=== PATIENT | female | born 1975 | race Caucasian/White ===

== ENCOUNTER → 2017-09-28 15:49 | Outpatient (CLI) | payer BC, SELFPAY | PROVIDERS: Visit Provider Otolaryngology Otolaryngology/Facial Plastic Surgery | DX: J02.9 Acute pharyngitis, unspecified (principal) | CPT/HCPCS: 87070 ==

== ENCOUNTER → 2017-10-19 16:20 | Outpatient (CLI) | payer BC, SELFPAY | PROVIDERS: Family Provider Family Medicine; PCP Family Medicine; Visit Provider Otolaryngology Otolaryngology/Facial Plastic Surgery | DX: J02.9 Acute pharyngitis, unspecified (principal) | CPT/HCPCS: 87070 ==

== ENCOUNTER → 2019-06-01 15:20 | Outpatient (CLI) | payer BC, SELFPAY ==
[2019-06-01 17:05] LABS: ALB/GLOB Ratio 0.9 RATIO (0.9-2.4); AST(SGOT) 40 U/L (15-37); Alanine Aminotransfer ALT/SGPT 59 U/L (13-56); Albumin, Serum 3.5 g/dL (3.2-5.0); Alkaline Phosphatase 122 U/L (45-117); Anion Gap 4 (5-15); BUN 13 mg/dL (7-18); BUN/Creat Ratio 17.6 RATIO (10-20); Calcium,Total 8.8 mg/dL (8.5-10.1); Chloride 105 mmol/L (98-107); Cholesterol 204 mg/dL (200); Creatinine, Serum 0.74 mg/dL (0.55-1.02); EST Glomerular Filtration Rate 90 mL/min (>60); Est Glom Filt Rate - Afr Amer 109 mL/min (>60); Glucose 335 mg/dL (74-106); High Density Lipoprotein 45 mg/dL; Potassium 3.9 mmol/L (3.5-5.1); Protein, Total 7.5 g/dL (6.4-8.2); Sodium Level 135 mmol/L (136-145); Thyroid Stim Hormone (TSH) 1.09 uIU/mL (0.358-3.74); Triglycerides 132 mg/dL; Very Low Density Lipoprotein 26 mg/dL (5-40)
[2019-06-01 17:44] LABS: Microalbumin:Creatinine Ratio 38.3 mg/g CRE (<30 mg/g CRE)
== END ==
PROVIDERS: Family Provider Family Medicine; PCP Family Medicine; Referring Provider Internal Medicine Endocrinology, Diabetes & Metabolism; Visit Provider Internal Medicine Endocrinology, Diabetes & Metabolism
DX: E11.65 Type 2 diabetes mellitus with hyperglycemia (principal)
CPT/HCPCS: 36415; 80053; 80061; 82043; 82570; 84443

== ENCOUNTER → 2019-07-20 16:19 | Outpatient (CLI) | payer BC, SELFPAY ==
[2019-07-06 11:35] VITALS: BMI 45.1
--- NOTE | 2019-07-20 16:25 | RAD_ITS ---
HISTORY: rheumatoid arthritis of multiple sites with negative rheumatoid factor ADDITIONAL HISTORY: None provided. TECHNIQUE: Left hand 2 views Number of images including paperwork: 2 COMPARISON: None FINDINGS: BONES: No acute fracture. No definite erosive changes. JOINTS: No subluxation. SOFT TISSUES: No distinct foreign body. RAD/Hand 2 Views IMPRESSION: No acute findings. No definite erosive changes. at 0312 Reported and signed by: Krupa Lubin MD Electronically Signed: Krupa Lubin MD at 3:12 EST Tel , Service support ,
--- NOTE | 2019-07-20 16:25 | RAD_ITS ---
HISTORY: rheumatoid arthritis of multiple sites with negative rheumatoid factor ADDITIONAL HISTORY: None provided. TECHNIQUE: Right foot 2 views Number of images including paperwork: 2 COMPARISON: None FINDINGS: BONES: No acute fracture. No definite erosive changes. Small calcaneal enthesophytes. JOINTS: No subluxation. Mild degenerative changes of the first MTP joint and midfoot. SOFT TISSUES: No distinct foreign body. RAD/Foot 2 Views IMPRESSION: No acute osseous abnormality. Mild degenerative changes. No radiographic evidence of erosions. at 0211 Reported and signed by: Krupa Lubin MD Electronically Signed: Krupa Lubin MD at 2:11 EST Tel , Service support ,
--- NOTE | 2019-07-20 16:25 | RAD_ITS ---
HISTORY: rheumatoid arthritis of multiple sites with negative rheumatoid factor ADDITIONAL HISTORY: None provided. TECHNIQUE: Right hand 2 views Number of images including paperwork: 2 COMPARISON: None FINDINGS: BONES: No acute fracture. Slight irregularity of the base of the fifth metacarpal bone may be related to healed erosions. No other definite erosive changes. JOINTS: No subluxation. SOFT TISSUES: No distinct foreign body. RAD/Hand 2 Views IMPRESSION: No acute findings. Possible healed erosive changes of the fifth metacarpal base. at 0311 Reported and signed by: Krupa Lubin MD Electronically Signed: Krupa Lubin MD at 3:11 EST Tel , Service support ,
--- NOTE | 2019-07-20 16:25 | RAD_ITS ---
STUDY: X-RAY - PELVIS AND BILATERAL HIPS REASON FOR EXAM: Female, 44 years old. Rheumatoid arthritis of multiple sites with negative rheumatoid factor TECHNIQUE: AP view of the pelvis.? 2 views of the right hip, and 2 views of the left hip were obtained. COMPARISON: 2011 FINDINGS: There is a non-specific bowel gas pattern. Normal visualized soft tissue structures. Normal bilateral iliac wings, sacroiliac joints and visualized sacrum. Normal bilateral superior and inferior pubic rami. Normal pubic symphysis. Normal bilateral ischial tuberosities. Normal visualized right femoral head. Normal right acetabulum. Normal right hip joint. Normal visualized left femoral head. Normal left acetabulum. Normal left hip joint. RAD/Hips B/L min 2 views w/ Pelvis IMPRESSION: Normal x-ray examination of the pelvis and bilateral hips. Electronically Signed: Stephen Slater MD at 10:35 EST , Service support ,
--- NOTE | 2019-07-20 16:30 | RAD_ITS ---
HISTORY: rheumatoid arthritis of multiple sites with negative rheumatoid factor ADDITIONAL HISTORY: None provided. TECHNIQUE: Left foot 2 views Number of images including paperwork: 2 COMPARISON: None FINDINGS: BONES: No acute fracture. No definite erosive changes. Hallux valgus and metatarsus adductus. JOINTS: No subluxation. Mild to moderate degenerative changes of the first MTP joint. SOFT TISSUES: No distinct foreign body. RAD/Foot 2 Views IMPRESSION: Degenerative changes without acute osseous abnormality. No radiographic evidence of erosions. at 0242 Reported and signed by: Krupa Lubin MD Electronically Signed: Krupa Lubin MD at 2:42 EST Tel , Service support ,
== END ==
PROVIDERS: PCP Family Medicine
DX: M06.09 Rheumatoid arthritis without rheumatoid factor, multiple sites (principal)
CPT/HCPCS: 73120; 73521; 73620

== ENCOUNTER → 2019-10-19 11:17 | Outpatient (CLI) | payer BC, SELFPAY ==
[2019-09-24 10:53] VITALS: BMI 45.1
--- NOTE | 2019-10-19 12:00 | RAD_ITS ---
STUDY: X-RAY - RIGHT SHOULDER REASON FOR EXAM: Female, 44 years old. Acute pain. nki TECHNIQUE: 4 view(s) of the shoulder. COMPARISON: None. FINDINGS: Normal glenohumeral articulation. Normal acromioclavicular joint. Normal acromion. Normal humeral head and visualized proximal humerus. The soft tissue structures are unremarkable. Normal visualized pulmonary apex. RAD/Shoulder min 2 Views IMPRESSION: Normal x-ray examination of the shoulder. Electronically Signed: Guillermo Polo, at 14:25 EDT , Service support ,
[2019-10-19 12:29] LABS: Absolute Lymphocyte Count 1.86 X10^3/uL (0.83-4.51); Absolute Neutrophil Count 4.3 X10^3/uL (2.0-7.7); Basophil# 0.02 X10^3/uL; Basophil% 0.3 % (0-1); Eosinophils% 2.9 % (0-5); Hematocrit 40.3 % (37-47); Hemoglobin 13.5 g/dL (12.0-15.0); Lymphocyte # 1.86 X10^3/ul (4.0); Lymphocyte % 27.3 % (19-41); Mean Corp Hgb Conc 33.5 g/dL (32-36); Mean Corpuscular Volume 92.4 fL (81-99); Mean Platelet Vol. 10.1 fl (6.2-12.0); Monocyte# 0.41 X10^3/uL; NRBC Flagged by Analyzer 0 % (0-5); Neutrophil # 4.32 X10^3/uL (2.7-7.7); Neutrophil % 63.4 % (47-70); Platelet Count 162 K/mm3 (150-450); RBC Distribution Width CV 12.7 % (11.6-14.6); Red Blood Count 4.36 M/mm3 (4.2-5.4); White Blood Count 6.8 K/mm3 (4.4-11.0)
[2019-10-19 13:06] LABS: ALB/GLOB Ratio 0.9 RATIO (0.9-2.4); AST(SGOT) 29 U/L (15-37); Alanine Aminotransfer ALT/SGPT 33 U/L (13-56); Albumin, Serum 3.4 g/dL (3.2-5.0); Alkaline Phosphatase 84 U/L (45-117); Anion Gap 7 (5-15); BUN 13 mg/dL (7-18); BUN/Creat Ratio 22.5 RATIO (10-20); Calcium,Total 8.6 mg/dL (8.5-10.1); Chloride 110 mmol/L (98-107); Creatinine, Serum 0.58 mg/dL (0.55-1.02); EST Glomerular Filtration Rate 120 mL/min (>60); Est Glom Filt Rate - Afr Amer 145 mL/min (>60); Globulin 3.8 g/dL (2.2-4.2); Glucose 124 mg/dL (74-106); Potassium 3.5 mmol/L (3.5-5.1); Protein, Total 7.2 g/dL (6.4-8.2); Sodium Level 143 mmol/L (136-145)
== END ==
PROVIDERS: PCP Family Medicine
DX: M25.511 Pain in right shoulder (principal); Z79.899 Other long term (current) drug therapy
CPT/HCPCS: 36415; 73030; 80053; 85025

== ENCOUNTER → 2020-03-28 12:44 | Outpatient (CLI) | payer BC, SELFPAY ==
[2020-03-24 10:43] VITALS: BMI 41.8
[2020-03-28 13:05] LABS: Absolute Lymphocyte Count 1.65 X10^3/uL (0.83-4.51); Absolute Neutrophil Count 5.7 X10^3/uL (2.0-7.7); Basophil# 0.04 X10^3/uL; Basophil% 0.5 % (0-1); Eosinophil# 0.15 X10^3/uL; Eosinophils% 1.9 % (0-5); Hematocrit 41.3 % (37-47); Hemoglobin 14.1 g/dL (12.0-15.0); Lymphocyte # 1.65 X10^3/ul (4.0); Lymphocyte % 20.9 % (19-41); Mean Corp Hgb Conc 34.1 g/dL (32-36); Mean Corpuscular Hgb 32.6 pg (27.0-32.0); Mean Corpuscular Volume 95.6 fL (81-99); Mean Platelet Vol. 9.8 fl (6.2-12.0); Monocyte# 0.37 X10^3/uL; Monocyte% 4.7 % (0-10); NRBC Flagged by Analyzer 0 % (0-5); Neutrophil # 5.67 X10^3/uL (2.7-7.7); Neutrophil % 71.7 % (47-70); Platelet Count 175 K/mm3 (150-450); RBC Distribution Width CV 12.9 % (11.6-14.6); RBC Distribution Width SD 44.8 fl (35.1-43.9); Red Blood Count 4.32 M/mm3 (4.2-5.4); White Blood Count 7.9 K/mm3 (4.4-11.0)
[2020-03-28 13:14] LABS: Erythrocyte Sedimentation Rate 13 mm/hr (0-20)
[2020-03-28 13:25] LABS: ALB/GLOB Ratio 0.9 RATIO (0.9-2.4); AST(SGOT) 20 U/L (15-37); Alanine Aminotransfer ALT/SGPT 39 U/L (13-56); Albumin, Serum 3.6 g/dL (3.2-5.0); Alkaline Phosphatase 100 U/L (45-117); Anion Gap 4 (5-15); BUN 13 mg/dL (7-18); BUN/Creat Ratio 17.8 RATIO (10-20); CRP 3.85 mg/L (0.0-3.0); Chloride 109 mmol/L (98-107); Creatinine, Serum 0.73 mg/dL (0.55-1.02); EST Glomerular Filtration Rate 91 mL/min (>60); Est Glom Filt Rate - Afr Amer 110 mL/min (>60); Globulin 3.8 g/dL (2.2-4.2); Glucose 175 mg/dL (74-106); Potassium 3.9 mmol/L (3.5-5.1); Protein, Total 7.4 g/dL (6.4-8.2); Sodium Level 141 mmol/L (136-145)
== END ==
PROVIDERS: PCP Family Medicine
DX: Z79.899 Other long term (current) drug therapy (principal)
CPT/HCPCS: 36415; 80053; 85025; 85652; 86140

== ENCOUNTER → 2020-08-25 10:21 | Outpatient (CLI) | payer BC, SELFPAY ==
[2020-08-25 10:06] VITALS: BMI 38.2
[2020-08-25 10:24] LABS: Mucous, Urine 0 SEEN /hpf (<or=2+); Red Blood Cells-Urine 0 SEEN /hpf (0-5)
[2020-08-25 12:14] LABS: Color, Urine Yellow (Yellow); Glucose, Dipstick 1000 mg/dl (Normal); Ketone-Dipstick Negative (Negative); Leukocyte Esterase-Dipstick 100 /ul (Negative); Nitrite-Dipstick Positive (Negative); Occult Blood-Urine 10 /ul (Negative); Protein-Dipstick 15 mg/dl (Negative); Urine Bilirubin Dipstick Negative (Negative); Urine Clarity Clear (Clear); Urine Urobilinogen Normal (Normal)
[2020-08-25 12:33] LABS: Vitamin D,25 Hydroxy 12.3 ng/mL
[2020-08-25 12:34] LABS: Microalbumin,Random Urine 57.8 mg/L (NO RANGE EST.); Microalbumin:Creatinine Ratio 29.5 mg/g CRE (<30 mg/g CRE)
[2020-08-25 12:41] LABS: Bacteria 2+ /hpf (None Seen); White Blood Cells 25-50 SEEN /hpf (0-5)
[2020-08-25 12:42] LABS: Squamous Epithelial Cells - UA 0-5 SEEN /hpf (5-10)
[2020-08-25 12:51] LABS: AST(SGOT) 26 U/L (15-37); Alanine Aminotransfer ALT/SGPT 39 U/L (13-56); Albumin, Serum 3.5 g/dL (3.2-5.0); Alkaline Phosphatase 72 U/L (45-117); Anion Gap 3 (5-15); BUN 14 mg/dL (7-18); BUN/Creat Ratio 21.7 RATIO (10-20); Calcium,Total 8.8 mg/dL (8.5-10.1); Chloride 107 mmol/L (98-107); Cholesterol 178 mg/dL (200); Creatinine, Serum 0.64 mg/dL (0.55-1.02); EST Glomerular Filtration Rate 105 mL/min (>60); Est Glom Filt Rate - Afr Amer 127 mL/min (>60); Globulin 3.6 g/dL (2.2-4.2); Glucose 153 mg/dL (74-106); High Density Lipoprotein 57 mg/dL; Potassium 3.5 mmol/L (3.5-5.1); Protein, Total 7.1 g/dL (6.4-8.2); Sodium Level 140 mmol/L (136-145); Thyroid Stim Hormone (TSH) 0.74 uIU/mL (0.358-3.74); Triglycerides 69 mg/dL; Very Low Density Lipoprotein 14 mg/dL (5-40)
== END ==
PROVIDERS: PCP Family Medicine; Referring Provider Internal Medicine Endocrinology, Diabetes & Metabolism; Visit Provider Internal Medicine Endocrinology, Diabetes & Metabolism
DX: E11.9 Type 2 diabetes mellitus without complications (principal); E78.2 Mixed hyperlipidemia; E55.9 Vitamin D deficiency, unspecified; R30.0 Dysuria
CPT/HCPCS: 36415; 80053; 80061; 81001; 82043; 82306; 82570; 84443

== ENCOUNTER → 2020-11-25 06:56 | Outpatient (CLI) | payer BC, SELFPAY ==
[2020-08-25 10:06] VITALS: BMI 38.2
[2020-11-25] MEDS: Methacholine Chloride 18 ml neb kit INHALATION (07:19)
--- NOTE | 2020-11-25 08:54 | BRONCHALL_ITS ---
Bronchoprovocation Challenge Bronchoprovocation Challenge Bronchoprovocation Challenge: BRONCHOPROVOCATION STUDY INTERPRETATION Brief HPI: Patient is a 45 year old female, currently under the care of Dr. Magana, who presents to [facility] for a bronchoprovocation study secondary to diagnosis of cough. Respiratory therapist reports good effort and reproducible results. Interpretation: Initial spirometry showed no large airways obstructive ventilatory defect. The patient was then given increasingly concentrated doses of methacholine in a stepwise/standardized fashion, using a modified ATS protocol. The patient?s maximum reduction in FEV1 was 14 percent predicted. Impression: Negative Bronchoprovocation study. This is NOT consistent with the diagnosis of asthma.
== END ==
PROVIDERS: PCP Family Medicine; Referring Provider Internal Medicine Pulmonary Disease; Visit Provider Internal Medicine Pulmonary Disease
DX: R05 Cough (principal)
CPT/HCPCS: 94070; 95070

== ENCOUNTER → 2021-05-11 | Outpatient (CLI) | payer BC, SELFPAY | END | disposition home or self-care (01) | LOC: LABSPEC 05-12 10:36 | PROVIDERS: PCP Family Medicine; Referring Provider Family Medicine; Visit Provider Family Medicine | DX: Z20.828 Contact with and (suspected) exposure to other viral communicable diseases (principal) | CPT/HCPCS: 87633; 87635; U0005; U0003 ==

== ENCOUNTER → 2021-05-27 09:45 | Outpatient (CLI) | payer OTHER, SELFPAY ==
--- NOTE | 2021-05-27 09:55 | RAD_ITS ---
STUDY: X-RAY CHEST REASON FOR EXAM: Female, 46 years old. CHRONIC COUGH TECHNIQUE: PA and lateral views of the chest. COMPARISON: 2013 FINDINGS: There are interstitial changes of the lungs. There is no demonstrated pleural abnormality. Normal size heart. Normal mediastinum and junior. Normal visualized pulmonary arteries. Normal visualized aortic arch and descending thoracic aorta. Normal visualized thoracic spine. Normal visualized ribs, clavicles, and shoulders. There is no demonstrated abnormality of the visualized soft tissue structures of the upper abdomen. RAD/Chest PA and Lateral IMPRESSION: Chronic interstitial changes, no superimposed acute pulmonary process Electronically Signed: Stephne Slater MD at 14:54 EST , Service support ,
== END ==
PROVIDERS: PCP Family Medicine
DX: R05.3 Chronic cough (principal)
CPT/HCPCS: 71046

== ENCOUNTER → 2021-06-30 07:57 | Outpatient (CLI) | payer OTHER, SELFPAY ==
--- NOTE | 2021-06-30 08:00 | CT_ITS ---
STUDY: CT CHEST WITHOUT CONTRAST REASON FOR EXAM: Female, 46 years old. COUGH RADIATION DOSAGE (If Supplied By Facility): CTDIvol = ( 20.14 ) mGy, DLP = ( 786.26 ) mGycm TECHNIQUE: Transaxial imaging was performed without the administration of intravenous contrast material. Multiplanar coronal and sagittal images were reformatted. Individualized dose optimization techniques were used for this CT. COMPARISON: None. FINDINGS: The lungs are normal. There is no demonstrated pleural abnormality. There are calcifications of the coronary arteries. Normal mediastinum. Normal hilar regions. Normal unenhanced pulmonary arteries. There is scattered atherosclerotic calcification of the aortic arch. There are degenerative changes of the thoracic spine. Small hiatal hernia. CT/Chest without Contrast IMPRESSION: No pulmonary infiltrate is seen. Coronary artery calcification. Electronically Signed: Guillermo Polo MD at 10:43 EST ,
== END ==
PROVIDERS: PCP Family Medicine
DX: R05.3 Chronic cough (principal)
CPT/HCPCS: 71250

== ENCOUNTER → 2024-04-02 | Outpatient (CLI) | payer OTHER, SELFPAY ==
[2024-04-02 12:32] LABS: Absolute Lymphocyte Count 1.59 X10^3/uL (0.83-4.51); Absolute Neutrophil Count 3.6 X10^3/uL (2.0-7.7); Basophil# 0.03 X10^3/uL; Basophil% 0.5 % (0-1); Eosinophil# 0.19 X10^3/uL; Eosinophils% 3.3 % (0-5); Hematocrit 37.8 % (37-47); Hemoglobin 13.1 g/dL (12.0-15.0); Lymphocyte # 1.59 X10^3/ul (0.83-4.51); Lymphocyte % 27.6 % (19-41); Mean Corp Hgb Conc 34.7 g/dL (32-36); Mean Corpuscular Hgb 31.7 pg (27.0-32.0); Mean Corpuscular Volume 91.5 fL (81-99); Mean Platelet Vol. 9.7 fl (6.2-12.0); Monocyte# 0.33 X10^3/uL; Monocyte% 5.7 % (0-10); NRBC Flagged by Analyzer 0 % (0-5); Neutrophil # 3.62 X10^3/uL (2.7-7.7); Neutrophil % 62.7 % (47-70); Platelet Count 126 K/mm3 (150-450); RBC Distribution Width CV 12.7 % (11.6-14.6); RBC Distribution Width SD 42.2 fl (35.1-43.9); Red Blood Count 4.13 M/mm3 (4.2-5.4); White Blood Count 5.8 K/mm3 (4.4-11.0)
[2024-04-02 13:01] LABS: Vitamin B12 751 pg/mL (211-911); Vitamin D,25 Hydroxy 11.5 ng/mL
[2024-04-02 13:08] LABS: ALB/GLOB Ratio 0.8 RATIO (0.9-2.4); AST(SGOT) 30 U/L (15-37); Alanine Aminotransfer ALT/SGPT 28 U/L (13-56); Albumin, Serum 3.3 g/dL (3.2-5.0); Alkaline Phosphatase 89 U/L (45-117); Anion Gap 5 (5-15); BUN 17 mg/dL (7-18); BUN/Creat Ratio 20.7 RATIO (10-20); Chloride 108 mmol/L (98-107); Cholesterol 175 mg/dL (200); Creatinine, Serum 0.82 mg/dL (0.55-1.02); EST Glomerular Filtration Rate 78 mL/min (>60); Est Glom Filt Rate - Afr Amer 95 mL/min (>60); Ferritin 199 ng/mL (8-252); Globulin 4.1 g/dL (2.2-4.2); Glucose 113 mg/dL (74-106); High Density Lipoprotein 46 mg/dL; Microalbumin,Random Urine 25.4 mg/L (NO RANGE EST.); Microalbumin:Creatinine Ratio 25.8 mg/g CRE (<30 mg/g CRE); Potassium 3.3 mmol/L (3.5-5.1); Protein, Total 7.4 g/dL (6.4-8.2); Sodium Level 142 mmol/L (136-145); Triglycerides 95 mg/dL; Very Low Density Lipoprotein 19 mg/dL (5-40)
[2024-04-03 08:13] LABS: Thyroid Peroxidase AB < 9 IU/mL (0-34)
== END | disposition home or self-care (01) ==
LOC: LAB 12:18
PROVIDERS: PCP Family Medicine; Referring Provider Nurse Practitioner Family; Visit Provider Nurse Practitioner Family
DX: E11.42 Type 2 diabetes mellitus with diabetic polyneuropathy (principal); R53.83 Other fatigue
CPT/HCPCS: 36415; 80053; 80061; 82043; 82306; 82570; 82607; 82728; 84443; 85025; 86376

== ENCOUNTER 2025-01-08 07:56 | Observation (INO) | payer OTHER, SELFPAY ==
[2025-01-04 13:52] LABS: Partial Thromboplast Time 27.8 Seconds (24.1-36.2); Prothrombin Time (Protime)PT. 14.4 SECONDS (11.7-14.9)
[2025-01-04 14:27] LABS: Anion Gap 9 (5-15); BUN 21 mg/dL (4-19); BUN/Creat Ratio 20.3 RATIO (10-20); Calcium,Total 9.3 mg/dL (7.6-11.0); Carbon Dioxide 23.3 mmol/L (21.0-32.0); Chloride 108 mmol/L (98-108); Glucose 84 mg/dL (70-99); Potassium 4.1 mmol/L (3.3-5.1)
[2025-01-08] VITALS (15 sets, daily range): BP systolic 106–169; BP diastolic 58–84; PULSE 73–91; RESP 12–18; TEMP 35.7–36.8; O2SAT 89–100; BMI 34.2
--- OUTSIDE RECORDS SUMMARY | 2025-01-08 05:48 | XMS RPT_ITS | CCD ---
Author Organization [facility] Care Team Providers Care Farm Implement Mechanic Name Role Phone Mis CARVALHO, Zoila Willams Unavailable Lisbet Back LPN Unavailable Unavailable Unavailable Primary Care Provider UnavailDameon Delgado Primary Care Provider Zoila Abebe NP Unavailable [phone] Dameon Harris MD Primary Care Provider Dameon Harris MD Primary Care Provider Audelia Garcia DO Primary Care Provider [phone] Dameon Harris MD Primary Care Provider Audelia Garcia DO Primary Care Provider CELINA TIFFANY, TIFFANY~[phone] CELINA Attend ing Unavailable CELINA TIFFANY, TIFAFNY~[phone] CELINA Primar y Care Unavailable CELINA TIFFANY, TIFFANY~[phone] CELINA Admitt ing Unavailable Dr. Audelia Garcia DO Primary Care Provider Dr. Audelia Garcia DO Referring Provider [phone] Elinor Salinas Attending Provider [phone] Dr. Dallas Lind MD Attending Provider AUDELIA GARCIA Attending Unavailable SHEETSAUDELIA Referring Unavailable SHEETS, AUDELIA Tirado Primary Care Unavailable SHEETS, AUDELIA C Referring Unavailable SHEETS, AUDELIA C Primary Care Unavailable SHEETS, AUDELIA Tirado Attending Unavailable SHEETS, AUDELIA C Primary Care Unavailable TONI LARSON Referring Unavailable SHEETS, AUDELIA Tirado Primary Care Unavailable SHEETS, AUDELIA Tirado Referring Unavailable SHEETS, AUDELIA C Primary Care Unavailable SHEETS, AUDELIA C Referring Unavailable SHEETS, AUDELIA C Primary Care Unavailable MASCI, TONI A Attending Unavailable SHEETS, AUDELIA C Primary Care Unavailable MASCI, TONI A Referring Unavailable SHEETS, AUDELIA C Primary Care Unavailable MASCI, TONI A Referring Unavailable MASCI, TONI A Attending Unavailable SHEETS, AUDELIA C Primary Care Unavailable SHEETS, AUDELIA C Primary Care Unavailable SISKA, DALLAS Referring Unavailable MASCI, TONI A Attending Unavailable SHEETS, AUDELIA C Primary Care Unavailable MASCI, TONI A Referring Unavailable SHEETS, AUDELIA C Primary Care Unavailable MASCI, TONI A Referring Unavailable PROVIDER, UNKNOWN Admitting Unavailable PROVIDER, UNKNOWN Attending Unavailable SHEETS, AUDELIA C Primary Care Unavailable Sheets DO, Dr. Win Primary Care Provider Velvet BOTELLO, Dr. Win Referring Provider Aden EMBOSSING CLERK-CElinor Attending Provider Elinor Samaniego Attending Unavailable Steven, Dameon Primary Care Unavailable Steven, Dameon Referring Unavailable Aden, Elinor Attending Unavailable Sheets, Audelia Referring Unavailable Sheets, Audelia Primary Care Unavailable Rossy Arrington Attending Unavailable Sheets, Audelia Referring Unavailable Sheets, Audelia Primary Care Unavailable Aden, Elinor Attending Unavailable Sheets, Audelia Primary Care Unavailable Sheets, Audelia Referring Unavailable Siska, Dallas Attending Unavailable Sheets, Audelia Referring Unavailable Sheets, Audelia Primary Care Unavailable Aden, Elinor Attending Unavailable Sheets, Audelia Referring Unavailable Sheets, Audelia Primary Care Unavailable Siska, Dallas Attending Unavailable Sheets, Audelia Referring Unavailable Sheets, Audelia Primary Care Unavailable Aden, Elinor Attending Unavailable Steven, Dameon Primary Care Unavailable Steven, Dameon Referring Unavailable Aden, Elinor Attending Unavailable Aden, Elinor Referring Unavailable Sheets, Audelia Primary Care Unavailable Siska, Dallas Attending Unavailable Sheets, Audelia Primary Care Unavailable Siska, Dallas Referring Unavailable Aden, Elinor Attending Unavailable Sheets, Audelia Primary Care Unavailable Allergies Allergy Classification Reported Allergen(s) Allergy Type Date of Onset Reaction(s) Facility (5 sources) Adhesive Tape drug allergy 3 [facility] Work Phone: (20 sources) metFORMIN; Translations: [METFORMIN] Drug Allergy 4 Diarrhea, GI Upset [facility] (5 sources) Beeswax Propensity to adverse reactions to drug 4 Itching, Rash, Swelling [facility] (5 sources) *Adhesive Tape Propensity to adverse reactions 4 Itching, Rash [facility] (20 sources) Adhesive Tape; Translations: [ADHESIVE TAPE (ROSINS)] Allergy to substance 4 Rash, Itching [facility] (20 sources) Bees; Translations: [BEES] Allergy to substance 4 Rash, Swelling, Itching [facility] Work Phone: (20 sources) semaglutide; Translations: [SEMAGLUTIDE] Drug Allergy 3 Intolerance [facility] Work Phone: (20 sources) Lisinopril; Translations: [LISINOPRIL] Drug Allergy 3 Intolerance [facility] Work Phone: (20 sources) Metoclopramide; Translations: [METOCLOPRAMIDE ] Drug Allergy 3 Intolerance [facility] Work Phone: (3 sources) Adhesive Tape; Translations: [adhesive tape] Allergy to substance 5 Rash [facility] (2 sources) Jnnljiw-Qfn-Fmz Reductase Inhibitor Allergy to substance 5 cough [facility] (1 source) metFORMIN Drug Allergy 5 [facility] (1 source) Dmqymmr-Smi-Yup Reductase Inhibitor Drug allergy (disorder) 5 [facility] (1 source) semaglutide Drug allergy (disorder) 5 [facility] Medications Current Medications Medication Drug Class(es) Dates Sig (Normalized) Sig (Original) albuterol 0.83 mg/ml inhalation solution (20 sources) beta2-Adrenergic Agonist Start: 11-18-2020 take 2.5 mg by inhalation every four hours as needed albuterol (PROVENTIL) 2.5 mg /3 mL (0.083 %) nebulizer solution Use 3 mL via nebulizer every 4 hours as needed for wheezing/shortnes s of breath. OVER 5-15 MINUTES. FOR WHEEZING AND SHORTNESS OF BREATH. 90 mL 3 11/18/2020 Active End: 06-30-2020 albuterol (PROVENTIL) 2.5 mg /3 mL (0.083 %) nebulizer solution albuterol ALBUTEROL SULFATE NEBU 2 puffs l as needed ALBUTEROL SULFATE NEBU [id number] Davin Lopez [facility] ([id number]) 06/30/2020 Discontinued ALBUTEROL SULFAT E NEBU 2 puffs l as needed ALBUTEROL SULFATE NEBU [id number] Davin Lopez Comment on above: Use 3 mL via nebuliz er every 4 hours as needed for wheezing/shortness of breath. OVER 5-15 MINUTES. FOR WHEEZING AND SHORTNESS OF BREATH. aspirin 81 mg delayed release oral tablet (10 sources) Nonsteroidal Anti-inflammatory Drug Aspirin (PAULIE LOW D OSE) [address] tablet aspirin PAULIE LOW DOSE 81 MG TBEC One tablet by mouth daily ASPIRIN [id number] Davin Lopez [facility] ([address]) 0 Active take 1 tablet by mouth once berta y PAULIE LOW DOSE 81 MG TBEC One tablet by mouth daily ASPIRIN [id number] Davin Lopez Blood Glucose Control, Normal soln (20 sources) Start: 10-15-2022 Blood Glucose Control, Normal soln Indications: Uncontrolled type 2 diabetes mellitus with hyperglycemia (HCC) Use as directed 1 Each 1 10/15/2022 Active Comment on above: Use as directed 24 hr dilTIAZem hydrochloride 240 mg extended release oral capsule (1 source) Calcium Channel Cash Start: 07-18-2018 take 1 capsule by mouth once daily diltiazem 240 MG Cap SR 24HR Take 1 capsule by mouth daily. 30 capsule 07/18/2018 Active Start: 07-18-2018 take 1 capsule by mo [facility] once daily diltiazem 240 MG Cap SR 24HR Take 1 capsule by mouth daily. 30 capsule 07/18/2018 Active empagliflozin 25 mg oral tablet (20 sources) Sodium-Glucose Cotransporter 2 Inhibitor Start: 07-23-2024 End: 12-11-2024 take 1 tablet by mouth once daily in the morning Empagliflozin (Jardiance) 25 mg tablet Active 25 mg PO EVERY MORNING 90 December 11, 2024 7:55am Diabetes mellitus Type 2 diabetes mellitus with diabetic polyneuropathy Start: 03-02-2023 End: 05-15-2024 take 1 tablet by mouth once daily at breakfast empagliflozin (JARDIANCE) 10 mg tablet Take 1 tablet by mouth daily with breakfast. 90 tablet 1 04/05/2023 05/15/2024 Discontinued Start: 04-10-2020 End: 04-25-2020 take 1 tablet by mouth once daily Empagliflozin (Jardiance) 25 mg tablet Discontinued 25 mg PO DAILY 30 April 10, 2020 1:00am April 25, 2020 12:38pm Start: 07-09-2019 End: 07-09-2019 take 1 tablet by mouth once daily Empagliflozin (Jardiance) 25 mg tablet Discontinued 25 mg PO DAILY 30 July 09, 2019 1:00am July 09, 2019 4:13pm Comment on above: Take 1 tablet by abdulaziz th daily with breakfast. ergocalciferol 1.25 mg oral capsule (15 sources) Provitamin D2 Compound take 1 capsule by mouth every week ergocalciferol 50,000 unit capsule (VITAMIN D2, DRISDOL) Take 50,000 Units by mouth one time a week. Active 60 actuat fluticasone propionate 0.1 mg/actuat / salmeterol 0.05 mg/actuat dry powder inhaler (10 sources) Corticosteroid, beta2-Adrenergic Agonist fluticasone-salmeter ol (ADVAIR DISKUS) 100-50 MCG/DOSE Aerosol Powder, breath activated inhaler fluticasone / salmeterol ADVAIR DISKUS 100-50 MCG/DOSE AEPB once daily FLUTICASONE-SALMETEROL [id number] Davin Lopez [facility] ([id number]) 0 Active ADVAIR DISKUS 10 0-50 MCG/DOSE AEPB once daily FLUTICASONE-SALMETEROL [id number] Davin Lopez ADVAIR DISKUS 10 0-50 MCG/DOSE AEPB once daily FLUTICASONE-SALMETEROL [id number] Davin Lopez ADVAIR DISKUS 10 0-50 MCG/DOSE AEPB once daily FLUTICASONE-SALMETEROL [id number] Davin Lopez gabapentin 100 mg oral capsule (20 sources) Anti-epileptic Agent Start: 12-25-2024 take 1 capsule by mouth three times daily Gabapentin 100 mg capsule Active 100 mg PO THREE TIMES A DAY December 25, 2024 12:00am Start: 04-01-2020 End: 05-05-2023 take 1 capsule by mouth three times daily gabapentin (NEURONTIN) 100 mg capsule Indications: Rheumatoid arthritis involving multiple sites with positive rheumatoid factor (HCC) Take 1 capsule by mouth three times a day for 30 days. 90 capsule 04/05/2023 Active Comment on above: take as directed at bedtime for 1 week then take 1 capsule by abdulaziz... (REFER TO PRESCRIPTION NOTES). as directed Take 1 capsule by mo uth three times daily for 30 days. Take 1 capsule by mo uth three times a day for 30 days. 12 hr guaiFENesin 600 mg extended release oral tablet (1 source) Start: 2021 End: 2021 take 2 tablets by mouth twice daily guaiFENesin (MUCINEX) 600 mg 12 hr tablet Take 2 tablets by mouth twice daily for 5 days. 20 tablet 0 02/19/2022 02/24/2022 Active Comment on above: Take 2 tablets by mo [facility] twice daily for 5 days. hydroxychloroquine (20 sources) Antirheumatic Agent Start: 2024 take 1 tablet by mouth once daily hydrOXYchloroQUINE 100 mg tablet Take 1 tablet by mouth once daily. 10/23/2024 Active Start: 03-04-2020 End: 10-11-2022 take 2 tablets by mouth once daily at mealtime hydrOXYchloroQUINE (PLAQUENIL) 200 mg tablet take 2 tablets by mouth once daily with food or milk 03/04/2020 10/11/2022 Discontinued Start: 09-24-2019 End: 01-02-2024 take 1 tablet by mouth twice daily Hydroxychloroquine (Plaquenil) 200 mg tablet Discontinued 200 mg PO TWICE A DAY 1 0 September 24, 2019 12:00am January 02, 2024 11:52am Comment on above: take 2 tablets by mo [facility] once daily with food or milk 2 tablet with food o r milk 3 ml insulin glargine 100 unt/ml pen injector (20 sources) Insulin Analog Start: 01-30-2024 LANTUS SOLOSTAR U-100 INSULIN 100 unit/mL (3 mL) Inject 42 Units subcutaneously once daily. 01/30/2024 Active Start: 01-30-2024 End: 12-25-2024 Insulin Glargine (Lantus Berry ostar U-100 Insulin) 100 unit/mL (3 mL) insulin pen Active 50 U SC DAILY December 25, 2024 12:00am Start: 01-02-2024 End: 01-30-2024 Insulin Glargine (Lantus Berry ostar U-100 Insulin) 100 unit/mL (3 mL) insulin pen Discontinued 12 U SC EVERY EVENING 10.8 1 January 02, 2024 12:00am January 30, 2024 10:46am Diabetes mellitus Type 2 diabetes mellitus with diabetic polyneuropathy Start: 07-27-2023 End: 05-15-2024 inject 15 [IU] by subcutaneous injection once daily at bedtime insulin glargine U-300 conc (TOUJEO SOLOSTAR U-300 INSULIN) 300 unit/mL (1.5 mL) Inject 15 Units subcutaneously daily at bedtime. Please note this medication is 3 TIMES STRONG YOUR FORMER BEDTIME INSULIN 7.5 mL 07/27/2023 05/15/2024 Discontinued Start: 07-25-2023 End: 07-27-2023 insulin glargine (LANTUS BERRY OSTAR U-100 INSULIN) 100 unit/mL (3 mL) Indications: Type 2 diabetes mellitus with diabetic neuropathy, with long-term current use of insulin (HCC) Inject 40 Units subcutaneously daily at bedtime. 15 mL 0 07/25/2023 07/27/2023 Discontinued Start: 04-11-2023 End: 07-25-2023 inject 5 [IU] by subcutaneous injection once daily at bedtime insulin glargine (LANTUS SOLOSTAR U-100 INSULIN) 100 unit/mL (3 mL) Indications: Type 2 diabetes mellitus with diabetic neuropathy, with long-term current use of insulin (HCC) Inject 5 Units subcutaneously daily at bedtime. 15 mL 0 06/30/2023 07/25/2023 Discontinued Start: 04-05-2023 insulin glargi ne (LANTUS SOLOSTAR U-100 INSULIN) 100 unit/mL (3 mL) Indications: Type 2 diabetes mellitus with diabetic neuropathy, with long-term current use of insulin (HCC) 40 units every morning 15 mL 0 04/05/2023 Active Start: 02-01-2023 End: 04-05-2023 inject 5 [IU] by subcutaneous injection once daily at bedtime LANTUS SOLOSTAR U-100 INSULIN 100 unit/mL (3 mL) Indications: Type 2 diabetes mellitus with diabetic neuropathy, with long-term current use of insulin (HCC) Inject 5 Units subcutaneously daily at bedtime. 15 mL 0 03/04/2023 04/05/2023 Discontinued Start: 12-28-2022 insulin glargi ne (LANTUS SOLOSTAR U-100 INSULIN) 100 unit/mL (3 mL) Indications: Type 2 diabetes mellitus with diabetic neuropathy, with long-term current use of insulin (HCC) Inject 30 Units subcutaneously once daily. 0 12/28/2022 Active Start: 12-20-2022 End: 12-28-2022 insulin glargine (LANTUS BERRY OSTAR U-100 INSULIN) 100 unit/mL (3 mL) Indications: Type 2 diabetes mellitus with diabetic neuropathy, with long-term current use of insulin (HCC) Inject 20 Units subcutaneously once daily. 0 12/20/2022 12/28/2022 Discontinued Start: 11-18-2022 End: 12-20-2022 insulin glargine (LANTUS BERRY OSTAR U-100 INSULIN) 100 unit/mL (3 mL) Indications: Type 2 diabetes mellitus with diabetic neuropathy, with long-term current use of insulin (HCC) Inject 15 Units subcutaneously once daily. 0 11/18/2022 12/20/2022 Discontinued Start: 11-03-2022 End: 11-18-2022 inject 10 [IU] by subcutaneous injection once daily insulin glargine (LANTUS SOLOSTAR U-100 INSULIN) 100 unit/mL (3 mL) Indications: Type 2 diabetes mellitus with diabetic neuropathy, with long-term current use of insulin (HCC) Inject 10 Units subcutaneously once daily. 0 11/03/2022 11/18/2022 Discontinued Start: 10-27-2022 End: 11-03-2022 inject 5 [IU] by subcutaneous injection once daily at bedtime insulin glargine (LANTUS SOLOSTAR U-100 INSULIN) 100 unit/mL (3 mL) Inject 5 Units subcutaneously daily at bedtime. 5 Each 0 10/27/2022 11/03/2022 Discontinued Comment on above: Inject 5 Units subcutaneously daily at b edtime. Inject 10 Units subc utaneously once daily. Inject 15 Units subc utaneously once daily. Inject 20 Units subc utaneously once daily. Inject 30 Units subc utaneously once daily. 40 units every morni ng Inject 40 Units subc utaneously daily at bedtime. Inject 15 Units subc utaneously daily at bedtime. Please note this medication is 3 TIMES STRONG YOUR FORMER BEDTIME INSULIN MOUNJARO 12.5 mg/0.5 mL pen injector (15 sources) Start: inject 15 mg by subcutaneous injection every week MOUNJARO 12.5 mg/0.5 mL pen injector Inject 15 mg subcutaneously one time a week. 04/25/2024 Active Start: 04-25-2024 inject 12.5 mg by lawler bcutaneous injection every week MOUNJARO 12.5 mg/0.5 mL pen injector Inject 12.5 mg subcutaneously one time a week. 04/25/2024 Active ondansetron 4 mg oral tablet (20 sources) Serotonin-3 Receptor Antagonist Start: 01-11-2023 take 1 tablet by mouth every eight hours as needed for nausea ondansetron (ZOFRAN) 4 mg tablet Indications: Gastroparesis Take 1 tablet by mouth every 8 hours as needed for nausea/vomiting. 30 tablet 2 01/11/2023 Active Start: 12-28-2022 take 1 tablet by abdulaziz th every eight hours as needed ondansetron (ZOFRAN) 4 mg tablet Take 1 tablet by mouth every 8 hours as needed for nausea/vomiting. 30 tablet 0 12/28/2022 Active Comment on above: Take 1 tablet by abdulaziz th every 8 hours as needed for nausea/vomiting. predniSONE 10 mg oral tablet (1 source) Start: End: predniSONE (DELTASONE) 10 mg tablet Take 6 tabs for 3 days, then 4 tabs for 3 days, then 2 tabs for 3 days then 1 tab for 3 days with food. 39 tablet 0 02/19/2022 03/03/2022 Active Comment on above: Take 6 tabs for 3 da ys, then 4 tabs for 3 days, then 2 tabs for 3 days then 1 tab for 3 days with food. spironolactone 50 mg oral tablet (20 sources) Aldosterone Antagonist Start: take 1 tablet by mouth twice daily Spironolactone 50 mg tablet Active 50 mg PO TWICE A DAY 180 October 22, 2024 12:00am Start: 07-23-2024 End: 10-22-2024 take 2 tablets by mouth once daily Spironolactone 25 mg tablet Discontinued 50 mg PO daily 180 July 23, 2024 2:50pm October 22, 2024 4:22pm Hypertension Essential (primary) hypertension Start: 04-02-2024 End: 07-23-2024 take 1 tablet by mouth once daily Spironolactone 25 mg tablet Discontinued 25 mg PO daily 30 April 02, 2024 1:00am July 23, 2024 2:50pm Hypertension Essential (primary) hypertension take 2 tablets by mo [facility] twice daily spironolactone (ALDACTONE) 25 mg tablet Take 50 mg by mouth two times a day. Active take 1 tablet by abdulaziz twice daily spironolactone (ALDACTONE) 25 mg tablet Take 25 mg by mouth two times a day. Active End: 01-18-2017 take 1 tablet by mouth twice daily SPIRONOLACTONE 50 MG TABS One tablet by mouth twice daily SPIRONOLACTONE [id number] Davin Les Lopez Tirzepatide (Mounjaro) 15 mg/0.5 mL pen injector (3 sources) Start: 12-10-2024 Tirzepatide (M ounjaro) 15 mg/0.5 mL pen injector Active 15 mg SC EVERY WEEK 2 December 10, 2024 12:05pm Diabetes mellitus Type 2 diabetes mellitus with diabetic polyneuropathy Start: 07-23-2024 End: 12-10-2024 Tirzepatide (Mounjaro) 15 mg /0.5 mL pen injector Discontinued 15 mg SC EVERY WEEK 2 July 23, 2024 1:00am December 10, 2024 12:05pm Diabetes mellitus Type 2 diabetes mellitus with diabetic polyneuropathy Start: 07-23-2024 Tirzepatide (M ounjaro) 15 mg/0.5 mL pen injector Active 15 mg SC EVERY WEEK July 23, 2024 1:00am Completed/Discontinued Medications Medication Drug Class(es) Dates Sig (Normalized) Sig (Original) amLODIPine 5 mg oral tablet (2 sources) Dihydropyridine Calcium Channel Cash Start: 12-13-2013 End: 09-24-2019 take 1 tablet by mouth once daily Amlodipine 5 MG tablet Discontinued 5 mg PO DAILY 14 0 December 13, 2013 12:00am September 24, 2019 10:30am ascorbic acid 4700 mg / polyethylene glycol 3350 [id number] mg / potassium chloride 1015 mg / sodium ascorbate 5900 mg / sodium chloride 2690 mg / sodium sulfate 7500 mg powder for oral solution (5 sources) Osmotic Laxative Start: 05-30-2012 End: 06-22-2012 MOVIPREP 100 GM SOLR use as per instructions [id number] LF-NA ASC-C [id number] Estelita Hare Start: 05-30-2012 End: 06-22-2012 MOVIPREP 100 GM SOLR use as per instructions [id number] ASC-C [id number] Estelita Hare Start: 05-30-2012 End: 06-22-2012 MOVIPREP 100 GM SOLR use as per instructions [id number] ASC-C [id number] Estelita Hare benzonatate 100 mg oral capsule (2 sources) Non-narcotic Antitussive Start: 02-19-2022 take 2 capsules by mouth every eight hours as needed benzonatate (TESSALON PERLES) 100 mg capsule Take 2 capsules by mouth three times daily as needed. 30 capsule 0 02/19/2022 Active Comment on above: Take 2 capsules by m out three times daily as needed. Blood-Glucose Meter (1 source) Start: 10-15-2022 End: 10-16-2022 Blood-Glucose Meter Indications: Uncontrolled type 2 diabetes mellitus with hyperglycemia (HCC) Test One time a day. Insulin Dep? No E11.9 DM 2 1 Each 0 10/15/2022 10/16/2022 Comment on above: Test One time a day. Insulin Dep? No E11.9 DM 2 Blood-Glucose Sensor (Freestyle Audi 3 Plus Sensor) device (2 sources) Start: 2024 End: 07-23-2024 Blood-Glucose Sensor (Freestyle Audi 3 Plus Sensor) device Discontinued 0 .Route 2 2024 12:00am July 23, 2024 2:11pm As directed Start: 2024 End: 07-23-2024 Blood-Glucose Sensor (Freest yle Audi 3 Plus Sensor) device Discontinued 0 .Route 2 2024 12:00am July 23, 2024 2:11pm As directed Blood-Glucose Sensor (Freest yle Audi 3 Sensor) device (2 sources) Start: 01-02-2024 End: 07-23-2024 Blood-Glucose Sensor (Freest yle Audi 3 Sensor) device Discontinued 0 .Route 2 January 02, 2024 12:00am July 23, 2024 2:11pm Diabetes mellitus Type 2 diabetes mellitus with diabetic polyneuropathy 1 sensor q 14 days Start: 01-02-2024 End: 07-23-2024 Blood-Glucose Sensor (Freest yle Audi 3 Sensor) device Discontinued 0 .Route 2 January 02, 2024 12:00am July 23, 2024 2:11pm 1 sensor q 14 days cholecalciferol 1.25 mg oral capsule (4 sources) Vitamin D Start: 07-23-2024 End: 10-10-2024 take 1 capsule by mouth every month Cholecalciferol (Vitamin D3) 1,250 mcg (50,000 unit) capsule Discontinued 1250 ug PO EVERY MONTH July 23, 2024 2:48pm October 10, 2024 12:55pm Vitamin d deficiency Vitamin D deficiency, unspecified Start: 04-02-2024 End: 07-23-2024 take 1 capsule by mouth every week Cholecalciferol (Vitamin D3) 1,250 mcg (50,000 unit) capsule Discontinued 1250 ug PO EVERY WEEK April 02, 2024 1:00am July 23, 2024 2:48pm Vitamin d deficiency Vitamin D deficiency, unspecified dapagliflozin 10 mg oral tablet (20 sources) Sodium-Glucose Cotransporter 2 Inhibitor Start: 04-25-2020 End: 01-02-2024 take 1 tablet by mouth once daily Dapagliflozin Propanediol (Farxiga) 10 mg tablet Discontinued 10 mg PO DAILY 19 11May 26, 2021 11:46am January 02, 2024 12:06pm Comment on above: Take 10 mg by mouth once daily. Take 1 tablet by abdulaziz daily with breakfast. DULoxetine 30 mg delayed release oral capsule (5 sources) Serotonin and Norepinephrine Reuptake Inhibitor Start: 04-10-2020 End: 10-11-2022 take 1 capsule by mouth once daily DULoxetine (CYMBALTA) 30 mg capsule take 1 capsule by mouth once daily for 30 DAYS 04/10/2020 10/11/2022 Discontinued Comment on above: take 1 capsule by [facility] once daily for 30 DAYS ertugliflozin 15 mg oral tablet (10 sources) Start: 07-06-2019 End: 04-10-2020 take 1 tablet by mouth once daily in the morning Ertugliflozin (Steglatro) 15 mg tablet Discontinued 15 mg PO EVERY MORNING 30 April 01, 2020 11:36am April 10, 2020 10:10am esomeprazole 40 mg delayed release oral capsule (5 sources) Proton Pump Inhibitor Start: 05-30-2020 End: 10-07-2022 take 1 capsule by mouth once daily esomeprazole (NEXIUM) 40 mg capsule Take 1 capsule by mouth once daily. 30 capsule 3 05/30/2020 10/07/2022 Discontinued Comment on above: Take 1 capsule by [facility] once daily. [id number]-B12- C-Zn 1 mg-1.5 mg- 1.7 mg-50 mg tab (4 sources) End: 10-11-2022 [id number] -C-Zn 1 mg-1.5 mg- 1.7 mg-50 mg tab 1 tablet 10/11/2022 Discontinued [id number]-[id number] 12-C-Zn 1 mg-1.5 mg- 1.7 mg-50 mg tab 1 tablet 0 Active Comment on above: 1 tablet Flash Glucose Sensor (Freestyle Audi 2 Sensor) kit (2 sources) Start: 05-26-2021 End: 01-02-2024 Flash Glucose Sensor (Freestyle Audi 2 Sensor) kit Discontinued 0 .ROUTE .MEDSUPPLY 2 May 26, 2021 1:00am January 02, 2024 12:14pm As directed Start: 05-26-2021 End: 01-02-2024 Flash Glucose Sensor (Freest yle Audi 2 Sensor) kit Discontinued 0 .ROUTE .MEDSUPPLY 2 May 26, 2021 1:00am January 02, 2024 12:14pm As directed fluconazole 200 mg oral tablet (8 sources) Azole Antifungal Start: 01-02-2024 End: 04-02-2024 take 1 tablet by mouth once daily Fluconazole (Diflucan) 200 mg tablet Discontinued 200 mg PO DAILY 2 January 30, 2024 1:41pm April 02, 2024 12:18pm Candidiasis of vagina Acute candidiasis of vulva and vagina 1 tab, repeat in 48 hours. folic acid 1 mg oral tablet (7 sources) Start: 09-24-2019 End: 01-02-2024 take 1 tablet by mouth once daily Folic Acid 1 mg tablet Discontinued 1 mg PO DAILY 1 September 24, 2019 12:00am January 02, 2024 11:52am Comment on above: Take 1 mg by mouth o nce daily. glimepiride 1 mg oral tablet (14 sources) Sulfonylurea Start: 01-28-2021 End: 01-02-2024 Glimepiride 1 mg tablet Discontinued 1 mg PO DAILY 90 May 26, 2021 11:47am January 02, 2024 12:06pm PA Case: [id number], Status: Approved, Coverage Starts on: 01/28/2021 12:00:00 AM, Coverage Ends on: 01/28/2022 12:00:00 AM. Start: 01-27-2021 End: 01-28-2021 take 1 tablet by mouth once daily Glimepiride 1 mg tablet Discontinued 1 mg PO DAILY 90 January 27, 2021 12:00am January 28, 2021 11:05am Start: 06-19-2019 End: 03-24-2020 take 1 tablet by mouth twice daily at breakfast Glimepiride 4 mg tablet Discontinued 4 mg PO TWICE A DAY 180 September 24, 2019 10:40am March 24, 2020 11:45am administer with breakfast Start: 06-01-2019 End: 06-19-2019 take 1 tablet by mouth once daily at breakfast Glimepiride 4 mg tablet Discontinued 4 mg PO EVERY MORNING 60 June 01, 2019 1:00am June 19, 2019 3:04pm administer with breakfast hydroCHLOROthiazide 25 mg oral tablet (20 sources) Thiazide Diuretic Start: 11-03-2022 End: 05-15-2024 take 1 tablet by mouth once daily hydroCHLOROthiazide 25 mg tablet Indications: Hypertension, essential Take 1 tablet by mouth once daily. 90 tablet 1 04/05/2023 05/15/2024 Discontinued Start: 10-15-2022 End: 10-27-2022 take 1 tablet by mouth once daily hydroCHLOROthiazide 25 mg tablet Indications: Hypertension, essential Take 1 tablet by mouth once daily. 30 tablet 0 10/15/2022 10/27/2022 Discontinued Comment on above: Take 1 tablet by abdulaziz th once daily. hydroCHLOROthiazide 12.5 mg / lisinopril 10 mg oral tablet (4 sources) Thiazide Diuretic, Angiotensin Converting Enzyme Inhibitor Start: 01-02-2024 End: 04-02-2024 Lisinopril-Hydrochlorot hiazide 10-12.5 mg tablet Discontinued 1 {tbl} PO DAILY 30 5 January 02, 2024 3:51pm April 02, 2024 4:07pm Diabetes mellitus Hypertension Type 2 diabetes mellitus with diabetic polyneuropathy Essential (primary) hypertension 3 ml insulin lispro 100 unt/ml pen injector (12 sources) Insulin Analogue Start: 01-30-2024 End: 11-05-2024 Insulin Lispro (Humalog Kwikpen Insulin) 100 unit/mL insulin pen Discontinued 15 U SC THREE TIMES A DAY 13.5 5 June 25, 2024 5:48pm November 05, 2024 8:51am Diabetes mellitus Type 2 diabetes mellitus with diabetic polyneuropathy insulin lispro ( HUMALOG KWIKPEN) 100 UNIT/ML Solution Pen-injector insulin lispro HUMALOG KWIKPEN 100 UNIT/ML SOPN 10U at breakfast, 10U at lunch, and 12 U at supper INSULIN LISPRO [id number] Zoila Abebe NP [facility] ([id number]) 0 Active HUMALOG KWIKPEN 100 UNIT/ML SOPN 10U at breakfast, 10U at lunch, and 12 U at supper INSULIN LISPRO [id number] Zoila Abebe NP HUMALOG KWIKPEN 100 UNIT/ML SOPN 10U at breakfast, 10U at lunch, and 12 U at supper INSULIN LISPRO [id number] Zoila Abebe NP HUMALOG KWIKPEN 100 UNIT/ML SOPN 10U at breakfast, 10U at lunch, and 12 U at supper INSULIN LISPRO [id number] Zoila Abebe NP lisinopril 10 mg oral tablet (20 sources) Angiotensin Converting Enzyme Inhibitor Start: 10-15-2022 End: 10-27-2022 take 1 tablet by mouth once daily lisinopril 2.5 mg tablet Indications: Hypertension, essential Take 1 tablet by mouth once daily. 30 tablet 0 10/15/2022 10/27/2022 Discontinued Start: 01-18-2017 End: 04-20-2025 lisinopril 5 MG Tab tablet E very 24 hours. 0 01/18/2017 04/20/2025 Active Start: 01-18-2017 End: 04-20-2025 take 1 tablet by mouth once daily Lisinopril 10 mg tablet Discontinued 10 mg PO daily 30 April 02, 2024 1:00am October 22, 2024 1:21pm Hypertension Essential (primary) hypertension LISINOPRIL 5 MG TABS qd LISINOPRIL [id number] Lisbet Back LPN Comment on above: Take 1 tablet by abdulaziz th once daily. losartan potassium 25 mg oral tablet (20 sources) Angiotensin 2 Receptor Cash Start: End: take 1 tablet by mouth once daily losartan (COZAAR) 25 mg tablet Indications: Hypertension, essential take 1 tablet by mouth once daily 30 tablet 07/25/2023 05/15/2024 Discontinued Start: 11-18-2022 End: 12-31-2022 take 1 tablet by mouth once daily losartan (COZAAR) 25 mg tablet Indications: Hypertension, essential TAKE 1 TABLET BY MOUTH ONCE DAILY 30 tablet 0 12/31/2022 Active Comment on above: Take 1 tablet by abdulaziz th once daily. TAKE 1 TABLET BY ABDULAZIZ TH ONCE DAILY meloxicam 15 mg oral tablet (20 sources) Nonsteroidal Anti-inflammatory Drug Start: 09-24-2019 meloxicam (MOBIC ORAL) Take by mouth. 0 09/24/2019 Active Start: 09-24-2019 End: 11-05-2024 take 1 tablet by mouth once daily Meloxicam 15 mg tablet Discontinued 15 mg PO DAILY 1 0 September 24, 2019 12:00am January 02, 2024 11:52am Meloxicam (MOBIC PO) meloxicam MOBIC TABS prn MELOXICAM TABS [id number] Lisbet Back LPN [facility] ([id number]) 0 Active MOBIC TABS prn M ELOXICAM TABS [id number] Lisbet Back LPN Comment on above: Take 15 mg by mouth once daily. Take by mouth. metFORMIN hydrochloride 500 mg oral tablet (11 sources) Biguanide Start: End: take 1 tablet by mouth twice daily at mealtime Metformin 500 MG tablet Discontinued 500 mg PO TWICE DAILY WITH MEALS December 13, 2013 12:00am July 06, 2019 12:39pm End: 01-18-2017 take 1 tablet by mouth twice daily METFORMIN HCL ER (OSM) 500 MG [id number] One tablet by mouth twice daily METFORMIN HCL [id number] Lisbet Back LPN 0.4 ml methotrexate 50 mg/ml auto-injector (7 sources) Folate Analog Metabolic Inhibitor Start: 06-10-2020 End: 10-11-2022 Rasuvo (PF) 20 mg/0.4 mL subcutaneous auto-injector 06/10/2020 10/11/2022 Discontinued Start: 03-08-2020 End: 06-30-2020 Rasuvo (PF) 15 mg/0.3 mL sub cutaneous auto-injector 03/08/2020 06/30/2020 Discontinued Start: 09-24-2019 End: 01-02-2024 Methotrexate (Pf) (Rasuvo (P f)) 10 mg/0.2 mL auto-injector Discontinued 10 mg SC EVERY WEEK 0.2 0 September 24, 2019 12:00am January 02, 2024 11:52am metoclopramide 5 mg oral tablet (10 sources) Dopamine-2 Receptor Antagonist Start: 10-11-2022 End: 10-27-2022 take 1 tablet by mouth at bedtime metoclopramide HCl (REGLAN) 5 mg tablet Take 1 tablet by mouth before meals and at bedtime. 120 tablet 4 10/11/2022 10/27/2022 Discontinued Start: 05-30-2020 End: 10-07-2022 take 1 tablet by mouth four times daily metoclopramide HCl (REGLAN) 10 mg tablet Take 1 tablet by mouth four times daily. 120 tablet 3 05/30/2020 10/07/2022 Discontinued Comment on above: Take 1 tablet by abdulaziz th four times daily. Take 1 tablet by abdulaziz th before meals and at bedtime. nitrofurantoin, macrocrystals 25 mg / nitrofurantoin, monohydrate 75 mg oral capsule (2 sources) Nitrofuran Antibacterial Start: End: take 1 capsule by mouth twice daily at mealtime Nitrofurantoin Monohyd/M-Cryst (Macrobid) 100 mg capsule Discontinued 100 mg PO TWICE A DAY 14 0 August 25, 2020 12:00am January 02, 2024 11:52am must administer with a meal/food polyethylene glycol 3350 45543 mg powder for oral solution (12 sources) Osmotic Laxative Start: 023 End: polyethylene glycol 3350 (MIRALAX) 17 gram/dose powder Take 17 g by mouth three times daily. Dissolve dose in 4 - 8 ounces of liquid and take as directed. 850 g 4 10/11/2022 11/18/2022 Discontinued (Other) Start: 06-30-2020 End: 10-07-2022 polyethylene glycol 3350 (AZ RALAX) 17 gram/dose powder Take 34 g by mouth twice daily. 850 g 3 06/30/2020 10/07/2022 Discontinued Comment on above: Take 34 g by mouth t wice daily. Take 17 g by mouth t hree times daily. Dissolve dose in 4 - 8 ounces of liquid and take as directed. polyethylene glycol 3350 337601 mg / potassium chloride 2970 mg / sodium bicarbonate 6740 mg / sodium chloride 5860 mg / sodium sulfate 58144 mg powder for oral solution (8 sources) Osmotic Laxative Start: 10-11-2022 End: 11-18-2022 GAVILYTE-G 236-22.74-6.74 -5.86 gram suspension 1 mg dose 1.5 ml semaglutide 1.34 mg/ml pen injector (9 sources) Start: 03-25-2020 End: 10-07-2022 OZEMPIC 1 mg/dose (2 mg/1.5 mL) pnij inject 1 milligram subcutaneously every 7 days 03/25/2020 10/07/2022 Discontinued Start: 03-24-2020 End: 03-24-2020 Semaglutide (Ozempic) 0.25 m g or 0.5 mg(2 mg/1.5 mL) pen injector Discontinued 1 mg SC EVERY WEEK 3 0 6 March 24, 2020 12:05pm March 24, 2020 5:51pm Start: 09-24-2019 End: 03-24-2020 Semaglutide (Ozempic) 0.25 m g or 0.5 mg(2 mg/1.5 mL) pen injector Discontinued 0.5 mg SC EVERY WEEK 1.5 0 6 September 24, 2019 12:00am March 24, 2020 12:06pm Comment on above: inject 1 milligram s ubcutaneously every 7 days Semaglutide (Ozempic) 1 mg/dose (2 mg/1.5 mL) pen injector (2 sources) Start: 03-24-2020 End: 08-25-2020 Semaglutide (Ozempic) 1 mg/dose (2 mg/1.5 mL) pen injector Discontinued 1 mg SC EVERY WEEK 3 6 March 24, 2020 1:00am August 25, 2020 10:12am Start: 03-24-2020 End: 08-25-2020 Semaglutide (Ozempic) 1 mg/d ose (2 mg/1.5 mL) pen injector Discontinued 1 mg SC EVERY WEEK 3 March 24, 2020 1:00am August 25, 2020 10:12am thyroid (fpc) 30 mg oral tablet (9 sources) End: 01-18-2017 take 1 tablet by mouth twice daily BURR THYROID 30 MG TABS One tablet by mouth twice daily THYROID [id number] Lisbet Back LPN Tirzepatide (Mounjaro) 10 mg/0.5 mL pen injector (2 sources) Start: 04-02-2024 End: 04-25-2024 Tirzepatide (Mounjaro) 10 mg/0.5 mL pen injector Discontinued 10 mg SC EVERY WEEK 2 April 02, 2024 1:00am April 25, 2024 2:22pm Diabetes mellitus Type 2 diabetes mellitus with diabetic polyneuropathy Start: 04-02-2024 End: 04-25-2024 Tirzepatide (Mounjaro) 10 mg /0.5 mL pen injector Discontinued 10 mg SC EVERY WEEK 2 April 02, 2024 1:00am April 25, 2024 2:22pm Tirzepatide (Mounjaro) 12.5 mg/0.5 mL pen injector (4 sources) Start: 06-06-2024 End: 07-23-2024 Tirzepatide (Mounjaro) 12.5 mg/0.5 mL pen injector Discontinued 12.5 mg SC EVERY WEEK June 06, 2024 1:00am July 23, 2024 2:47pm Start: 04-25-2024 End: 07-23-2024 Tirzepatide (Mounjaro) 12.5 mg/0.5 mL pen injector Discontinued 12.5 mg SC EVERY WEEK 2 April 25, 2024 1:00am July 23, 2024 2:11pm Diabetes mellitus Type 2 diabetes mellitus with diabetic polyneuropathy Start: 04-25-2024 End: 07-23-2024 Tirzepatide (Mounjaro) 12.5 mg/0.5 mL pen injector Discontinued 12.5 mg SC EVERY WEEK April 25, 2024 1:00am July 23, 2024 2:11pm tirzepatide (MOUNJARO) 2.5 mg/0.5 mL pen injector (13 sources) Start: 12-20-2022 End: 04-05-2023 inject 2.5 mg by subcutaneous injection every week tirzepatide (MOUNJARO) 2.5 mg/0.5 mL pen injector Inject 2.5 mg subcutaneously one time a week. 4 Each 2 12/20/2022 04/05/2023 Discontinued Start: 12-20-2022 inject 2.5 mg by sub cutaneous injection every week tirzepatide (MOUNJARO) 2.5 mg/0.5 mL pen injector Inject 2.5 mg subcutaneously one time a week. 4 Each 2 12/20/2022 Active Comment on above: Inject 2.5 mg subcut aneously one time a week. Tirzepatide (Mounjaro) 2.5 mg/0.5 mL pen injector (2 sources) Start: 01-02-2024 End: 01-30-2024 Tirzepatide (Mounjaro) 2.5 mg/0.5 mL pen injector Discontinued 2.5 mg SC EVERY WEEK 2 January 02, 2024 12:00am January 30, 2024 10:36am Diabetes mellitus Type 2 diabetes mellitus with diabetic polyneuropathy for 4 weeks Start: 01-02-2024 End: 01-30-2024 Tirzepatide (Mounjaro) 2.5 m g/0.5 mL pen injector Discontinued 2.5 mg SC EVERY WEEK January 02, 2024 12:00am January 30, 2024 10:36am for 4 weeks tirzepatide (MOUNJARO) 5 mg/0.5 mL pen injector (8 sources) Start: 04-05-2023 End: 05-15-2024 inject 5 mg by subcutaneous injection every week tirzepatide (MOUNJARO) 5 mg/0.5 mL pen injector Inject 5 mg subcutaneously one time a week. 2 mL 2 04/05/2023 05/15/2024 Discontinued Start: 04-05-2023 inject 5 mg by subcu taneous injection every week tirzepatide (MOUNJARO) 5 mg/0.5 mL pen injector Inject 5 mg subcutaneously one time a week. 2 mL 2 04/05/2023 Active Comment on above: Inject 5 mg subcutan eously one time a week. Tirzepatide (Mounjaro) 5 mg/0.5 mL pen injector (2 sources) Start: 01-30-2024 End: 02-29-2024 Tirzepatide (Mounjaro) 5 mg/0.5 mL pen injector Discontinued 5 mg SC EVERY WEEK 2 January 30, 2024 12:00am February 29, 2024 3:34pm Diabetes mellitus Type 2 diabetes mellitus with diabetic polyneuropathy Start: 01-30-2024 End: 02-29-2024 Tirzepatide (Mounjaro) 5 mg/ 0.5 mL pen injector Discontinued 5 mg SC EVERY WEEK January 30, 2024 12:00am February 29, 2024 3:34pm Tirzepatide (Mounjaro) 7.5 mg/0.5 mL pen injector (2 sources) Start: 02-29-2024 End: 04-02-2024 Tirzepatide (Mounjaro) 7.5 m g/0.5 mL pen injector Discontinued 7.5 mg SC EVERY WEEK 2 February 29, 2024 12:00am April 02, 2024 12:35pm Diabetes mellitus Type 2 diabetes mellitus with diabetic polyneuropathy Start: 02-29-2024 End: 04-02-2024 Tirzepatide (Mounjaro) 7.5 m g/0.5 mL pen injector Discontinued 7.5 mg SC EVERY WEEK 2 February 29, 2024 12:00am April 02, 2024 12:35pm traMADol hydrochloride 50 mg oral tablet (5 sources) Opioid Agonist End: 10-07-2022 take 1 tablet by mouth every six hours as needed traMADol (ULTRAM) 50 mg tablet Take 50 mg by mouth every 6 hours as needed. 10/07/2022 Discontinued Comment on above: Take 50 mg by mouth every 6 hours as needed. Problems Active Problems Problem Classification Problem Date Documented Da te Episodic/Chronic Asthma (20 sources) Asthma; Translations: [Unspecified asthma, uncomplicated] Onset: 9 06-29-2018 Chronic Coagulation and hemorrhagic disorders (9 sources) Thrombocytopenic disorder; Translations: [Thrombocytopenia, unspecified] Onset: 5 10-30-2024 Chronic Deficiency and other anemia (1 source) Anemia; Translations: [Anemia, unspecified] 12-10-2024 Episodic Deficiency and other anemia (1 source) Anemia, unspecified; Translations: [Anemia, unspecified type] Onset: 5 Episodic Diabetes mellitus with complications (20 sources) Type II diabetes mellitus uncontrolled; Translations: [DM (diabetes mellitus), type 2, uncontrolled] Onset: 4 02-20-2017 Chronic Diabetes mellitus without complication (20 sources) Type 2 diabetes mellitus; Translations: [Secondary diabetes mellitus] Onset: 4 Resolved: 4 06-29-2018 Chronic Disorders of lipid metabolism (20 sources) Hyperlipidemia; Translations: [Mixed hyperlipidemia] Onset: 4 06-29-2018 Chronic Essential hypertension (20 sources) Hypertensive disorder; Translations: [Essential hypertension] Onset: 7 02-20-2017 Chronic Headache; including migraine (1 source) Migraine with aura; Translations: [Migraine with aura, not intractable, without status migrainosus] 12-20-2022 Chronic Headache; including migraine (20 sources) Headache; Translations: [Headache] Onset: 9 06-29-2018 Episodic Malaise and fatigue (4 sources) Fatigue; Translations: [Other fatigue] Onset: 5 04-02-2024 Episodic Menstrual disorders (20 sources) Excessive and frequent menstruation; Translations: [Excessive and frequent menstruation with regular cycle] Onset: 8 06-29-2018 Chronic Mycoses (2 sources) Candidiasis of vagina; Translations: [Candidiasis of vagina] 01-02-2024 Episodic Nonmalignant breast conditions (16 sources) Lump in upper outer quadrant of right breast; Translations: [Unspecified lump in the right breast, upper outer quadrant] Onset: 5 10-17-2024 Episodic Nonspecific chest pain (6 sources) Chest pain; Translations: [Atypical chest pain] Onset: 9 07-03-2018 Episodic Nutritional deficiencies (4 sources) Vitamin D deficiency; Translations: [Vitamin D deficiency, unspecified] Onset: 5 04-02-2024 Chronic Osteoarthritis (20 sources) Osteoarthritis; Translations: [Unspecified osteoarthritis, unspecified site] Onset: 0 06-29-2018 Chronic Other endocrine disorders (5 sources) Polycystic ovaries; Translations: [Polycystic ovaries] Onset: 9 06-29-2018 Chronic Other endocrine disorders (20 sources) Polycystic ovary; Translations: [Polycystic ovarian syndrome] 05-18-2021 Chronic Other female genital disorders (20 sources) Benign endometrial hyperplasia; Translations: [Complex endometrial hyperplasia without atypia] Onset: 1 06-29-2018 Chronic Other female genital disorders (20 sources) Atypical endometrial hyperplasia; Translations: [Endometrial intraepithelial neoplasia [EIN]] Onset: 8 06-29-2018 Chronic Other gastrointestinal disorders (4 sources) Splenomegaly; Translations: [Splenomegaly, not elsewhere classified] 12-28-2022 Episodic Other gastrointestinal disorders (2 sources) Splenomegaly, not elsewhere classified; Translations: [Splenomegaly] Onset: 5 Episodic Other lower respiratory disease (6 sources) Dyspnea; Translations: [Shortness of breath] Onset: 9 07-03-2018 Episodic Other lower respiratory disease (1 source) Cough; Translations: [Cough] 11-11-2020 Episodic Other nervous system disorders (2 sources) Other chronic pain; Translations: [Chronic bilateral thoracic back pain] Onset: 5 Chronic Other non-traumatic joint disorders (1 source) Bilateral chronic pain of upper limbs; Translations: [Pain in right shoulder] 10-17-2024 Episodic Other non-traumatic joint disorders (1 source) Pain in right shoulder; Translations: [Chronic pain of both shoulders] Onset: 5 Episodic Other non-traumatic joint disorders (1 source) Pain in left shoulder; Translations: [Chronic pain of both shoulders] Onset: 5 Episodic Other nutritional; endocrine; and metabolic disorders (2 sources) Overweight; Translations: [Overweight] Onset: 7 02-20-2017 Chronic Other nutritional; endocrine; and metabolic disorders (20 sources) Metabolic syndrome X; Translations: [Metabolic syndrome] Onset: 9 06-29-2018 Chronic Other nutritional; endocrine; and metabolic disorders (5 sources) Morbid obesity; Translations: [Morbid obesity] Onset: 9 07-03-2018 Chronic Other nutritional; endocrine; and metabolic disorders (20 sources) Body mass index 40+ - severely obese; Translations: [Morbid (severe) obesity due to excess calories] Onset: 3 10-15-2022 Chronic Other nutritional; endocrine; and metabolic disorders (16 sources) Obese class II; Translations: [Obesity, Class II, BMI 35-39.9] Onset: 5 05-27-2024 Chronic Other nutritional; endocrine; and metabolic disorders (4 sources) Obesity; Translations: [Obesity, unspecified] 03-24-2020 Chronic Other nutritional; endocrine; and metabolic disorders (2 sources) Morbid (severe) obesity due to excess calories; Translations: [Morbid (severe) obesity due to excess calories] Onset: 5 Chronic Other nutritional; endocrine; and metabolic disorders (2 sources) Body mass index (BMI) 40.0-44.9, adult; Translations: [Body mass index [BMI] 40.0-44.9, adult] Onset: 5 Chronic Other screening for suspected conditions (not mental disorders or infectious disease) (20 sources) Ultrasound scan abnormal; Translations: [Abnormal findings on diagnostic imaging of other specified body structures] Onset: 6 05-18-2021 Chronic Other screening for suspected conditions (not mental disorders or infectious disease) (20 sources) Liver function tests abnormal; Translations: [Ultrasound scan abnormal] Onset: 8 06-29-2018 Episodic Other skin disorders (1 source) Eruption; Translations: [Rash and other nonspecific skin eruption] Episodic Other upper respiratory infections (2 sources) Viral upper respiratory tract infection; Translations: [Acute upper respiratory infection, unspecified] Episodic Residual codes; unclassified (20 sources) Obstructive sleep apnea syndrome; Translations: [Obstructive sleep apnea (adult) (pediatric)] Onset: 5 06-29-2018 Chronic Residual codes; unclassified (1 source) Intolerance to drug; Translations: [Other specified health status] Episodic Rheumatoid arthritis and related disease (20 sources) Rheumatoid arthritis; Translations: [Rheumatoid arthritis, unspecified] Onset: 4 06-29-2018 Chronic Screening and history of mental health and substance abuse codes (2 sources) Patient encounter status; Translations: [Encounter for screening for depression] 05-15-2024 Episodic Spondylosis; intervertebral disc disorders; other back problems (6 sources) Chronic back pain ; Translations: [Dorsalgia, unspecified] Onset: 5 06-06-2024 Episodic Unclassified (1 source) ERRONEOUS ENCOUNTER--DISREGARD Unclassified (1 source) Obesity, Class II, BMI 35-39.9; Translations: [Obesity, Class II, BMI 35-39.9] Onset: 5 Unclassified (1 source) Wellness Onset: 4 Unclassified (2 sources) Acute candidiasis of vulva and vagina; Translations: [Acute candidiasis of vulva and vagina] Onset: 5 Past or Other Problems Problem Classification Problem Date Documented Da te Episodic/Chronic Abdominal pain (20 sources) Left lower quadrant pain; Translations: [Epigastric pain] Onset: 6 05-30-2012 Episodic Cardiac dysrhythmias (20 sources) Palpitations; Translations: [Palpitations] Onset: 9 07-03-2018 Episodic Nausea and vomiting (20 sources) Nausea; Translations: [Nausea] Onset: 6 06-29-2018 Episodic Other connective tissue disease (20 sources) Fibromyalgia; Translations: [Fibromyalgia] Onset: 4 06-29-2018 Episodic Other connective tissue disease (20 sources) Capsulitis; Translations: [Enthesopathy, unspecified] Onset: 0 06-29-2018 Episodic Other connective tissue disease (20 sources) Swelling of lower limb; Translations: [Other specified soft tissue disorders] Onset: 3 Episodic Other gastrointestinal disorders (5 sources) Gastrointestinal symptom; Translations: [Other specified symptoms and signs involving the digestive system and abdomen] 05-30-2012 Episodic Other nutritional; endocrine; and metabolic disorders (20 sources) Overweight; Translations: [Overweight] Resolved: 4 02-25-2014 Episodic Residual codes; unclassified (20 sources) Insomnia; Translations: [Insomnia, unspecified] Onset: 4 06-29-2018 Episodic Residual codes; unclassified (20 sources) Family history of ischemic heart disease; Translations: [Family history of ischemic heart disease and other diseases of the circulatory system] Onset: 5 06-29-2018 Episodic Residual codes; unclassified (5 sources) Family history of ischemic heart disease and other diseases of the circulatory system; Translations: [Family history of coronary artery disease] Onset: 9 07-03-2018 Episodic Residual codes; unclassified (1 source) Ultrasound scan abnormal; Translations: [Abnormal finding on ultrasound] Onset: 6 06-29-2018 Episodic Results Test Name Value Interpretation Reference Range Facility Basic Metabolic Profile (BMP )on 01-04-2025 BUN/CRE 20.3 RATIO High 03-11 [facility] Comment on above: Performed By: #### L500.2500, L300.3900, [id number] ####[facility] [address] [place], [address] Calcium [Mass/Vol] 9.3 mg/dL Normal 7.6-11.0 [facility] Comment on above: Performed By: #### L500.2500, [id number], [id number] ####[facility] [address] [place], [address] Chloride [Moles/Vol] 108 mmol/L Normal 98-108 [facility] Comment on above: Performed By: #### L500.2500, [id number], [id number] ####[facility] [address] [place], [address] CO2 [Moles/Vol] 23.3 mmol/L Normal 21.0-32.0 [facility] Comment on above: Performed By: #### L500.2500, [id number], [id number] ####[facility] [address] [place], [address] Creatinine [Mass/Vol] 1.01 mg/dL Normal 0.70-1.20 [facility] Comment on above: Performed By: #### L500.2500, [id number], [id number] ####[facility] [address] [place], [address] GAP 9 Normal 5-15 [facility] Comment on above: Performed By: #### L500.2500, [id number], [id number] ####[facility] [address] [place], [address] GFR/1.73 sq M.predicted among non-blacks MDRD (S/P/Bld) [Vol rate/Area] 68 mL/min/{1.73_m2} Normal >60 [facility] Comment on above: Result Comment: mL/min/1.73m2 CKD-EPI Cr eatinine Equation (2020) Performed By: #### L 500.2500, L300.3900, [id number] ####[facility] [address] [place], [address] Glucose [Mass/Vol] 84 mg/dL Normal 70-99 [facility] Comment on above: Performed By: #### L500.2500, [id number], [id number] ####[facility] [address] [place], [address] Potassium [Moles/Vol] 4.1 mmol/L Normal 3.3-5.1 [facility] Comment on above: Performed By: #### L500.2500, [id number], [id number] ####[facility] [address] [place], [address] Sodium [Moles/Vol] 140 mmol/L Normal 133-145 [facility] Comment on above: Performed By: #### L500.2500, [id number], [id number] ####[facility] [address] [place], [address] Urea nitrogen [Mass/Vol] 21 mg/dL High 4-19 [facility] Comment on above: Performed By: #### L500.2500, L300.3900, L300.4310 ####[facility] [id number] [place], [address] Partial Thromboplast Timeon 01-04-2025 aPTT Coag (Bld) [Time] 27.8 s Normal 24.1-36.2 [facility] Comment on above: Performed By: #### L500.2500, L300.3900, L300.4310 ####[facility] [id number] [place], [address] Plastic Surgery Visit Report on 01-04-2025 Plastic Surgery Visit Report [facility] Plastic Reconstructive Surgery [address], [address] [place] [address] OFFICE VISIT Date of Service: 01/04/25 MR#: [id number] Acct: [id number] Name: ESTELA COTE Rep #: [id number] : 1975 Provider: Dr. Dallas Lind MD Age/Sex: 49/F Location: [facility] Status: Signed Intake Vital Signs 10/22/24 13:11 01/04/25 14:23 Height 5 ft 6 in 5 ft 6 in Weight: 219 lb 6 oz BMI 35.4 BP 143/94 H 126/79 H Blood Pressure Location Rt brachial Position Sitting Sitting Respiration 18 Pulse 89 79 Pulse Source Monitor Temp 98.2 F Temp Source Temporal Pulse Oximetry (%) 98 96 Oxygen Delivery Method room air room air Intake Visit Reasons: Pre op breast reduction Chief Complaint: pre op breast reduction Is patient in pain?: No Allergies adhesive tape (tape) Allergy (Mild, Verified 01/04/25 14:24) Rash Obxrqfy-DYN-KuY Reductase Inhibitor Allergy (Mild, Verified 01/04/25 14:24) cough metformin Adverse Reaction (Intermediate, Verified 01/04/25 14:24) diarrhea semaglutide (From Ozempic) Adverse Reaction (Verified 01/04/25 14:24) Vomiting PFSH Medical History (Updated 12/25/24 @ 16:12 by Gregorio Merlos) Cancer History of steroid therapy Anemia Back pain History of hiatal hernia History of IBS Sleep apnea Former smoker Chronic cough History of echocardiogram History of stress test Cardiology follow-up encounter History of suicide attempt Pancreatitis Polycystic ovary Vascular disease Skin cancer Murmur, cardiac IBS (irritable bowel syndrome) History of MRSA infection Hormone deficiency Heart disease GERD (gastroesophageal reflux disease) Pneumonia Osteoporosis History of osteoarthritis History of diabetes mellitus History of cancer History of blood transfusion History of UTI History of back problems History of arthritis History of anemia History of environmental allergies Rheumatoid arthritis Polyneuropathy due to type 2 diabetes mellitus Diabetes type 2, uncontrolled Surgical History (Updated 12/25/24 @ 16:12 by Gregorio Merlos) H/O esophagogastroduodenoscopy History of carpal tunnel release H/O dilation and curettage History of hysterectomy History of tonsillectomy Family History Brother Alcoholism Arthritis Heart disease Mother Anemia Arthritis Bleeding disorder Diabetes Heart disease High cholesterol Kidney disease Osteoporosis Father Arthritis Depression High cholesterol Liver disease Seizures Lung cancer Skin cancer Other Cancer Hypertension Kidney disease Thyroid disorder Social History Smoking Status: Former smoker how long ago did patient quit smoking: quit at 15 years old alcohol intake: never substance use type: does not use additional social history: pt denies vaping, denies marijuana use, denies edibles, denies aspirin use uses ibuprofen HPI Pre op breast reduction Details: Breast Reduction Pt c/o: [Macromastia] [Intertrigo] [Shoulder Pain] [Shoulder Grooves]??? [Upper back pain] [Poor Posture] ? Physical therapy for back pain: [N ] ??? Chiropractic treatment: [Y ] ??? Home exercise: [Y ]? NSAID use:N ??? Skin ulceration: [Y ] ??? Topical or oral antifungal agents: [Y ] ??? Participation in medically supervised weight loss program: [Y ] ??? More info: Pt is a diabetic type 2 which is managed by Trisha Mercado, and Jovan. Pt reports last A1C of 5.9 three months ago. Pt is a nonsmoker, denies any personal or family history of b leeding or blood clots. Pt is up to date on mammogram. Pt reports multiple miscarriages with 1 live vaginal . Pt also reports previous hysterectomy. She does not take hormone replacement therapy. Patient reports that she has always had significantly asymmetric breasts including a very large right breast and a smaller left breast (since adolescence). ??? 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 She has been on hydroxychloroquine, but no other DMARDs/steroids. Her sister is being worked up for lupus. Prior breast surgeries: [N ] PAIN: [6 ] out of [10 ] aching pain of upper back ??? BRA SIZE: DDD ??? DESIRED??? SIZE: C ??? OB HISTORY: PARA: [6 ] :??? [Y ] PLAN FOR FUTURE PREGNANCIES: [N ] ??? HISTORY OF BREAST DISEASE: [ N] PRIOR MAMMOGRAM: Yes, within the past year (patient reports no signs of malignancy). She has not had any breast surgeries FAMILY HISTORY OF BREAST CANCER: [N ] Current encounter, 04 January 2025: Patient here for preoperative counseling regarding breast reduction planned for next week. She has been cleared by he (more content not included)... Normal [facility] Prothrombin Time w/INRon INR Coag (PPP) [Relative time] 1.1 {INR} Normal [facility] Comment on above: Performed By: #### L500.2500, L300.3900, L300.4310 ####[facility] [id number], [address] PT Coag (PPP) [Time] 14.4 s Normal 11.7-14.9 [facility] Comment on above: Performed By: #### L500.2500, L300.3900, L300.4310 ####[facility] [id number], [address] CNPNon 12-25-2024 CNPN Telephone (HEMAWS) ESTELA COTE ([id number]) 1975 F Date Time Provider Department 12/25/24 TONI LARSON During your visit today, we recorded the following information about you: Vika Cook 12/25/2024 4:21 PM Signed Gregorio with [facility] called requesting 12/10 CBC results to be faxed to her at [phone] due to surgery Lisa Slaughter LPN 12/25/2024 4:31 PM Signed CBC results faxed. Lisa Slaughter LPN Allergies As of Date: 12/25/2024 Noted Allergy Reaction BEES 02/18/2014 2 - Rash 7 - Swelling 9 - Itching Comments: Childhood reaction, no recent stings. METFORMIN 05/09/2014 6 - Diarrhea 8 - GI Upset ADHESIVE TAPE (ROSINS) 02/18/2014 2 - Rash 9 - Itching LISINOPRIL 11/18/2022 5 - Intolerance OZEMPIC (SEMAGLUTIDE) 10/15/2022 5 - Intolerance Comments: Nausea and vomiting REGLAN (METOCLOPRAMIDE) 01/11/2023 5 - Intolerance Date Reviewed: 12/10/2024 Reviewed by: Lianet Cano LPN - Fully Assessed Reason for Visit: Results [95] Prescriptions as of 12/25/2024 - JARDIANCE 25 mg tablet Take 25 mg by mouth once daily. - hydrOXYchloroQUINE 100 mg tablet Take 1 tablet by mouth once daily. - MOUNJARO 12.5 mg/0.5 mL pen injector Inject 15 mg subcutaneously one time a week. - LANTUS SOLOSTAR U-100 INSULIN 100 unit/mL (3 mL) Inject 42 Units subcutaneously once daily. - spironolactone (ALDACTONE) 25 mg tablet Take 50 mg by mouth two times a day. - lisinopril (ZESTRIL) 10 mg tablet Take 10 mg by mouth once daily. - ergocalciferol 50,000 unit capsule (VITAMIN D2, DRISDOL) Take 50,000 Units by mouth one time a week. - gabapentin (NEURONTIN) 100 mg capsule Take 1 capsule by mouth three times a day for 30 days. - pen needle, diabetic (COMFORT EZ PEN NEEDLES) 33 gauge x 3/16 ndle 1 Each once daily. - ondansetron (ZOFRAN) 4 mg tablet Take 1 tablet by mouth every 8 hours as needed for nausea/vomiting. - Blood Glucose Control, Normal soln Use as directed - blood sugar diagnostic (BLOOD GLUCOSE TEST) test strip 1 Strip once daily. Use as instructed - albuterol (PROVENTIL) 2.5 mg /3 mL (0.083 %) nebulizer solution Use 3 mL via nebulizer every 4 hours as needed for wheezing/shortness of breath. OVER 5-15 MINUTES. FOR WHEEZING AND SHORTNESS OF BREATH. Problem List As Of Date 12/25/2024 Noted Resolved Hypertension, essential [I10] DYSMETABOLIC SYNDROME X [E88.810] Polycystic ovaries [E28.2] ASTHMA UNSPECIFIED [J45.909] HEADACHE [R51] Overweight(278.02) [E66.3] 02/25/2014 Type II or unspecified type diabetes mellitus w* 12/19/2013 FATTY LIVER [R94.5] 11/29/2007 ENDOMETRIAL HYPERPLASIA W ATYPIA [N85.02] 04/25/2008 EXCESSIVE MENSTRUATION [N92.0] 04/25/2008 DJD (degenerative joint disease) [M19.90] 03/03/2010 Capsulitis [M77.9] 03/03/2010 Complex endometrial hyperplasia without atypia *12/21/2010 Rheumatoid arthritis, adult (HCC) [M06.9] 12/19/2013 Fibromyalgia [M79.7] 12/19/2013 Type 2 diabetes mellitus without complication, *12/19/2013 Insomnia [G47.00] 12/19/2013 Hyperlipidemia [E78.5] 12/19/2013 Family history of ischemic heart disease [Z82.4*05/24/2014 CRIS (obstructive sleep apnea) [G47.33] 10/02/2014 Abnormal finding on ultrasound [R93.89] 10/24/2015 Epigastric pain [R10.13] 12/11/2015 Nausea [R11.0] 12/11/2015 Gastroparesis due to secondary diabetes (HCC) [*12/19/2015 Type 2 diabetes mellitus with diabetic neuropat*12/19/2015 Obesity, Class III, BMI 40-49.9 (morbid obesity*10/15/2022 Encounter for screening for malignant neoplasm *11/17/2022 Leg swelling [M79.89] 11/17/2022 Palpitation [R00.2] 12/28/2022 Obesity, Class II, BMI 35-39.9 [E66.812] 05/27/2024 Encounter Status:Closed by LISA SLAUGHTER on 12/25/24 [facility] EST[facility] ([id number]) 1975 F Date Time Provider Department 12/16/24 TONI LARSON During your visit today, we recorded the following information about you: Toni Larson DO 12/16/2024 10:43 AM Signed Repeat CBC showed normal Hgb and improved platelet count. All other labs normal. Follow up with nj OV/CBC in about 6 months for ongoing monitoring. DO Shavon Treadwell Yassine Gamez 12/16/2024 1:04 PM Signed I called and let Eloisa know the below information and scheduled her for a follow-up and lab work on 06/03/25 Allergies As of Date: 12/16/2024 Noted Allergy Reaction BEES 02/18/2014 2 - Rash 7 - Swelling 9 - Itching Comments: Childhood reaction, no recent stings. METFORMIN 05/09/2014 6 - Diarrhea 8 - GI Upset ADHESIVE TAPE (ROSINS) 02/18/2014 2 - Rash 9 - Itching LISINOPRIL 11/18/2022 5 - Intolerance OZEMPIC (SEMAGLUTIDE) 10/15/2022 5 - Intolerance Comments: Nausea and vomiting REGLAN (METOCLOPRAMIDE) 01/11/2023 5 - Intolerance Date Reviewed: 12/10/2024 Reviewed by: Lianet Cano LPN - Fully Assessed Reason for Visit: Results [95] Prescriptions as of 12/16/2024 - JARDIANCE 25 mg tablet Take 25 mg by mouth once daily. - hydrOXYchloroQUINE 100 mg tablet Take 1 tablet by mouth once daily. - MOUNJARO 12.5 mg/0.5 mL pen injector Inject 15 mg subcutaneously one time a week. - LANTUS SOLOSTAR U-100 INSULIN 100 unit/mL (3 mL) Inject 42 Units subcutaneously once daily. - spironolactone (ALDACTONE) 25 mg tablet Take 50 mg by mouth two times a day. - lisinopril (ZESTRIL) 10 mg tablet Take 10 mg by mouth once daily. - ergocalciferol 50,000 unit capsule (VITAMIN D2, DRISDOL) Take 50,000 Units by mouth one time a week. - gabapentin (NEURONTIN) 100 mg capsule Take 1 capsule by mouth three times a day for 30 days. - pen needle, diabetic (COMFORT EZ PEN NEEDLES) 33 gauge x 3/16 ndle 1 Each once daily. - ondansetron (ZOFRAN) 4 mg tablet Take 1 tablet by mouth every 8 hours as needed for nausea/vomiting. - Blood Glucose Control, Normal soln Use as directed - blood sugar diagnostic (BLOOD GLUCOSE TEST) test strip 1 Strip once daily. Use as instructed - albuterol (PROVENTIL) 2.5 mg /3 mL (0.083 %) nebulizer solution Use 3 mL via nebulizer every 4 hours as needed for wheezing/shortness of breath. OVER 5-15 MINUTES. FOR WHEEZING AND SHORTNESS OF BREATH. Problem List As Of Date 12/16/2024 Noted Resolved Hypertension, essential [I10] DYSMETABOLIC SYNDROME X [E88.810] Polycystic ovaries [E28.2] ASTHMA UNSPECIFIED [J45.909] HEADACHE [R51] Overweight(278.02) [E66.3] 02/25/2014 Type II or unspecified type diabetes mellitus w* 12/19/2013 FATTY LIVER [R94.5] 11/29/2007 ENDOMETRIAL HYPERPLASIA W ATYPIA [N85.02] 04/25/2008 EXCESSIVE MENSTRUATION [N92.0] 04/25/2008 DJD (degenerative joint disease) [M19.90] 03/03/2010 Capsulitis [M77.9] 03/03/2010 Complex endometrial hyperplasia without atypia *12/21/2010 Rheumatoid arthritis, adult (HCC) [M06.9] 12/19/2013 Fibromyalgia [M79.7] 12/19/2013 Type 2 diabetes mellitus without complication, *12/19/2013 Insomnia [G47.00] 12/19/2013 Hyperlipidemia [E78.5] 12/19/2013 Family history of ischemic heart disease [Z82.4*05/24/2014 CRIS (obstructive sleep apnea) [G47.33] 10/02/2014 Abnormal finding on ultrasound [R93.89] 10/24/2015 Epigastric pain [R10.13] 12/11/2015 Nausea [R11.0] 12/11/2015 Gastroparesis due to secondary diabetes (HCC) [*12/19/2015 Type 2 diabetes mellitus with diabetic neuropat*12/19/2015 Obesity, Class III, BMI 40-49.9 (morbid obesity*10/15/2022 Encounter for screening for malignant neoplasm *11/17/2022 Leg swelling [M79.89] 11/17/2022 Palpitation [R00.2] 12/28/2022 Obesity, Class II, BMI 35-39.9 [E66.812] 05/27/2024 Encounter Status:Closed by YASSINE CHEN on 7/27/25 Normal [facility] CBC W Auto Differential pane l (Bld)on 12-10-2024 Basophils (Bld) [#/Vol] [facility] Basophils/100 WBC (Bld) 0.3 % [facility] Differential cell count method Nom (Bld) Auto [facility] Eosinophils (Bld) [#/Vol] 0.12 10*3/uL [facility] Eosinophils/100 WBC (Bld) 2.1 % [facility] Erythrocyte distribution width (RBC) [Ratio] 12.7 % 11.5 - 15.0 % [facility] Hematocrit (Bld) [Volume fraction] 36.1 % 36.0 - 46.0 % [facility] Hemoglobin (Bld) [Mass/Vol] 12.4 g/dL 11.5 - 15.5 g/dL [facility] Immature granulocytes (Bld) [#/Vol] [facility] Immature granulocytes/100 WBC (Bld) 0.3 % [facility] Interpretation and review of laboratory results Abnormal [facility] Lymphocytes (Bld) [#/Vol] 1.68 10*3/uL [facility] Lymphocytes/100 WBC (Bld) 29.1 % [facility] MCH (RBC) [Entitic mass] 31.6 pg 26.0 - 34.0 pg [facility] MCHC (RBC) [Mass/Vol] 34.3 g/dL 30.5 - 36.0 g/dL [facility] MCV (RBC) [Entitic vol] 92.1 fL 80.0 - 100.0 fL [facility] Monocytes (Bld) [#/Vol] 0.35 10*3/uL [facility] Monocytes/100 WBC (Bld) 6.1 % [facility] Neutrophils (Bld) [#/Vol] 3.59 10*3/uL [facility] Neutrophils/100 WBC (Bld) 62.1 % [facility] Nucleated RBC (Bld) [#/Vol] [facility] Nucleated RBC/100 WBC (Bld) [Ratio] 0 % /100 WBC [facility] Platelet mean volume (Bld) [Entitic vol] 10.3 fL 9.0 - 12.7 fL [facility] Platelets (Bld) [#/Vol] 139 10*3/uL Low [facility] Comment on above: No clot detected. RBC (Bld) [#/Vol] 3.92 10*6/uL 3.90 - 5.20 m/uL [facility] WBC (Bld) [#/Vol] 5.78 10*3/uL [facility] Basophils (Bld) [#/Vol] 10*3/uL Normal <0.11 [facility] Comment on above: Order Comment: Specimen Type: BLOOD SPEC IMEN Ordering Facility: [facility] Address: [address] [place] [address] Performed By: #### 5 7021-8 #### [facility] CLIA [id number] [address] [place] [address] [place] Basophils/100 WBC (Bld) 0.3 % Normal [facility] Comment on above: Order Comment: Specimen Type: BLOOD SPEC IMEN Ordering Facility: [facility] Address: [address] [place] [address] Performed By: #### 5 7021-8 #### [facility] CLIA [id number] [address] [place] [address] [place] Differential cell count method Nom (Bld) Auto Normal [facility] Comment on above: Order Comment: Specimen Type: BLOOD SPEC IMEN Ordering Facility: [facility] Address: [address] [place] [address] Performed By: #### 5 7021-8 #### [facility] CLIA [id number] [address] [place] [address] [place] Eosinophils (Bld) [#/Vol] 0.12 10*3/uL Normal <0.46 [facility] Comment on above: Order Comment: Specimen Type: BLOOD SPEC IMEN Ordering Facility: [facility] Address: [address] [place] [address] Performed By: #### 5 7021-8 #### [facility] CLIA [id number] [address] [place] [address] [place] Eosinophils/100 WBC (Bld) 2.1 % Normal [facility] Comment on above: Order Comment: Specimen Type: BLOOD SPEC IMEN Ordering Facility: [facility] Address: [address] [id number] Performed By: #### 5 7021-8 #### [facility] CLIA [id number] [address] [place] [address] [place] Erythrocyte distribution width (RBC) [Ratio] 12.7 % Normal 11.5-15.0 [facility] Comment on above: Order Comment: Specimen Type: BLOOD SPEC IMEN Ordering Facility: [facility] Address: [address] [place], [place] [id number] Performed By: #### 5 7021-8 #### [facility] CLIA [id number] [address] [place] [address] [place] Hematocrit (Bld) [Volume fraction] 36.1 % Normal 36.0-46.0 [facility] Comment on above: Order Comment: Specimen Type: BLOOD SPEC IMEN Ordering Facility: [facility] Address: [address] [place] [address] Performed By: #### 5 7021-8 #### [facility] CLIA [id number] [address] [place] [address] [place] Hemoglobin (Bld) [Mass/Vol] 12.4 g/dL Normal 11.5-15.5 [facility] Comment on above: Order Comment: Specimen Type: BLOOD SPEC IMEN Ordering Facility: [facility] Address: [address] [place] [address] Performed By: #### 5 7021-8 #### [facility] CLIA [id number] [address] [place] [address] [place] Immature granulocytes (Bld) [#/Vol] 10*3/uL Normal <0.10 [facility] Comment on above: Order Comment: Specimen Type: BLOOD SPEC IMEN Ordering Facility: [facility] Address: [address] [place], [place] [id number] Performed By: #### 5 7021-8 #### [facility] CLIA [id number] [address] [place] [address] [place] Immature granulocytes/100 WBC (Bld) 0.3 % Normal [facility] Comment on above: Order Comment: Specimen Type: BLOOD SPEC IMEN Ordering Facility: [facility] Address: [address] [place] [address] Performed By: #### 5 7021-8 #### [facility] CLIA [id number] [address] [place] [address] [place] Lymphocytes (Bld) [#/Vol] 1.68 10*3/uL Normal 1.00-4.00 [facility] Comment on above: Order Comment: Specimen Type: BLOOD SPEC IMEN Ordering Facility: [facility] Address: [address] [place] [address] Performed By: #### 5 7021-8 #### [facility] CLIA [id number] [address] [place] [address] [place] Lymphocytes/100 WBC (Bld) 29.1 % Normal [facility] Comment on above: Order Comment: Specimen Type: BLOOD SPEC IMEN Ordering Facility: [facility] Address: [address] [place] [address] Performed By: #### 5 7021-8 #### [facility] CLIA [id number] [address] [place] [address] [place] MCH (RBC) [Entitic mass] 31.6 pg Normal 26.0-34.0 [facility] Comment on above: Order Comment: Specimen Type: BLOOD SPEC IMEN Ordering Facility: [facility] Address: [address] [place], [place] [id number] Performed By: #### 5 7021-8 #### [facility] CLIA [id number] [address] [place] [address] [place] MCHC (RBC) [Mass/Vol] 34.3 g/dL Normal 30.5-36.0 [facility] Comment on above: Order Comment: Specimen Type: BLOOD SPEC IMEN Ordering Facility: [facility] Address: [address] [place] [address] Performed By: #### 5 7021-8 #### [facility] CLIA [id number] [address] [place] [address] [place] MCV (RBC) [Entitic vol] 92.1 fL Normal 80.0-100.0 [facility] Comment on above: Order Comment: Specimen Type: BLOOD SPEC IMEN Ordering Facility: [facility] Address: [address] [place] [address] Performed By: #### 5 7021-8 #### [facility] CLIA [id number] [address] [place] [address] [place] Monocytes (Bld) [#/Vol] 0.35 10*3/uL Normal <0.87 [facility] Comment on above: Order Comment: Specimen Type: BLOOD SPEC IMEN Ordering Facility: [facility] Address: [address] [place] [address] Performed By: #### 5 7021-8 #### [facility] CLIA [id number] [address] [place] [address] [place] Monocytes/100 WBC (Bld) 6.1 % Normal [facility] Comment on above: Order Comment: Specimen Type: BLOOD SPEC IMEN Ordering Facility: [facility] Address: [address] [place] [address] Performed By: #### 5 7021-8 #### [facility] CLIA [id number] [address] [place] [address] [place] Neutrophils (Bld) [#/Vol] 3.59 10*3/uL Normal 1.45-7.50 [facility] Comment on above: Order Comment: Specimen Type: BLOOD SPEC IMEN Ordering Facility: [facility] Address: [address] [id number] Performed By: #### 5 7021-8 #### [facility] CLIA [id number] [address] [place] [address] [place] Neutrophils/100 WBC (Bld) 62.1 % Normal [facility] Comment on above: Order Comment: Specimen Type: BLOOD SPEC IMEN Ordering Facility: [facility] Address: [address] [place] [address] Performed By: #### 5 7021-8 #### [facility] CLIA [id number] [address] [place] [address] [place] Nucleated RBC (Bld) [#/Vol] 10*3/uL Normal <0.01 [facility] Comment on above: Order Comment: Specimen Type: BLOOD SPEC IMEN Ordering Facility: [facility] Address: [address] [place] [address] Performed By: #### 5 7021-8 #### [facility] CLIA [id number] [address] [place] [address] [place] Nucleated RBC/100 WBC (Bld) [Ratio] 0.0 /100 WBC Normal [facility] Comment on above: Order Comment: Specimen Type: BLOOD SPEC IMEN Ordering Facility: [facility] Address: [address] [place] [address] Performed By: #### 5 7021-8 #### [facility] CLIA [id number] [address] [place] [address] [place] Platelet mean volume (Bld) [Entitic vol] 10.3 fL Normal 9.0-12.7 [facility] Comment on above: Order Comment: Specimen Type: BLOOD SPEC IMEN Ordering Facility: [facility] Address: [address] [place] [address] Performed By: #### 5 7021-8 #### [facility] CLIA [id number] [address] [place] [address] [place] Platelets (Bld) [#/Vol] 139 10*3/uL Low 150-400 [facility] Comment on above: Order Comment: Specimen Type: BLOOD SPEC IMEN Ordering Facility: [facility] Address: [address] [place] [address] Result Comment: No c lot detected. Performed By: #### 5 7021-8 #### [facility] CLIA [id number] [address] [place] [address] [place] RBC (Bld) [#/Vol] 3.92 10*6/uL Normal 3.90-5.20 [facility] Comment on above: Order Comment: Specimen Type: BLOOD SPEC IMEN Ordering Facility: [facility] Address: [address] [place] [address] Performed By: #### 5 7021-8 #### [facility] CLIA [id number] [address] [place] [address] [place] WBC (Bld) [#/Vol] 5.78 10*3/uL Normal 3.70-11.00 [facility] Comment on above: Order Comment: Specimen Type: BLOOD SPEC IMEN Ordering Facility: [facility] Address: [address] [place] [address] Performed By: #### 5 7021-8 #### [facility] CLIA [id number] [address] [place] [address] [place] CNOVSPon 12-10-2024 CNOVSP Visit (SP) Office (H EMAWS) ESTELA COTE ([id number]) 1975 F Date Time Provider Department 12/10/24 10:30 AM TONI LARSON HEMAWS During your visit today, we recorded the following information about you: Temperature Pulse Blood pressure Weight 97 degrees 74/minute 151/81 98.4 kg Toni Larson, 12/10/2024 1:00 PM Signed Hematologic problem(s): 1) Mild thrombocytopenia. 2) Splenomegaly. 3) RA. 4) Hypercoagulation work up for breast reduction surgery. HPI: The patient is a 49-year-old female with a past medical history as outlined below. She is in need of breast reduction surgery. She has history of rheumatoid arthritis. Also has a history of multiple spontaneous losses in the first trimester. Symptoms from RA include joint swelling, pain and stiffness as well as fatigue. Diagnosed about 10+ years ago. Sees Dr. Jalloh in [place]. 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 She has chronic history mildly low platelet count. No personal history of venous thromboembolism. No known family h/o VTE. History 5 miscarriages all prior to about 12 weeks. Had a daughter prior to the miscarriages. Full term (close to 10 months-- was on vacation). Emergency .Took 4 years to conceive her. Full hysterectomy [id number] for early stage endometrial cancer. No adjuvant chemotherapy or radiation. Age 11 on--Very irregular menses. Heavy when occurred. Doesn't bruise easily but can get unexplained bruising. Hasn't used Mobic in a while--ran out. Echo 2009--mild LVH and probably patent foramen ovale. Presents for ongoing hematologic management. Interim history: No subjective change. No complaints today. No unusual bleeding or unexplained bruising. PAST MEDICAL HISTORY Diagnosis Date Delayed emergence from general anesthesia Dysmetabolic syndrome X polycystic syndrome Endometrial hyperplasia with atypia 2007 Enlarged heart left side of heart Gastroparesis Headache(784.0) Leiomyoma of uterus, unspecified 2010 Mitral valve disorders(424.0) Obesity (BMI 30-39.9) CRIS (obstructive sleep apnea) no CPAP Polycystic ovaries Snoring Type II or unspecified type diabetes mellitus without mention of complication, not stated as uncontrolled Unspecified asthma(493.90) Unspecified essential hypertension PAST SURGICAL HISTORY Procedure Laterality Date CAPSULE ENDOSCOPY 10/23/2020 DELIVERY ONLY 10/18/1995 , low cervical COLONOSCOPY FLX DX W/COLLJ SPEC WHEN PFRMD 2013 COLONOSCOPY SCREENING 11/17/2022 DILATION AND CURETTAGE DXAND/THER NONOBSTETRIC 1997, 2000 Dilation AND curettage EGD 12/11/2015 chronic active gastritis EGD TRANSORAL BIOPSY SINGLE/MULTIPLE 08/22/2017 non-bleeding erosive gastropathy, sm amt phytobezoar in stomach, neg H Pylori; Dr. Vargas GI TRANSIT AND PRES JON WIRELESS CAPSULE W/INTERP 10/16/2020 Smart Pill HYSTERECTOMY HX 2010 HYSTEROSCOPY BX W/WO DANDC 11/25/2010 HYSTEROSCOPY, DIAGNOSTIC (SEPARATE 04/25/2008 Hysteroscopy/currettage INSERTION OF IUD 11/25/2010 mirena TONSILLECTOMY HX ALLERGIES Allergen Reactions Bees Rash, Swelling, Itching Childhood reaction, no recent stings. Metformin Diarrhea, GI Upset Adhesive Tape (Karen* Rash, Itching Lisinopril Intolerance Ozempic [Semaglutid* Intolerance Nausea and vomiting Reglan [Metoclopram* Intolerance Social History Tobacco Use Smoking status: Former Types: Cigarettes Smokeless tobacco: Never Tobacco comments: Pt smoked as a teenager, quit age 16 Vaping Use Vaping status: Never Used Substance Use Topics Alcohol use: Not Currently Drug use: Never FAMILY HISTORY Problem Relation Age of Onset Coronary Artery Disease Mother Hypertension Mother AZ @ 62 yrs. old Diabetes Mother Cancer Father SKIN, ENT met to lungs. Diabetes Sister Diabetes Brother Diabetes Brother Diabetes Brother Coronary Artery Disease Brother 40 stent + [place] Diabetes Brother Coronary Artery Disease Brother 40 stent + [place] Diabetes Brother Coronary Artery Disease Brother 40 stent Coronary Artery Disease Maternal Grandmother Cancer Paternal Grandmother colon Cancer Maternal Aunt PANCREAS Heart Attack Maternal Aunt Cancer Maternal Aunt UTERINE Cancer Maternal Uncle HODGKINS Asthma No Family History REVIEW OF SYSTEMS: Constitutional: No episodes of fever and night sweats. Neuro: No HAYES, vertigo, dizziness and imbalance. Chronic neuropathy both lower extremities. HEENT: No recent change in voice, vision or hearing. Resp: No cough, wheeze and hemoptysis. No shortness of breath at rest. CVS: No exertional chest pain, PND, orthopnea and LE edema. GI: No reflux, n/v, change in bowel habits or abdominal pain. : No dysuria or gross hematuria. Endo: No hot flashes. Musculoskeletal: See above. Derm: No current rash. H (more content not included)... Normal [facility] COPPER BLOODon 12-10-2024 Copper [Mass/Vol] 107 ug/dL Normal 80-155 [facility] Comment on above: Order Comment: Specimen Type: BLOOD SPEC IMEN Ordering Facility: [facility] Address: [address] [place] [address] Result Comment: This test was developed, and its performance characteristics determined by the [facility] Department of Pathology and Laboratory Medicine. It has not been cleared or approved by the FDA. The [facility] Department of Pathology and Laboratory Medicine is regulated under CLIA as qualified to perform high-complexity testing. This test is used for clinical purposes. It should not be regarded as investigational or for research. Performed By: #### L [id number], LUPPL #### [facility] CLIA [id number] [address] [place] [address] [place] Ferritin SerPl-mCncon 2024 Ferritin [Mass/Vol] 243.0 ng/mL High 14.7-205.1 [facility] Comment on above: Order Comment: Specimen Type: BLOOD SPEC IMEN Ordering Facility: [facility] Address: [address] [place] [address] Performed By: #### L [id number], LUPPL #### [facility] CLIA [id number] [address] [place] [address] [place] Folate SerPl-mCncon 12-11-19 25 Folate [Mass/Vol] 7.7 ng/mL Normal >4.7 [facility] Comment on above: Order Comment: Specimen Type: BLOOD SPEC IMEN Ordering Facility: [facility] Address: [address] [place] [address] Performed By: #### L [id number], LUPPL #### [facility] CLIA [id number] [address] [place] [address] [place] Iron and Iron binding capaci ty panelon 12-10-2024 Iron [Mass/Vol] 125 ug/dL Normal 41-186 [facility] Comment on above: Order Comment: Specimen Type: BLOOD SPEC IMEN Ordering Facility: [facility] Address: [address] [place] [address] Performed By: #### L [id number], LUPPL #### [facility] CLIA [id number] [address] [place] [address] [place] Iron binding capacity [Mass/Vol] 272 ug/dL Normal 232-386 [facility] Comment on above: Order Comment: Specimen Type: BLOOD SPEC IMEN Ordering Facility: [facility] Address: [address] [place] [address] Performed By: #### L [id number], LUPPL #### [facility] CLIA [id number] [address] [place] [address] [place] Iron/TIBC [Molar ratio] 46.0 % Normal 15.0-57.0 [facility] Comment on above: Order Comment: Specimen Type: BLOOD SPEC IMEN Ordering Facility: [facility] Address: [address] [place] [address] Performed By: #### L [id number], LUPPL #### [facility] CLIA [id number] [address] [place] [address] [place] Methylmalonate SerPl-sCncon 12-10-2024 Methylmalonate [Moles/Vol] 0.13 umol/L Normal <=0.40 [facility] Comment on above: Order Comment: Specimen Type: BLOOD SPEC IMEN Ordering Facility: [facility] Address: [address] [place] [address] Result Comment: This test was developed, and its performance characteristics determined by the [facility] Department of Pathology and Laboratory Medicine. It has not been cleared or approved by the FDA. The [facility] Department of Pathology and Laboratory Medicine is regulated under CLIA as qualified to perform high-complexity testing. This test is used for clinical purposes. It should not be regarded as investigational or for research. Performed By: #### L [id number], LUPPL #### [facility] CLIA [id number] [address] [place] [address] [place] T4 Free SerPl-mCncon 025 Free T4 [Mass/Vol] 1.0 ng/dL Normal 0.9-1.7 [facility] Comment on above: Order Comment: Specimen Type: BLOOD SPEC IMEN Ordering Facility: [facility] Address: [address] [place] [address] Performed By: #### L [id number], LUPPL #### [facility] CLIA [id number] [address] [place] [address] [place] TSH SerPl-aCncon 12-10-2024 TSH Qn 0.972 m[IU]/L Normal 0.270-4.200 [facility] Comment on above: Order Comment: Specimen Type: BLOOD SPEC IMEN Ordering Facility: [facility] Address: [address] [place] [address] Result Comment: If t he patient is , TSH reference range varies by gestational period: First Trimester (weeks 9-12): 0.180-2.990 mIU/L Second Trimester: 0.110-3.980 mIU/L Third Trimester: 0.480-4.710 mIU/L Hayes Saldana et al. A Practical Approach for the Verifications and Determination of Site- and Trimester-Specific Reference Intervals for Thyroid Function tests in . Thyroid, 2019:29:3:412-420. Federico Minaya, et al. 2017 Guidelines of the [place] Thyroid [employer] for the Diagnosis and Management of Thyroid Disease during and the . Thyroid, 2017:27:3:315-389. Performed By: #### L [id number], LUPPL #### [facility] CLIA [id number] [address] [place] [address] [place] Vit B12 SerPl-mCncon 025 Cobalamin (Vitamin B12) [Mass/Vol] 361 pg/mL Normal 232-1245 [facility] Comment on above: Order Comment: Specimen Type: BLOOD SPEC IMEN Ordering Facility: [facility] Address: [address] [place] [address] Performed By: #### L [id number], LUPPL #### [facility] CLIA [id number] [address] [place], [place] [address] OF [facility] ALLIED HEALTHon 11-15-2024 ALLIED HEALTH HNO ID: [id number] Author: LAURA BUNDY, TECHNOLOGIST Service: Radiology Author Type: Technologist Type: Allied Health Filed: 11/15/2024 10:07 Note Text: Radiology Service Progress Note PATIENT NAME: Estela Cote DATE OF SERVICE: November 15, 2024 TIME: 10:06 AM PATIENT IDENTITY VERIFICATION COMPLETED USING TWO (2) IDENTIFIERS: Name and Date of confirmed by patient verbally and Name and Date of confirmed by identification band. FALL SCREENING: Has the patient had 2 falls in the last year or 1 fall with injury or currently using an Ambulatory Assistive Device (Walker, Cane, Wheelchair, Crutches, etc.)? No PATIENT GENDER DATA: Assigned female at . status: : No status: NO. PATIENT RELEVANT IMPLANT DATA REVIEWED: Yes PATIENT PRESENTS WITH AN IMPLANTABLE OR ATTACHED FISHER POT: No RADIOLOGY DEPARTMENT: Biopsy PERIPHERAL IV DATA: Not applicable SIGNED BY: TECHNOLOGIST Marcelino November 15, 2024 10:06 AM [facility] BONE MARROW ANALYSISon 11-15 AP DISCLAIMER [facility] Comment on above: Order Comment: Specimen Type: BONE MARRO W SPECIMENOrdering Facility: [facility] Address: [address] [place] [address] Result Comment: Bertha hidalgo Developed Test (LDT) Disclaimer: Performance characteristics of immunohistochemical, immunofluorescent, and chromogenic in-situ hybridization tests have been determined by the performing laboratory within [facility]'s [place] [facility] Pathology and Laboratory Medicine Department ([facility], [facility], [facility], [facility], [facility], [facility], or [facility]) in a manner consistent with CLIA requirements. One or more of these tests may not have been cleared or approved by the FDA. [facility] is regulated under CLIA as qualified to perform high-complexity testing. These tests are used for clinical purposes. These should not be regarded as investigational or for research. Positive and negative controls stain appropriately. Performed By: #### 5 43-9 #### [facility] CLIA [id number] [address] [place] [address] CASE REPORT Normal [facility] Comment on above: Order Comment: Specimen Type: BONE MARRO W SPECIMENOrdering Facility: [facility] Address: [address] [place] [address] Result Comment: Bone Marrow Pathology Report Case: [id number] Authorizing Provider: Toni Larson DO Collected: 11/15/2024 09:55 AM Ordering Location: [facility] Radiology Received: 11/15/2024 10:41 AM Pathologist: Stefany Painter MD, PhD Specimens: A) - Bone Marrow, Aspirate, Right, Posterior, Iliac Crest B) - Bone Marrow, Biopsy, Right, Posterior, Iliac Crest C) - Bone Marrow, Clot, Right, Posterior, Iliac Crest D) - Blood Performed By: #### 5 43-9 #### [facility] CLIA [id number] [address] [place] [address] DIAGNOSIS COMMENT Normal [facility] Comment on above: Order Comment: Specimen Type: BONE MARRO W SPECIMENOrdering Facility: [facility] Address: [address] [place] [address] Result Comment: This is a 49-year-old patient with splenomegaly, thrombocytopenia, rheumatoid arthritis, and abnormal coagulation studies, undergoing a diagnostic bone marrow biopsy. Flow cytometric analysis performed on the bone marrow aspirate showed no evidence of a lymphoproliferative disorder or increased [id number] blasts ([id number]). The morphologic features are insufficient for the diagnosis of a myeloid neoplasm. Reactive/secondary causes of thrombocytopenia should be investigated, such as splenic sequestration, drug effect, nutritional deficiency, toxin exposure, chronic inflammatory conditions, autoimmunity, or infection. Correlation with the results of the pending conventional karyotyping is recommended. Performed By: #### 5 43-9 #### [facility] CLIA [id number] [address] [place] [address] FINAL DIAGNOSIS Normal [facility] Comment on above: Order Comment: Specimen Type: BONE MARRO W SPECIMENOrdering Facility: [facility] Address: [address] [place] [address] Result Comment: A-C. Bone marrow, aspirate smears, core biopsy, and clot section: - Hypocellular for age (30%) with maturing trilineage hematopoiesis - Increased storage iron. - See comment. D. Peripheral blood smear: - Normocytic anemia. - Thrombocytopenia. ABO/SM 11/19/2024 at 0758 EDT Performed By: #### 5 43-9 #### [facility] CLIA [id number] [address] [place] [address] OF [facility] FINAL PERFORMING LAB [facility] Comment on above: Order Comment: Specimen Type: BONE MARRO W SPECIMENOrdering Facility: [facility] Address: [address] [place] [address] Result Comment: Diag nostic interpretation performed at: [facility], [address] [place] [address] CLIA# [id number] Ribbon Sweatband Operator: Steven Cardozo MD Performed By: #### 5 43-9 #### [facility] CLIA [id number] [address] [place] [address] OF [facility] GROSS DESCRIPTION [facility] Comment on above: Order Comment: Specimen Type: BONE MARRO W SPECIMENOrdering Facility: [facility] Address: [address] [place] [address] Result Comment: A. B one Marrow, Aspirate, Right, Posterior, Iliac Crest Received are air-dried bone marrow aspirate smears. Submitted for light microscopy. B. Bone Marrow, Biopsy, Right, Posterior, Iliac Crest Received in formalin are two segments of cylindrical tissue aggregating to 2.4 x 0.3 x 0.3 cm, brown-red and of a firm consistency. Submitted in formalin in cassette B1 after decalcification. A portion of the core is submitted in formalin in cassette B2 after a period of decalcification in EDTA. C. Bone Marrow, Clot, Right, Posterior, Iliac Crest Received in formalin is a segment of red-brown hemorrhagic material measuring 1.7 x 1.2 x 0.3 cm. Totally submitted in one cassette. D. Blood Received is a peripheral blood smear. Submitted for light microscopy. DL November 15, 2024 7:41 PM Gross examination performed at [facility], [address] [place] [address] Performed By: #### 5 43-9 #### [facility] CLIA [id number] [address] [place] [address] OF [facility] MICROSCOPIC DESCRIPTION Normal [facility] Comment on above: Order Comment: Specimen Type: BONE MARRO W SPECIMENOrdering Facility: [facility] Address: [address] [place] [address] Result Comment: ANJU PHERAL BLOOD: CBC (11/15/2024 8:40 AM) Diff: Auto WBC 5.56 k/uL Neutrophils % 57.1 Hemoglobin 11.0 g/dL Lymphocytes % 32.7 MCV 95.1 fL Monocytes % 6.8 RDW-CV 12.7 % Eosinophils % 2.5 Platelet Count 100 k/uL Basophils % 0.5 Immature Granulocytes % 0.4 Morphology/Interpretation: Normocytic anemia. Thrombocytopenia. BONE MARROW ASPIRATE: Result Normal Range 1 % Blasts 0-2 2 % Promyelocytes 1-5 60 % Myelos/Metas/Bands/Segs 32-72 3 % Eosinophils 1-6 0 % Basophils 0-1 4 % Monocytes 0-4 20 % Erythroid precursors 13-37 9 % Lymphocytes 7-23 1 % Plasma cells 0-2 Myeloid/Erythro (1.5-4): 3.3 Cells counted: 300. Iron stain result: Increase storage iron. Absent ring sideroblasts. Specimen Quality: Adequate. Megakaryocytes: Present with predominantly normal morphology, occasional small, hypolobated forms. Erythropoiesis: Progressive maturation with mild megaloblastoid change and rare binucleation (not diagnostic dysplasia). Granulopoiesis: Progressive maturation. BONE MARROW BIOPSY: Adequacy: Suboptimal (fragmented with aspiration artifact). Cellularity: Hypocellular for age, approximately 30%. ME ratio: Normal. Hematopoiesis: Trilineage. Megakaryocytes: Adequate without clustering. Megakaryocyte morphology: Normal with occasional hyperchromatic nuclei. Lymphoid infiltrate: No aggregates identified. Bone trabeculae: Normal. CLOT SECTION: Marrow particles: Rare. Morphology: Similiar to core biopsy. ANCILLARY TESTS: Flow cytometry: [id number] . Cytogenetics: Pending. FISH: N/A. Molecular: Buffy coat stored. Performed By: #### 5 43-9 #### [facility] CLIA [id number] [address] [place], [place] [address] [address] [place] BONE MARROW CHROMOSOME ANALo n 11-15-2024 CHROMOSOME BM Normal [facility] Comment on above: Order Comment: Specimen Type: BONE MARRO W SPECIMEN Ordering Facility: [facility] Address: [address] [place] [address] Result Comment: Bertha hidalgo Accession Number: [id number] Doctor: TONI LARSON Pathologist: [facility] No: [id number] Clinical diagnosis: Thrombocytopenia, Splenomegaly Specimen Type: Bone marrow Received Date: 11/15/2024 Number of cells counted: 20 Number of cells analyzed: 20 Number of cells karyotyped: 20 Banding resolution: 400 Banding method: G-banding DIAGNOSIS: 46,XX[20] INTERPRETATION: Normal, female karyotype COMMENT: Ten metaphase cells were analyzed from the culture stimulated with ODN, five metaphase cells were analyzed from the culture stimulated with GMCSF and five metaphase cells were analyzed from the 24 hour unstimulated culture. Twenty cells analyzed showed a 46,XX karyotype or had random chromosomal loss or single cell (non-clonal) structural rearrangements, attributed to culture artifact. There was no significant numerical chromosome abnormality and no structural change detected within the limits of resolution. Clinical and pathologic correlation is recommended. Interpretation performed by Yesenia Alexander, PhD Performed by [facility] Molecular Pathology and Cytogenomics ([id number]), Division of Laboratory Medicine [place] Department of Pathology & Laboratory Medicine, [facility] [place] [id number] [place] [address]. [place] [address] Toll free: Performed By: #### [facility] #### [facility] CLIA [id number] [address] [place], [place] [address] OF [facility] CBC W Auto Differential pane l (Bld)on 11-15-2024 Basophils (Bld) [#/Vol] 0.03 10*3/uL Normal <0.11 [facility] Comment on above: Order Comment: Specimen Type: BLOOD SPEC IMEN Ordering Facility: [facility] Address: [facility] [place] [address] Performed By: #### 5 7021-8 #### [facility] CLIA [id number] [address] [place] Basophils/100 WBC (Bld) 0.5 % Normal [facility] Comment on above: Order Comment: Specimen Type: BLOOD SPEC IMEN Ordering Facility: [facility] Address: [address] [place] [address] Performed By: #### 5 7021-8 #### [facility] CLIA [id number] [address] Differential cell count method Nom (Bld) Auto Normal [facility] Comment on above: Order Comment: Specimen Type: BLOOD SPEC IMEN Ordering Facility: [facility] Address: [address] [place] [address] Performed By: #### 5 7021-8 #### [facility] CLIA [id number] [address] [place] [address] [place] Eosinophils (Bld) [#/Vol] 0.14 10*3/uL Normal <0.46 [facility] Comment on above: Order Comment: Specimen Type: BLOOD SPEC IMEN Ordering Facility: [facility] Address: [address] [place] [address] Performed By: #### 5 7021-8 #### [facility] CLIA [id number] [address] Eosinophils/100 WBC (Bld) 2.5 % Normal [facility] Comment on above: Order Comment: Specimen Type: BLOOD SPEC IMEN Ordering Facility: [facility] Address: [address] [place] [address] Performed By: #### 5 7021-8 #### [facility] CLIA [id number] [address] [place] Erythrocyte distribution width (RBC) [Ratio] 12.7 % Normal 11.5-15.0 [facility] Comment on above: Order Comment: Specimen Type: BLOOD SPEC IMEN Ordering Facility: [facility] Address: [address] [place] [address] Performed By: #### 5 7021-8 #### [facility] CLIA [id number] [address] [place] Hematocrit (Bld) [Volume fraction] 33.2 % Low 36.0-46.0 [facility] Comment on above: Order Comment: Specimen Type: BLOOD SPEC IMEN Ordering Facility: [facility] Address: [address] [place] [address] Performed By: #### 5 7021-8 #### [facility] CLIA [id number] [address] [place] Hemoglobin (Bld) [Mass/Vol] 11.0 g/dL Low 11.5-15.5 [facility] [facility] Comment on above: Order Comment: Specimen Type: BLOOD SPEC IMEN Ordering Facility: [facility] Address: [address] [place] [address] Performed By: #### 5 7021-8 #### [facility] CLIA [id number] [address] [place] Immature granulocytes (Bld) [#/Vol] 10*3/uL Normal <0.10 [facility] Comment on above: Order Comment: Specimen Type: BLOOD SPEC IMEN Ordering Facility: [facility] Address: [address] [place] [address] Performed By: #### 5 7021-8 #### [facility] CLIA [id number] [address] [place] Immature granulocytes/100 WBC (Bld) 0.4 % Normal [facility] Comment on above: Order Comment: Specimen Type: BLOOD SPEC IMEN Ordering Facility: [facility] Address: [address] [place] [address] Performed By: #### 5 7021-8 #### [facility] CLIA [id number] [address] [place] Lymphocytes (Bld) [#/Vol] 1.82 10*3/uL Normal 1.00-4.00 [facility] Comment on above: Order Comment: Specimen Type: BLOOD SPEC IMEN Ordering Facility: [facility] Address: [facility] [place] [address] Performed By: #### 5 7021-8 #### [facility] CLIA [id number] [address] Lymphocytes/100 WBC (Bld) 32.7 % Normal [facility] Comment on above: Order Comment: Specimen Type: BLOOD SPEC IMEN Ordering Facility: [facility] Address: [address] [place] [address] Performed By: #### 5 7021-8 #### [facility] CLIA [id number] [address] MCH (RBC) [Entitic mass] 31.5 pg Normal 26.0-34.0 [facility] Comment on above: Order Comment: Specimen Type: BLOOD SPEC IMEN Ordering Facility: [facility] Address: [address] [place] [address] Performed By: #### 5 7021-8 #### [facility] CLIA [id number] [address] MCHC (RBC) [Mass/Vol] 33.1 g/dL Normal 30.5-36.0 [facility] Comment on above: Order Comment: Specimen Type: BLOOD SPEC IMEN Ordering Facility: [facility] Address: [address] [place] [address] Performed By: #### 5 7021-8 #### [facility] CLIA [id number] [address] MCV (RBC) [Entitic vol] 95.1 fL Normal 80.0-100.0 [facility] Comment on above: Order Comment: Specimen Type: BLOOD SPEC IMEN Ordering Facility: [facility] Address: [address] [place] [address] Performed By: #### 5 7021-8 #### [facility] CLIA [id number] [address] [place] Monocytes (Bld) [#/Vol] 0.38 10*3/uL Normal <0.87 [facility] Comment on above: Order Comment: Specimen Type: BLOOD SPEC IMEN Ordering Facility: [facility] Address: [facility] [place] [address] Performed By: #### 5 7021-8 #### [facility] CLIA [id number] 1000 [place] [address] [place] Monocytes/100 WBC (Bld) 6.8 % Normal [facility] Comment on above: Order Comment: Specimen Type: BLOOD SPEC IMEN Ordering Facility: [facility] Address: [address] [place] [address] Performed By: #### 5 7021-8 #### [facility] CLIA [id number] 1000 [place] [address] [place] Neutrophils (Bld) [#/Vol] 3.17 10*3/uL Normal 1.45-7.50 [facility] Comment on above: Order Comment: Specimen Type: BLOOD SPEC IMEN Ordering Facility: [facility] Address: [address] [place] [address] Performed By: #### 5 7021-8 #### [facility] CLIA [id number] 1000 [place] [address] [place] Neutrophils/100 WBC (Bld) 57.1 % Normal [facility] Comment on above: Order Comment: Specimen Type: BLOOD SPEC IMEN Ordering Facility: [facility] Address: [address] [place] [address] Performed By: #### 5 7021-8 #### [facility] CLIA [id number] 1000 [place] [address] [place] Nucleated RBC (Bld) [#/Vol] 10*3/uL Normal <0.01 [facility] Comment on above: Order Comment: Specimen Type: BLOOD SPEC IMEN Ordering Facility: [facility] Address: [address] [place] [address] Performed By: #### 5 7021-8 #### [facility] CLIA [id number] 1000 [place] [address] [place] Nucleated RBC/100 WBC (Bld) [Ratio] 0.0 /100 WBC Normal [facility] Comment on above: Order Comment: Specimen Type: BLOOD SPEC IMEN Ordering Facility: [facility] Address: [facility] [place] [address] Performed By: #### 5 7021-8 #### [facility] CLIA [id number] [address] STATES [place] Platelet mean volume (Bld) [Entitic vol] 10.0 fL Normal 9.0-12.7 [facility] Comment on above: Order Comment: Specimen Type: BLOOD SPEC IMEN Ordering Facility: [facility] Address: [address] [place] [address] Performed By: #### 5 7021-8 #### [facility] CLIA [id number] [address] [place] Platelets (Bld) [#/Vol] 100 10*3/uL Low 150-400 [facility] Comment on above: Order Comment: Specimen Type: BLOOD SPEC IMEN Ordering Facility: [facility] Address: [address] [place] [address] Result Comment: No c lot detected. Performed By: #### 5 7021-8 #### [facility] CLIA [id number] 1000 [place] [address] [place] RBC (Bld) [#/Vol] 3.49 10*6/uL Low 3.90-5.20 [facility] Comment on above: Order Comment: Specimen Type: BLOOD SPEC IMEN Ordering Facility: [facility] Address: [address] [place] [address] Performed By: #### 5 7021-8 #### [facility] CLIA [id number] [address] [place] WBC (Bld) [#/Vol] 5.56 10*3/uL Normal 3.70-11.00 [facility] Comment on above: Order Comment: Specimen Type: BLOOD SPEC IMEN Ordering Facility: [facility] Address: [address] [place] [address] Performed By: #### 5 7021-8 #### [facility] CLIA [id number] 1000 [place] [address] [place] [address] BIOPSY BONE MARROW (HEMO) on 11-15-2024 CT BIOPSY BONE MARROW (HEMO) * * *Final Report* * * DATE OF EXAM: Nov 15 2024 10:06AM [facility] 2037 - CT BIOPSY BONE MARROW (HEMO) / PROCEDURE REASON: Established Patient * * * * Physician Interpretation * * * * CT-GUIDED BONE MARROW ASPIRATION AND BIOPSY INDICATION FOR PROCEDURE: 49 years old Female with Splenomegaly and Thrombocytopenia presents for bone marrow biopsy. CONSENT: The risks, benefits, treatment options, potential complications and personnel to be involved were discussed (including the risks of radiation exposure, contrast, devices that may be used and anesthesia administration) with the patient. All questions were answered and consent was obtained. The patient indicated willingness to proceed. GENERAL: a) Medication Reconciliation: The patient's medications and allergies were reviewed in the electronic medical record and reconciled to the proposed procedure/treatment. Pre-procedure Sign-in: Safety Checklist Performed Yes b) Positioning: The patient was placed prone on the table. c) The dorsal sacroiliac region was then sterilely prepped and draped. d) Time Out: A time out was performed immediately prior to procedure start with the nursing, anesthesia and interventional team, correctly identifying the patient name, date of , procedure, anatomy (including marking of site and side), patient position, procedure consent form, relevant diagnostic and radiology test results, antibiotic administration, safety precautions, and procedure-specific equipment needs. Time Out / Procedure Start Time: 0947 e) Anesthesia Type: moderate procedural sedation. Local anesthesia: 7 mL 1% lidocaine. f) Anesthesia was administered for a total of 15 minutes using 1.5 mg of versed and 75 mcg of fentanyl intravenously. g) Patient monitoring: Performed by registered nurse. PROCEDURE: a) Procedure Details: Under CT guidance, biopsy/aspiration needle was advanced into right posterior iliac bone, through which bone marrow aspiration was performed and a single core biopsy sample was obtained via a single pass. Needle was removed. b) Devices used: Biopsy/Aspiration Needle: 11 Gauge On Control c) Estimated Blood Loss: Minimal d) Number and Type of Removed Specimens: 17 mL bone marrow aspirate and 2 cm core bone biopsy specimen. CONTRAST CT imaging was performed without contrast. RADIATION DOSE a) Image guidance: CT guidance b) Radiation: CT was performed using an Dose-Length Product (DLP) of 353 mGy*cm CT Dose Reduction Employed: Automated exposure control(AEC) and iterative recon POST PROCEDURE: a) Hemostasis: Hemostasis was achieved using light manual compression. b) Sign-out: Communication Performed Yes c) Procedure End Time: 955 d) Conclusion: The patient was transferred to the biopsy recovery room in stable condition. COMPLICATIONS: a) Significant Patient Complication: None b) Complications during the procedure: None RESULTS: Aspirate and core bone marrow specimens obtained. IMPRESSION: Successful CT guided bone marrow aspiration and biopsy. Shopper'S Aide: LANE Transcribe Date/Time: Nov 15 2024 2:38P Dictated by : KLAUDIA ERICKSON DO This examination was interpreted and the report reviewed and electronically signed by: KLAUDIA ERICKSON DO on Nov 15 2024 2:41PM EST [id number] [facility] DNA EXTRACTION BONE MARROW ( BUFFY COAT)on 11-15-2024 DNA EXTRACTION BONE MARROW (BUFFY COAT) [facility] Comment on above: Order Comment: Specimen Type: BONE MARRO W SPECIMEN Ordering Facility: [facility] Address: [address] [place] [address] Result Comment: This specimen was received and successfully processed for future DNA purification should molecular testing be needed. Specimens will be available for 3 years from date of collection. To order testing on this specimen for [facility] patients, please place an [facility] order for DNA and RNA Clinical Testing ([id number]). To order testing for patients outside of the [facility] system, please request DNA and RNA for Clinical Testing, order code [id number]. If additional paperwork is required for testing, please send completed forms via secure email to . Performed By: #### N UCBUF #### [facility] CLIA [id number] [address] [place] [address] [place] FLOW CYTOMETRY FOR LEUKEMIA/ LYMPHOMA (FCLL) PERFORMABLEon 11-15-2024 FLOW CYTOMETRY ORDER STATUS Results will be reported under F case ID when completed [facility] Comment on above: Order Comment: Specimen Type: BONE MARRO W SPECIMEN Ordering Facility: [facility] Address: [address] [place] [address] Performed By: #### F CLLP #### [facility] CLIA [id number] [address] [place] [address] [place] FLOW CYTOMETRY FOR LEUKEMIA/ LYMPHOMA (FCLL) REFLEXon 11-15-2024 DIAGNOSIS COMMENT Normal [facility] Comment on above: Order Comment: Specimen Type: BONE MARRO W SPECIMENOrdering Facility: [facility] Address: [address] [place] [address] Result Comment: This assay is not designed to detect minimal residual disease, plasma cell neoplasms, or myeloid antigen maturational patterns. This test was developed and its performance characteristics determined by [facility]'s [facility] [place] ([facility]). It has not been cleared or approved by the FDA. -[facility] is regulated under CLIA as qualified to perform high-complexity testing. This test is used for clinical purposes. It should not be regarded as investigational or for research. Performed By: #### 5 43-9 #### [facility] CLIA [id number] [address] [place] [address] FINAL PERFORMING LAB [facility] Comment on above: Order Comment: Specimen Type: BONE MARRO W SPECIMENOrdering Facility: [facility] Address: [address] [place] [address] Result Comment: Diag nostic interpretation performed at [facility], [address] [place] [address] CLIA# [id number] [employer]at[employer] Operator: Steven Cardozo M.D. Performed By: #### 5 43-9 #### [facility] CLIA [id number] [address] [place] [address] [place] FLOW CYTOMETRY RESULTS [facility] Comment on above: Order Comment: Specimen Type: BONE MARRO W SPECIMENOrdering Facility: [facility] Address: [address] [place] [address] Result Comment: Spec imen type: Bone marrow aspirate Viability: 98% Flow Cytometry Bone Marrow Immunophenotyping Marker Normal Cell Type Result (Lymphocytes) CD3 T-cells Normal Pattern CD4 T-cell subset Normal Pattern CD5 T-cells Normal Pattern CD7 T/NK-cells Normal Pattern CD8 T-cell subset Normal Pattern CD13 Myeloid Normal Pattern CD16/56 NK cells Normal Pattern CD19 B-cells Normal Pattern CD34 Blasts Normal Pattern CD45 Collins-leukocyte Normal Pattern kappa/lambda B-cells Normal Pattern Flow cytometric analysis of the bone marrow aspirate reveals that 18% of total events have the CD45 and light scatter properties of lymphocytes. The lymphocytes are composed of T-cells (73%, CD4:CD8 ratio = 1.40), NK cells (11%), and polytypic B-cells (15%). Granulocytic elements are 66% of events. Blasts are not increased. ABO/SM 11/19/24 Performed By: #### 5 43-9 #### [facility] CLIA [id number] [address] [place] [address] [place] GROSS DESCRIPTION A. Bone Marrow Normal [facility] Comment on above: Order Comment: Specimen Type: BONE MARRO W SPECIMENOrdering Facility: [facility] Address: [address] [place] [address] Result Comment: Rece ived 3.5ml bone marrow in heparin. Performed By: #### 5 43-9 #### [facility] IA [id number] [address] [place] [address] [place] INTERPRETATION Normal [facility] Comment on above: Order Comment: Specimen Type: BONE MARRO W SPECIMENOrdering Facility: [facility] Address: [address] [place] [address] Result Comment: Ther e is no evidence of involvement by a lymphoproliferative disorder or abnormal blast population. Correlation with the clinical and bone marrow histopathologic findings is suggested. ABO 11/19/2024 at 0744 EDT Performed By: #### 5 43-9 #### [facility] CLIA [id number] [address] [place] [address] [place] HISTORY PHYSICALon HISTORY PHYSICAL HNO ID: [id number] Author: KLAUDIA ERICKSON DO Service: Radiology Author Type: Physician Type: H&P Filed: 11/15/2024 09:35 Note Text: PROCEDURAL SEDATION HISTORY AND PHYSICAL EXAM SERVICE DATE: 11/15/2024 SERVICE TIME: 9:35 AM Subjective HPI: This is a 49 year old female who presents for bone marrow biopsy PAST ANESTHESIA HISTORY: No history of adverse event PAST MEDICAL HISTORY Diagnosis Date Delayed emergence from general anesthesia Dysmetabolic syndrome X polycystic syndrome Endometrial hyperplasia with atypia 2007 Enlarged heart left side of heart Gastroparesis Headache(784.0) Leiomyoma of uterus, unspecified 2010 Mitral valve disorders(424.0) Obesity (BMI 30-39.9) CRIS (obstructive sleep apnea) no CPAP Polycystic ovaries Snoring Type II or unspecified type diabetes mellitus without mention of complication, not stated as uncontrolled Unspecified asthma(493.90) Unspecified essential hypertension PAST SURGICAL HISTORY Procedure Laterality Date CAPSULE ENDOSCOPY 10/23/2020 DELIVERY ONLY 10/18/1995 , low cervical COLONOSCOPY FLX DX W/COLLJ SPEC WHEN PFRMD 2013 COLONOSCOPY SCREENING 11/17/2022 DILATION AND CURETTAGE DXAND/THER NONOBSTETRIC 1997, 2000 Dilation AND curettage EGD 12/11/2015 chronic active gastritis EGD TRANSORAL BIOPSY SINGLE/MULTIPLE 08/22/2017 non-bleeding erosive gastropathy, sm amt phytobezoar in stomach, neg H Pylori; Dr. Vargas GI TRANSIT AND PRES JON WIRELESS CAPSULE W/INTERP 10/16/2020 Smart Pill HYSTERECTOMY HX 2010 HYSTEROSCOPY BX W/WO DANDC 11/25/2010 HYSTEROSCOPY, DIAGNOSTIC (SEPARATE 04/25/2008 Hysteroscopy/currettage INSERTION OF IUD 11/25/2010 mirena TONSILLECTOMY HX Prior to Admission medications as of 11/15/24 0830 Medication Sig Last Dose Taking JARDIANCE 25 mg tablet Take 25 mg by mouth once daily. 11/15/2024 at 6:30 AM Yes hydrOXYchloroQUINE 100 mg tablet Take 1 tablet by mouth once daily. 11/15/2024 at 6:30 AM Yes LANTUS SOLOSTAR U-100 INSULIN 100 unit/mL (3 mL) Inject 42 Units subcutaneously once daily. 11/15/2024 at 6:30 AM Yes spironolactone (ALDACTONE) 25 mg tablet Take 50 mg by mouth two times a day. 11/15/2024 at 6:30 AM Yes lisinopril (ZESTRIL) 10 mg tablet Take 10 mg by mouth once daily. 11/15/2024 at 6:30 AM Yes MOUNJARO 12.5 mg/0.5 mL pen injector Inject 15 mg subcutaneously one time a week. 10/30/2024 ergocalciferol 50,000 unit capsule (VITAMIN D2, DRISDOL) Take 50,000 Units by mouth one time a week. 10/30/2024 gabapentin (NEURONTIN) 100 mg capsule Take 1 capsule by mouth three times a day for 30 days. pen needle, diabetic (COMFORT EZ PEN NEEDLES) 33 gauge x 3/16 ndle 1 Each once daily. ondansetron (ZOFRAN) 4 mg tablet Take 1 tablet by mouth every 8 hours as needed for nausea/vomiting. Unknown Blood Glucose Control, Normal soln Use as directed blood sugar diagnostic (BLOOD GLUCOSE TEST) test strip 1 Strip once daily. Use as instructed albuterol (PROVENTIL) 2.5 mg /3 mL (0.083 %) nebulizer solution Use 3 mL via nebulizer every 4 hours as needed for wheezing/shortness of breath. OVER 5-15 MINUTES. FOR WHEEZING AND SHORTNESS OF BREATH. Unknown ALLERGIES Allergen Reactions Bees Rash, Swelling, Itching Childhood reaction, no recent stings. Metformin Diarrhea, GI Upset Adhesive Tape (Karen* Rash, Itching Lisinopril Intolerance Ozempic [Semaglutid* Intolerance Nausea and vomiting Reglan [Metoclopram* Intolerance Objective PHYSICAL EXAM: The remainder of the physical exam is noncontributory. AIRWAY: Mouth opening greater than 3 fingerbreadths: Yes Neck Full Range of Motion: Yes LUNGS: Lungs clear to auscultation CARDIAC: Regular rhythm,Regular rate Assessment/Plan ASA Class: Active Problems: * No active hospital problems. * Resolved Problems: * No resolved hospital problems. * Exogenous Class 1 Obesity Medication and Non-Pharmacologic VTE Prophylaxis/Anticoagulants VTE Prophylaxis: VTE prophylaxis appropriate Provisional Diagnosis/Treatment Plan: CT guided bone marrow biopsy Sedation Goal: Moderate SIGNATURE: Klaudia Erickson DO PATIENT NAME: Estela Cote DATE: November 15, 2024 TIME: 9:34 AM Normal [facility] Microorganism Spec Culton Microorganism identified Cx Nom (Unsp spec) CULTURE, FUNGAL: No Fungus isolated after 28 days [facility] Comment on above: Performed By: #### 25256-3 #### [facility] CLIA [id number] [address] [place] [address] [place] Mycobacterium Spec Culton Mycobacterium sp identified Org specific cx Nom (Unsp spec) CULTURE, AFB: No Acid Fast Bacilli isolated after 42 days [facility] Comment on above: Performed By: #### 543-9 #### [facility] CLIA [id number] [address] [place] [address] [place] BETA 2 GLYCOPROTEIN, IGGon 0 11-05-2024 Beta 2 glycoprotein 1 IgG IA Qn <9 Normal <20 [facility] Comment on above: Order Comment: Specimen Type: BLOOD SPEC IMEN Ordering Facility: [facility] Address: [address] [place] [address] Result Comment: <20 SGU Negative 20-80 SGU Low Positive >80 SGU High Positive These results were obtained with the [employer] QUANTA Lite B2 GPI IgG CARI. B2 GPI IgG values obtained with different manufacturers' assay methods may not be used interchangeably. The magnitude of the reported IgG levels cannot be correlated to an endpoint titer. Performed By: #### L [id number] #### [facility] CLIA [id number] [address] [place] [address] [place] BETA 2 GLYCOPROTEIN, IGMon 0 11-05-2024 Beta 2 glycoprotein 1 IgM IA Qn <9 Normal <20 [facility] Comment on above: Order Comment: Specimen Type: BLOOD SPEC IMEN Ordering Facility: [facility] Address: [address] [place] [address] Result Comment: <20 SMU Negative 20-80 SMU Low Positive >80 SMU High positive These results were obtained with the [employer]ova QUANTA Lite B2 GPI IgM CARI. B2 GPI IgM values obtained with different manufacturers' assay methods may not be used interchangeably. The magnitude of the reported IgM levels cannot be correlated to an endpoint titer. Performed By: #### L [id number] #### [facility] CLIA [id number] [address] [place] [address] CARDIOLIPIN IGG ABSon 2024 Cardiolipin IgG IA Qn (S) <9.0 Normal <15.0 [facility] Comment on above: Order Comment: Specimen Type: BLOOD SPEC [facility] Ordering Facility: [facility] Address: [address] [place] [address] Result Comment: <15 GPL Negative 15-20 GPL Indeterminate >20 GPL Positive The following results were obtained with the [employer]ova QUANTA Lite TAE IgG III CARI. Cardiolipin IgG values obtained with the different manufacturers' assay methods may not be used interchangeably. The magnitude of the reported IgG levels cannot be correlated to an endpoint titer. Performed By: #### L [id number] #### [facility] CLIA [id number] [address] [place] [address] CARDIOLIPIN IGM ABSon 2024 Cardiolipin IgM IA Qn (S) <9.0 Normal <12.5 [facility] Comment on above: Order Comment: Specimen Type: BLOOD SPEC [facility] Ordering Facility: [facility] Address: [address] [place] [address] Result Comment: <12. 5 MPL Negative 12.5-20 MPL Indeterminate >20 MPL Positive The following results were obtained with the [employer] QUANTA Lite TAE IgM III CARI. Cardiolipin IgM values obtained with the different manufacturers' assay methods may not be used interchangeably. The magnitude of the reported IgM levels cannot be correlated to an endpoint titer. ??? Performed By: #### L [id number] #### [facility] CLIA [id number] [address] [place] [address] [place] CNOVSPon 11-05-2024 CNOVSP Visit (SP) Office ([facility]) ROLANDESTELA Saldana ([id number]) 1975 F Date Time Provider Department 11/05/24 9:50 AM TONI LARSON During your visit today, we recorded the following information about you: Temperature Pulse Blood pressure Weight 96.7 degrees 78/minute 125/83 97.1 kg Toni Larson, 11/05/2024 10:38 AM Signed Hematologic problem(s): 1) Mild thrombocytopenia. 2) Splenomegaly. 3) RA. 4) Hypercoagulation work up for masto HPI: The patient is a 49-year-old female with a past medical history as outlined below. She is in need of breast reduction surgery. She has history of rheumatoid arthritis. Also has a history of multiple spontaneous losses in the first trimester. Symptoms from RA include joint swelling, pain and stiffness as well as fatigue. Diagnosed about 10+ years ago. Sees Dr. Jalloh in [place]. 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 She has chronic history mildly low platelet count. No personal history of venous thromboembolism. No known family h/o VTE. History 5 miscarriages all prior to about 12 weeks. Had a daughter prior to the miscarriages. Full term (close to 10 months-- was on vacation). Emergency .Took 4 years to conceive her. Full hysterectomy for early stage endometrial cancer. No adjuvant chemotherapy or radiation. Age 11 on--Very irregular menses. Heavy when occurred. Doesn't bruise easily but can get unexplained bruising. Hasn't used Mobic in a while--ran out. Echo 2009--mild LVH and probably patent foramen ovale. Presents for ongoing hematologic management. Interim history: No subjective change. No complaints today. No unusual bleeding or unexplained bruising. PAST MEDICAL HISTORY Diagnosis Date Delayed emergence from general anesthesia Dysmetabolic syndrome X polycystic syndrome Endometrial hyperplasia with atypia 2007 Enlarged heart left side of heart Gastroparesis Headache(784.0) Leiomyoma of uterus, unspecified 2010 Mitral valve disorders(424.0) Obesity (BMI 30-39.9) CRIS (obstructive sleep apnea) no CPAP Polycystic ovaries Snoring Type II or unspecified type diabetes mellitus without mention of complication, not stated as uncontrolled Unspecified asthma(493.90) Unspecified essential hypertension PAST SURGICAL HISTORY Procedure Laterality Date CAPSULE ENDOSCOPY 10/23/2020 DELIVERY ONLY 10/18/1995 , low cervical COLONOSCOPY FLX DX W/COLLJ SPEC WHEN PFRMD 2013 COLONOSCOPY SCREENING 11/17/2022 DILATION AND CURETTAGE DXAND/THER NONOBSTETRIC 1997, 2000 Dilation AND curettage EGD 12/11/2015 chronic active gastritis EGD TRANSORAL BIOPSY SINGLE/MULTIPLE 08/22/2017 non-bleeding erosive gastropathy, sm amt phytobezoar in stomach, neg H Pylori; Dr. Vargas GI TRANSIT AND PRES JON WIRELESS CAPSULE W/INTERP 10/16/2020 Smart Pill HYSTERECTOMY HX 2010 HYSTEROSCOPY BX W/WO DANDC 11/25/2010 HYSTEROSCOPY, DIAGNOSTIC (SEPARATE 04/25/2008 Hysteroscopy/currettage INSERTION OF IUD 11/25/2010 mirena TONSILLECTOMY HX ALLERGIES Allergen Reactions Bees Rash, Swelling, Itching Childhood reaction, no recent stings. Metformin Diarrhea, GI Upset Adhesive Tape (Karen* Rash, Itching Lisinopril Intolerance Ozempic [Semaglutid* Intolerance Nausea and vomiting Reglan [Metoclopram* Intolerance Social History Tobacco Use Smoking status: Former Types: Cigarettes Smokeless tobacco: Never Tobacco comments: Pt smoked as a teenager, quit age 16 Vaping Use Vaping status: Never Used Substance Use Topics Alcohol use: Not Currently Drug use: Never FAMILY HISTORY Problem Relation Age of Onset Coronary Artery Disease Mother Hypertension Mother [place] @ 62 yrs. old Diabetes Mother Cancer Father SKIN, ENT met to lungs. Diabetes Sister Diabetes Brother Diabetes Brother Diabetes Brother Coronary Artery Disease Brother 40 stent + [place] Diabetes Brother Coronary Artery Disease Brother 40 stent + [place] Diabetes Brother Coronary Artery Disease Brother 40 stent Coronary Artery Disease Maternal Grandmother Cancer Paternal Grandmother colon Cancer Maternal Aunt PANCREAS Heart Attack Maternal Aunt Cancer Maternal Aunt UTERINE Cancer Maternal Uncle HODGKINS Asthma No Family History REVIEW OF SYSTEMS: Constitutional: No episodes of fever and night sweats. Neuro: No HAYES, vertigo, dizziness and imbalance. Chronic neuropathy both lower extremities. HEENT: No recent change in voice, vision or hearing. Resp: No cough, wheeze and hemoptysis. No shortness of breath at rest. CVS: No exertional chest pain, PND, orthopnea and LE edema. GI: No reflux, n/v, change in bowel habits or abdominal pain. : No dysuria or gross hematuria. Endo: No hot flashes. Musculoskeletal: See above. Derm: No current rash. Heme: See above P (more content not included)... [facility] EST[facility] ([id number]) 1975 F Date Time Provider Department 11/05/24 LAINEY EPSTEIN During your visit today, we recorded the following information about you: Toni Larson DO 11/12/2024 1:59 PM Signed Can let her know that the lab work showed no evidence of a hypercoagulable condition. Keep bone marrow biopsy as scheduled. DO Suma Treadwell Melanie, LPN 11/12/2024 2:26 PM Signed Patient notified. Amber Bolivar LPN Allergies As of Date: 11/05/2024 Noted Allergy Reaction BEES 02/18/2014 2 - Rash 7 - Swelling 9 - Itching Comments: Childhood reaction, no recent stings. METFORMIN 05/09/2014 6 - Diarrhea 8 - GI Upset ADHESIVE TAPE (ROSINS) 02/18/2014 2 - Rash 9 - Itching LISINOPRIL 11/18/2022 5 - Intolerance OZEMPIC (SEMAGLUTIDE) 10/15/2022 5 - Intolerance Comments: Nausea and vomiting REGLAN (METOCLOPRAMIDE) 01/11/2023 5 - Intolerance Date Reviewed: 11/05/2024 Reviewed by: León Bravo MA - Fully Assessed Reason for Visit: Radiology Pre Procedure Instructions [1506] Cmt: Bone marrow bx Results [95] Prescriptions as of 11/12/2024 - hydrOXYchloroQUINE 100 mg tablet Take 1 tablet by mouth once daily. - MOUNJARO 12.5 mg/0.5 mL pen injector Inject 15 mg subcutaneously one time a week. - LANTUS SOLOSTAR U-100 INSULIN 100 unit/mL (3 mL) Inject 42 Units subcutaneously once daily. - spironolactone (ALDACTONE) 25 mg tablet Take 50 mg by mouth two times a day. - lisinopril (ZESTRIL) 10 mg tablet Take 10 mg by mouth once daily. - ergocalciferol 50,000 unit capsule (VITAMIN D2, DRISDOL) Take 50,000 Units by mouth one time a week. - gabapentin (NEURONTIN) 100 mg capsule Take 1 capsule by mouth three times a day for 30 days. - pen needle, diabetic (COMFORT EZ PEN NEEDLES) 33 gauge x 3/16 ndle 1 Each once daily. - ondansetron (ZOFRAN) 4 mg tablet Take 1 tablet by mouth every 8 hours as needed for nausea/vomiting. - Blood Glucose Control, Normal soln Use as directed - blood sugar diagnostic (BLOOD GLUCOSE TEST) test strip 1 Strip once daily. Use as instructed - albuterol (PROVENTIL) 2.5 mg /3 mL (0.083 %) nebulizer solution Use 3 mL via nebulizer every 4 hours as needed for wheezing/shortness of breath. OVER 5-15 MINUTES. FOR WHEEZING AND SHORTNESS OF BREATH. Problem List As Of Date 11/05/2024 Noted Resolved Hypertension, essential [I10] DYSMETABOLIC SYNDROME X [E88.810] Polycystic ovaries [E28.2] ASTHMA UNSPECIFIED [J45.909] HEADACHE [R51] Overweight(278.02) [E66.3] 02/25/2014 Type II or unspecified type diabetes mellitus w* 12/19/2013 FATTY LIVER [R94.5] 11/29/2007 ENDOMETRIAL HYPERPLASIA W ATYPIA [N85.02] 04/25/2008 EXCESSIVE MENSTRUATION [N92.0] 04/25/2008 DJD (degenerative joint disease) [M19.90] 03/03/2010 Capsulitis [M77.9] 03/03/2010 Complex endometrial hyperplasia without atypia *12/21/2010 Rheumatoid arthritis, adult (HCC) [M06.9] 12/19/2013 Fibromyalgia [M79.7] 12/19/2013 Type 2 diabetes mellitus without complication, *12/19/2013 Insomnia [G47.00] 12/19/2013 Hyperlipidemia [E78.5] 12/19/2013 Family history of ischemic heart disease [Z82.4*05/24/2014 CRIS (obstructive sleep apnea) [G47.33] 10/02/2014 Abnormal finding on ultrasound [R93.89] 10/24/2015 Epigastric pain [R10.13] 12/11/2015 Nausea [R11.0] 12/11/2015 Gastroparesis due to secondary diabetes (HCC) [*12/19/2015 Type 2 diabetes mellitus with diabetic neuropat*12/19/2015 Obesity, Class III, BMI 40-49.9 (morbid obesity*10/15/2022 Encounter for screening for malignant neoplasm *11/17/2022 Leg swelling [M79.89] 11/17/2022 Palpitation [R00.2] 12/28/2022 Obesity, Class II, BMI 35-39.9 [E66.812] 05/27/2024 Encounter Status:Closed by AMBER BOLIVAR on 11/12/24 [facility] CRP SerPl-mCncon 11-05-2024 CRP [Mass/Vol] mg/L Normal <0.9 [facility] Comment on above: Order Comment: Specimen Type: BLOOD SPEC IMENOrdering Facility: [facility] Address: [address] [place] [address] Performed By: #### 1 988-5 ####[facility] [id number] [place] [address] [place] Cardiolipin IgA Ser IA-aCnco n 11-05-2024 Cardiolipin IgA IA Qn (S) <9.0 Normal <12.0 [facility] Comment on above: Order Comment: Specimen Type: BLOOD SPEC IMEN Ordering Facility: [facility] Address: [address] [place] [address] Result Comment: <12 APL Negative 12-20 APL Indeterminate >20 APL Positive The following results were obtained with the [employer] QUANTA Lite TAE IgA III CARI. Cardiolipin IgA values obtained with the different manufacturers' assay methods may not be used interchangeably. The magnitude of the reported IgA levels cannot be correlated to an endpoint titer. Performed By: #### L [id number] #### [facility] CLIA [id number] [address] [place] [address] [facility] HYPERCOAG PANELon 11-05-2024 Activated protein C resistance Coag (PPP) [Time ratio] 7.55 Ratio Normal >=2.90 [facility] Comment on above: Order Comment: Specimen Type: BLOOD SPEC IMEN Ordering Facility: [facility] Address: [address] [place] [address] Performed By: #### L [id number], LUPPL #### [facility] CLIA [id number] [address] [place] [address] STATES [facility] Antithrombin actual/normal Chromogenic method (PPP) [Rel catalytic activity/Vol] 108 % Normal 84-138 [facility] Comment on above: Order Comment: Specimen Type: BLOOD SPEC IMEN Ordering Facility: [facility] Address: [address] [place] [address] Performed By: #### L [id number], LUPPL #### [facility] CLIA [id number] [address] [place] [address] [place] aPTT Coag (Bld) [Time] 29.0 s Normal 24.0-35.1 [facility] Comment on above: Order Comment: Specimen Type: BLOOD SPEC IMEN Ordering Facility: [facility] Address: [address] [place] [address] Performed By: #### L [id number], LUPPL #### [facility] CLIA [id number] [address] [place] [address] [place] aPTT W excess hexagonal phase phospholipid Coag (PPP) [Time] 42.9 seconds Normal 34.0-51.8 [facility] Comment on above: Order Comment: Specimen Type: BLOOD SPEC IMEN Ordering Facility: [facility] Address: [address] [place] [address] Performed By: #### L [id number], LUPPL #### [facility] CLIA [id number] [address] [place] [address] [place] Coagulation factor VIII activity actual/normal Coag (PPP) [Relative time] 129 % Normal 50-173 [facility] Comment on above: Order Comment: Specimen Type: BLOOD SPEC IMEN Ordering Facility: [facility] Address: [address] [place] [address] Performed By: #### L [id number], LUPPL #### [facility] CLIA [id number] [address] [place] [address] [place] Coagulation factor X activated act Coag Qn (PPP) <0.10 Normal <0.10 [facility] Comment on above: Order Comment: Specimen Type: BLOOD SPEC IMEN Ordering Facility: [facility] Address: [address] [place] [address] Result Comment: This test was developed, and its performance characteristics determined by the [facility] Department of Pathology and Laboratory Medicine. It has not been cleared or approved by the FDA. The [facility] Department of Pathology and Laboratory Medicine is regulated under CLIA as qualified to perform high-complexity testing. This test is used for clinical purposes. It should not be regarded as investigational or for research. Performed By: #### L [id number], LUPPL #### [facility] CLIA [id number] [address] [place] [address] [place] Delta dRVVT Coag (PPP) [Time diff] 2.9 delta seconds Normal <7.1 [facility] Comment on above: Order Comment: Specimen Type: BLOOD SPEC IMEN Ordering Facility: [facility] Address: [address] [place] [address] Performed By: #### L [id number], LUPPL #### [facility] CLIA [id number] [address] [place] [address] [place] dRVVT W excess hexagonal phase phospholipid actual/normal Coag (PPP) [Relative time] 40.0 seconds Normal 34.2-47.9 [facility] Comment on above: Order Comment: Specimen Type: BLOOD SPEC IMEN Ordering Facility: [facility] Address: [address] [place] [address] Performed By: #### L [id number], LUPPL #### [facility] CLIA [id number] [address] [place] [address] [place] FIBRINOGEN ACTIVITY 285 mg/dL Normal 200-400 [facility] Comment on above: Order Comment: Specimen Type: BLOOD SPEC IMEN Ordering Facility: [facility] Address: [address] [place] [address] Performed By: #### L [id number], LUPPL #### [facility] CLIA [id number] [address] [place] [address] [place] Protein C actual/normal Coag (PPP) [Relative time] 85 % Normal 76-147 [facility] Comment on above: Order Comment: Specimen Type: BLOOD SPEC IMEN Ordering Facility: [facility] Address: [address] [place] [address] Performed By: #### L [id number], LUPPL #### [facility] CLIA [id number] [address] [place] [address] [place] Protein S actual/normal Coag (PPP) [Relative time] 69 % Normal 59-152 [facility] Comment on above: Order Comment: Specimen Type: BLOOD SPEC IMEN Ordering Facility: [facility] Address: [address] [place] [address] Performed By: #### L [id number], LUPPL #### [facility] CLIA [id number] [address] [place] [address] [place] PT Coag (Bld) [Time] 13.8 s Normal 11.6-14.4 [facility] Comment on above: Order Comment: Specimen Type: BLOOD SPEC IMEN Ordering Facility: [facility] Address: [address] [place] [address] Performed By: #### L [id number], LUPPL #### [facility] CLIA [id number] [address] [place] [address] [place] Thrombin time Coag (PPP) [Time] 17.1 seconds Normal <18.6 [facility] Comment on above: Order Comment: Specimen Type: BLOOD SPEC IMEN Ordering Facility: [facility] Address: [address] [place] [address] Performed By: #### L [id number], LUPPL #### [facility] CLIA [id number] [address] [place] [address] [place] HYPERCOAG PANEL INTERPon INTERPRETATION (HYPERCOAG) Normal [facility] Comment on above: Order Comment: Specimen Type: BLOOD SPEC IMEN Ordering Facility: [facility] Address: [address] [place] [address] Result Comment: Norm al - see comment below. A laboratory evaluation for congenital and acquired risk factors for thrombophilia was performed. The PT and APTT values are both within the normal range. A negative anti-Xa screen and normal thrombin time (TT) make a heparin, Xa inhibitor and direct thrombin inhibitor effect unlikely. LUPUS ANTICOAGULANT AND ANTIPHOSPHOLIPID ANTIBODY TESTING: The normal hexagonal phase phospholipid neutralization and APTT assays make a lupus anticoagulant unlikely. The IgG, IgM and IgA anticardiolipin antibody titers were all negative. Both the IgG and IgM Beta-2 Glycoprotein I antibody titers were negative. PROTEIN STUDIES: The levels of protein C, protein S and antithrombin are normal. The levels of fibrinogen, factor VIII and C-reactive protein are normal. GENOTYPING STUDIES: The activated protein C resistance ratio (APC-R) is normal. The Factor V Leiden mutation, a c.1601G>A variant (legacy name R506Q) in the Factor V (F5) gene, is unlikely. The patient is negative for the c.*97G>A variant (legacy name 41111Y>A) in the 3' untranslated region of the Factor II (F2) prothrombin gene. Please refer to the interpretation provided with the PT Gene Mutation result for further diagnostic and prognostic information. These genotyping results are not associated with an increased risk of thromboembolic disease. THE FOLLOWING TESTS WERE ADDED AND ARE REPORTED SEPARATELY: Protein C functional, Antithrombin functional, protein S clottable, hexagonal phase phospholipid neutralization, factor VIII, activated protein C resistance. Performed By: #### L [id number], LUPPL #### [facility] CLIA [id number] [address] [place] [address] [place] Pathologist name Reviewed by Tigre Melgar MD, PhD Normal [facility] Comment on above: Order Comment: Specimen Type: BLOOD SPEC IMEN Ordering Facility: [facility] Address: [address] [place] [address] Performed By: #### L [id number], LUPPL #### [facility] CLIA [id number] [address] [place] [address] PROTHROMBIN GENE PCRon 11-05 PROTHROMBIN GENE MUTATION Normal [facility] Comment on above: Order Comment: Specimen Type: BLOOD SPEC IMEN Ordering Facility: [facility] Address: [address] [place] [address] Result Comment: Prot hrombin Gene Mutation Laboratory Accession Number: [id number] Result: NORMAL Interpretation: The DNA sample is negative for the c.*97G>A variant (legacy name 92010Z>A) in the 3' untranslated region of the Factor II (F2) gene. This result is not associated with an increased risk of thromboembolic disease. Thromboembolic disease is a multifactorial disorder and other causes are not excluded by this result. Methodology: Isolated Genomic DNA from the patient's blood specimen is evaluated for the c*97G>A ([id number]) variant of the F2 gene [RefSeq NM_000506.53;GRCh38/hg38] by multiplex polymerase chain reaction (PCR) followed by melting curve analysis. Limitations: This assay is designed to detect the c.*97G>A (91562V>A) variant in the F2 gene. Uncommon variants or single nucleotide polymorphisms may affect binding of probes and may rarely result in false negative, false positive or indeterminate results. This assay does not detect other disease-associated rare variants in F2 or other causes of thromboembolic disease. Disclaimer: This test was developed and its performance characteristics determined by [facility]'s Pathology and Laboratory Medicine Department. It has not been cleared or approved by the FDA. [facility]'s Pathology and Laboratory Medicine Department is regulated under CLIA as certified to perform high-complexity testing. This test is used for clinical purposes. It should not be regarded as investigational or for research. Test performed at [facility], [address] [place] [address]. CLIA Number: [id number] References: 1) Inheritied Thrombophilias in . ACOG Practice Bulletin. No. 197. [place] [employer]. Obsete Gynecol 2018;132:e18-34. 2) Corbyt SR, Shun FR, Jeniffer PH, and Mckayla NUNN. A common genetic variation in the 3'-untranslated region of the prothrombin gene is associated with elevated plasma prothrombin levels and an increase in venous thrombosis. Blood 88:3698-703, 1996. 3) Eloisa I, Lisa V, Wilmer C, Crista K. Prothrombin 01481U>T: 16 new cases, association with the 96146J>G polymorphism, and literature review. J Thromb Haemost. 2009;9:1585-7. Interpretation performed by Kasia Jones, PhD, FACMG Performed By: #### L [id number], TAIWOPL #### [facility] [place] [id number] [address] [place] [address] [place] PT MIXING STUDYon 11-05-2024 PT Coag (Bld) [Time] 14.0 s Normal 11.6-14.4 [facility] Comment on above: Order Comment: Specimen Type: BLOOD SPEC IMEN Ordering Facility: [facility] Address: [address] [place] [address] Performed By: #### L [id number] #### [facility] IA [id number] [address] [place] [address] [place] [facility] 10-30-2024 CNPN Telephone ([facility]) ROLANDESTELA Saldana ([id number]) 1975 F Date Time Provider Department 10/30/24 AUDELIA GARCIA During your visit today, we recorded the following information about you: Mira Abdullahi 10/30/2024 9:17 AM Signed Patient stopped by the office today inquiring about a letter for her insurance company that her and Dr. Garcia discussed in her last appointment. Patient is getting a breast reduction and her insurance company would like a letter form Dr. Garcia stating that it's beneficial to her to have the reduction surgery. Please advise. Audelia Veliz DO 10/31/2024 12:43 PM Signed Letter attached. Can we stamp it with my signature? DO Amanda Leigh Mary, MA 10/31/2024 1:16 PM Signed Pt. Aware. Letter at front. Fernanda Patel MA Allergies As of Date: 10/30/2024 Noted Allergy Reaction BEES 02/18/2014 2 - Rash 7 - Swelling 9 - Itching Comments: Childhood reaction, no recent stings. METFORMIN 05/09/2014 6 - Diarrhea 8 - GI Upset ADHESIVE TAPE (ROSINS) 02/18/2014 2 - Rash 9 - Itching LISINOPRIL 11/18/2022 5 - Intolerance OZEMPIC (SEMAGLUTIDE) 10/15/2022 5 - Intolerance Comments: Nausea and vomiting REGLAN (METOCLOPRAMIDE) 01/11/2023 5 - Intolerance Date Reviewed: 10/23/2024 Reviewed by: Carly Harrington Ma, MA - Fully Assessed Reason for Visit: Letter for medical necessity for insurance company [Other] Prescriptions as of 10/31/2024 - hydrOXYchloroQUINE 100 mg tablet Take 1 tablet by mouth once daily. - MOUNJARO 12.5 mg/0.5 mL pen injector Inject 15 mg subcutaneously one time a week. - LANTUS SOLOSTAR U-100 INSULIN 100 unit/mL (3 mL) Inject 42 Units subcutaneously once daily. - spironolactone (ALDACTONE) 25 mg tablet Take 25 mg by mouth two times a day. - lisinopril (ZESTRIL) 10 mg tablet Take 10 mg by mouth once daily. - ergocalciferol 50,000 unit capsule (VITAMIN D2, DRISDOL) Take 50,000 Units by mouth one time a week. - gabapentin (NEURONTIN) 100 mg capsule Take 1 capsule by mouth three times a day for 30 days. - pen needle, diabetic (COMFORT EZ PEN NEEDLES) 33 gauge x 3/16 ndle 1 Each once daily. - ondansetron (ZOFRAN) 4 mg tablet Take 1 tablet by mouth every 8 hours as needed for nausea/vomiting. - meloxicam (MOBIC ORAL) Take 15 mg by mouth once daily. - Blood Glucose Control, Normal soln Use as directed - blood sugar diagnostic (BLOOD GLUCOSE TEST) test strip 1 Strip once daily. Use as instructed - albuterol (PROVENTIL) 2.5 mg /3 mL (0.083 %) nebulizer solution Use 3 mL via nebulizer every 4 hours as needed for wheezing/shortness of breath. OVER 5-15 MINUTES. FOR WHEEZING AND SHORTNESS OF BREATH. Problem List As Of Date 10/30/2024 Noted Resolved Hypertension, essential [I10] DYSMETABOLIC SYNDROME X [E88.810] Polycystic ovaries [E28.2] ASTHMA UNSPECIFIED [J45.909] HEADACHE [R51] Overweight(278.02) [E66.3] 02/25/2014 Type II or unspecified type diabetes mellitus w* 12/19/2013 FATTY LIVER [R94.5] 11/29/2007 ENDOMETRIAL HYPERPLASIA W ATYPIA [N85.02] 04/25/2008 EXCESSIVE MENSTRUATION [N92.0] 04/25/2008 DJD (degenerative joint disease) [M19.90] 03/03/2010 Capsulitis [M77.9] 03/03/2010 Complex endometrial hyperplasia without atypia *12/21/2010 Rheumatoid arthritis, adult (HCC) [M06.9] 12/19/2013 Fibromyalgia [M79.7] 12/19/2013 Type 2 diabetes mellitus without complication, *12/19/2013 Insomnia [G47.00] 12/19/2013 Hyperlipidemia [E78.5] 12/19/2013 Family history of ischemic heart disease [Z82.4*05/24/2014 CRIS (obstructive sleep apnea) [G47.33] 10/02/2014 Abnormal finding on ultrasound [R93.89] 10/24/2015 Epigastric pain [R10.13] 12/11/2015 Nausea [R11.0] 12/11/2015 Gastroparesis due to secondary diabetes (HCC) [*12/19/2015 Type 2 diabetes mellitus with diabetic neuropat*12/19/2015 Obesity, Class III, BMI 40-49.9 (morbid obesity*10/15/2022 Encounter for screening for malignant neoplasm *11/17/2022 Leg swelling [M79.89] 11/17/2022 Palpitation [R00.2] 12/28/2022 Obesity, Class II, BMI 35-39.9 [E66.812] 05/27/2024 Letter Text Encounter Status:Closed by MIRA ABDULLAHI on 10/30/24 Normal [facility] US ABD RIGHT UPPER QUADRANTo n 10-30-2024 US ABD RIGHT UPPER QUADRANT * * *Final Report* * * DATE OF EXAM: Oct 30 2024 9:17AM U 1032 - US ABD RIGHT UPPER QUADRANT / PROCEDURE REASON: multiple diagnoses * * * * Physician Interpretation * * * * EXAMINATION: RIGHT UPPER QUADRANT AND SPLEEN ULTRASOUND HISTORY: multiple diagnoses. Abnormal liver function test results. Thrombocytopenia. TECHNIQUE: Sonography of the right upper quadrant and spleen was performed. Images were obtained and stored in a permanent archive. MQ: URUQ_2 COMPARISON: 12/29/2022 CT scan RESULT: Pancreas: Normal sonographic appearance. Portions obscured: tail Liver: Echotexture: Normal, homogeneous. Echogenicity: Normal Surface contour: Smooth Lesions: none Main portal vein is patent with normal flow direction. Biliary: No intrahepatic biliary duct dilation. CBD: 0.6 cm at the hilum. Gallbladder: Normal caliber -Contents: No cholelithiasis -Wall: Normal -Other: No pericholecystic fluid. . Right Kidney: No hydronephrosis. Ascites: None. Spleen: The craniocaudal length of the spleen is 16.2 cm , enlarged. There are no splenic lesions. Left Kidney: No hydronephrosis. - IMPRESSION: Nonspecific splenomegaly. Otherwise, unremarkable exam. Shopper'S Aide: LANE Transcribe Date/Time: Nov 01 2024 11:35A Dictated by : SID LUIS MD This examination was interpreted and the report reviewed and electronically signed by: SID LUIS MD on Nov 01 2024 11:36AM EST [id number] Normal [facility] US ABD SPLEEN -NBon 10-31-19 25 US ABD SPLEEN -NB * * *Final Report* * * DATE OF EXAM: Oct 30 2024 9:17AM LDU 1232 - US ABD SPLEEN -NB / PROCEDURE REASON: multiple diagnoses * * * * Physician Interpretation * * * * EXAMINATION: RIGHT UPPER QUADRANT AND SPLEEN ULTRASOUND HISTORY: multiple diagnoses. Abnormal liver function test results. Thrombocytopenia. TECHNIQUE: Sonography of the right upper quadrant and spleen was performed. Images were obtained and stored in a permanent archive. MQ: URUQ_2 COMPARISON: 12/29/2022 CT scan RESULT: Pancreas: Normal sonographic appearance. Portions obscured: tail Liver: Echotexture: Normal, homogeneous. Echogenicity: Normal Surface contour: Smooth Lesions: none Main portal vein is patent with normal flow direction. Biliary: No intrahepatic biliary duct dilation. CBD: 0.6 cm at the hilum. Gallbladder: Normal caliber -Contents: No cholelithiasis -Wall: Normal -Other: No pericholecystic fluid. . Right Kidney: No hydronephrosis. Ascites: None. Spleen: The craniocaudal length of the spleen is 16.2 cm , enlarged. There are no splenic lesions. Left Kidney: No hydronephrosis. - IMPRESSION: Nonspecific splenomegaly. Otherwise, unremarkable exam. Shopper'S Aide: [facility] Transcribe Date/Time: Nov 01 2024 11:35A Dictated by : SID LUIS MD This examination was interpreted and the report reviewed and electronically signed by: SID LUIS MD on Nov 01 2024 11:36AM EST [id number] Normal [facility] BETA 2 GLYCOPROTEIN, IGGon 0 10-23-2024 Beta 2 glycoprotein 1 IgG IA Qn <9 Normal <20 [facility] Comment on above: Order Comment: Specimen Type: BLOOD SPEC IMEN Ordering Facility: [facility] Address: [address] [place] [address] Result Comment: <20 SGU Negative 20-80 SGU Low Positive >80 SGU High Positive These results were obtained with the [employer] QUANTA Lite B2 GPI IgG CARI. B2 GPI IgG values obtained with different manufacturers' assay methods may not be used interchangeably. The magnitude of the reported IgG levels cannot be correlated to an endpoint titer. Performed By: #### L [id number], LUPPL #### [facility] CLIA [id number] [address] [place] [address] [place] BETA 2 GLYCOPROTEIN, IGMon 0 10-23-2024 Beta 2 glycoprotein 1 IgM IA Qn <9 Normal <20 [facility] Comment on above: Order Comment: Specimen Type: BLOOD SPEC IM Ordering Facility: [facility] Address: [address] [place] [address] Result Comment: <20 SMU Negative 20-80 SMU Low Positive >80 SMU High positive These results were obtained with the [employer] QUANTA Lite B2 GPI IgM CARI. B2 GPI IgM values obtained with different manufacturers' assay methods may not be used interchangeably. The magnitude of the reported IgM levels cannot be correlated to an endpoint titer. Performed By: #### L [id number], LUPPL #### [facility] CLIA [id number] [address] [place] [address] [place] CARDIOLIPIN IGG ABSon 2024 Cardiolipin IgG IA Qn (S) <9.0 Normal <15.0 [facility] Comment on above: Order Comment: Specimen Type: BLOOD SPEC IMEN Ordering Facility: [facility] Address: [address] [place] [address] Result Comment: <15 GPL Negative 15-20 GPL Indeterminate >20 GPL Positive The following results were obtained with the [employer] QUANTA Lite TAE IgG III CARI. Cardiolipin IgG values obtained with the different manufacturers' assay methods may not be used interchangeably. The magnitude of the reported IgG levels cannot be correlated to an endpoint titer. Performed By: #### L [id number] #### [facility] CLIA [id number] [address] [place] [address] [place] CARDIOLIPIN IGM ABSon 2024 Cardiolipin IgM IA Qn (S) <9.0 Normal <12.5 [facility] Comment on above: Order Comment: Specimen Type: BLOOD SPEC IMEN Ordering Facility: [facility] Address: [address] [place] [address] Result Comment: <12. 5 MPL Negative 12.5-20 MPL Indeterminate >20 MPL Positive The following results were obtained with the [employer] QUANTA Lite TAE IgM III CARI. Cardiolipin IgM values obtained with the different manufacturers' assay methods may not be used interchangeably. The magnitude of the reported IgM levels cannot be correlated to an endpoint titer. ??? Performed By: #### L [id number] #### [facility] CLIA [id number] [address] [place] [address] [place] [facility] CBC W Ordered Manual Differe ntial panel (Bld)on 10-23-2024 Basophils (Bld) [#/Vol] 0.03 10*3/uL [facility] Basophils/100 WBC (Bld) 0.4 % [facility] Differential cell count method Nom (Bld) Auto [facility] Eosinophils (Bld) [#/Vol] 0.25 10*3/uL [facility] Eosinophils/100 WBC (Bld) 3.7 % [facility] Erythrocyte distribution width (RBC) [Ratio] 12.9 % 11.5 - 15.0 % [facility] Hematocrit (Bld) [Volume fraction] 39.9 % 36.0 - 46.0 % [facility] Hemoglobin (Bld) [Mass/Vol] 13.6 g/dL 11.5 - 15.5 g/dL [facility] Immature granulocytes (Bld) [#/Vol] [facility] Immature granulocytes/100 WBC (Bld) 0.1 % [facility] Interpretation and review of laboratory results Abnormal [facility] Lymphocytes (Bld) [#/Vol] 1.89 10*3/uL [facility] Lymphocytes/100 WBC (Bld) 28.3 % [facility] MCH (RBC) [Entitic mass] 31.4 pg 26.0 - 34.0 pg [facility] MCHC (RBC) [Mass/Vol] 34.1 g/dL 30.5 - 36.0 g/dL [facility] MCV (RBC) [Entitic vol] 92.1 fL 80.0 - 100.0 fL [facility] Monocytes (Bld) [#/Vol] 0.37 10*3/uL [facility] Monocytes/100 WBC (Bld) 5.5 % [facility] Neutrophils (Bld) [#/Vol] 4.12 10*3/uL [facility] Neutrophils/100 WBC (Bld) 62 % [facility] Nucleated RBC (Bld) [#/Vol] [facility] Nucleated RBC/100 WBC (Bld) [Ratio] 0 % /100 WBC [facility] Platelet mean volume (Bld) [Entitic vol] 9.5 fL 9.0 - 12.7 fL [facility] Platelets (Bld) [#/Vol] 143 10*3/uL Low [facility] RBC (Bld) [#/Vol] 4.33 10*6/uL 3.90 - 5.20 m/uL [facility] WBC (Bld) [#/Vol] 6.67 10*3/uL [facility] This is an appended report. These results have been appended to a previously verified report. [facility] Basophils (Bld) [#/Vol] 0.03 10*3/uL Normal <0.11 [facility] Comment on above: Order Comment: Specimen Type: BLOOD SPEC IMEN Ordering Facility: [facility] Address: [address] [place] [address] Performed By: #### L [id number], LUPPL #### [facility] CLIA [id number] [address] [place] [address] [place] Basophils/100 WBC (Bld) 0.4 % Normal [facility] Comment on above: Order Comment: Specimen Type: BLOOD SPEC IMEN Ordering Facility: [facility] Address: [address] [place] [address] Performed By: #### L [id number], LUPPL #### [facility] CLIA [id number] [address] [place] [address] [place] Differential cell count method Nom (Bld) Auto Normal [facility] Comment on above: Order Comment: Specimen Type: BLOOD SPEC IMEN Ordering Facility: [facility] Address: [address] [place] [address] Performed By: #### L [id number], LUPPL #### [facility] CLIA [id number] [address] [place] [address] [place] Eosinophils (Bld) [#/Vol] 0.25 10*3/uL Normal <0.46 [facility] Comment on above: Order Comment: Specimen Type: BLOOD SPEC IMEN Ordering Facility: [facility] Address: [address] [place] [address] Performed By: #### L [id number], LUPPL #### [facility] CLIA [id number] [address] [place] [address] [place] Eosinophils/100 WBC (Bld) 3.7 % Normal [facility] Comment on above: Order Comment: Specimen Type: BLOOD SPEC IMEN Ordering Facility: [facility] Address: [address] [place] [address] Performed By: #### L [id number], LUPPL #### [facility] CLIA [id number] [address] [place] [address] [place] Erythrocyte distribution width (RBC) [Ratio] 12.9 % Normal 11.5-15.0 [facility] Comment on above: Order Comment: Specimen Type: BLOOD SPEC IMEN Ordering Facility: [facility] Address: [address] [place] [address] Performed By: #### L [id number], LUPPL #### [facility] CLIA [id number] [address] [place] [address] [place] Hematocrit (Bld) [Volume fraction] 39.9 % Normal 36.0-46.0 [facility] Comment on above: Order Comment: Specimen Type: BLOOD SPEC IMEN Ordering Facility: [facility] Address: [address] [place] [address] Performed By: #### L [id number], LUPPL #### [facility] CLIA [id number] [address] [place] [address] [place] Hemoglobin (Bld) [Mass/Vol] 13.6 g/dL Normal 11.5-15.5 [facility] Comment on above: Order Comment: Specimen Type: BLOOD SPEC IMEN Ordering Facility: [facility] Address: [address] [place] [address] Performed By: #### L [id number], LUPPL #### [facility] CLIA [id number] [address] [place] [address] [place] Immature granulocytes (Bld) [#/Vol] 10*3/uL Normal <0.10 [facility] Comment on above: Order Comment: Specimen Type: BLOOD SPEC IMEN Ordering Facility: [facility] Address: [address] [place] [address] Performed By: #### L [id number], LUPPL #### [facility] CLIA [id number] [address] [place] [address] [place] Immature granulocytes/100 WBC (Bld) 0.1 % Normal [facility] Comment on above: Order Comment: Specimen Type: BLOOD SPEC IMEN Ordering Facility: [facility] Address: [address] [place] [address] Performed By: #### L [id number], LUPPL #### [facility] CLIA [id number] [address] [place] [address] [place] Lymphocytes (Bld) [#/Vol] 1.89 10*3/uL Normal 1.00-4.00 [facility] Comment on above: Order Comment: Specimen Type: BLOOD SPEC IMEN Ordering Facility: [facility] Address: [address] [place] [address] Performed By: #### L [id number], LUPPL #### [facility] CLIA [id number] [address] [place] [address] [place] Lymphocytes/100 WBC (Bld) 28.3 % Normal [facility] Comment on above: Order Comment: Specimen Type: BLOOD SPEC IMEN Ordering Facility: [facility] Address: [address] [place] [address] Performed By: #### L [id number], LUPPL #### [facility] CLIA [id number] [address] [place] [address] [place] MCH (RBC) [Entitic mass] 31.4 pg Normal 26.0-34.0 [facility] Comment on above: Order Comment: Specimen Type: BLOOD SPEC IMEN Ordering Facility: [facility] Address: [address] [place] [address] Performed By: #### L [id number], LUPPL #### [facility] CLIA [id number] [address] [place] [address] [place] MCHC (RBC) [Mass/Vol] 34.1 g/dL Normal 30.5-36.0 [facility] Comment on above: Order Comment: Specimen Type: BLOOD SPEC IMEN Ordering Facility: [facility] Address: [address] [place] [address] Performed By: #### L [id number], LUPPL #### [facility] CLIA [id number] [address] [place] [address] [place] MCV (RBC) [Entitic vol] 92.1 fL Normal 80.0-100.0 [facility] Comment on above: Order Comment: Specimen Type: BLOOD SPEC IMEN Ordering Facility: [facility] Address: [address] [place] [address] Performed By: #### L [id number], LUPPL #### [facility] CLIA [id number] [address] [place] [address] [place] Monocytes (Bld) [#/Vol] 0.37 10*3/uL Normal <0.87 [facility] Comment on above: Order Comment: Specimen Type: BLOOD SPEC IMEN Ordering Facility: [facility] Address: [address] [place] [address] Performed By: #### L [id number], LUPPL #### [facility] CLIA [id number] [address] [place] [address] [place] Monocytes/100 WBC (Bld) 5.5 % Normal [facility] Comment on above: Order Comment: Specimen Type: BLOOD SPEC IMEN Ordering Facility: [facility] Address: [address] [place] [address] Performed By: #### L [id number], LUPPL #### [facility] CLIA [id number] [address] [place] [address] [place] Neutrophils (Bld) [#/Vol] 4.12 10*3/uL Normal 1.45-7.50 [facility] Comment on above: Order Comment: Specimen Type: BLOOD SPEC IMEN Ordering Facility: [facility] Address: [address] [place] [address] Performed By: #### L [id number], LUPPL #### [facility] CLIA [id number] [address] [place] [address] [place] Neutrophils/100 WBC (Bld) 62.0 % Normal [facility] Comment on above: Order Comment: Specimen Type: BLOOD SPEC IMEN Ordering Facility: [facility] Address: [address] [place] [address] Performed By: #### L [id number], LUPPL #### [facility] CLIA [id number] [address] [place] [address] [place] Nucleated RBC (Bld) [#/Vol] 10*3/uL Normal <0.01 [facility] Comment on above: Order Comment: Specimen Type: BLOOD SPEC IMEN Ordering Facility: [facility] Address: [address] [place] [address] Performed By: #### L [id number], LUPPL #### [facility] CLIA [id number] [address] [place] [address] [place] Nucleated RBC/100 WBC (Bld) [Ratio] 0.0 /100 WBC Normal [facility] Comment on above: Order Comment: Specimen Type: BLOOD SPEC IMEN Ordering Facility: [facility] Address: [address] [place] [address] Performed By: #### L [id number], LUPPL #### [facility] CLIA [id number] [address] [place] [address] [place] Platelet mean volume (Bld) [Entitic vol] 9.5 fL Normal 9.0-12.7 [facility] Comment on above: Order Comment: Specimen Type: BLOOD SPEC IMEN Ordering Facility: [facility] Address: [address] [place] [address] Performed By: #### L [id number], LUPPL #### [facility] CLIA [id number] [address] [place] [address] [place] Platelets (Bld) [#/Vol] 143 10*3/uL Low 150-400 [facility] Comment on above: Order Comment: Specimen Type: BLOOD SPEC IMEN Ordering Facility: [facility] Address: [address] [place] [address] Performed By: #### L [id number], LUPPL #### [facility] CLIA [id number] [address] [place] [address] [place] RBC (Bld) [#/Vol] 4.33 10*6/uL Normal 3.90-5.20 [facility] Comment on above: Order Comment: Specimen Type: BLOOD SPEC IMEN Ordering Facility: [facility] Address: [address] [place] [address] Performed By: #### L [id number], LUPPL #### [facility] CLIA [id number] [address] [place] [address] [place] WBC (Bld) [#/Vol] 6.67 10*3/uL Normal 3.70-11.00 [facility] Comment on above: Order Comment: Specimen Type: BLOOD SPEC IMEN Ordering Facility: [facility] Address: [address] [place] [address] Performed By: #### L [id number], LUPPL #### [facility] CLIA [id number] [address] [place] [address] [facility] CNOVSPon 10-23-2024 CNOVSP Visit (SP) Office (H EMAWS) ESTELA COTE ([id number]) 1975 F Date Time Provider Department 10/23/24 2:00 PM TONI LARSON During your visit today, we recorded the following information about you: Temperature Pulse Blood pressure Weight 97.1 degrees 80/minute 138/84 99.3 kg Height 1.67 m Toni Larson DO 10/23/2024 2:59 PM Signed Patient referred by Dr. Lind for workup for hypercoagulable condition. HPI: The patient is a 49-year-old female with a past medical history as outlined below. She is in need of breast reduction surgery. She has history of rheumatoid arthritis. Also has a history of multiple spontaneous losses in the first trimester. Symptoms from RA include joint swelling, pain and stiffness as well as fatigue. Diagnosed about 10+ years ago. Sees Dr. Jalloh in [place]. 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 She has chronic history mildly low platelet count. No personal history of venous thromboembolism. No known family h/o VTE. History 5 miscarriages all prior to about 12 weeks. Had a daughter prior to the miscarriages. Full term (close to 10 months-- was on vacation). Emergency .Took 4 years to conceive her. Full hysterectomy for early stage endometrial cancer. No adjuvant chemotherapy or radiation. Age 11 on--Very irregular menses. Heavy when occurred. Doesn't bruise easily but can get unexplained bruising. Hasn't used Mobic in a while--ran out. Echo 2009--mild LVH and probably patent foramen ovale. PAST MEDICAL HISTORY Diagnosis Date Delayed emergence from general anesthesia Dysmetabolic syndrome X polycystic syndrome Endometrial hyperplasia with atypia 2007 Enlarged heart left side of heart Gastroparesis Headache(784.0) Leiomyoma of uterus, unspecified 2010 Mitral valve disorders(424.0) Obesity (BMI 30-39.9) CRIS (obstructive sleep apnea) no CPAP Polycystic ovaries Snoring Type II or unspecified type diabetes mellitus without mention of complication, not stated as uncontrolled Unspecified asthma(493.90) Unspecified essential hypertension PAST SURGICAL HISTORY Procedure Laterality Date CAPSULE ENDOSCOPY 10/23/2020 DELIVERY ONLY 10/18/1995 , low cervical COLONOSCOPY FLX DX W/COLLJ SPEC WHEN PFRMD 2013 COLONOSCOPY SCREENING 11/17/2022 DILATION AND CURETTAGE DXAND/THER NONOBSTETRIC 1997, 2000 Dilation AND curettage EGD 12/11/2015 chronic active gastritis EGD TRANSORAL BIOPSY SINGLE/MULTIPLE 08/22/2017 non-bleeding erosive gastropathy, sm amt phytobezoar in stomach, neg H Pylori; Dr. Vargas GI TRANSIT AND PRES JON WIRELESS CAPSULE W/INTERP 10/16/2020 Smart Pill HYSTERECTOMY HX 2010 HYSTEROSCOPY BX W/WO DANDC 11/25/2010 HYSTEROSCOPY, DIAGNOSTIC (SEPARATE 04/25/2008 Hysteroscopy/currettage INSERTION OF IUD 11/25/2010 mirena TONSILLECTOMY HX ALLERGIES Allergen Reactions Bees Rash, Swelling, Itching Childhood reaction, no recent stings. Metformin Diarrhea, GI Upset Adhesive Tape (Karen* Rash, Itching Lisinopril Intolerance Ozempic [Semaglutid* Intolerance Nausea and vomiting Reglan [Metoclopram* Intolerance Social History Tobacco Use Smoking status: Former Types: Cigarettes Smokeless tobacco: Never Tobacco comments: Quit 31 years ago Vaping Use Vaping status: Never Used Substance Use Topics Alcohol use: Not Currently Drug use: Never FAMILY HISTORY Problem Relation Age of Onset Coronary Artery Disease Mother Hypertension Mother [place] @ 62 yrs. old Diabetes Mother Cancer Father SKIN, ENT met to lungs. Coronary Artery Disease Brother 40 stent + [place] Coronary Artery Disease Brother 40 stent + [place] Coronary Artery Disease Brother 40 stent Coronary Artery Disease Maternal Grandmother Cancer Paternal Grandmother colon Cancer Maternal Aunt PANCREAS Heart Attack Maternal Aunt Cancer Maternal Aunt UTERINE Cancer Maternal Uncle HODGKINS Asthma No Family History REVIEW OF SYSTEMS: Constitutional: No episodes of fever and night sweats. Neuro: No HAYES, vertigo, dizziness and imbalance. Chronic neuropathy both lower extremities. HEENT: No recent change in voice, vision or hearing. Resp: No cough, wheeze and hemoptysis. No shortness of breath at rest. CVS: No exertional chest pain, PND, orthopnea and LE edema. GI: No reflux, n/v, change in bowel habits or abdominal pain. : No dysuria or gross hematuria. Endo: No hot flashes. Musculoskeletal: See above. Derm: No current rash. Heme: See above Psych: Normal mood. PHYSICAL EXAM: Vitals: Blood pressure 138/84, pulse 80, temperature 36.2 ?C (97.1 ?F), temperature source Temporal, height 167 cm (5' 5.75), weight 99.3 kg (219 lb), last menstrual period 12/22/2010, SpO2 99%. Well-appearing and in no acute distress. EYES: Sclerae are anicteric bilaterally. (more content not included)... Normal [facility] Cardiolipin IgA Ser IA-aCnco n 10-23-2024 Cardiolipin IgA IA Qn (S) <9.0 Normal <12.0 [facility] Comment on above: Order Comment: Specimen Type: BLOOD SPEC IMEN Ordering Facility: [facility] Address: [address] [place] [address] Result Comment: <12 APL Negative 12-20 APL Indeterminate >20 APL Positive The following results were obtained with the [employer] QUANTA Lite TAE IgA III CARI. Cardiolipin IgA values obtained with the different manufacturers' assay methods may not be used interchangeably. The magnitude of the reported IgA levels cannot be correlated to an endpoint titer. Performed By: #### L [id number] #### [facility] CLIA [id number] [address] [place] [address] [place] [address] [place] Comprehensive metabolic 2000 panelOrdered By: Bre Soliz on 10-23-2024 Albumin [Mass/Vol] 4.6 g/dL 3.9 - 4.9 g/dL [facility] ALP [Catalytic activity/Vol] 83 U/L 34 - 123 U/L [facility] ALT [Catalytic activity/Vol] 16 U/L 7 - 38 U/L [facility] Anion gap [Moles/Vol] 13 mmol/L 8 - 15 mmol/L [facility] AST [Catalytic activity/Vol] 21 U/L 13 - 35 U/L [facility] Bilirubin [Mass/Vol] 0.5 mg/dL 0.2 - 1.3 mg/dL [facility] Calcium [Mass/Vol] 9.9 mg/dL 8.5 - 10.2 mg/dL [facility] Chloride [Moles/Vol] 105 mmol/L 98 - 107 mmol/L [facility] CO2 [Moles/Vol] 22 mmol/L 22 - 30 mmol/L [facility] Creatinine [Mass/Vol] 0.95 mg/dL 0.58 - 0.96 mg/dL [facility] GFR/1.73 sq M.predicted among non-blacks MDRD (S/P/Bld) [Vol rate/Area] 73 mL/min/{1.73_m2} - PINF [facility] Comment on above: Estimated Glomerular Filtration Rate (eG FR) is calculated using the 2020 CKD-EPI creatinine equation. This equation utilizes serum creatinine, sex, and age as parameters. The creatinine assay has traceable calibration to isotope dilution-mass spectrometry. Refer to KDIGO guidelines for clinical interpretation. In patients with unstable renal function, e.g. those with acute kidney injury, the eGFR may not accurately reflect actual GFR. Glucose [Mass/Vol] 92 mg/dL 74 - 99 mg/dL [facility] Comment on above: The [place] Diabetes Association (ADA) provides guidance for cutoff values for fasting glucose and random glucose. The ADA defines fasting as no caloric intake for at least 8 hours. Fasting plasma glucose results between 100 to 125 mg/dL indicate increased risk for diabetes (prediabetes). Fasting plasma glucose results greater than or equal to 126 mg/dL meet the criteria for diagnosis of diabetes. In the absence of unequivocal hyperglycemia, results should be confirmed by repeat testing. In a patient with classic symptoms of hyperglycemia or hyperglycemic crisis, random plasma glucose results greater than or equal to 200 mg/dL meet the criteria for diagnosis of diabetes. Reference: Standards of Medical Care in Diabetes 2016, [place] [employer]. Diabetes Care. 2016.39(Suppl 1). Interpretation and review of laboratory results Normal [facility] Potassium [Moles/Vol] 4.1 mmol/L 3.7 - 5.1 mmol/L [facility] Protein [Mass/Vol] 8 g/dL 6.3 - 8.0 g/dL [facility] Sodium [Moles/Vol] 140 mmol/L 136 - 144 mmol/L [facility] Urea nitrogen [Mass/Vol] 19 mg/dL 7 - 21 mg/dL [facility] Comprehensive metabolic 2000 panelon 10-23-2024 Albumin [Mass/Vol] 4.6 g/dL Normal 3.9-4.9 [facility] Comment on above: Order Comment: Specimen Type: BLOOD SPEC IMEN Ordering Facility: [facility] Address: [address] [place] [address] Performed By: #### L [id number], LUPPL #### [facility] CLIA [id number] [address] [place] [address] [place] ALP [Catalytic activity/Vol] 83 U/L Normal 34-123 [facility] Comment on above: Order Comment: Specimen Type: BLOOD SPEC IMEN Ordering Facility: [facility] Address: [address] [place] [address] Performed By: #### L [id number], LUPPL #### [facility] CLIA [id number] [address] [place] [address] [place] ALT [Catalytic activity/Vol] 16 U/L Normal 7-38 [facility] Comment on above: Order Comment: Specimen Type: BLOOD SPEC IMEN Ordering Facility: [facility] Address: [address] [place] [address] Performed By: #### L [id number], LUPPL #### [facility] CLIA [id number] [address] [place] [address] [place] Anion gap [Moles/Vol] 13 mmol/L Normal 8-15 [facility] Comment on above: Order Comment: Specimen Type: BLOOD SPEC IMEN Ordering Facility: [facility] Address: [address] [place], [place] [id number] Performed By: #### L [id number], LUPPL #### [facility] CLIA [id number] [address] [place], [place] [address] [place] AST [Catalytic activity/Vol] 21 U/L Normal 13-35 [facility] Comment on above: Order Comment: Specimen Type: BLOOD SPEC IMEN Ordering Facility: [facility] Address: [address] [place], [place] [id number] Performed By: #### L [id number], LUPPL #### [facility] CLIA [id number] [address] [place] [address] [place] Bilirubin [Mass/Vol] 0.5 mg/dL Normal 0.2-1.3 [facility] Comment on above: Order Comment: Specimen Type: BLOOD SPEC IMEN Ordering Facility: [facility] Address: [address] [place], [place] [id number] Performed By: #### L [id number], LUPPL #### [facility] CLIA [id number] [address] [place], [place] [address] [place] Calcium [Mass/Vol] 9.9 mg/dL Normal 8.5-10.2 [facility] Comment on above: Order Comment: Specimen Type: BLOOD SPEC IMEN Ordering Facility: [facility] Address: [address] [place], [place] [id number] Performed By: #### L [id number], LUPPL #### [facility] CLIA [id number] [address] [place], [place] [address] [place] Chloride [Moles/Vol] 105 mmol/L Normal 98-107 [facility] Comment on above: Order Comment: Specimen Type: BLOOD SPEC IMEN Ordering Facility: [facility] Address: [address] [place], [place] [id number] Performed By: #### L [id number], LUPPL #### [facility] CLIA [id number] [address] [place] [address] [place] CO2 [Moles/Vol] 22 mmol/L Normal 22-30 [facility] Comment on above: Order Comment: Specimen Type: BLOOD SPEC IMEN Ordering Facility: [facility] Address: [address] [place] [address] Performed By: #### L [id number], LUPPL #### [facility] CLIA [id number] [address] [place] [address] [place] Creatinine [Mass/Vol] 0.95 mg/dL Normal 0.58-0.96 [facility] Comment on above: Order Comment: Specimen Type: BLOOD SPEC IMEN Ordering Facility: [facility] Address: [address] [place] [address] Performed By: #### L [id number], LUPPL #### [facility] CLIA [id number] [address] [place] [address] [place] Creatinine and Glomerular filtration rate.predicted panel (S/P/Bld) 73 mL/min/1.73m??? Normal >=60 [facility] Comment on above: Order Comment: Specimen Type: BLOOD SPEC IMEN Ordering Facility: [facility] Address: [address] [place] [address] Result Comment: Usha mated Glomerular Filtration Rate (eGFR) is calculated using the 2020 CKD-EPI creatinine equation. This equation utilizes serum creatinine, sex, and age as parameters. The creatinine assay has traceable calibration to isotope dilution-mass spectrometry. Refer to KDIGO guidelines for clinical interpretation. In patients with unstable renal function, e.g. those with acute kidney injury, the eGFR may not accurately reflect actual GFR. Performed By: #### L [id number], LUPPL #### [facility] CLIA [id number] [address] [place], [place] [address] [place] Glucose [Mass/Vol] 92 mg/dL Normal 74-99 [facility] Comment on above: Order Comment: Specimen Type: BLOOD SPEC IMEN Ordering Facility: [facility] Address: [address] [place] [address] Result Comment: The [place] Diabetes Association (ADA) provides guidance for cutoff values for fasting glucose and random glucose. The ADA defines fasting as no caloric intake for at least 8 hours. Fasting plasma glucose results between 100 to 125 mg/dL indicate increased risk for diabetes (prediabetes). Fasting plasma glucose results greater than or equal to 126 mg/dL meet the criteria for diagnosis of diabetes. In the absence of unequivocal hyperglycemia, results should be confirmed by repeat testing. In a patient with classic symptoms of hyperglycemia or hyperglycemic crisis, random plasma glucose results greater than or equal to 200 mg/dL meet the criteria for diagnosis of diabetes. Reference: Standards of Medical Care in Diabetes 2016, [place] [employer]. Diabetes Care. 2016.39(Suppl 1). Performed By: #### L [id number], LUPPL #### [facility] CLIA [id number] [address] [place] [address] [place] Potassium [Moles/Vol] 4.1 mmol/L Normal 3.7-5.1 [facility] Comment on above: Order Comment: Specimen Type: BLOOD SPEC IMEN Ordering Facility: [facility] Address: [address] [place] [address] Performed By: #### L [id number], LUPPL #### [facility] CLIA [id number] [address] [place] [address] [place] Protein [Mass/Vol] 8.0 g/dL Normal 6.3-8.0 [facility] Comment on above: Order Comment: Specimen Type: BLOOD SPEC IMEN Ordering Facility: [facility] Address: [address] [place] [address] Performed By: #### L [id number], LUPPL #### [facility] CLIA [id number] [address] [place] [address] [place] Sodium [Moles/Vol] 140 mmol/L Normal 136-144 [facility] Comment on above: Order Comment: Specimen Type: BLOOD SPEC IMEN Ordering Facility: [facility] Address: [address] [place] [address] Performed By: #### L [id number], LUPPL #### [facility] CLIA [id number] [address] [place] [address] [place] Urea nitrogen [Mass/Vol] 19 mg/dL Normal 7-21 [facility] Comment on above: Order Comment: Specimen Type: BLOOD SPEC IMEN Ordering Facility: [facility] Address: [address] [place] [address] Performed By: #### L [id number], LUPPL #### [facility] CLIA [id number] [address] [place] [address] [place] HBV core Ab Ser Qlon 025 HBV core Ab Ql (S) Negative Normal Negative [facility] Comment on above: Order Comment: Specimen Type: BLOOD SPEC IMENOrdering Facility: [facility] Address: [address] [place] [address] Result Comment: No e vidence of current or past infection with Hepatitis B virus. Should recent infection be suspected, repeat testing may be considered 3-4 weeks after this draw. Performed By: #### 5 195-3, [id number], 24958-7 ####[facility] [id number] [place] [address] [place] HBV surface Ab Ql (S)on HBV surface Ab Qn (S) <8.00 Normal [facility] Comment on above: Order Comment: Specimen Type: BLOOD SPEC IMEN Ordering Facility: [facility] Address: [address] [place] [address] Result Comment: <8 m IU/mL: No serological evidence of immunity to Hepatitis B Virus. >/= 8 to <12 mIU/mL: No serological evidence of immunity to Hepatitis B Virus. >/= 12 mIU/mL: Consistent with serological evidence of immunity to Hepatitis B Virus. Performed By: #### L [id number] #### [facility] CLIA [id number] [address] [place] [address] [place] HBV surface Ab Ser Qlon HBV surface Ab Ql (S) Negative Normal [facility] Comment on above: Order Comment: Specimen Type: BLOOD SPEC IMEN Ordering Facility: [facility] Address: [address] [place] [address] Result Comment: No s erological evidence of immunity to Hepatitis B Virus. Performed By: #### L [id number] #### [facility] CLIA [id number] [address] [place] [address] [place] HBV surface Ag Ser Qlon HBV surface Ag Ql (S) Negative Normal Negative [facility] Comment on above: Order Comment: Specimen Type: BLOOD SPEC IMEN Ordering Facility: [facility] Address: [address] [place] [address] Performed By: #### L [id number] #### [facility] CLIA [id number] [address] [place] [address] [place] HCV Ab Ser Qlon 10-23-2024 HCV Ab Ql (S) Negative Normal Negative [facility] Comment on above: Order Comment: Specimen Type: BLOOD SPEC IMEN Ordering Facility: [facility] Address: [address] [place] [address] Result Comment: The result suggests no evidence of infection with Hepatitis C virus. Should recent infection be suspected, repeat testing may be considered 4-6 weeks after this draw. Performed By: #### L [id number], LUPPL #### [facility] CLIA [id number] [address] [place] [address] [place] LUPUS PANELon 10-23-2024 aPTT Coag (Bld) [Time] 33.6 s Normal 30.2-43.0 [facility] Comment on above: Order Comment: Specimen Type: BLOOD SPEC IMEN Ordering Facility: [facility] Address: [address], [place] [address] Result Comment: This test was developed, and its performance characteristics determined by the [facility] Department of Pathology and Laboratory Medicine. It has not been cleared or approved by the FDA. The [facility] Pathology and Laboratory Medicine is regulated under CLIA as qualified to perform high-complexity testing. This test is used for clinical purposes. It should not be regarded as investigational or for research. Performed By: #### L [id number], LUPPL #### [facility] CLIA [id number] [address] [place] [address] [place] aPTT Coag (Bld) [Time] 33.7 s Normal 31.5-38.3 [facility] Comment on above: Order Comment: Specimen Type: BLOOD SPEC IMEN Ordering Facility: [facility] Address: [address] [place] [address] Result Comment: This test was developed, and its performance characteristics determined by the [facility] Department of Pathology and Laboratory Medicine. It has not been cleared or approved by the FDA. The [facility] of Pathology and Laboratory Medicine is regulated under CLIA as qualified to perform high-complexity testing. This test is used for clinical purposes. It should not be regarded as investigational or for research. Performed By: #### L [id number], LUPPL #### [facility] CLIA [id number] [address] [place] [address] [place] aPTT Coag (Bld) [Time] 28.6 s Normal 24.0-35.1 [facility] Comment on above: Order Comment: Specimen Type: BLOOD SPEC IMEN Ordering Facility: [facility] Address: [address] [place] [address] Performed By: #### L [id number], LUPPL #### [facility] CLIA [id number] [address] [place] [address] [place] aPTT W excess hexagonal phase phospholipid Coag (PPP) [Time] 40.9 seconds Normal 34.0-51.8 [facility] Comment on above: Order Comment: Specimen Type: BLOOD SPEC IMEN Ordering Facility: [facility] Address: [address] [place] [address] Performed By: #### L [id number], LUPPL #### [facility] CLIA [id number] [address] [place] [address] [place] Coagulation factor X activated act Coag Qn (PPP) <0.10 Normal <0.10 [facility] Comment on above: Order Comment: Specimen Type: BLOOD SPEC IMEN Ordering Facility: [facility] Address: [address] [place] [address] Result Comment: This test was developed, and its performance characteristics determined by the [facility] Department of Pathology and Laboratory Medicine. It has not been cleared or approved by the FDA. The [facility] Department of Pathology and Laboratory Medicine is regulated under CLIA as qualified to perform high-complexity testing. This test is used for clinical purposes. It should not be regarded as investigational or for research. Performed By: #### L [id number], LUPPL #### [facility] CLIA [id number] [address] [place] [address] [place] Delta dRVVT Coag (PPP) [Time diff] 2.9 delta seconds Normal <7.1 [facility] Comment on above: Order Comment: Specimen Type: BLOOD SPEC IMEN Ordering Facility: [facility] Address: [address] [place] [address] Performed By: #### L [id number], LUPPL #### [facility] CLIA [id number] [address] [place] [address] [place] dRVVT Coag (PPP) [Time] 30.1 s Low 32.0-45.7 [facility] Comment on above: Order Comment: Specimen Type: BLOOD SPEC IMEN Ordering Facility: [facility] Address: [address] [place] [address] Performed By: #### L [id number], LUPPL #### [facility] CLIA [id number] [address] [place] [address] [place] dRVVT factor substitution immediately after 1:2 addition of normal plasma Coag (PPP) [Time] 31.8 seconds Low 32.0-45.7 [facility] Comment on above: Order Comment: Specimen Type: BLOOD SPEC IMEN Ordering Facility: [facility] Address: [address] [place] [address] Performed By: #### L [id number], LUPPL #### [facility] CLIA [id number] [address] [place] [address] [place] dRVVT W excess hexagonal phase phospholipid actual/normal Coag (PPP) [Relative time] 38.0 seconds Normal 34.2-47.9 [facility] Comment on above: Order Comment: Specimen Type: BLOOD SPEC IMEN Ordering Facility: [facility] Address: [address] [place] [address] Performed By: #### L [id number], LUPPL #### [facility] CLIA [id number] [address] [place] [address] [place] dRVVT/dRVVT.exce ss phospholipid Coag (PPP) [Ratio] 0.89 Normal <1.32 [facility] Comment on above: Order Comment: Specimen Type: BLOOD SPEC IMEN Ordering Facility: [facility] Address: [address] [place] [address] Performed By: #### L [id number], LUPPL #### [facility] CLIA [id number] [address] [place] [address] [place] PLATELET NEUT 0.0 Seconds Normal <1.9 [facility] Comment on above: Order Comment: Specimen Type: BLOOD SPEC IMEN Ordering Facility: [facility] Address: [address] [place] [address] Result Comment: This test was developed, and its performance characteristics determined by the [facility] Department of Pathology and Laboratory Medicine. It has not been cleared or approved by the FDA. The [facility] Department of Pathology and Laboratory Medicine is regulated under CLIA as qualified to perform high-complexity testing. This test is used for clinical purposes. It should not be regarded as investigational or for research. Performed By: #### L [id number], LUPPL #### [facility] CLIA [id number] [address] [place] [address] [place] PT Coag (Bld) [Time] 14.8 s High 11.6-14.4 [facility] Comment on above: Order Comment: Specimen Type: BLOOD SPEC IMEN Ordering Facility: [facility] Address: [address] [place] [address] Performed By: #### L [id number], LUPPL #### [facility] CLIA [id number] [address] [place] [address] [place] Thrombin time Coag (PPP) [Time] 16.8 seconds Normal <18.6 [facility] Comment on above: Order Comment: Specimen Type: BLOOD SPEC IMEN Ordering Facility: [facility] Address: [address] [place] [address] Performed By: #### L [id number], LUPPL #### [facility] CLIA [id number] [address] [place] [address] [place] LUPUS PANEL INTERPon 025 Lupus anticoagulant (PPP) [Interp] Normal [facility] Comment on above: Order Comment: Specimen Type: BLOOD SPEC IMEN Ordering Facility: [facility] Address: [address] [place] [address] Result Comment: No s ignificant abnormality - see comment below. Laboratory testing was performed to evaluate the presence of a lupus anticoagulant and antiphospholipid antibodies. Both the PT and APTT results are normal. The thrombin time and anti-Xa screen were normal. No heparin, anti-Xa or direct thrombin inhibitor drug effect is present. LUPUS ANTICOAGULANT STUDIES: There is no evidence for a lupus anticoagulant or other coagulation inhibitor at this time. A short DRVVT can be due to increased activation or lack of inactivation of coagulation factors within the common pathway. Recommend thrombophilia testing if clinically indicated. The criteria for the diagnosis of a Lupus Anticoagulant, as detailed by the Subcommittee on Lupus Anticoagulants and Anti-Phospholipid Antibodies of the Scientific and Standardization Committee of the International Society on Thrombosis and Haemostasis (ISTH), are the following: (1) A prolonged phospholipid-dependent clotting test (screening test); (2) Evidence for an inhibitor (1:1 mix of patient:normal plasma); (3) Evidence that the inhibitor is phospholipid dependent and (4) Exclusion of specific inhibitors (ie, fVIII inhibitors, direct thrombin inhibitors, or heparin). Thromb. Haemost. 74:1185 (1994). ANTIPHOSPHOLIPID ANTIBODY STUDIES: The IgG, IgM and IgA anticardiolipin antibody titers were all negative. Both the IgG and IgM Beta-2 Glycoprotein I antibody titers were negative. Antiphospholipid syndrome (APS) is present if at least one clinical criteria and one laboratory criteria are met. The clinical criteria for APS include the presence of vascular thrombosis or morbidity. The laboratory criteria for APS include positive testing for one of the following on two or more occasions, at least 12 weeks apart: (1) lupus anticoagulant; (2) anticardiolipin IgG or IgM in medium or high titer (>20 GPL or >20 MPL); (3) anti-beta 2 glycoprotein I IgG or IgM antibody. J. Thromb Haemost 4:295 (2005). THE FOLLOWING TESTS WERE ADDED AND ARE REPORTED SEPARATELY: APTT mixing study, Hexagonal phase phospholipid neutralization, DRVVT and PNP. Performed By: #### L [id number], LUPPL #### [facility] CLIA [id number] [address] [place] [address] Pathologist name Reviewed by Caron Giles M.D., Ph.D Normal [facility] Comment on above: Order Comment: Specimen Type: BLOOD SPEC IMEN Ordering Facility: [facility] Address: [address] [place] [address] Performed By: #### L [id number], LUPPL #### [facility] CLIA [id number] [address] [place] [address] [place] PATHOLOGIST INTERPRETATION C BC/DIFFon 10-23-2024 [employer] Supervisor review Senthil (Unsp spec) [Interp] No review performed. Normal [facility] Comment on above: Order Comment: Specimen Type: BLOOD SPEC IMEN Ordering Facility: [facility] Address: [address] [place] [address] Performed By: #### L [id number], LUPPL #### [facility] CLIA [id number] [address] [place], [place] [address] [facility] STAFF REVIEW, [id number] The Pathologist Interpretation on this sample was cancelled because the hematology analyzer did not flag any parameters as requiring manual review. If there is a specific clinical concern for which you would like a pathologist to review the blood smear, please call Lab Client Services within 28 days. Normal [facility] Comment on above: Order Comment: Specimen Type: BLOOD SPEC IMEN Ordering Facility: [facility] Address: [address] [place] [address] Performed By: #### L [id number], [id number] #### [facility] CLIA [id number] [address] [place] [address] OF [place] Endocrinology Visit Reporton 10-22-2024 Endocrinology Visit Report [facility] [address] [place] [address] OFFICE VISIT Date of Service: 10/22/24 MR#: [id number] Acct: [id number] Name: ESTELA COTE Rep #: [id number] : 1975 Provider: JUAN reina Age/Sex: 49/F Location: [facility] Status: Signed Intake Vital Signs 07/23/24 13:04 09/27/24 08:40 10/22/24 13:11 Height 5 ft 6 in 5 ft 6 in 5 ft 6 in Weight: 242 lb 8 oz 225 lb 219 lb 6 oz BMI 39.1 36.3 35.4 BP 163/103 H 143/94 H Blood Pressure Location Rt brachial Rt brachial Rt brachial Position Sitting Sitting Sitting Respiration 18 Pulse 81 82 89 Pulse Source Monitor Monitor Monitor Pulse Oximetry (%) 98 95 98 Oxygen Delivery Method room air room air room air Intake Visit Reasons: 3 M FU Chief Complaint: f/u diabetes Is patient in pain?: No Allergies adhesive tape (tape) Allergy (Mild, Verified 10/22/24 13:14) Rash Ztnxkay-RSI-YmU Reductase Inhibitor Allergy (Mild, Verified 10/22/24 13:14) cough metformin Adverse Reaction (Intermediate, Verified 10/22/24 13:14) diarrhea Medications ???Medication ???Instructions ???Recorded ???Confirmed ???Type blood sugar diagnostic (OneTouch #50 ea 05/26/21 10/22/24 Rx Verio test strips) fluconazole 200 mg tablet 200 mg PO DAILY PRN 04/02/2410/22 History (Diflucan) insulin glargine 100 unit/mL (3 50 unit (0.5 mL) subcut QPM #45 mL 06/25/24 10/22/24 Rx mL) subcutaneous pen (Lantus Solostar U-100 Insulin) insulin lispro 100 unit/mL 15 unit (0.15 mL) subcut TID #13.5 06/25/24 10/22/24 Rx subcutaneous pen (Humalog KwikPen mL (U-100) Insulin) empagliflozin 25 mg tablet 25 mg PO QAM #30 tabs 07/23/2407/17 Rx (Jardiance) empagliflozin 25 mg tablet 25 mg PO QAM #90 tabs 07/23/2407/17 Rx (Jardiance) pen needle, diabetic 32 gauge x #100 ea 07/23/24 10/22/24 Rx 5/32 (BD Ultra-Fine Katie Pen Needle) tirzepatide 15 mg/0.5 mL 15 mg (0.5 mL) subcut QWEEK #2 mL 07/23/24 10/22/24 Rx subcutaneous pen injector (Eden) lisinopril 10 mg tablet 10 mg PO QDAY #90 tabs 10/22/24 Rx spironolactone 50 mg tablet 50 mg PO BID #180 tabs 10/22/24 Rx PFSH Medical History History of suicide attempt Pancreatitis Polycystic ovary Vascular disease Skin cancer Murmur, cardiac IBS (irritable bowel syndrome) History of MRSA infection Hormone deficiency Heart disease GERD (gastroesophageal reflux disease) Pneumonia Osteoporosis History of osteoarthritis History of diabetes mellitus History of cancer History of blood transfusion History of UTI History of back problems History of arthritis History of anemia History of environmental allergies Rheumatoid arthritis Polyneuropathy due to type 2 diabetes mellitus Diabetes type 2, uncontrolled Surgical History History of carpal tunnel release H/O dilation and curettage History of hysterectomy History of tonsillectomy Family History Brother Alcoholism Arthritis Heart disease Mother Anemia Arthritis Bleeding disorder Diabetes Heart disease High cholesterol Kidney disease Osteoporosis Father Arthritis Depression High cholesterol Liver disease Seizures Lung cancer Skin cancer Other Cancer Hypertension Kidney disease Thyroid disorder Social History Smoking Status: Former smoker how long ago did patient quit smoking: quit at 15 years old alcohol intake: never substance use type: does not use additional social history: pt denies vaping, denies marijuana use, denies edibles, denies aspirin use uses ibuprofen HPI HPI Chief Complaint: f/u diabetes Details: ESTELA COTE, is a 49 F who presents to the office today for evaluation and management of diabetes. A1C today is 5.5%, improved from 5.9% on 07/23/24. She has lost an additional 23 lbs since that time. She is pleased with her progress. Currently taking Mounjaro 15 mg qweek- tolerating well Jardiance 25 mg once daily, and Lantus 35 u once daily. She would like to continue to decrease or discontinue insulin. CGM tracings reviewed- she is in target range 99% of the time. No lows noted. BP remains elevated today. Currently taking lisinopril 10 mg likely 3 days/week she reports. Hx of poor compliance with dosing. Additionally she is taking spironolactone 50 mg once daily. She has plans to pursue breast reduction surgery; however, she has to see hematology prior d/t low platelets. She has hx of recurrent miscarriages. Labs are up to date with PCP, I do not have record of these. Denies any acute concerns. (more content not included)... Normal [facility] Laboratory - Hematology and Cell countsOrdered By: Elinor Samaniego on 10-22-2024 HbA1c (Bld) [Mass fraction] 5.5 % 4.2-6.3 [facility] CNOVon 10-17-2024 CNOV Office Visit (RUBI LOYD) ROLANDESTELA Les ([id number]) 1975 F Date Time Provider Department 10/17/24 9:40 AM AUDELIA GARCIA During your visit today, we recorded the following information about you: Temperature Pulse Blood pressure Weight 97.9 degrees 79/minute 122/78 99.8 kg Height 1.664 m Audelia Garcia DO 11/11/2024 12:38 AM Signed Subjective HPI Eloisa is a 49-year-old female with a history of rheumatoid arthritis and fibromyalgia, presenting with a right breast lump and requesting a letter of recommendation for breast reduction surgery. Right Breast Lump: - Noticed a lump in the right breast approximately 1.5-2 weeks ago. - Describes the lump as sometimes tender, initially thought it was due to lying on the breast while sleeping. - Uncertain if the lump is part of the rib or a distinct mass. - Recent mammogram in May. - Denies changes in breast skin, warmth, or nipple discharge. - Family history of breast cysts in sister. Breast Reduction Surgery: - Planning to undergo breast reduction surgery; requests a letter of recommendation for insurance purposes. - Has letters from chiropractor and [employer] internship supporting the surgery. - Reports chronic back, neck, and shoulder pain attributed to large breasts, with more significant size on the right side. - Experiences chafing, redness, and sweating under the breasts. - Describes poor posture and a hump due to constant leaning. - Pain exacerbated by standing; sometimes requires lying down and stretching for relief. - Noted increased pain after recent weight loss, with no reduction in breast size. - Has experienced issues with large breasts throughout life, regardless of weight changes. ALLERGIES Allergen Reactions Bees Rash, Swelling, Itching Childhood reaction, no recent stings. Metformin Diarrhea, GI Upset Adhesive Tape (Karne* Rash, Itching Lisinopril Intolerance Ozempic [Semaglutid* Intolerance Nausea and vomiting Reglan [Metoclopram* Intolerance Current Outpatient Medications Medication Sig Dispense Refill MOUNJARO 12.5 mg/0.5 mL pen injector Inject 12.5 mg subcutaneously one time a week. LANTUS SOLOSTAR U-100 INSULIN 100 unit/mL (3 mL) Inject 42 Units subcutaneously once daily. spironolactone (ALDACTONE) 25 mg tablet Take 25 mg by mouth once daily. lisinopril (ZESTRIL) 10 mg tablet Take 10 mg by mouth once daily. ergocalciferol 50,000 unit capsule (VITAMIN D2, DRISDOL) Take 50,000 Units by mouth one time a week. gabapentin (NEURONTIN) 100 mg capsule Take 1 capsule by mouth three times a day for 30 days. 90 capsule 0 pen needle, diabetic (COMFORT EZ PEN NEEDLES) 33 gauge x 3/16 ndle 1 Each once daily. 30 Each 11 ondansetron (ZOFRAN) 4 mg tablet Take 1 tablet by mouth every 8 hours as needed for nausea/vomiting. 30 tablet 2 meloxicam (MOBIC ORAL) Take 15 mg by mouth once daily. Blood Glucose Control, Normal soln Use as directed 1 Each 1 blood sugar diagnostic (BLOOD GLUCOSE TEST) test strip 1 Strip once daily. Use as instructed 100 Each 3 albuterol (PROVENTIL) 2.5 mg /3 mL (0.083 %) nebulizer solution Use 3 mL via nebulizer every 4 hours as needed for wheezing/shortness of breath. OVER 5-15 MINUTES. FOR WHEEZING AND SHORTNESS OF BREATH. 90 mL 3 No current facility-administered medications for this visit. ACTIVE PROBLEM LIST Hypertension, Essential Dysmetabolic Syndrome X Polycystic Ovaries Unspecified Asthma(493.90) Headache(784.0) FATTY LIVER Endometrial Hyperplasia With Atypia Excessive Or Frequent Menstruation Djd (Degenerative Joint Disease) Capsulitis Complex Endometrial Hyperplasia Without Atypia Rheumatoid Arthritis, Adult (Hcc) Fibromyalgia Type 2 Diabetes Mellitus Without Complication, Without Long-Term Current Use of Insulin (Hcc) Insomnia Hyperlipidemia Family History of Ischemic Heart Disease Cris (Obstructive Sleep Apnea) Abnormal Finding On Ultrasound Epigastric Pain Nausea Gastroparesis Due to Secondary Diabetes (Hcc) Type 2 Diabetes Mellitus With Diabetic Neuropathy, With Long-Term Current Use of Insulin (Hcc) Obesity, Class Iii, Bmi 40-49.9 (Morbid Obesity) Encounter for Screening for Malignant Neoplasm of Colon Leg Swelling Palpitation Obesity, Class II, Bmi 35-39.9 Social History Tobacco Use Smoking status: Former Types: Cigarettes Smokeless tobacco: Never Tobacco comments: Quit 31 years ago Vaping Use Vaping status: Never Used Substance Use Topics Alcohol use: Not Currently Drug use: Never Family History Problem Relation Age of Onset Coronary Artery Disease Mother Hypertension Mother [place] @ 62 yrs. old Diabetes Mother Cancer Father SKIN, ENT met to lungs. Coronary Artery Disease Brother 40 stent + [place] Coronary Artery Disease Brother 40 stent + [place] Coronary Artery Disease Brother 40 stent (more content not included)... Normal [facility] [employer] [facility] RTon 10-17 [employer] [facility] RT * * *Final Report* * * DATE OF EXAM: Oct 17 2024 12:58PM [id number] - [employer] [facility] RT / PROCEDURE REASON: Mass of upper outer quadrant of right breast * * * * Physician Interpretation * * * * [place] [address] #[id number] - [employer] [facility] RT HISTORY: 49 year-old patient seen for diagnostic exam and a palpable abnormality in the right breast. Patient states no personal history of breast cancer. The patient has a family history of ovarian cancer. COMPARISON STUDIES: The present examination has been compared to prior imaging studies dated 03/04/2016 (mammogram), 10/21/2022 (mammogram) and 06/05/2024 (mammogram). ULTRASOUND TECHNIQUE: Targeted ultrasound of the indicated area was performed. De La O scale images were saved. ULTRASOUND FINDINGS: In the area of palpable lump in the 11:00 right breast, 2 cm from the nipple, there is normal breast tissue without suspicious sonographic mass or distortion. There are no suspicious findings in the imaged area. IMPRESSION: No suspicious sonographic findings to correlate to the palpable right breast lump. Recommend clinical correlation/management. Annual mammogram will be due in 8 months. BI-RADS Category 1: Negative Interpreting Radiologist: Neisha Umanzor M.D. Electronically signed on: 10/17/2024 Shopper'S Aide: ROBERTO Transcribe Date/Time: Oct 17 2024 12:48P Dictated by : NEISHA UMANZOR MD This examination was interpreted and the report reviewed and electronically signed by: NEISHA UMANZOR MD on Oct 17 2024 1:24PM EST [id number] Normal [facility] US Breast - right limitedon 10-17-2024 IMPRESSION: No suspicious sonographic findings to correlate to the palpable right breast lump. Recommend clinical correlation/management. Annual mammogram will be due in 8 months. BI-RADS Category 1: Negative Interpreting Radiologist: Neisha Umanzor M.D. Electronically signed on: 10/17/2024 Shopper'S Aide: ROBERTO Transcribe Date/Time: Oct 17 2024 12:48P Dictated by : NEISHA UMANZOR MD This examination was interpreted and the report reviewed and electronically signed by: NEISHA UMANZOR MD on Oct 17 2024 1:24PM [facility] [employer] * * *Final Report* * * DATE OF EXAM: Oct 17 2024 12:58PM [facility] [employer] [facility] [employer] [facility] RT / PROCEDURE REASON: Mass of upper outer quadrant of right breast * * * * Physician Interpretation * * * * [place] [address] #[id number] - [facility] [employer] [facility] RT HISTORY: 49 year-old patient seen for diagnostic exam and a palpable abnormality in the right breast. Patient states no personal history of breast cancer. The patient has a family history of ovarian cancer. COMPARISON STUDIES: The present examination has been compared to prior imaging studies dated 03/04/2016 (mammogram), 10/21/2022 (mammogram) and 06/05/2024 (mammogram). ULTRASOUND TECHNIQUE: Targeted ultrasound of the indicated area was performed. De La O scale images were saved. ULTRASOUND FINDINGS: In the area of palpable lump in the 11:00 right breast, 2 cm from the nipple, there is normal breast tissue without suspicious sonographic mass or distortion. There are no suspicious findings in the imaged area. [facility] Provider, [facility] - 10/17/2024 * * *Final Report* * * DATE OF EXAM: Oct 17 2024 12:58PM [facility] [id number] [facility] RT / PROCEDURE REASON: Mass of upper outer quadrant of right breast * * * * Physician Interpretation * * * * [place] [id number] #[id number] - [facility] RT HISTORY: 49 year-old patient seen for diagnostic exam and a palpable abnormality in the right breast. Patient states no personal history of breast cancer. The patient has a family history of ovarian cancer. COMPARISON STUDIES: The present examination has been compared to prior imaging studies dated 03/04/2016 (mammogram), 10/21/2022 (mammogram) and 06/05/2024 (mammogram). ULTRASOUND TECHNIQUE: Targeted ultrasound of the indicated area was performed. De La O scale images were saved. ULTRASOUND FINDINGS: In the area of palpable lump in the 11:00 right breast, 2 cm from the nipple, there is normal breast tissue without suspicious sonographic mass or distortion. There are no suspicious findings in the imaged area. IMPRESSION IMPRESSION: No suspicious sonographic findings to correlate to the palpable right breast lump. Recommend clinical correlation/management. Annual mammogram will be due in 8 months. BI-RADS Category 1: Negative Interpreting Radiologist: Neisha Umanzor M.D. Electronically signed on: 10/17/2024 Shopper'S Aide: ROBERTO Transcribe Date/Time: Oct 17 2024 12:48P Dictated by : NEISHA UMANZOR MD This examination was interpreted and the report reviewed and electronically signed by: NEISHA UMANZOR MD on Oct 17 2024 1:24PM EST [facility] Radiology Study observation (narrative) [facility] US Breast - right limitedOrd ered By: Cc Provider on 10-17-2024 [facility] Yannick 10-10-2024 MAURO Telephone (THOMASMPEVERT) ESTELA COTE ([id number]) 1975 F Date Time Provider Department 10/10/24 AUDELIA GARCIA During your visit today, we recorded the following information about you: Karin Beck LPN 10/10/2024 1:18 PM Signed Pt left message asking for appointment as she found a lump in her breast. Pt states that she had a mammogram recently. Review of chart mammogram done 06/05/2024. LAMAR Frias Kimberly C, DO 10/10/2024 7:37 PM Signed Yes, please schedule appt Audelia Garcia DO Allergies As of Date: 10/10/2024 Noted Allergy Reaction BEES 02/18/2014 2 - Rash 7 - Swelling 9 - Itching Comments: Childhood reaction, no recent stings. METFORMIN 05/09/2014 6 - Diarrhea 8 - GI Upset ADHESIVE TAPE (ROSINS) 02/18/2014 2 - Rash 9 - Itching LISINOPRIL 11/18/2022 5 - Intolerance OZEMPIC (SEMAGLUTIDE) 10/15/2022 5 - Intolerance Comments: Nausea and vomiting REGLAN (METOCLOPRAMIDE) 01/11/2023 5 - Intolerance Date Reviewed: 05/15/2024 Reviewed by: Audelia Garcia DO - Fully Assessed Reason for Visit: Patient Question [4587] Prescriptions as of 10/10/2024 - MOUNJARO 12.5 mg/0.5 mL pen injector Inject 12.5 mg subcutaneously one time a week. - LANTUS SOLOSTAR U-100 INSULIN 100 unit/mL (3 mL) Inject 42 Units subcutaneously once daily. - spironolactone (ALDACTONE) 25 mg tablet Take 25 mg by mouth once daily. - lisinopril (ZESTRIL) 10 mg tablet Take 10 mg by mouth once daily. - ergocalciferol 50,000 unit capsule (VITAMIN D2, DRISDOL) Take 50,000 Units by mouth one time a week. - gabapentin (NEURONTIN) 100 mg capsule Take 1 capsule by mouth three times a day for 30 days. - pen needle, diabetic (COMFORT EZ PEN NEEDLES) 33 gauge x 3/16 ndle 1 Each once daily. - ondansetron (ZOFRAN) 4 mg tablet Take 1 tablet by mouth every 8 hours as needed for nausea/vomiting. - meloxicam (MOBIC ORAL) Take 15 mg by mouth once daily. - Blood Glucose Control, Normal soln Use as directed - blood sugar diagnostic (BLOOD GLUCOSE TEST) test strip 1 Strip once daily. Use as instructed - albuterol (PROVENTIL) 2.5 mg /3 mL (0.083 %) nebulizer solution Use 3 mL via nebulizer every 4 hours as needed for wheezing/shortness of breath. OVER 5-15 MINUTES. FOR WHEEZING AND SHORTNESS OF BREATH. Problem List As Of Date 10/10/2024 Noted Resolved Hypertension, essential [I10] DYSMETABOLIC SYNDROME X [E88.810] Polycystic ovaries [E28.2] ASTHMA UNSPECIFIED [J45.909] HEADACHE [R51] Overweight(278.02) [E66.3] 02/25/2014 Type II or unspecified type diabetes mellitus w* 12/19/2013 FATTY LIVER [R94.5] 11/29/2007 ENDOMETRIAL HYPERPLASIA W ATYPIA [N85.02] 04/25/2008 EXCESSIVE MENSTRUATION [N92.0] 04/25/2008 DJD (degenerative joint disease) [M19.90] 03/03/2010 Capsulitis [M77.9] 03/03/2010 Complex endometrial hyperplasia without atypia *12/21/2010 Rheumatoid arthritis, adult (HCC) [M06.9] 12/19/2013 Fibromyalgia [M79.7] 12/19/2013 Type 2 diabetes mellitus without complication, *12/19/2013 Insomnia [G47.00] 12/19/2013 Hyperlipidemia [E78.5] 12/19/2013 Family history of ischemic heart disease [Z82.4*05/24/2014 CRIS (obstructive sleep apnea) [G47.33] 10/02/2014 Abnormal finding on ultrasound [R93.89] 10/24/2015 Epigastric pain [R10.13] 12/11/2015 Nausea [R11.0] 12/11/2015 Gastroparesis due to secondary diabetes (HCC) [*12/19/2015 Type 2 diabetes mellitus with diabetic neuropat*12/19/2015 Obesity, Class III, BMI 40-49.9 (morbid obesity*10/15/2022 Encounter for screening for malignant neoplasm *11/17/2022 Leg swelling [M79.89] 11/17/2022 Palpitation [R00.2] 12/28/2022 Obesity, Class II, BMI 35-39.9 [E66.812] 05/27/2024 Encounter Status:Closed by KARIN BECK on 10/10/24 [facility] Yannick 10-01-2024 CNPN Telephone (HEMAWS) ESTELA COTE ([id number]) 1975 F Date Time Provider Department 10/01/24 TONI LARSON During your visit today, we recorded the following information about you: Kiara Davies LPN 10/01/2024 3:54 PM Signed Received new pt referral. New Pt chart put together, would like to review with Dr Larson prior to making apt. LAMAR Disla Brandy 10/03/2024 10:02 AM Signed I called and spoke to Estela and scheduled her for a new patient visit as she requested for 10/23/24 @ 2:00 PM. She confirmed this date, time and location [facility] Allergies As of Date: 10/01/2024 Noted Allergy Reaction BEES 02/18/2014 2 - Rash 7 - Swelling 9 - Itching Comments: Childhood reaction, no recent stings. METFORMIN 05/09/2014 6 - Diarrhea 8 - GI Upset ADHESIVE TAPE (ROSINS) 02/18/2014 2 - Rash 9 - Itching LISINOPRIL 11/18/2022 5 - Intolerance OZEMPIC (SEMAGLUTIDE) 10/15/2022 5 - Intolerance Comments: Nausea and vomiting REGLAN (METOCLOPRAMIDE) 01/11/2023 5 - Intolerance Date Reviewed: 05/15/2024 Reviewed by: Audelia Garcia DO - Fully Assessed Reason for Visit: New Patient [172] Prescriptions as of 10/03/2024 - MOUNJARO 12.5 mg/0.5 mL pen injector Inject 12.5 mg subcutaneously one time a week. - LANTUS SOLOSTAR U-100 INSULIN 100 unit/mL (3 mL) Inject 42 Units subcutaneously once daily. - spironolactone (ALDACTONE) 25 mg tablet Take 25 mg by mouth once daily. - lisinopril (ZESTRIL) 10 mg tablet Take 10 mg by mouth once daily. - ergocalciferol 50,000 unit capsule (VITAMIN D2, DRISDOL) Take 50,000 Units by mouth one time a week. - gabapentin (NEURONTIN) 100 mg capsule Take 1 capsule by mouth three times a day for 30 days. - pen needle, diabetic (COMFORT EZ PEN NEEDLES) 33 gauge x 3/16 ndle 1 Each once daily. - ondansetron (ZOFRAN) 4 mg tablet Take 1 tablet by mouth every 8 hours as needed for nausea/vomiting. - meloxicam (MOBIC ORAL) Take 15 mg by mouth once daily. - Blood Glucose Control, Normal soln Use as directed - blood sugar diagnostic (BLOOD GLUCOSE TEST) test strip 1 Strip once daily. Use as instructed - albuterol (PROVENTIL) 2.5 mg /3 mL (0.083 %) nebulizer solution Use 3 mL via nebulizer every 4 hours as needed for wheezing/shortness of breath. OVER 5-15 MINUTES. FOR WHEEZING AND SHORTNESS OF BREATH. Problem List As Of Date 10/01/2024 Noted Resolved Hypertension, essential [I10] DYSMETABOLIC SYNDROME X [E88.810] Polycystic ovaries [E28.2] ASTHMA UNSPECIFIED [J45.909] HEADACHE [R51] Overweight(278.02) [E66.3] 02/25/2014 Type II or unspecified type diabetes mellitus w* 12/19/2013 FATTY LIVER [R94.5] 11/29/2007 ENDOMETRIAL HYPERPLASIA W ATYPIA [N85.02] 04/25/2008 EXCESSIVE MENSTRUATION [N92.0] 04/25/2008 DJD (degenerative joint disease) [M19.90] 03/03/2010 Capsulitis [M77.9] 03/03/2010 Complex endometrial hyperplasia without atypia *12/21/2010 Rheumatoid arthritis, adult (HCC) [M06.9] 12/19/2013 Fibromyalgia [M79.7] 12/19/2013 Type 2 diabetes mellitus without complication, *12/19/2013 Insomnia [G47.00] 12/19/2013 Hyperlipidemia [E78.5] 12/19/2013 Family history of ischemic heart disease [Z82.4*05/24/2014 CRIS (obstructive sleep apnea) [G47.33] 10/02/2014 Abnormal finding on ultrasound [R93.89] 10/24/2015 Epigastric pain [R10.13] 12/11/2015 Nausea [R11.0] 12/11/2015 Gastroparesis due to secondary diabetes (HCC) [*12/19/2015 Type 2 diabetes mellitus with diabetic neuropat*12/19/2015 Obesity, Class III, BMI 40-49.9 (morbid obesity*10/15/2022 Encounter for screening for malignant neoplasm *11/17/2022 Leg swelling [M79.89] 11/17/2022 Palpitation [R00.2] 12/28/2022 Obesity, Class II, BMI 35-39.9 [E66.812] 05/27/2024 Encounter Status:Closed by YASSINE CHEN on 10/03/24 Normal [facility] Plastic Surgery Visit Report on 09-27-2024 Plastic Surgery Visit Report [facility] Plastic Reconstructive Surgery [address], [address] [place] [address] OFFICE VISIT Date of Service: 09/27/24 MR#: [id number] Acct: [id number] Name: ESTELA COTE Rep #: [id number] : 1975 Provider: Dr. Dallas Lind MD Age/Sex: 49/F [facility] Status: Signed Intake Vital Signs 06/06/24 11:37 07/23/24 13:04 09/27/24 08:40 Height 5 ft 6 in 5 ft 6 in 5 ft 6 in Weight: 244 lb 6 oz 225 lb BMI 39.4 36.3 BP 168/113 H Blood Pressure Location Lt brachial Rt brachial Position Sitting Sitting Respiration 18 18 Pulse 85 82 Pulse Source Monitor Temp 97.8 F Temp Source Oral Pulse Oximetry (%) 94 95 Oxygen Delivery Method room air room air Intake Visit Reasons: BREAST REDUCTION Chief Complaint: breast reduction Is patient in pain?: No Allergies adhesive tape (tape) Allergy (Mild, Verified 09/27/24 08:40) Rash Vaqggfh-HPF-ZqT Reductase Inhibitor Allergy (Mild, Verified 09/27/24 08:40) cough metformin Adverse Reaction (Intermediate, Verified 09/27/24 08:40) diarrhea Medications ???Medication ???Instructions ???Recorded ???Confirmed ???Type blood sugar diagnostic (OneTouch #50 ea 05/26/21 09/27/24 Rx Verio test strips) fluconazole 200 mg tablet 200 mg PO DAILY PRN 04/02/2409/27 History (Diflucan) lisinopril 10 mg tablet 10 mg PO QDAY #30 tabs 04/02/24 Rx insulin glargine 100 unit/mL (3 50 unit (0.5 mL) subcut QPM #45 mL 06/25/24 09/27/24 Rx mL) subcutaneous pen (Lantus Solostar U-100 Insulin) insulin lispro 100 unit/mL 15 unit (0.15 mL) subcut TID #13.5 06/25/24 09/27/24 Rx subcutaneous pen (Humalog KwikPen mL (U-100) Insulin) cholecalciferol (vitamin D3) 1,250 1,250 mcg PO QMONTH #12 caps 08/1409/27/24 Rx mcg (50,000 unit) capsule empagliflozin 25 mg tablet 25 mg PO QAM #30 tabs 07/23/2401/14 Rx (Jardiance) empagliflozin 25 mg tablet 25 mg PO QAM #90 tabs 07/23/2401/14 Rx (Jardiance) pen needle, diabetic 32 gauge x #100 ea 07/23/24 09/27/24 Rx 5/32 (BD Ultra-Fine Katie Pen Needle) spironolactone 25 mg tablet 50 mg (2 x 25 mg) PO QDAY #180 tab s 07/23/24 09/27/24 Rx tirzepatide 15 mg/0.5 mL 15 mg (0.5 mL) subcut QWEEK #2 mL 07/23/24 09/27/24 Rx subcutaneous pen injector (Mounjaro) [facility] Medical History History of suicide attempt Pancreatitis Polycystic ovary Vascular disease Skin cancer Murmur, cardiac IBS (irritable bowel syndrome) History of MRSA infection Hormone deficiency Heart disease GERD (gastroesophageal reflux disease) Pneumonia Osteoporosis History of osteoarthritis History of diabetes mellitus History of cancer History of blood transfusion History of UTI History of back problems History of arthritis History of anemia History of environmental allergies Rheumatoid arthritis Polyneuropathy due to type 2 diabetes mellitus Diabetes type 2, uncontrolled Surgical History History of carpal tunnel release H/O dilation and curettage History of hysterectomy History of tonsillectomy Family History Brother Alcoholism Arthritis Heart disease Mother Anemia Arthritis Bleeding disorder Diabetes Heart disease High cholesterol Kidney disease Osteoporosis Father Arthritis Depression High cholesterol Liver disease Seizures Lung cancer Skin cancer Other Cancer Hypertension Kidney disease Thyroid disorder Social History Smoking Status: Former smoker how long ago did patient quit smoking: quit at 15 years old alcohol intake: never substance use type: does not use additional social history: pt denies vaping, denies marijuana use, denies edibles, denies aspirin use uses ibuprofen HPI BREAST REDUCTION Details: Breast Reduction Pt c/o: [Macromastia] [Intertrigo] [Shoulder Pain] [Shoulder Grooves]??? [Upper back pain] [Poor Posture] ? Physical therapy for back pain: [N ] ??? Chiropractic treatment: [Y ] ??? Home exercise: [Y ]? NSAID use:N ??? Skin ulceration: [Y ] ??? Topical or oral antifungal agents: [Y ] ??? Participation in medically supervised weight loss program: [Y ] ??? More info: Pt is a diabetic type 2 which is managed by Lansteve, Trisha, and Jovan. Pt reports last A1C of 5.9 three months ago. Pt is a nonsmoker, denies any personal or family history of bleeding or blood clots. Pt is up to date on mammogram. Pt reports multiple miscarriages with 1 live vaginal . Pt also reports previous hysterectomy. She does not take hormone replacement therapy. Patient repor (more content not included)... Normal [facility] CK Totalon 08-03-2024 CK [Catalytic activity/Vol] 36 U/L Normal 26-192 [facility] Comment on above: Performed By: #### CK #### [facility] [address] [place], [place] [address] Draw and Send Only Specimeno n 08-03-2024 Sent SENT OUT [facility] Comment on above: Performed By: #### DRAW #### [facility] [address] [place], [place] [address] Sed Rate - Westergrenon 07-21 Sed Rate 23 mm/hr High 0-20 [facility] Comment on above: Performed By: #### ESR #### [facility] [address] [place], [place] [address] Endocrinology Visit Reporton 07-23-2024 Endocrinology Visit Report [facility] [address] [place] [address] OFFICE VISIT Date of Service: 07/23/24 MR#: [id number] Acct: [id number] Name: ESTELA COTE Rep #: [id number] : 1975 Provider: JUAN reina Age/Sex: 49/F Location: [facility] [place] Status: Signed Intake Vital Signs 06/06/24 11:37 07/23/24 13:04 Height 5 ft 6 in 5 ft 6 in Weight: 244 lb 6 oz 242 lb 8 oz BMI 39.4 39.1 BP 168/113 H 163/103 H Blood Pressure Location Lt brachial Rt brachial Position Sitting Sitting Respiration 18 Pulse 85 81 Pulse Source Monitor Temp 97.8 F Temp Source Oral Pulse Oximetry (%) 94 98 Oxygen Delivery Method room air room air Intake Visit Reasons: 3 M FU, NS 07/02 Chief Complaint: f/u diabetes Is patient in pain?: No Allergies adhesive tape (tape) Allergy (Mild, Verified 07/23/24 13:10) Rash Rszvblh-UDI-NwS Reductase Inhibitor Allergy (Mild, Verified 07/23/24 13:10) cough metformin Adverse Reaction (Intermediate, Verified 07/23/24 13:10) diarrhea Medications ???Medication ???Instructions ???Recorded ???Confirmed ???Type blood sugar diagnostic (OneTouch #50 ea 05/26/21 07/23/24 Rx Verio test strips) fluconazole 200 mg tablet 200 mg PO DAILY PRN 04/02/2407/23 History (Diflucan) lisinopril 10 mg tablet 10 mg PO QDAY #30 tabs 04/02/24 Rx insulin glargine 100 unit/mL (3 50 unit (0.5 mL) subcut QPM #45 mL 06/25/24 07/23/24 Rx mL) subcutaneous pen (Lantus Solostar U-100 Insulin) insulin lispro 100 unit/mL 15 unit (0.15 mL) subcut TID #13.5 06/25/24 07/23/24 Rx subcutaneous pen (Humalog KwikPen mL (U-100) Insulin) cholecalciferol (vitamin D3) 1,250 1,250 mcg PO QMONTH #12 caps 08/1407/23/24 Rx mcg (50,000 unit) capsule empagliflozin 25 mg tablet 25 mg PO QAM #30 tabs 07/23/2408/14 Rx (Jardiance) empagliflozin 25 mg tablet 25 mg PO QAM #90 tabs 07/23/2408/14 Rx (Jardiance) pen needle, diabetic 32 gauge x #100 ea 07/23/24 Rx 5/32 (BD Ultra-Fine Katie Pen Needle) spironolactone 25 mg tablet 50 mg (2 x 25 mg) PO QDAY #180 tab s 07/23/24 07/23/24 Rx tirzepatide 15 mg/0.5 mL 15 mg (0.5 mL) subcut QWEEK #2 mL 07/23/24 07/23/24 Rx subcutaneous pen injector (Mounjaro) [facility] Medical History History of suicide attempt Pancreatitis Polycystic ovary Vascular disease Skin cancer Murmur, cardiac IBS (irritable bowel syndrome) History of MRSA infection Hormone deficiency Heart disease GERD (gastroesophageal reflux disease) Pneumonia Osteoporosis History of osteoarthritis History of diabetes mellitus History of cancer History of blood transfusion History of UTI History of back problems History of arthritis History of anemia History of environmental allergies Rheumatoid arthritis Polyneuropathy due to type 2 diabetes mellitus Diabetes type 2, uncontrolled Surgical History History of carpal tunnel release H/O dilation and curettage History of hysterectomy History of tonsillectomy Family History Brother Alcoholism Arthritis Heart disease Mother Anemia Arthritis Bleeding disorder Diabetes Heart disease High cholesterol Kidney disease Osteoporosis Father Arthritis Depression High cholesterol Liver disease Seizures Lung cancer Skin cancer Other Cancer Hypertension Kidney disease Thyroid disorder Social History Smoking Status: Former smoker how long ago did patient quit smoking: quit at 15 years old alcohol intake: never substance use type: does not use additional social history: pt denies vaping, denies marijuana use, denies edibles, denies aspirin use uses ibuprofen HPI HPI Chief Complaint: f/u diabetes Details: ESTELA COTE, is a 49 F who presents to the office today for evaluation and management of diabetes. A1C today is 5.9%, improved from 04/02/24 at 6.7%. She has lost an additional 6 lbs since that time. Currently taking Mounjaro 12.5 mg qweek- tolerating well, and Lantus 42 u once daily. CGM tracings reviewed- she is having post meal elevations, no lows noted. BP today is 163/103. She takes BP routinely at home. Diastolics are >90. Currently taking lisinopril 10 mg once daily and spironolactone 25 mg once daily. She admits that she is not typically taking lisinopril daily. She denies any HAYES, CP, visual changes, dizziness, etc. Hx of vitamin D deficiency. She recent completed vitamin D3 50,000 iu qweek. Labs are up to date and unremarkable. Denies any acute concerns. ROS Const (more content not included)... Normal [facility] Laboratory - Hematology and Cell countsOrdered By: Elinor Samaniego on 07-23-2024 HbA1c (Bld) [Mass fraction] 5.9 % 4.2-6.3 [facility] Plastic Surgery Visit Report on 06-06-2024 Plastic Surgery Visit Report [facility] Plastic Reconstructive Surgery [address], [address] [place] [address] OFFICE VISIT Date of Service: 06/06/24 MR#: [id number] Acct: [id number] Name: ESTELA COTE Rep #: [id number] : 1975 Provider: Dr. Rossy valdez MD Age/Sex: 49/F Location: [facility] Status: Signed Intake Vital Signs 05/09/24 13:30 06/06/24 11:37 Height 5 ft 6.5 in 5 ft 6 in Weight: 244 lb 6 oz BMI 39.4 BP 168/113 H Blood Pressure Location Lt brachial Position Sitting Respiration 18 Pulse 85 Temp 97.8 F Temp Source Oral Pulse Oximetry (%) 94 Oxygen Delivery Method room air Intake Visit Reasons: BREAST REDUCTION Chief Complaint: breast reduction coonsult Accompanied by: Is patient in pain?: No Allergies adhesive tape (tape) Allergy (Mild, Verified 06/06/24 11:39) Rash Weyuurf-WUS-IiT Reductase Inhibitor Allergy (Mild, Verified 06/06/24 11:39) cough metformin Adverse Reaction (Intermediate, Verified 01/30/24 10:16) diarrhea Medications ???Medication ???Instructions ???Recorded ???Confirmed ???Type pen needle, diabetic 32 gauge x #10 ea 09/24/19 04/02/24 Rx 5/32 (BD Ultra-Fine Katie Pen Needle) blood sugar diagnostic (OneTouch #50 ea 05/26/21 04/02/24 Rx Verio test strips) blood-glucose sensor (FreeStyle #2 ea 01/02/24 04/02/24 Rx Audi 3 Sensor device) insulin glargine 100 unit/mL (3 50 unit (0.5 mL) subcut QPM #15 mL 01/30/24 06/06/24 Rx mL) subcutaneous pen (Lantus Solostar U-100 Insulin) insulin lispro 100 unit/mL 15 unit (0.15 mL) subcut TID #13.5 01/30/24 06/06/24 Rx subcutaneous pen (Humalog KwikPen mL (U-100) Insulin) blood-glucose sensor (FreeStyle #2 ea 01/31/24 04/02/24 Rx Audi 3 Plus Sensor device) cholecalciferol (vitamin D3) 1,250 1,250 mcg PO QWEEK #12 caps 04/02/24 06/06/24 Rx mcg (50,000 unit) capsule fluconazole 200 mg tablet 200 mg PO DAILY PRN 04/02/24 History (Diflucan) lisinopril 10 mg tablet 10 mg PO QDAY #30 tabs 04/02/24 06/06/24 Rx spironolactone 25 mg tablet 25 mg PO QDAY #30 tabs 04/02/24 06/06/24 Rx tirzepatide 12.5 mg/0.5 mL 12.5 mg (0.5 mL) subcut QWEEK #2 mL 04/25/24 Rx subcutaneous pen injector (Mounjaro) tirzepatide 12.5 mg/0.5 mL 12.5 mg subcut QWEEK 06/06/24 06/06/24 History subcutaneous pen injector (Mounjaro) Nurse's Note: pt here with for breast reduction consult [facility] Medical History (Updated 06/06/24 @ 12:[address] Rossy Arrington MD) History of suicide attempt Pancreatitis Polycystic ovary Vascular disease Skin cancer Murmur, cardiac IBS (irritable bowel syndrome) History of MRSA infection Hormone deficiency Heart disease GERD (gastroesophageal reflux disease) Pneumonia Osteoporosis History of osteoarthritis History of diabetes mellitus History of cancer History of blood transfusion History of UTI History of back problems History of arthritis History of anemia History of environmental allergies Rheumatoid arthritis Polyneuropathy due to type 2 diabetes mellitus Diabetes type 2, uncontrolled Surgical History (Updated 06/06/24 @ 11:27 by Bee Kirby) History of carpal tunnel release H/O dilation and curettage History of hysterectomy History of tonsillectomy Family History (Updated 06/06/24 @ 11:48 by Bee Kirby) Brother Alcoholism Arthritis Heart disease Mother Anemia Arthritis Bleeding disorder Diabetes Heart disease High cholesterol Kidney disease Osteoporosis Father Arthritis Depression High cholesterol Liver disease Seizures Lung cancer Skin cancer Other Cancer Hypertension Kidney disease Thyroid disorder Social History (Updated 06/06/24 @ 11:42 by Bee Kirby) Smoking Status: Former smoker how long ago did patient quit smoking: quit at 15 years old alcohol intake: never substance use type: does not use additional social history: pt denies vaping, denies marijuana use, denies edibles, denies aspirin use uses ibuprofen HPI BREAST REDUCTION Details: Estela comes in for consideration of breast reduction. She has a longstanding history of back and neck problems for which she takes gabapentin. She has also seen a chiropractor in the past without lasting results. Her last mammogram was yesterday. She does not have access to the results yet. There is no family history of breast cancer. She has had 1 child which she breast-fed approximately 9 months. She has a very remote history of smoking as a teen. She denies use of marijuana or edibles. She is in the process of losing weight successfully using Mounjaro. She has lost 22 pounds since March. She states her top weight was 280 pounds. She has had improvement of her A1c from 14-6.7 over the last 6 (more content not included)... Normal [facility] CARIDAD SCREENING W TOMOon 06-05 CARIDAD SCREENING W ALLEY * * *Final Report* * * DATE OF EXAM: Jun 05 2024 8:56AM LDW [id number] - CARIDAD SCREENING W ALLEY / PROCEDURE REASON: Encounter for screening mammogram for breast cancer * * * * Physician Interpretation * * * * [place] [address] #[id number] - CARIDAD SCREENING W ALLEY HISTORY: Patient is 49 years old and is seen for screening. No current complaints. The patient has a history of other cancer at age 41 and uterine cancer at age 35. COMPARISON STUDIES: The present examination has been compared to prior imaging studies dated 03/04/2016 (mammogram) and 10/21/2022 (mammogram). MAMMOGRAM TECHNIQUE: The study was acquired using full field digital technology and interpreted from soft copy. Digital Breast Tomosynthesis (DBT) images were obtained and used to assist in the interpretation of this examination. MAMMOGRAM FINDINGS: The breasts are almost entirely fatty. No suspicious masses, calcifications or other abnormalities are seen in either breast. There are no significant interval changes. IMPRESSION: There is no mammographic evidence of malignancy in either breast. Routine screening mammogram is recommended. Annual mammogram will be due in 1 year. BI-RADS Category 1: Negative RISK: Based on the Tyrer-Cuzick (TC) risk assessment model, this patient has a 2.1% lifetime risk of developing breast cancer, meaning they are at average risk for developing breast cancer. However, this is only an estimate based on available history provided on the patient's questionnaire. We encourage all patients to talk with their providers about these results, further recommendations for managing breast health, and appropriate supplemental screening options if the patient has dense breast tissue. Interpreting Radiologist: Sayda Avendano M.D. Electronically signed on: 06/06/2024 Shopper'S Aide: ROBERTO Transcribe Date/Time: Jun 05 2024 8:24A Dictated by : SAYDA AVENDANO MD This examination was interpreted and the report reviewed and electronically signed by: SAYDA AVENDANO MD on Jun 06 2024 11:56AM EST [id number] [facility] (RUBI LOYD) ESTELA COTE ([id number]) 1975 F Date Time Provider Department 05/15/24 11:20 AM AUDELIA GARCIA During your visit today, we recorded the following information about you: Temperature Pulse Respiration Blood pressure 97.8 degrees 58/minute 16/minute 124/76 Weight Height 109.3 kg 1.664 m Audelia Garcia DO 05/27/2024 10:44 AM Signed SUBJECTIVE: 49 year old female for annual checkup. I have fully reviewed the past medical, surgical, social and family history and updated the Histories section of [email or web address]. She is seeing an security flex officer, is on a GLP 1 (mounjaro), which she is tolerating She has been losing weight on this, and her A1c is now at target She had blood work at her security flex officer's office on 04/02/24 She has an eversense year long glucometer implanted She had varicose veins removed 2 years ago, and now her left leg is painful and sensitive Patient's last menstrual period was 12/22/2010. ALLERGIES Allergen Reactions Bees Rash, Swelling, Itching Childhood reaction, no recent stings. Metformin Diarrhea, GI Upset Adhesive Tape (Karen* Rash, Itching Lisinopril Intolerance Ozempic [Semaglutid* Intolerance Nausea and vomiting Reglan [Metoclopram* Intolerance Current Outpatient Medications Medication Sig Dispense Refill MOUNJARO 12.5 mg/0.5 mL pen injector Inject 12.5 mg subcutaneously one time a week. LANTUS SOLOSTAR U-100 INSULIN 100 unit/mL (3 mL) Inject 42 Units subcutaneously once daily. spironolactone (ALDACTONE) 25 mg tablet Take 25 mg by mouth once daily. lisinopril (ZESTRIL) 10 mg tablet Take 10 mg by mouth once daily. ergocalciferol 50,000 unit capsule (VITAMIN D2, DRISDOL) Take 50,000 Units by mouth one time a week. gabapentin (NEURONTIN) 100 mg capsule Take 1 capsule by mouth three times a day for 30 days. 90 capsule 0 pen needle, diabetic (COMFORT EZ PEN NEEDLES) 33 gauge x 3/16 ndle 1 Each once daily. 30 Each 11 ondansetron (ZOFRAN) 4 mg tablet Take 1 tablet by mouth every 8 hours as needed for nausea/vomiting. 30 tablet 2 meloxicam (MOBIC ORAL) Take 15 mg by mouth once daily. blood sugar diagnostic (BLOOD GLUCOSE TEST) test strip 1 Strip once daily. Use as instructed 100 Each 3 albuterol (PROVENTIL) 2.5 mg /3 mL (0.083 %) nebulizer solution Use 3 mL via nebulizer every 4 hours as needed for wheezing/shortness of breath. OVER 5-15 MINUTES. FOR WHEEZING AND SHORTNESS OF BREATH. 90 mL 3 Blood Glucose Control, Normal soln Use as directed 1 Each 1 No current facility-administered medications for this visit. ACTIVE PROBLEM LIST Hypertension, Essential Dysmetabolic Syndrome X Polycystic Ovaries Unspecified Asthma(493.90) Headache(784.0) FATTY LIVER Endometrial Hyperplasia With Atypia Excessive Or Frequent Menstruation Djd (Degenerative Joint Disease) Capsulitis Complex Endometrial Hyperplasia Without Atypia Rheumatoid Arthritis, Adult (Hcc) Fibromyalgia Dm (Diabetes Mellitus), Type 2, Uncontrolled Insomnia Hyperlipidemia Family History of Ischemic Heart Disease Cris (Obstructive Sleep Apnea) Abnormal Finding On Ultrasound Epigastric Pain Nausea Gastroparesis Due to Secondary Diabetes (Hcc) Type 2 Diabetes Mellitus With Diabetic Neuropathy, With Long-Term Current Use of Insulin (Hcc) Obesity, Class Iii, Bmi 40-49.9 (Morbid Obesity) ([facility]) Encounter for Screening for Malignant Neoplasm of Colon Leg Swelling Palpitation Social History Tobacco Use Smoking status: Former Types: Cigarettes Smokeless tobacco: Never Tobacco comments: Quit 31 years ago Vaping Use Vaping status: Never Used Substance Use Topics Alcohol use: Not Currently Drug use: Never Family History Problem Relation Age of Onset Coronary Artery Disease Mother Hypertension Mother [place] @ 62 yrs. old Diabetes Mother Cancer Father SKIN, ENT met to lungs. Coronary Artery Disease Brother 40 stent + [place] Coronary Artery Disease Brother 40 stent + [place] Coronary Artery Disease Brother 40 stent Coronary Artery Disease Maternal Grandmother Cancer Paternal Grandmother colon Cancer Maternal Aunt PANCREAS Heart Attack Maternal Aunt Cancer Maternal Aunt UTERINE Cancer Maternal Uncle HODGKINS Asthma No Family History Reviewed past medical history, family history and surgeries. All medications and supplements were reviewed with the patient. REVIEW OF SYSTEMS GENERAL: No weight loss, malaise or fevers HEENT: Negative for frequent or significant headaches, No changes in hearing or vision, no nose bleeds or other nasal problems NECK: Negative for lumps, goiter, pain and significant neck swelling RESPIRATORY: Negative for cough, hemoptysis, wheezing, COPD, dyspnea or shortness of breath CARDIOVASCULAR: Negative for chest pain, leg swelling, hypertension, CHF or palpitations GI: No na (more content not included)... Normal [facility] Endocrinology Visit Reporton 05-14-2024 Endocrinology Visit Report [facility] [facility] [address] [place] [address] OFFICE VISIT Date of Service: 05/09/24 MR#: [id number] Acct: [id number] Name: ESTELA COTE Rep #: [id number] : 1975 Provider: JUAN reina Age/Sex: 49/F Location: [facility] Status: Signed Intake Vital Signs 04/02/24 11:14 05/09/24 13:30 Height 5 ft 6.5 in 5 ft 6.5 in Weight: 248 lb BMI 39.4 BP 166/95 H Blood Pressure Location Rt brachial Position Sitting Pulse 80 Pulse Source Monitor Pulse Oximetry (%) 96 Oxygen Delivery Method room air Intake Visit Reasons: Eversense Insertion Chief Complaint: Diabetes Allergies metformin Adverse Reaction (Intermediate, Verified 01/30/24 10:16) diarrhea [facility] Medical History (Updated 04/02/24 @ 16:02 by Elinor Samaniego NP-Celestino) Rheumatoid arthritis Polyneuropathy due to type 2 diabetes mellitus Diabetes type 2, uncontrolled Surgical History H/O dilation and curettage History of hysterectomy History of tonsillectomy Family History Other Cancer Diabetes Heart disease Hypertension Kidney disease Thyroid disorder Social History Smoking Status: Never smoker HPI HPI Chief Complaint: Diabetes Details: ESTELA COTE, is a 49 F who presents to the office today for insertion of Eversense CGM. Patient is type 2 diabetic and elects to have Eversense CGM placed. She is checking blood sugar 4x/day, she is taking 4 subq insulin injections, she is using blood sugar reading to titrate insulin dose, she is at risk of hypoglycemia. Assessment and Plan Assessment and Plan (1) Diabetes mellitus: Status: Chronic Qualifiers: Diabetes mellitus type: type 2 Diabetes mellitus skilled nursing insulin use: without skilled nursing use Diabetes mellitus complication status: with neurologic complications Diabetes mellitus complication detail: with polyneuropathy Qualified Code(s): E11.42 - Type 2 diabetes mellitus with diabetic polyneuropathy Plan: Informed consent obtained after discussing procedure and possible complications. Allergies documented regarding procedural products. Insertion area located in left upper arm and marked. Area cleansed with ChloraPrep, draped, and local anesthesia was injected. Incision made with 15 blade scalpel and sensor was deployed. Pressure applied to incision site, closed with steri-strips and Tegaderm. Patient tolerated procedure well. No complications noted. Incision care instructions provided. patient instructed to call if signs/symptoms of infection develop. Sensor linked to transmitter and warm-up phase initiated. Signal strength documented as excellent. Instructions were given for activating the system and the patient was given training materials on system usage. Plan Details Follow Up: 1 year for sensor removal Coding Level of Care Code Attention Regional Director Of Finance Diagnoses Type 2 diabetes mellitus with diabetic polyneuropathy, without long-term current use of insulin E11.42 Diabetes mellitus type: type 2 Diabetes mellitus skilled nursing insulin use: without longwall foreman use Diabetes mellitus complication status: with neurologic complications Diabetes mellitus complication detail: with polyneuropathy 05/14/24 1307 Date Elinor Samaniego EMBOSSING CLERK-C Cosigner Signature: Date (if applicable) CC: Dr. Audelia Garcia, DO Normal [facility] Thyroid Peroxidase ABon 03-23 THYR PEROX AB < 9 Normal 0-34 [facility] Comment on above: Result Comment: Performed at: [address] [id number] Perforator Typist: Manfred Deshpande PhD, Phone: [phone] Performed By: #### L 506.1000, L100.0100, L500.4100, L501.9520, L500.4050, L502.0250, L503.6550, L3300.6900, L503.0105 ####[facility] [id number] [facility]. [place], [place], [id number] CBC W/Diff, Automatedon 03-23 Absolute Lymph 1.59 X10 3/uL Normal 0.83-4.51 [facility] Comment on above: Performed By: #### L506.1000, L100.0100, L500.4100, L501.9520, L500.4050, L502.0250, L503.6550, L3300.6900, L503.0105 #### [facility] [address] [place], [place], [id number] [phone] Absolute Neut 3.6 X10 3/uL Normal 2.0-7.7 [facility] Comment on above: Performed By: #### L506.1000, L100.0100, L500.4100, L501.9520, L500.4050, L502.0250, L503.6550, L3300.6900, L503.0105 #### [facility] [address] [place], [place], [id number] (963 Basophils/100 WBC (Bld) 0.5 % Normal 0-1 [facility] Comment on above: Performed By: #### L506.1000, L100.0100, L500.4100, L501.9520, L500.4050, L502.0250, L503.6550, L3300.6900, L503.0105 #### [facility] [address] [place], [address] Eosinophils/100 WBC (Bld) 3.3 % Normal 0-5 [facility] Comment on above: Performed By: #### L506.1000, L100.0100, L500.4100, L501.9520, L500.4050, L502.0250, L503.6550, L3300.6900, L503.0105 #### [facility] [address] [place], [address] ([address] Erythrocyte distribution width (RBC) [Ratio] 12.7 % Normal 11.6-14.6 [facility] Comment on above: Performed By: #### L506.1000, L100.0100, L500.4100, L501.9520, L500.4050, L502.0250, L503.6550, L3300.6900, L503.0105 #### [facility] [address] [place], [address] Hematocrit (Bld) [Volume fraction] 37.8 % Normal 37-47 [facility] Comment on above: Performed By: #### L506.1000, L100.0100, L500.4100, L501.9520, L500.4050, L502.0250, L503.6550, L3300.6900, L503.0105 #### [facility] [address] [place], [address] Hemoglobin (Bld) [Mass/Vol] 13.1 g/dL Normal 12.0-15.0 [facility] Comment on above: Performed By: #### L506.1000, L100.0100, L500.4100, L501.9520, L500.4050, L502.0250, L503.6550, L3300.6900, L503.0105 #### [facility] [address] [place], [address] IG% 0.200 Normal 0.0-0.9 [facility] Comment on above: Result Comment: IG% - Immature Granulocy dwain (promyelocytes, myelocytes and metamyelocytes) > 1% indicates that a LEFT SHIFT is Present. Performed By: #### L 506.1000, L100.0100, L500.4100, L501.9520, L500.4050, L502.0250, L503.6550, L3300.6900, L503.0105 #### [facility] [address] [place], [address] Lymphocytes/100 WBC (Bld) 27.6 % Normal 19-41 [facility] Comment on above: Performed By: #### L506.1000, L100.0100, L500.4100, L501.9520, L500.4050, L502.0250, L503.6550, L3300.6900, L503.0105 #### [facility] [address] [place], [address] MCH (RBC) [Entitic mass] 31.7 pg Normal 27.0-32.0 [facility] Comment on above: Performed By: #### L506.1000, L100.0100, L500.4100, L501.9520, L500.4050, L502.0250, L503.6550, L3300.6900, L503.0105 #### [facility] [address] [place], [address] MCHC (RBC) [Mass/Vol] 34.7 g/dL Normal 32-36 [facility] Comment on above: Performed By: #### L506.1000, L100.0100, L500.4100, L501.9520, L500.4050, L502.0250, L503.6550, L3300.6900, L503.0105 #### [facility] [address] [place], [address] MCV (RBC) [Entitic vol] 91.5 fL Normal 81-99 [facility] Comment on above: Performed By: #### L506.1000, L100.0100, L500.4100, L501.9520, L500.4050, L502.0250, L503.6550, L3300.6900, L503.0105 #### [facility] [address] [place], [address] Monocytes/100 WBC (Bld) 5.7 % Normal 0-10 [facility] Comment on above: Performed By: #### L506.1000, L100.0100, L500.4100, L501.9520, L500.4050, L502.0250, L503.6550, L3300.6900, L503.0105 #### [facility] [address] [place], [address] Neutrophils/100 WBC (Bld) 62.7 % Normal 47-70 [facility] Comment on above: Performed By: #### L506.1000, L100.0100, L500.4100, L501.9520, L500.4050, L502.0250, L503.6550, L3300.6900, L503.0105 #### [facility] [address] [place], [address] Nucleated RBC (Bld) [#/Vol] 0 10*3/uL Normal 0-5 [facility] Comment on above: Performed By: #### L506.1000, L100.0100, L500.4100, L501.9520, L500.4050, L502.0250, L503.6550, L3300.6900, L503.0105 #### [facility] [address] [place], [address] Platelet mean volume (Bld) [Entitic vol] 9.7 fL Normal 6.2-12.0 [facility] Comment on above: Performed By: #### L506.1000, L100.0100, L500.4100, L501.9520, L500.4050, L502.0250, L503.6550, L3300.6900, L503.0105 #### [facility] [address] [place], [address] Platelets (Bld) [#/Vol] 126 10*3/uL Low 150-450 [facility] Comment on above: Performed By: #### L506.1000, L100.0100, L500.4100, L501.9520, L500.4050, L502.0250, L503.6550, L3300.6900, L503.0105 #### [facility] [address] [place], [address] RBC (Bld) [#/Vol] 4.13 10*6/uL Low 4.2-5.4 [facility] Comment on above: Performed By: #### L506.1000, L100.0100, L500.4100, L501.9520, L500.4050, L502.0250, L503.6550, L3300.6900, L503.0105 #### [facility] [address] [place], [address] RDW SD 42.2 fl Normal 35.1-43.9 [facility] Comment on above: Performed By: #### L506.1000, L100.0100, L500.4100, L501.9520, L500.4050, L502.0250, L503.6550, L3300.6900, L503.0105 #### [facility] [address] [place], [address] WBC (Bld) [#/Vol] 5.8 10*3/uL Normal 4.4-11.0 [facility] Comment on above: Performed By: #### L506.1000, L100.0100, L500.4100, L501.9520, L500.4050, L502.0250, L503.6550, L3300.6900, L503.0105 #### [facility] [address] [place], [place], [address] [facility] Telephone (AGFAMPLE) ESTELA COTE ([id number]) 1975 F Date Time Provider Department 04/02/24 AUDELIA GARCIA During your visit today, we recorded the following information about you: Laure Thomas MA 04/02/2024 2:44 PM Signed Patient is needing a new referral to Lillian Jalloh MD a mba internship with [facility] their fax: [phone] TRENT Anand Kimberly C, 04/03/2024 10:40 AM Signed Referral is attached. Please remind pt she is due for annual f/u appt DO Velvet Leigh Kimberly C, 04/03/2024 10:40 AM Signed Addended by: AUDELIA GARCIA on: 04/03/2024 10:40 AM Modules accepted: Orders Fernanda PatelTRENT 04/03/2024 10:43 AM Signed Faxed. Please help assist with scheduling wellness visit for patient. Thank you. Fernanda BassettpolijanuszTRENT Allergies As of Date: 04/02/2024 Noted Allergy Reaction BEES 02/18/2014 2 - Rash 7 - Swelling 9 - Itching Comments: Childhood reaction, no recent stings. METFORMIN 05/09/2014 6 - Diarrhea 8 - GI Upset ADHESIVE TAPE (ROSINS) 02/18/2014 2 - Rash 9 - Itching LISINOPRIL 11/18/2022 5 - Intolerance OZEMPIC (SEMAGLUTIDE) 10/15/2022 5 - Intolerance Comments: Nausea and vomiting REGLAN (METOCLOPRAMIDE) 01/11/2023 5 - Intolerance Date Reviewed: 04/05/2023 Reviewed by: Audelia Garcia DO - Fully Assessed Reason for Visit: Referral Request [124] Primary Visit Diagnosis:Fibromyalgia [M79.7] Order(s):CONSULT TO RHEUM/IMMUN DISEASE [9039] Order #: [id number]: 1 FUTURE Prescriptions as of 04/03/2024 - insulin glargine U-300 conc (TOUJEO SOLOSTAR U-300 INSULIN) 300 unit/mL (1.5 mL) Inject 15 Units subcutaneously daily at bedtime. Please note this medication is 3 TIMES STRONG YOUR FORMER BEDTIME INSULIN - losartan (COZAAR) 25 mg tablet take 1 tablet by mouth once daily - hydroCHLOROthiazide 25 mg tablet Take 1 tablet by mouth once daily. - gabapentin (NEURONTIN) 100 mg capsule Take 1 capsule by mouth three times a day for 30 days. - empagliflozin (JARDIANCE) 10 mg tablet Take 1 tablet by mouth daily with breakfast. - tirzepatide (MOUNJARO) 5 mg/0.5 mL pen injector Inject 5 mg subcutaneously one time a week. - pen needle, diabetic (COMFORT EZ PEN NEEDLES) 33 gauge x 3/16 ndle 1 Each once daily. - ondansetron (ZOFRAN) 4 mg tablet Take 1 tablet by mouth every 8 hours as needed for nausea/vomiting. - meloxicam (MOBIC ORAL) Take 15 mg by mouth once daily. - Blood Glucose Control, Normal soln Use as directed - blood sugar diagnostic (BLOOD GLUCOSE TEST) test strip 1 Strip once daily. Use as instructed - albuterol (PROVENTIL) 2.5 mg /3 mL (0.083 %) nebulizer solution Use 3 mL via nebulizer every 4 hours as needed for wheezing/shortness of breath. OVER 5-15 MINUTES. FOR WHEEZING AND SHORTNESS OF BREATH. Problem List As Of Date 04/02/2024 Noted Resolved Hypertension, essential [I10] DYSMETABOLIC SYNDROME X [E88.810] Polycystic ovaries [E28.2] ASTHMA UNSPECIFIED [J45.909] HEADACHE [R51] Overweight(278.02) [E66.3] 02/25/2014 Type II or unspecified type diabetes mellitus w* 12/19/2013 FATTY LIVER [R94.5] 11/29/2007 ENDOMETRIAL HYPERPLASIA W ATYPIA [N85.02] 04/25/2008 EXCESSIVE MENSTRUATION [N92.0] 04/25/2008 DJD (degenerative joint disease) [M19.90] 03/03/2010 Capsulitis [M77.9] 03/03/2010 Complex endometrial hyperplasia without atypia *12/21/2010 Rheumatoid arthritis, adult (HCC) [M06.9] 12/19/2013 Fibromyalgia [M79.7] 12/19/2013 DM (diabetes mellitus), type 2, uncontrolled (H*12/19/2013 Insomnia [G47.00] 12/19/2013 Hyperlipidemia [E78.5] 12/19/2013 Family history of ischemic heart disease [Z82.4*05/24/2014 CRIS (obstructive sleep apnea) [G47.33] 10/02/2014 Abnormal finding on ultrasound [R93.89] 10/24/2015 Epigastric pain [R10.13] 12/11/2015 Nausea [R11.0] 12/11/2015 Gastroparesis due to secondary diabetes (HCC) [*12/19/2015 Type 2 diabetes mellitus with diabetic neuropat*12/19/2015 Obesity, Class III, BMI 40-49.9 (morbid obesity*10/15/2022 Encounter for screening for malignant neoplasm *11/17/2022 Leg swelling [M79.89] 11/17/2022 Palpitation [R00.2] 12/28/2022 Encounter Status:Closed by LAURE THOMAS on 04/02/24 Normal [facility] Comprehensive Metabolic Prof awais 04-02-2024 Albumin [Mass/Vol] 3.3 g/dL Normal 3.2-5.0 [facility] Comment on above: Performed By: #### L506.1000, L100.0100, L500.4100, L501.9520, L500.4050, L502.0250, L503.6550, L3300.6900, L503.0105 #### [facility] [address] [place], [address] Albumin/Globulin [Mass ratio] 0.8 {ratio} Low 0.9-2.4 [facility] Comment on above: Performed By: #### L506.1000, L100.0100, L500.4100, L501.9520, L500.4050, L502.0250, L503.6550, L3300.6900, L503.0105 #### [facility] [address] [place], [address] ALK P 89 U/L Normal 45-117 [facility] Comment on above: Performed By: #### L506.1000, L100.0100, L500.4100, L501.9520, L500.4050, L502.0250, L503.6550, L3300.6900, L503.0105 #### [facility] [address] [place], [address] ALT [Catalytic activity/Vol] 28 U/L Normal 13-56 [facility] Comment on above: Performed By: #### L506.1000, L100.0100, L500.4100, L501.9520, L500.4050, L502.0250, L503.6550, L3300.6900, L503.0105 #### [facility] [address] [place], [address] AST [Catalytic activity/Vol] 30 U/L Normal 15-37 [facility] Comment on above: Performed By: #### L506.1000, L100.0100, L500.4100, L501.9520, L500.4050, L502.0250, L503.6550, L3300.6900, L503.0105 #### [facility] [address] [place], [address] Bilirubin [Mass/Vol] 0.50 mg/dL Normal 0.20-1.00 [facility] Comment on above: Result Comment: For patients on eltrombo pag therapy, use of Dimension [place] TBIL is not recommended. Performed By: #### L 506.1000, L100.0100, L500.4100, L501.9520, L500.4050, L502.0250, L503.6550, L3300.6900, L503.0105 #### [facility] [address] [place], [address] BUN/CRE 20.7 RATIO High 10-20 [facility] Comment on above: Performed By: #### L506.1000, L100.0100, L500.4100, L501.9520, L500.4050, L502.0250, L503.6550, L3300.6900, L503.0105 #### [facility] [address] [place], [address] CA,Total 9.0 mg/dL Normal 8.5-10.1 [facility] Comment on above: Performed By: #### L506.1000, L100.0100, L500.4100, L501.9520, L500.4050, L502.0250, L503.6550, L3300.6900, L503.0105 #### [facility] [address] [place], [address] Chloride [Moles/Vol] 108 mmol/L High 98-107 [facility] Comment on above: Performed By: #### L506.1000, L100.0100, L500.4100, L501.9520, L500.4050, L502.0250, L503.6550, L3300.6900, L503.0105 #### [facility] [address] [place], [address] CO2 [Moles/Vol] 29.0 mmol/L Normal 21.0-32.0 [facility] Comment on above: Performed By: #### L506.1000, L100.0100, L500.4100, L501.9520, L500.4050, L502.0250, L503.6550, L3300.6900, L503.0105 #### [facility] [address] [facility] [place], [address] Creatinine [Mass/Vol] 0.82 mg/dL Normal 0.55-1.02 [facility] Comment on above: Result Comment: The validity of the calc ulated GFR GFRAA in patients over 70 years has not been determined. Clinical correlation is essential. Performed By: #### L 506.1000, L100.0100, L500.4100, L501.9520, L500.4050, L502.0250, L503.6550, L3300.6900, L503.0105 #### [facility] [address] [place], [address] EST GFR - AA 95 mL/min Normal >60 [facility] Comment on above: Result Comment: GFR Travis c Performed By: #### L 506.1000, L100.0100, L500.4100, L501.9520, L500.4050, L502.0250, L503.6550, L3300.6900, L503.0105 #### [facility] [address] [place], [address] GAP 5 Normal 5-15 [facility] Comment on above: Performed By: #### L506.1000, L100.0100, L500.4100, L501.9520, L500.4050, L502.0250, L503.6550, L3300.6900, L503.0105 #### [facility] [address] [place], [address] GFR/1.73 sq M.predicted among non-blacks MDRD (S/P/Bld) [Vol rate/Area] 78 mL/min/{1.73_m2} Normal >60 [facility] Comment on above: Result Comment: Non- GFR Calc Performed By: #### L 506.1000, L100.0100, L500.4100, L501.9520, L500.4050, L502.0250, L503.6550, L3300.6900, L503.0105 #### [facility] [address] [place], [address] Globulin (S) [Mass/Vol] 4.1 g/dL Normal 2.2-4.2 [facility] Comment on above: Performed By: #### L506.1000, L100.0100, L500.4100, L501.9520, L500.4050, L502.0250, L503.6550, L3300.6900, L503.0105 #### [facility] [address] [place], [address] Glucose [Mass/Vol] 113 mg/dL High 74-106 [facility] Comment on above: Result Comment: Fasting Glucose result f rom 100 to 125 mg/dL suggests IMPAIRED HOMEOSTASIS per A.D.A. criteria. Performed By: #### L 506.1000, L100.0100, L500.4100, L501.9520, L500.4050, L502.0250, L503.6550, L3300.6900, L503.0105 #### [facility] [address] [place], [address] Potassium [Moles/Vol] 3.3 mmol/L Low 3.5-5.1 [facility] Comment on above: Performed By: #### L506.1000, L100.0100, L500.4100, L501.9520, L500.4050, L502.0250, L503.6550, L3300.6900, L503.0105 #### [facility] [address] [place], [address] Sodium [Moles/Vol] 142 mmol/L Normal 136-145 [facility] Comment on above: Performed By: #### L506.1000, L100.0100, L500.4100, L501.9520, L500.4050, L502.0250, L503.6550, L3300.6900, L503.0105 #### [facility] [address] [place], [address] T PROT 7.4 g/dL Normal 6.4-8.2 [facility] Comment on above: Performed By: #### L506.1000, L100.0100, L500.4100, L501.9520, L500.4050, L502.0250, L503.6550, L3300.6900, L503.0105 #### [facility] [address] [place], [address] Urea nitrogen [Mass/Vol] 17 mg/dL Normal 7-18 [facility] Comment on above: Performed By: #### L506.1000, L100.0100, L500.4100, L501.9520, L500.4050, L502.0250, L503.6550, L3300.6900, L503.0105 #### [facility] [address] [place], [address] Endocrinology Visit Reporton 04-02-2024 Endocrinology Visit Report [facility] [address] [place], [place] [address] OFFICE VISIT Date of Service: 04/02/24 MR#: [id number] Acct: [id number] Name: ESTELA COTE Rep #: [id number] : 1975 Provider: JUAN reina Age/Sex: 49/F Location: [email or web address] Status: Signed Intake Vital Signs 01/30/24 10:13 04/02/24 11:14 Height 5 ft 6.5 in 5 ft 6.5 in Weight: 258 lb 248 lb BMI 41.0 39.4 BP 159/97 H 166/95 H Blood Pressure Location Lt brachial Rt brachial Position Sitting Sitting Pulse 82 80 Pulse Source Monitor Monitor Pulse Oximetry (%) 97 96 Oxygen Delivery Method room air room air Intake Visit Reasons: 2 M FU Chief Complaint: Diabetes Is patient in pain?: No Allergies metformin Adverse Reaction (Intermediate, Verified 01/30/24 10:16) diarrhea Medications ???Medication ???Instructions ???Recorded ???Confirmed ???Type pen needle, diabetic 32 gauge x #10 ea 09/24/19 04/02/24 Rx 5/32 (BD Ultra-Fine Kaite Pen Needle) blood sugar diagnostic (OneTouch #50 ea 05/26/21 04/02/24 Rx Verio test strips) blood-glucose sensor (FreeStyle #2 ea 01/02/24 04/02/24 Rx Audi 3 Sensor device) insulin glargine 100 unit/mL (3 50 unit (0.5 mL) subcut QPM #15 mL 01/30/24 04/02/24 Rx mL) subcutaneous pen (Lantus Solostar U-100 Insulin) insulin lispro 100 unit/mL 15 unit (0.15 mL) subcut TID #13.5 01/30/24 04/02/24 Rx subcutaneous pen (Humalog KwikPen mL (U-100) Insulin) blood-glucose sensor (FreeStyle #2 ea 01/31/24 04/02/24 Rx Audi 3 Plus Sensor device) cholecalciferol (vitamin D3) 1,250 1,250 mcg PO QWEEK #12 caps 04/02/24 04/02/24 Rx mcg (50,000 unit) capsule fluconazole 200 mg tablet 200 mg PO DAILY PRN 04/02/24 History (Diflucan) lisinopril 10 mg tablet 10 mg PO QDAY #30 tabs 04/02/24 04/02/24 Rx spironolactone 25 mg tablet 25 mg PO QDAY #30 tabs 04/02/24 04/02/24 Rx tirzepatide 10 mg/0.5 mL 10 mg (0.5 mL) subcut QWEEK #2 mL 04/02/24 04/02/24 Rx subcutaneous pen injector (Mounjaro) [facility] Medical History (Updated 04/02/24 @ 16:02 by JUAN Lam) Rheumatoid arthritis Polyneuropathy due to type 2 diabetes mellitus Diabetes type 2, uncontrolled Surgical History H/O dilation and curettage History of hysterectomy History of tonsillectomy Family History Other Cancer Diabetes Heart disease Hypertension Kidney disease Thyroid disorder Social History Smoking Status: Never smoker HPI HPI Chief Complaint: Diabetes Details: ESTELA COTE, is a 49 F who presents to the office today for evaluation and management of diabetes. A1C today is 6.7%, improved from 01/02/24 at 14.8%. She has lost 10 lbs. Currently taking Mounjaro 7.5 mg qweek- tolerating well, Lantus 42 u once daily, and Humalog 15 u TIDCM. CGM tracings reviewed- she is having slight post meal elevations. She is having occasional lows during sleeping hours and mid day. Appetite is significantly reduced on Mounjaro. BP today is 166/95. Currently taking lisinopril-HCTZ 10-12.5 mg once daily. Reports compliance with medication regimen. She is consuming significant amount of dietary sodium. Reports persistent fatigue. She is due for labs. ROS Const Constitutional: Positive for fatigue and change in appetite; No weight change ENT ENT: No dizziness/vertigo Cardio Cardiology: No chest pain at rest, chest pain with exertion, shortness of breath or palpitations Psych Psychiatric: Positive for change in appetite Skin Skin: No wounds Endo Endocrine: Positive for fatigue; No weight change Exam Const General: cooperative, healthy appearing, comfortable and no acute distress Nutritional Appearance: obese Orientation: alert, awake and oriented x3 HENMT Head: normal to inspection Ears: hearing grossly normal bilaterally Nose: external nose normal Face and sinus: normal facial exam Eyes General: appearance normal, both eyes and all related structures Alignment and Position: alignment normal Sclera: sclerae normal Neck Neck: normal visual inspection Carotids: normal carotid upstroke Chest Chest palpation inspection: normal inspection of the chest Resp Effort Inspection: normal respiratory effort, able to speak in complete sentences, symmetric chest movement, normal respiratory pattern, no audible wheezes and no cough Auscultation: Bilateral: Clear to Auscultation Cardio Rate: regular rate Rhythm: regular rhythm Heart Sounds: S1 normal and S2 normal Bruits: no carotid bruits GI Inspection: obesity Musc Cervical Spine: normal cervical lordosis Thoracic/L (more content not included)... Normal [facility] Ferritinon 04-02-2024 Ferritin [Mass/Vol] 199 ng/mL Normal 8-252 [facility] Comment on above: Performed By: #### L506.1000, L100.0100, L500.4100, L501.9520, L500.4050, L502.0250, L503.6550, L3300.6900, L503.0105 ####[facility] [address] [place], [place], [id number] HbA1c (Bld)Ordered By: Eusebio Beck on 04-02-2024 HbA1c (Bld) [Mass fraction] 6.7 % Abnormal 4.0 - 6.0 % [facility] Interpretation and review of laboratory results Abnormal [facility] Lipid Profileon 04-02-2024 Cholesterol [Mass/Vol] 175 mg/dL Normal 200 [facility] Comment on above: Result Comment: <200 mg/dL Desirable 200-240 mg/dL Borderline >240 mg/dL High Risk Performed By: #### L 506.1000, L100.0100, L500.4100, L501.9520, L500.4050, L502.0250, L503.6550, L3300.6900, L503.0105 #### [facility] [address] [place], [place], [id number] Cholesterol in HDL [Mass/Vol] 46 mg/dL Normal [facility] Comment on above: Result Comment: The drugs N-Acetylcystei ne and Metamizole may falsely depress this assay. Reference Range HDL <40 mg/dL Low HDL Cholesterol HDL >or= 60 mg/dL High HDL Cholesterol Performed By: #### L 506.1000, L100.0100, L500.4100, L501.9520, L500.4050, L502.0250, L503.6550, L3300.6900, L503.0105 #### [facility] [address] [place], [address] Cholesterol in LDL [Mass/Vol] 110 mg/dL Normal 0-130 [facility] Comment on above: Performed By: #### L506.1000, L100.0100, L500.4100, L501.9520, L500.4050, L502.0250, L503.6550, L3300.6900, L503.0105 #### [facility] [address] [place], [address] Cholesterol in VLDL [Mass/Vol] 19 mg/dL Normal 5-40 [facility] Comment on above: Performed By: #### L506.1000, L100.0100, L500.4100, L501.9520, L500.4050, L502.0250, L503.6550, L3300.6900, L503.0105 #### [facility] [address] [place], [address] Triglyceride [Mass/Vol] 95 mg/dL Normal [facility] Comment on above: Result Comment: The drugs N-Acetylcystei ne and Metamizole may falsely depress this assay. Serum Triglycerides Reference Interval Normal <150 mg/dL Borderline high 150 - 199 mg/dL High 200 - 499 mg/dL Very High > or = 500 mg/dL Performed By: #### L 506.1000, L100.0100, L500.4100, L501.9520, L500.4050, L502.0250, L503.6550, L3300.6900, L503.0105 #### [facility] [address] [place], [place], [id number] Microalb:Creat Ratio,Random URon 04-02-2024 Creatinine [Mass/Vol] 98.30 mg/dL Normal NO RANGE EST. [facility] Comment on above: Performed By: #### L506.1000, L100.0100, L500.4100, L501.9520, L500.4050, L502.0250, L503.6550, L3300.6900, L503.0105 #### [facility] [address] [place], [place], [id number] MALB:CRE 25.8 mg/g CRE Normal <30 mg/g CRE [facility] Comment on above: Performed By: #### L506.1000, L100.0100, L500.4100, L501.9520, L500.4050, L502.0250, L503.6550, L3300.6900, L503.0105 #### [facility] [address] [place], [place], [id number] MICROALBUMIN,UR 25.4 mg/L Normal NO RANGE EST. [facility] Comment on above: Performed By: #### L506.1000, L100.0100, L500.4100, L501.9520, L500.4050, L502.0250, L503.6550, L3300.6900, L503.0105 #### [facility] [address] [place], [address] Thyroid Stim Hormone (TSH)on 04-02-2024 TSH 1.100 uIU/mL Normal 0.358-3.740 [facility] Comment on above: Performed By: #### L506.1000, L100.0100, L500.4100, L501.9520, L500.4050, L502.0250, L503.6550, L3300.6900, L503.0105 #### [facility] [address] [place], [address] Vitamin B12on 04-02-2024 Cobalamin (Vitamin B12) [Mass/Vol] 751 pg/mL Normal 211-911 [facility] Comment on above: Performed By: #### L506.1000, L100.0100, L500.4100, L501.9520, L500.4050, L502.0250, L503.6550, L3300.6900, L503.0105 #### [facility] [address] [place], [address] Vitamin D,25 Hydroxyon 04-02 Vitamin D 25-OH 11.5 ng/mL Normal [facility] Comment on above: Result Comment: Vitamin D 25(OH) Status Range Deficiency <20 ng/mL (50nmol/L) Insufficiency 20 - 30 ng/mL (50 - 75 nmol/L) Sufficiency 30 - 100 ng/mL (75 - 250 nmol/L) Toxicity >100 ng/mL (>250 nmol/L) Performed By: #### L 506.1000, L100.0100, L500.4100, L501.9520, L500.4050, L502.0250, L503.6550, L3300.6900, L503.0105 #### [facility] [address] [place], [place], [address] Endocrinology Visit Reporton 01-30-2024 Endocrinology Visit Report [facility] [address] [place], [place] [address] OFFICE VISIT Date of Service: 01/30/24 MR#: [id number] Acct: [id number] Name: ESTELA COTE Rep #: [id number] : 1975 Provider: JUAN reina Age/Sex: 48/F Location: [facility] Status: Signed Intake Vital Signs 01/02/24 11:47 01/30/24 10:13 Height 5 ft 6.5 in 5 ft 6.5 in Weight: 259 lb 258 lb BMI 41.1 41.0 BP 147/95 H 159/97 H Blood Pressure Location Lt brachial Lt brachial Position Sitting Sitting Pulse 88 82 Pulse Source Monitor Monitor Pulse Oximetry (%) 95 97 Oxygen Delivery Method room air room air Intake Visit Reasons: 4 W FU Chief Complaint: Diabetes Home Care Associate Required: No Accompanied by: Self Is patient in pain?: No Allergies metformin Adverse Reaction (Intermediate, Verified 01/30/24 10:16) diarrhea Medications ???Medication ???Instructions ???Recorded ???Confirmed ???Type pen needle, diabetic 32 gauge x #10 ea 09/24/19 01/30/24 Rx 5/32 (BD Ultra-Fine Katie Pen Needle) blood sugar diagnostic (OneTouch #50 ea 05/26/21 01/30/24 Rx Verio test strips) blood-glucose sensor (FreeStyle #2 ea 01/02/24 01/30/24 Rx Audi 3 Sensor device) lisinopril 10 1 tab PO DAILY #30 tabs 01/02/24 01/30/24 Rx mg-hydrochlorothiazide 12.5 mg tablet fluconazole 200 mg tablet 200 mg PO DAILY #2 tabs 01/30/24 01/30/24 Rx (Diflucan) insulin glargine 100 unit/mL (3 50 unit (0.5 mL) subcut QPM #15 mL 01/30/24 01/30/24 Rx mL) subcutaneous pen (Lantus Solostar U-100 Insulin) insulin lispro 100 unit/mL 15 unit (0.15 mL) subcut TID #13.5 01/30/24 01/30/24 Rx subcutaneous pen (Humalog KwikPen mL (U-100) Insulin) tirzepatide 5 mg/0.5 mL 5 mg (0.5 mL) subcut QWEEK #2 mL 01/30/24 01/30/24 Rx subcutaneous pen injector (Mounjaro) [facility] Medical History Rheumatoid arthritis Polyneuropathy due to type 2 diabetes mellitus Diabetes type 2, uncontrolled Surgical History H/O dilation and curettage History of hysterectomy History of tonsillectomy Family History Other Cancer Diabetes Heart disease Hypertension Kidney disease Thyroid disorder Social History Smoking Status: Never smoker HPI HPI Chief Complaint: Diabetes Details: ESTELA COTE, is a 48 F who presents to the office today for evaluation and management of diabetes. A1C at initial appt on 01/02/24 was 14.8%. At that time she was placed on Mounjaro and Lantus 12 u once daily. GMI today is 9.3%. Weight is stable. Currently taking Mounjaro 2.5 mg qweek- tolerating well, and Lantus 20 u TIDCM- she increased dose on her own direction. CGM tracings reviewed- she is having post meal elevations. No blood sugars <70 noted. BP today is 159/97. At initial appt she was placed on lisinopril-HCTZ 10-12.5 mg once daily. She has not taken her blood pressure medication for approximately the last 4 days, otherwise, reports she has been complaint. She has been taking celtic salt to increase hydration... She has made significant improvements in decreasing regular soda. Reports initial improvement in vaginal itching/discharge; however, has mildly returned. ROS Const Constitutional: Positive for fatigue (though improving) Eyes Eyes: Positive for blurry vision Gastro GI: Positive for belching (sulfur, improving with charcoal ) Endo Endocrine: Positive for fatigue (though improving) Exam Const General: cooperative, healthy appearing, comfortable and no acute distress Nutritional Appearance: obese Orientation: alert, awake and oriented x3 HENMT Head: normal to inspection Ears: hearing grossly normal bilaterally Nose: external nose normal Face and sinus: normal facial exam Eyes General: appearance normal, both eyes and all related structures Alignment and Position: alignment normal Sclera: sclerae normal Neck Neck: normal visual inspection Carotids: normal carotid upstroke Chest Chest palpation inspection: normal inspection of the chest Resp Effort Inspection: normal respiratory effort, able to speak in complete sentences, symmetric chest movement, normal respiratory pattern, no audible wheezes and no cough Auscultation: Bilateral: Clear to Auscultation Cardio Rate: regular rate Rhythm: regular rhythm Heart Sounds: S1 normal and S2 normal Bruits: no carotid bruits GI Inspection: normal to inspection and obesity Musc Cervical Spine: normal cervical lordosis Thoracic/Lumbar Spine: thoracic and lumbar spine normal to inspection Skin General: no rashes or les (more content not included)... Normal [facility] HEMOGLOBIN A1C (POC)on 04-05 HbA1c (Bld) [Mass fraction] 10.9 % Abnormal 4.2 - 5.6 % [facility] CT ABD/PEL WO IVCONon 2022 [facility] CBC W Auto Differential pane l (Bld)on 12-28-2022 Basophils (Bld) [#/Vol] 0.03 10*3/uL <0.11 k/uL [facility] Basophils/100 WBC (Bld) 0.3 % [facility] Differential cell count method Nom (Bld) Auto [facility] Eosinophils (Bld) [#/Vol] 0.13 10*3/uL <0.46 k/uL [facility] Eosinophils/100 WBC (Bld) 1.4 % [facility] Erythrocyte distribution width (RBC) [Ratio] 12.3 % 11.5 - 15.0 % [facility] Hematocrit (Bld) [Volume fraction] 38.7 % 36.0 - 46.0 % [facility] Hemoglobin (Bld) [Mass/Vol] 13.1 g/dL 11.5 - 15.5 g/dL [facility] Immature granulocytes (Bld) [#/Vol] <0.10 k/uL [facility] Immature granulocytes/100 WBC (Bld) 0.2 % [facility] Lymphocytes (Bld) [#/Vol] 2.48 10*3/uL 1.00 - 4.00 k/uL [facility] Lymphocytes/100 WBC (Bld) 26.9 % [facility] MCH (RBC) [Entitic mass] 31.8 pg 26.0 - 34.0 pg [facility] MCHC (RBC) [Mass/Vol] 33.9 g/dL 30.5 - 36.0 g/dL [facility] MCV (RBC) [Entitic vol] 93.9 fL 80.0 - 100.0 fL [facility] Monocytes (Bld) [#/Vol] 0.48 10*3/uL <0.87 k/uL [facility] Monocytes/100 WBC (Bld) 5.2 % [facility] Neutrophils (Bld) [#/Vol] 6.09 10*3/uL 1.45 - 7.50 k/uL [facility] Neutrophils/100 WBC (Bld) 66.0 % [facility] Nucleated RBC (Bld) [#/Vol] [facility] Nucleated RBC/100 WBC (Bld) [Ratio] [facility] Platelet mean volume (Bld) [Entitic vol] 10.0 fL 9.0 - 12.7 fL [facility] Platelets (Bld) [#/Vol] 149 10*3/uL Low 150 - 400 k/uL [facility] RBC (Bld) [#/Vol] 4.12 10*6/uL 3.90 - 5.20 m/uL [facility] WBC (Bld) [#/Vol] 9.23 10*3/uL 3.70 - 11.00 k/uL [facility] Comprehensive metabolic 2000 panelon 12-28-2022 Albumin [Mass/Vol] 4.0 g/dL 3.9 - 4.9 g/dL [facility] ALP [Catalytic activity/Vol] 94 U/L 34 - 123 U/L [facility] ALT With P-5'-P [Catalytic activity/Vol] 39 U/L High 7 - 38 U/L [facility] Anion gap [Moles/Vol] 10 mmol/L 9 - 18 mmol/L [facility] AST With P-5'-P [Catalytic activity/Vol] 26 U/L 13 - 35 U/L [facility] Bilirubin [Mass/Vol] 0.3 mg/dL 0.2 - 1.3 mg/dL [facility] Calcium [Mass/Vol] 9.4 mg/dL 8.5 - 10.2 mg/dL [facility] Chloride [Moles/Vol] 103 mmol/L 97 - 105 mmol/L [facility] CO2 [Moles/Vol] 27 mmol/L 22 - 30 mmol/L [facility] Creatinine [Mass/Vol] 0.74 mg/dL 0.58 - 0.96 mg/dL [facility] Estimated Glomerular Filtration Rate 100 mL/min/1.73m >=60 mL/min/1.73 m [facility] Glucose [Mass/Vol] 388 mg/dL High 74 - 99 mg/dL [facility] Potassium [Moles/Vol] 4.1 mmol/L 3.7 - 5.1 mmol/L [facility] Protein [Mass/Vol] 6.9 g/dL 6.3 - 8.0 g/dL [facility] Sodium [Moles/Vol] 140 mmol/L 136 - 144 mmol/L [facility] Urea nitrogen [Mass/Vol] 24 mg/dL High 7 - 21 mg/dL [facility] LIPASE BLDon 12-28-2022 Lipase [Catalytic activity/Vol] 48 U/L 16 - 61 U/L [facility] UA DIP, URINE (POC)on 2022 BILIRUBIN UA (POCT) Negative Negative [facility] CLARITY UA (POCT) Clear [facility] COLOR UA (POCT) Yellow [facility] GLUCOSE UA (POCT) >=1000 Abnormal Negative mg/dL [facility] HEMOGLOBIN/BLOOD UA (POCT) Negative Negative [facility] KETONE UA (POCT) Negative Negative mg/dL [facility] LEUKOCYTES UA (POCT) Negative Negative [facility] NITRITE UA (POCT) Negative Negative [facility] PH UA (POCT) 5.5 4.5 - 8.0 [facility] Protein Ql (U) Negative Negative mg/dL [facility] SPECIFIC GRAVITY UA (POCT) 1.010 1.005 - 1.030 [facility] UROBILINOGEN UA (POCT) 0.2 E.U./dL Normal E.U./dL [facility] SURGICAL PATHOLOGYon 023 Case Report Surgical Pathology R eport Case: [id number] Authorizing Provider: Estelita Hare MD Collected: 11/17/2022 08:55 AM Ordering Location: Ambulatory Surgery Received: 11/17/2022 02:49 PM Pathologist: Nick Carter MD Specimens: A) - CECUM POLYP B) - HEPATIC FLEXURE POLYP, polyp'S x2 [facility] FINAL DIAGNOSIS A. Colon, cecum, polypectomy: -Tubular adenoma B. Colon, hepatic flexure, polypectomy x2: -Fragments of tubular adenoma [facility] Gross Description A. CECUM POLYP Received in formalin is a segment of teixeira-brown polypoid tissue measuring 0.6 x 0.6 x 0.4 cm. No stalk is noted. The line of resection is noted. The specimen is bisected and totally submitted in one cassette. B. HEPATIC FLEXURE POLYP Received in formalin are multiple pieces of teixeira, soft tissue aggregating to 0.9 x 0.3 x 0.2 cm. Totally submitted in one cassette. SS November 17, 2022 11:27 PM Gross examination performed at [facility], [facility] [address] Performing Lab Diagnostic interpret ation performed at [facility], [address] [facility] [address] CLIA# [id number] [employer] Operator: Steven Cardozo M.D. [facility] COLONOSCOPY SCREENINGon 10-22 [facility] GLUCOSE, BLOOD (POC)on 11-17 Glucose [Mass/Vol] 145 mg/dL Abnormal 74 - 99 mg/dL [facility] ALBUMIN/CREAT RATIO RND URon 10-20-2022 Albumin Unsp time DL <= 20 mg/L (U) [Mass/Time] 24.5 mg/L [facility] Albumin/Creatini ne (U) [Mass ratio] 16 mg/g <30 mg/g [facility] Creatinine (U) [Mass/Vol] 150.5 mg/dL 42.2 - 237.9 mg/dL [facility] CBC panel Auto (Bld)on 10-20 Erythrocyte distribution width (RBC) [Ratio] 12.4 % 11.5 - 15.0 % [facility] Hematocrit (Bld) [Volume fraction] 43.8 % 36.0 - 46.0 % [facility] Hemoglobin (Bld) [Mass/Vol] 14.7 g/dL 11.5 - 15.5 g/dL [facility] MCH (RBC) [Entitic mass] 31.4 pg 26.0 - 34.0 pg [facility] MCHC (RBC) [Mass/Vol] 33.6 g/dL 30.5 - 36.0 g/dL [facility] MCV (RBC) [Entitic vol] 93.6 fL 80.0 - 100.0 fL [facility] Platelet mean volume (Bld) [Entitic vol] 10.1 fL 9.0 - 12.7 fL [facility] Platelets (Bld) [#/Vol] 162 10*3/uL 150 - 400 k/uL [facility] RBC (Bld) [#/Vol] 4.68 10*6/uL 3.90 - 5.20 m/uL [facility] WBC (Bld) [#/Vol] 7.23 10*3/uL 3.70 - 11.00 k/uL [facility] Comprehensive metabolic 2000 panelon 10-20-2022 Albumin [Mass/Vol] 4.3 g/dL 3.9 - 4.9 g/dL [facility] ALP [Catalytic activity/Vol] 104 U/L 34 - 123 U/L [facility] ALT With P-5'-P [Catalytic activity/Vol] 36 U/L 7 - 38 U/L [facility] Anion gap [Moles/Vol] 9 mmol/L 9 - 18 mmol/L [facility] AST With P-5'-P [Catalytic activity/Vol] 29 U/L 13 - 35 U/L [facility] Bilirubin [Mass/Vol] 0.5 mg/dL 0.2 - 1.3 mg/dL [facility] Calcium [Mass/Vol] 9.3 mg/dL 8.5 - 10.2 mg/dL [facility] Chloride [Moles/Vol] 101 mmol/L 97 - 105 mmol/L [facility] CO2 [Moles/Vol] 30 mmol/L 22 - 30 mmol/L [facility] Creatinine [Mass/Vol] 0.85 mg/dL 0.58 - 0.96 mg/dL [facility] Estimated Glomerular Filtration Rate 85 mL/min/1.73m >=60 mL/min/1.73 m [facility] Glucose [Mass/Vol] 229 mg/dL High 74 - 99 mg/dL [facility] Potassium [Moles/Vol] 3.7 mmol/L 3.7 - 5.1 mmol/L [facility] Protein [Mass/Vol] 7.4 g/dL 6.3 - 8.0 g/dL [facility] Sodium [Moles/Vol] 140 mmol/L 136 - 144 mmol/L [facility] Urea nitrogen [Mass/Vol] 17 mg/dL 7 - 21 mg/dL [facility] HbA1c (Bld)on 10-20-2022 Average glucose Estimated from glycated hemoglobin (Bld) [Mass/Vol] 301 mg/dL [facility] HbA1c (Bld) [Mass fraction] 12.1 % High 4.3 - 5.6 % [facility] Lipid 1996 panelon Cholesterol [Mass/Vol] 211 mg/dL High <200 mg/dL [facility] Cholesterol in HDL [Mass/Vol] 54 mg/dL >39 mg/dL [facility] Cholesterol in LDL [Mass/Vol] 131 mg/dL High <100 mg/dL [facility] Cholesterol in LDL/Cholesterol in HDL [Mass ratio] 2.43 {ratio} <2.54 [facility] Cholesterol in VLDL [Mass/Vol] 26 mg/dL <30 mg/dL [facility] Cholesterol non HDL [Mass/Vol] 157 mg/dL High <130 mg/dL [facility] Cholesterol.tota l/Cholesterol in HDL [Mass ratio] 3.91 {ratio} <5.10 [facility] Fasting Time 12 hrs [facility] Triglyceride [Mass/Vol] 130 mg/dL <150 mg/dL [facility] TSH BLDon 10-20-2022 TSH Qn 0.669 m[IU]/L 0.270 - 4.200 mIU/L [facility] XR CHEST 2V FRONTAL/LATon [facility] XR Chest PA and Lateralon IMPRESSION: No acute radiographic abnormality. Shopper'S Aide: LANE Transcribe Date/Time: Feb 19 2022 11:19A Dictated by : TRINH DOLAN MD This examination was interpreted and the report reviewed and electronically signed by: TRINH DOLAN MD on Feb 19 2022 11:20AM [facility] DIVISION OF RADIOLOGY * * *Final Report* * * DATE OF EXAM: Feb 19 2022 11:18AM WOX 5291 - XR CHEST 2V FRONTAL/LAT / PROCEDURE REASON: Viral URI with cough * * * * Physician Interpretation * * * * EXAMINATION: CHEST RADIOGRAPH (2 VIEW FRONTAL & LATERAL) CLINICAL HISTORY: Viral URI with cough MQ: XC2_6 EXAM DATE/TIME: 02/19/2022 11:18 AM COMPARISON: Chest x-ray 11/11/2020 RESULT: Lines, tubes, and devices: None. Lungs and pleura: No consolidation. No lung mass. No pleural effusion. No pneumothorax. Cardiomediastinal silhouette: Normal cardiomediastinal silhouette. Bones and soft tissues: Unremarkable. DIVISION OF RADIOLOGY Provider, [facility] Ubaldo Ledezma - 02/19/2022 * * *Final Report* * * DATE OF EXAM: Feb 19 2022 11:18AM WOX 5291 - XR CHEST 2V FRONTAL/LAT / PROCEDURE REASON: Viral URI with cough * * * * Physician Interpretation * * * * EXAMINATION: CHEST RADIOGRAPH (2 VIEW FRONTAL & LATERAL) CLINICAL HISTORY: Viral URI with cough MQ: XC2_6 EXAM DATE/TIME: 02/19/2022 11:18 AM COMPARISON: Chest x-ray 11/11/2020 RESULT: Lines, tubes, and devices: None. Lungs and pleura: No consolidation. No lung mass. No pleural effusion. No pneumothorax. Cardiomediastinal silhouette: Normal cardiomediastinal silhouette. Bones and soft tissues: Unremarkable. IMPRESSION IMPRESSION: No acute radiographic abnormality. Shopper'S Aide: LANE Transcribe Date/Time: Feb 19 2022 11:19A Dictated by : TRINH DOLAN MD This examination was interpreted and the report reviewed and electronically signed by: TRINH DOLAN MD on Feb 19 2022 11:20AM EST [facility] Radiology Study observation (narrative) [facility] XR Chest PA and LateralOrder ed By: Ccf Provider on 02-19-2022 [facility] XR Chest PA and Lateralon IMPRESSION: Mild bandlike opacity at the right base, likely atelectasis and only well visualized on the frontal film. Shopper'S Aide: [facility] Transcribe Date/Time: Nov 11 2020 4:27P Dictated by : LEIGH GOODMAN MD This examination was interpreted and the report reviewed and electronically signed by: LEIGH GOODMAN MD on Nov 11 2020 4:28PM [facility] DIVISION OF RADIOLOGY * * *Final Report* * * DATE OF EXAM: Nov 11 2020 4:15PM WOX 5291 - XR CHEST 2V FRONTAL/LAT / PROCEDURE REASON: Cough * * * * Physician Interpretation * * * * EXAMINATION: CHEST RADIOGRAPH (2 VIEW FRONTAL & LATERAL) CLINICAL HISTORY: Cough MQ: XC2_6 EXAM DATE/TIME: 11/11/2020 4:15 PM COMPARISON: Chest x-ray dated January 25, 2018 RESULT: Lines, tubes, and devices: None. Lungs and pleura: Mild bandlike opacity at the right base. No discernible pleural effusion or pneumothorax. Cardiomediastinal silhouette: Stable cardiomediastinal silhouette. Bones and soft tissues: Degenerative changes are present within the thoracic spine. DIVISION OF RADIOLOGY Provider, Alessandro Ledezma - 11/11/2020 * * *Final Report* * * DATE OF EXAM: Nov 11 2020 4:15PM WOX 5291 - XR CHEST 2V FRONTAL/LAT / PROCEDURE REASON: Cough * * * * Physician Interpretation * * * * EXAMINATION: CHEST RADIOGRAPH (2 VIEW FRONTAL & LATERAL) CLINICAL HISTORY: Cough MQ: XC2_6 EXAM DATE/TIME: 11/11/2020 4:15 PM COMPARISON: Chest x-ray dated January 25, 2018 RESULT: Lines, tubes, and devices: None. Lungs and pleura: Mild bandlike opacity at the right base. No discernible pleural effusion or pneumothorax. Cardiomediastinal silhouette: Stable cardiomediastinal silhouette. Bones and soft tissues: Degenerative changes are present within the thoracic spine. IMPRESSION IMPRESSION: Mild bandlike opacity at the right base, likely atelectasis and only well visualized on the frontal film. Shopper'S Aide: LANE Transcribe Date/Time: Nov 11 2020 4:27P Dictated by : LEIGH GOODMAN MD This examination was interpreted and the report reviewed and electronically signed by: LEIGH GOODMAN MD on Nov 11 2020 4:28PM EST [facility] Radiology Study observation (narrative) [facility] XR Chest PA and LateralOrder ed By: Ccf Provider on 11-11-2020 [facility] XR Abdomen Supine and Uprigh ton 05-30-2020 IMPRESSION: Nonobstructive bowel gas pattern. Shopper'S Aide: LANE Transcribe Date/Time: May 30 2020 3:39P Dictated by : LEIGH GOODMAN MD This examination was interpreted and the report reviewed and electronically signed by: LEIGH GOODMAN MD on May 30 2020 3:41PM [facility] DIVISION OF RADIOLOGY * * *Final Report* * * DATE OF EXAM: May 30 2020 3:35PM WOX 5289 - XR ABDOMEN 1V SUPINE / PROCEDURE REASON: Gastroparesis due to secondary diabetes (HCC) * * * * Physician Interpretation * * * * CLINICAL INDICATION: Gastroparesis TECHNIQUE: Supine frontal radiograph of the abdomen COMPARISON: Correlation made to CT abdomen dated 11/03/2015 FINDINGS: Nonobstructive bowel gas pattern. Phleboliths in the pelvis. Small to moderate stool burden. Stable elevation of the right hemidiaphragm. DIVISION OF RADIOLOGY Provider, Alessandro Conner [facility] - 05/30/2020 * * *Final Report* * * DATE OF EXAM: May 30 2020 3:35PM WOX 5289 - XR ABDOMEN 1V SUPINE / PROCEDURE REASON: Gastroparesis due to secondary diabetes (HCC) * * * * Physician Interpretation * * * * CLINICAL INDICATION: Gastroparesis TECHNIQUE: Supine frontal radiograph of the abdomen COMPARISON: Correlation made to CT abdomen dated 11/03/2015 FINDINGS: Nonobstructive bowel gas pattern. Phleboliths in the pelvis. Small to moderate stool burden. Stable elevation of the right hemidiaphragm. IMPRESSION IMPRESSION: Nonobstructive bowel gas pattern. Shopper'S Aide: LANE Transcribe Date/Time: May 30 2020 3:39P Dictated by : LEIGH GOODMAN MD This examination was interpreted and the report reviewed and electronically signed by: LEIGH GOODMAN MD on May 30 2020 3:41PM EST [facility] Radiology Study observation (narrative) [facility] XR Abdomen Supine and Uprigh tOrdered By: Cc Provider on 05-30-2020 [facility] Office Visit: Diabetes Follo w Upon 02-17-2017 Documentation of current medications (procedure) Done Invalid Interpretation Code [facility] Work Phone: Protein mass conc Done Invalid Interpretation Code [facility] Work Phone: Office Visiton 01-18-2017 Adult depression screening assessment Adult depression screening assessment Invalid Interpretation Code [facility] Work Phone: Documentation of current medications (procedure) Done Invalid Interpretation Code [facility] Work Phone: PHQ-9 quick depression assessment panel [Reported.PHQ] Adult depression screening assessment Invalid Interpretation Code [facility] Work Phone: Protein mass conc Done [facility] Work Phone: Clinical Lists Updateon 12-22 Tobacco smoking status NHIS Former smoker Invalid Interpretation Code [facility] Work Phone: Tobacco use [facility] Former smoker Invalid Interpretation Code [facility] Work Phone: Office Visiton 05-30-2012 Documentation of current medications (procedure) Done Invalid Interpretation Code [facility] Work Phone: ECG B/O W INTERP (MED OFFICE ) [facility] Vital Signs Date Time Vital Sign Value Performing Clinician Facility 01-04-2025 14:23-0400 Body height 167.[address] Audelia Garcia DO Work Phone: [facility] 01-04-2025 14:23-0400 Body temperature 98.2 [degF] Dr. Audelia Garcia DO Work Phone: [facility] 01-04-2025 14:23-0400 Diastolic blood pressure 79 mm[Hg] Dr. Audelia Garcia DO Work Phone: [facility] 01-04-2025 14:23-0400 Heart rate 79 /min Dr. Audelia Garcia DO Work Phone: [facility] 01-04-2025 14:23-0400 Respiratory rate 18 /min Dr. Audelia Garcia DO Work Phone: [facility] 01-04-2025 14:23-0400 SaO2% (BldA) [Mass fraction] 96 % Dr. Audelia Garcia DO Work Phone: [facility] 01-04-2025 14:23-0400 Systolic blood pressure 126 mm[Hg] Dr. Audelia Garcia DO Work Phone: [facility] 12-10-2024 10:30-0400 Body mass index (BMI) [Ratio] 35.29 kg/m2 Toni Larson DO Work Phone: [facility] 12-10-2024 10:30-0400 Body temperature 97 [degF] Toni Larson DO Work Phone: [facility] 12-10-2024 10:30-0400 Body weight 98.43 kg Toni Masci DO Work Phone: [facility] 12-10-2024 10:30-0400 Diastolic blood pressure 81 mm[Hg] Toni Masci DO Work Phone: [facility] 12-10-2024 10:30-0400 Heart rate 74 /min Toni Masci DO Work Phone: [facility] 12-10-2024 10:30-0400 SaO2% (BldA) [Mass fraction] 98 % Toni Masci DO Work Phone: [facility] 12-10-2024 10:30-0400 Systolic blood pressure 151 mm[Hg] Toni Masci DO Work Phone: [facility] 11-05-2024 09:35-0400 Body mass index (BMI) [Ratio] 34.8 kg/m2 Toni Masci DO Work Phone: [facility] 11-05-2024 09:35-0400 Body temperature 96.69 [degF] Toni Masci DO Work Phone: [facility] 11-05-2024 09:35-0400 Body weight 97.07 kg Toni Masci DO Work Phone: [facility] 11-05-2024 09:35-0400 Diastolic blood pressure 83 mm[Hg] Toni Masci DO Work Phone: [facility] 11-05-2024 09:35-0400 Heart rate 78 /min Toni Masci DO Work Phone: [facility] 11-05-2024 09:35-0400 SaO2% (BldA) [Mass fraction] 100 % Toni Masci DO Work Phone: [facility] 11-05-2024 09:35-0400 Systolic blood pressure 125 mm[Hg] Toni Masci DO Work Phone: [facility] 10-23-2024 13:51-0400 Body height 167 cm Toni Masci DO Work Phone: [facility] 10-23-2024 13:51-0400 Body mass index (BMI) [Ratio] 35.62 kg/m2 Toni Masci DO Work Phone: [facility] 10-23-2024 13:51-0400 Body temperature 97.11 [degF] Toni Cortezi DO Work Phone: [facility] 10-23-2024 13:51-0400 Body weight 99.34 kg Toni Cortezi DO Work Phone: [facility] 10-23-2024 13:51-0400 Diastolic blood pressure 84 mm[Hg] Toni Cortezi DO Work Phone: [facility] 10-23-2024 13:51-0400 Heart rate 80 /min Toni Cortezi DO Work Phone: [facility] 10-23-2024 13:51-0400 SaO2% (BldA) [Mass fraction] 99 % Toni Larson DO Work Phone: [facility] 10-23-2024 13:51-0400 Systolic blood pressure 138 mm[Hg] Toni Larson DO Work Phone: [facility] 10-22-2024 13:11-0400 Body height 167.[address] Audelia Garcia DO Work Phone: [facility] 10-22-2024 13:11-0400 Body mass index (BMI) [Ratio] 35.4 kg/m2 Dr. Audelia Garcia DO Work Phone: [facility] 10-22-2024 13:11-0400 Body weight 99.[address] Audelia Garcia DO Work Phone: [facility] 10-22-2024 13:11-0400 Diastolic blood pressure 94 mm[Hg] Dr. Audelia Garcia DO Work Phone: [facility] 10-22-2024 13:11-0400 Heart rate 89 /min Dr. Audelia Garcia DO Work Phone: [facility] 10-22-2024 13:11-0400 SaO2% (BldA) [Mass fraction] 98 % Dr. Audelia Sheets DO Work Phone: [facility] 10-22-2024 13:11-0400 Systolic blood pressure 143 mm[Hg] Dr. Audelia Garcia DO Work Phone: [facility] 10-17-2024 09:46-0400 Body height 166.4 cm Audelia Sheets DO Work Phone: [facility] 10-17-2024 09:46-0400 Body mass index (BMI) [Ratio] 36.05 kg/m2 Audelia Sheets DO Work Phone: [facility] 10-17-2024 09:46-0400 Body temperature 97.9 [degF] Audelia Sheets DO Work Phone: [facility] 10-17-2024 09:46-0400 Body weight 99.79 kg Audelia Sheets DO Work Phone: [facility] 10-17-2024 09:46-0400 Diastolic blood pressure 78 mm[Hg] Audelia Sheets DO Work Phone: [facility] 10-17-2024 09:46-0400 Heart rate 79 /min Audelia Sheets DO Work Phone: [facility] 10-17-2024 09:46-0400 SaO2% (BldA) [Mass fraction] 98 % Audelia Sheets DO Work Phone: [facility] 10-17-2024 09:46-0400 Systolic blood pressure 122 mm[Hg] Audelia Sheets DO Work Phone: [facility] 09-27-2024 08:40-0400 Body mass index (BMI) [Ratio] 36.3 kg/m2 Dr. Audelia Garcia DO Work Phone: [facility] 09-27-2024 08:40-0400 Body weight 102.[address] Audelia Garcia DO Work Phone: [facility] 09-27-2024 08:40-0400 Heart rate 82 /min Dr. Audelia Garcia DO Work Phone: [facility] 09-27-2024 08:40-0400 Respiratory rate 18 /min Dr. Audelia Garcia DO Work Phone: [facility] 09-27-2024 08:40-0400 SaO2% (BldA) [Mass fraction] 95 % Dr. Audelia Garcia DO Work Phone: [facility] 07-23-2024 13:04-0500 Body mass index (BMI) [Ratio] 39.1 kg/m2 Dr. Audelia Garcia DO Work Phone: [facility] 07-23-2024 13:04-0500 Body weight 109.[address] Audelia Garcia DO Work Phone: [facility] 07-23-2024 13:04-0500 Diastolic blood pressure 103 mm[Hg] Dr. Audelia Garcia DO Work Phone: [facility] 07-23-2024 13:04-0500 Heart rate 81 /min Dr. Audelia Garcia DO Work Phone: [facility] 07-23-2024 13:04-0500 SaO2% (BldA) [Mass fraction] 98 % Dr. Audelia Garcia DO Work Phone: [facility] 07-23-2024 13:04-0500 Systolic blood pressure 163 mm[Hg] Dr. Audelia Garcia DO Work Phone: [facility] 05-15-2024 11:11-0500 Body height 166.4 cm Audelia Garcia DO Work Phone: [facility] 05-15-2024 11:11-0500 Body mass index (BMI) [Ratio] 39.49 kg/m2 Audelia Garcia DO Work Phone: [facility] 05-15-2024 11:11-0500 Body temperature 97.81 [degF] Audelia Garcia DO Work Phone: [facility] 05-15-2024 11:11-0500 Body weight 109.32 kg Audelia Sheets DO Work Phone: [facility] 05-15-2024 11:11-0500 Diastolic blood pressure 76 mm[Hg] Audelia Sheets DO Work Phone: [facility] 05-15-2024 11:11-0500 Heart rate 58 /min Audelia Sheets DO Work Phone: [facility] 05-15-2024 11:11-0500 Respiratory rate 16 /min Audelia Sheets DO Work Phone: [facility] 05-15-2024 11:11-0500 SaO2% (BldA) [Mass fraction] 100 % Audelia Sheets DO Work Phone: [facility] 05-15-2024 11:11-0500 Systolic blood pressure 124 mm[Hg] Audelia Sheets DO Work Phone: [facility] 04-05-2023 15:51-0500 Body height 166.4 cm Audelia Sheets DO Work Phone: [facility] 04-05-2023 15:51-0500 Body temperature 98.01 [degF] Audelia Sheets DO Work Phone: [facility] 04-05-2023 15:51-0500 Body weight 118.57 kg Audelia Sheets DO Work Phone: [facility] 04-05-2023 15:51-0500 Diastolic blood pressure 78 mm[Hg] Audelia Sheets DO Work Phone: [facility] 04-05-2023 15:51-0500 Heart rate 73 /min Audelia Sheets DO Work Phone: [facility] 04-05-2023 15:51-0500 Respiratory rate 16 /min Audelia Sheets DO Work Phone: [facility] 04-05-2023 15:51-0500 SaO2% (BldA) [Mass fraction] 97 % Audelia Sheets DO Work Phone: [facility] 04-05-2023 15:51-0500 Systolic blood pressure 126 mm[Hg] Audelia Sheets DO Work Phone: [facility] 12-28-2022 14:32-0400 Body height 166.4 cm Jess Restrepo UNDERWEAR HEMMER.CLINICAL NEUROPSYCHOLOGIST Work Phone: [facility] 12-28-2022 14:32-0400 Body temperature 98.1 [degF] Jess Restrepo UNDERWEAR HEMMER.CLINICAL NEUROPSYCHOLOGIST Work Phone: [facility] 12-28-2022 14:32-0400 Body weight 116.12 kg Jess Restrepo UNDERWEAR HEMMER.CLINICAL NEUROPSYCHOLOGIST Work Phone: [facility] 12-28-2022 14:32-0400 Diastolic blood pressure 76 mm[Hg] Jess Restrepo UNDERWEAR HEMMER.CLINICAL NEUROPSYCHOLOGIST Work Phone: [facility] 12-28-2022 14:32-0400 Heart rate 75 /min Jess Restrepo UNDERWEAR HEMMER.CLINICAL NEUROPSYCHOLOGIST Work Phone: [facility] 12-28-2022 14:32-0400 SaO2% (BldA) [Mass fraction] 97 % Jess Restrepo UNDERWEAR HEMMER.CLINICAL NEUROPSYCHOLOGIST Work Phone: [facility] 12-28-2022 14:32-0400 Systolic blood pressure 122 mm[Hg] Jess Restrepo UNDERWEAR HEMMER.CLINICAL NEUROPSYCHOLOGIST Work Phone: [facility] 12-20-2022 11:33-0400 Diastolic blood pressure 78 mm[Hg] Audelia Sheets DO Work Phone: [facility] 12-20-2022 11:33-0400 Systolic blood pressure 128 mm[Hg] Audelia Sheets DO Work Phone: [facility] 12-20-2022 10:49-0400 Body height 166.4 cm Audelia Sheets DO Work Phone: [facility] 12-20-2022 10:49-0400 Body temperature 97.81 [degF] Audelia Sheets DO Work Phone: [facility] 12-20-2022 10:49-0400 Body weight 116.21 kg Audelia Sheets DO Work Phone: [facility] 12-20-2022 10:49-0400 Heart rate 67 /min Audelia Sheets DO Work Phone: [facility] 12-20-2022 10:49-0400 Respiratory rate 18 /min Audelia Sheets DO Work Phone: [facility] 12-20-2022 10:49-0400 SaO2% (BldA) [Mass fraction] 97 % Audelia Sheets DO Work Phone: [facility] 11-18-2022 11:07-0400 Diastolic blood pressure 88 mm[Hg] Audelia Sheets DO Work Phone: [facility] 11-18-2022 11:07-0400 Systolic blood pressure 132 mm[Hg] Audelia Sheets DO Work Phone: [facility] 11-18-2022 10:38-0400 Body height 166.4 cm Audelia Sheets DO Work Phone: [facility] 11-18-2022 10:38-0400 Body temperature 98.1 [degF] Audelia Sheets DO Work Phone: [facility] 11-18-2022 10:38-0400 Body weight 119.57 kg Audelia Sheets DO Work Phone: [facility] 11-18-2022 10:38-0400 Heart rate 74 /min Audelia Sheets DO Work Phone: [facility] 11-18-2022 10:38-0400 Respiratory rate 16 /min Audelia Sheets DO Work Phone: [facility] 11-18-2022 10:38-0400 SaO2% (BldA) [Mass fraction] 96 % Audelia Sheets DO Work Phone: [facility] 11-17-2022 10:40-0400 Diastolic blood pressure 102 mm[Hg] Estelita Hare MD Work Phone: [facility] 11-17-2022 10:40-0400 Heart rate 68 /min Estelita Hare MD Work Phone: [facility] 11-17-2022 10:40-0400 Respiratory rate 16 /min Estelita Hare MD Work Phone: [facility] 11-17-2022 10:40-0400 SaO2% (BldA) [Mass fraction] 99 % Estelita Hare MD Work Phone: [facility] 11-17-2022 10:40-0400 Systolic blood pressure 186 mm[Hg] Estelita Hare MD Work Phone: [facility] 11-17-2022 07:08-0400 Body temperature 96.8 [degF] Estelita Hare MD Work Phone: [facility] 11-17-2022 07:08-0400 Body weight 117.5 kg Estelita Hare MD Work Phone: [facility] 10-15-2022 14:06-0400 Diastolic blood pressure 90 mm[Hg] Audelia Sheets DO Work Phone: [facility] 10-15-2022 14:06-0400 Systolic blood pressure 138 mm[Hg] Audelia Sheets DO Work Phone: [facility] 10-15-2022 13:05-0400 Body height 166.4 cm Audelia Sheets DO Work Phone: [facility] 10-15-2022 13:05-0400 Body temperature 97.5 [degF] Audelia Sheets DO Work Phone: [facility] 10-15-2022 13:05-0400 Body weight 117.48 kg Audelia Sheets DO Work Phone: [facility] 10-15-2022 13:05-0400 Heart rate 75 /min Audelia Sheets DO Work Phone: [facility] 10-15-2022 13:05-0400 Respiratory rate 18 /min Audelia Sheets DO Work Phone: [facility] 10-15-2022 13:05-0400 SaO2% (BldA) [Mass fraction] 97 % Audelia Sheets DO Work Phone: [facility] 02-19-2022 10:36-0400 Body temperature 97.11 [degF] Lesly Athy PA-C Work Phone: [facility] 02-19-2022 10:36-0400 Body weight 119.93 kg Lesly Athy PA-C Work Phone: [facility] 02-19-2022 10:36-0400 Diastolic blood pressure 100 mm[Hg] Lesly Athy PA-C Work Phone: [facility] 02-19-2022 10:36-0400 Heart rate 95 /min Lesly Athy PA-C Work Phone: [facility] 02-19-2022 10:36-0400 Respiratory rate 18 /min Lesly Athy PA-C Work Phone: [facility] 02-19-2022 10:36-0400 SaO2% (BldA) [Mass fraction] 94 % Lesly Athy PA-C Work Phone: [facility] 02-19-2022 10:36-0400 Systolic blood pressure 162 mm[Hg] Lesly Athy PA-C Work Phone: [facility] 07-03-2018 10:190500 BMI (Body Mass Index) 40.51 kg/m2 [facility] 07-03-2018 10:190500 BP Diastolic 96 mm[Hg] [facility] 07-03-2018 10:19-0500 BP Systolic 162 mm[Hg] VB [facility] 07-03-2018 10:19-0500 Height 167.6 cm [facility] 07-03-2018 10:19-0500 Pulse (Heart Rate) 94 /min [facility] 07-03-2018 10:19-0500 Pulse Oximetry 97 % [facility] 07-03-2018 10:19-0500 Respiratory Rate 16 /min [facility] 07-03-2018 10:19-0500 Weight 113.85 kg [facility] 02-17-2017 08:05-0400 BMI (Body Mass Index) 41.28 kg/m2 Zoila Abebe NP [facility] Work Phone: 02-17-2017 08:05-0400 BP Diastolic 120 mm[Hg] Zoila Abebe EMBOSSING CLERK [facility] Work Phone: 02-17-2017 08:05-0400 BP Diastolic 100 mm[Hg] Zoila Abebe EMBOSSING CLERK [facility] Work Phone: 02-17-2017 08:05-0400 BP Systolic 180 mm[Hg] Zoila Abebe EMBOSSING CLERK [facility] Work Phone: 02-17-2017 08:05-0400 BP Systolic 150 mm[Hg] Zoila Abebe NP [facility] Work Phone: 02-17-2017 08:05-0400 Height 167.64 cm Zoila Abebe EMBOSSING CLERK [facility] Work Phone: 02-17-2017 08:05-0400 Pulse (Heart Rate) 90 /min Zoila Abebe NP [facility] Work Phone: 02-17-2017 08:05-0400 Respiratory Rate 20 /min Zoila Abebe NP [facility] Work Phone: 02-17-2017 08:05-0400 Weight 116.03 kg Zoila Abebe NP [facility] Work Phone: 01-18-2017 07:55-0400 BMI (Body Mass Index) 41.31 kg/m2 Zoila Abebe EMBOSSING CLERK [facility] Work Phone: 01-18-2017 07:55-0400 Body Temperature 98 [degF] Zoila Abebe EMBOSSING CLERK [facility] Work Phone: 01-18-2017 07:55-0400 BP Diastolic 110 mm[Hg] Zoila Abebe EMBOSSING CLERK [facility] Work Phone: 01-18-2017 07:55-0400 BP Systolic 180 mm[Hg] Zoila Abebe EMBOSSING CLERK [facility] Work Phone: 01-18-2017 07:55-0400 Height 167.64 cm Zoila Abebe EMBOSSING CLERK [facility] Work Phone: 01-18-2017 07:55-0400 Pulse (Heart Rate) 97 /min Zoila Abebe EMBOSSING CLERK [facility] Work Phone: 01-18-2017 07:55-0400 Respiratory Rate 22 /min Zoila Abebe EMBOSSING CLERK [facility] Work Phone: 01-18-2017 07:55-0400 Weight 116.12 kg Zoila Abebe EMBOSSING CLERK [facility] Work Phone: 05-30-2012 14:25-0500 BMI (Body Mass Index) 47.27 kg/m2 Lisbet Back LPN [facility] Work Phone: 05-30-2012 14:25-0500 Body Temperature 99.4 [degF] [facility] Work Phone: 05-30-2012 14:25-0500 BP Diastolic 119 mm[Hg] Lisbet Back LPN [facility] Work Phone: 05-30-2012 14:25-0500 BP Systolic 159 mm[Hg] Lis[facility] Work Phone: 05-30-2012 14:25-0500 BSA (Body Surface Area) 2.35 m2 [facility] Work Phone: 05-30-2012 14:25-0500 Height 167.64 cm Lisbet Back LPN [facility] Work Phone: 05-30-2012 14:25-0500 Pulse (Heart Rate) 103 /min Lisbet Wong SEEDLING SORTER [facility] Work Phone: 05-30-2012 14:25-0500 Respiratory Rate 16 /min Lisbet Back SEEDLING SORTER [facility] Work Phone: 05-30-2012 14:25-0500 Weight 132.36 kg Lisbet Back LPN [facility] Work Phone: Encounters Encounter Date Encounter Type Care Provider Facility Start: 01-08-2025 ambulatory Dallas Lind Facility:[facility] Start: 01-04-2025 Encounter for other preprocedural examination [facility] Start: 01-04-2025 End: 01-04-[address] Dallas Lind MD -[facility] Work Phone: Start: 01-04-2025 End: 01-04-[address] Audelia Garcia DO Work Phone: [facility] Start: 12-16-2024 End: 12-16-2024 Telephone encounter Toni Larson DO Work Phone: Hematology/Oncology Comment on above: Results Start: 12-10-2024 End: 12-10-2024 ambulatory AUDELIA GARCIA Facility:[facility] Start: 12-10-2024 End: 12-10-2024 Patient encounter procedure Toni Larson DO Work Phone: Hematology/Oncology Start: 12-10-2024 End: 12-10-2024 ambulatory Toni Cortezi DO Work Phone: Hematology/Oncology Comment on above: Anemia, unspecified type (Primary Dx); Thrombocytopenia Start: 11-15-2024 End: 11-15-2024 ambulatory UNKNOWN PROVIDER Facility:[facility] Start: 11-05-2024 End: 11-12-2024 Telephone encounter Lainey Epstein RN [facility] Radiology Comment on above: Radiology Pre Proced ure Instructions (Bone marrow bx); Results Start: 11-05-2024 End: 11-05-2024 Patient encounter procedure Toni A Diegoi DO Work Phone: Hematology/Oncology Start: 11-05-2024 End: 11-05-2024 ambulatory Toni Larson DO Work Phone: Hematology/Oncology Comment on above: Splenomegaly (Primar y Dx); Thrombocytopenia; Protime increased; Positive dilute Jose Francisco's viper venom time test (DRVVT) Splenomegaly (Primar y Dx); Thrombocytopenia Start: 10-30-2024 End: 10-30-2024 Telephone encounter Audelia Garcia DO Work Phone: [facility] Comment on above: Letter for medical n ecessity for insurance [employer] Start: 10-30-2024 ambulatory TONI LARSON Facility:[facility] Start: 10-30-2024 End: 10-30-2024 Subsequent hospital visit by physician [facility] Comment on above: Nonspecific abnormal results of liver function study [R94.5] Start: 10-23-2024 End: 10-23-2024 Patient encounter procedure Toni Milagro Neo DO Work Phone: Hematology/Oncology Start: 10-23-2024 End: 10-23-2024 ambulatory Toni Larson DO Work Phone: Hematology/Oncology Comment on above: Thrombocytopenia (Pr imary Dx); FATTY LIVER Start: 10-22-2024 End: 10-22-2024 Patient encounter procedure Elinor Samaniego NP-C -[facility] Work Phone: Start: 10-22-2024 End: 10-22-[address] Audelia Garcia DO Work Phone: [facility] Work Phone: Start: 10-17-2024 End: 12-17-2024 Follow-up encounter Audelia Garcia DO Work Phone: [facility] Start: 10-17-2024 End: 10-17-2024 Subsequent hospital visit by physician [facility] Comment on above: Mass of upper outer quadrant of right breast [N63.11] Start: 10-17-2024 ambulatory AUDELIA GARCIA Facil ity:[facility] Start: 10-17-2024 End: 10-17-2024 Patient encounter procedure Audelia Garcia DO Work Phone: [facility] Comment on above: Mass of upper outer quadrant of right breast (Primary Dx); Large breasts; Chronic bilateral thoracic back pain; Chronic pain of both shoulders; Obesity, Class II, BMI 35-39.9 Start: 10-17-2024 End: 10-17-2024 ambulatory [facility] Start: 10-01-2024 End: 10-03-2024 Telephone encounter Toni Cortezrashel DO Work Phone: Hematology/Oncology Comment on above: New Patient Start: 09-27-2024 End: 09-27-[address] Dallas Lind MD -[facility] Work Phone: Start: 09-27-2024 End: 09-27-2024 ambulatory Dallas Lind Facility:[facility] Start: 08-03-2024 End: 08-03-2024 ambulatory [id number] Start: 07-23-2024 End: 07-23-2024 Patient encounter procedure Elinor Samaniego EMBOSSING CLERK-C -[facility] Work Phone: Start: 07-23-2024 End: 07-23-2024 ambulatory Elinor Samaniego Facility:[facility] Start: 07-02-2024 ambulatory Elinor Samaniego Facility :[facility] Start: 06-06-2024 End: 06-06-2024 ambulatory Rossy Arrington Facility:[facility] Start: 06-05-2024 ambulatory AUDELIA GARCIA Facil ity:[facility] Start: 06-05-2024 End: 06-05-2024 Subsequent hospital visit by physician Mammo[facility]Bone Density [facility] Comment on above: Encounter for screen ing mammogram for breast cancer [Z12.31] Start: 05-18-2024 End: 05-18-2024 Chart abstracting Audelia Garcia DO Work Phone: [facility] Start: 05-15-2024 End: 05-15-2024 Patient encounter procedure Audelia Garcia DO Work Phone: [facility] Comment on above: Well adult exam (Agnieszka dent Dx); Type 2 diabetes mellitus without complication, without long-term current use of insulin (HCC); Screening for depression; Encounter for screening examination for other mental health and behavioral disorders; Obesity, Class II, BMI 35-39.9 Start: 05-15-2024 End: 05-15-2024 Patient encounter status Audelia C Sheets DO Work Phone: [facility] Work Phone: Start: 05-15-2024 End: 05-15-2024 ambulatory AUDELIA C SHEETS Facility:[facility] Start: 05-09-2024 End: 05-09-2024 ambulatory [facility] Facility[facility] Start: 04-10-2024 End: 04-13-2024 ambulatory Audelia C Sheets DO Work Phone: Admitting Interviewer Start: 04-10-2024 End: 04-13-2024 Home visit Audelia C Sheets DO Work Phone: Admitting Interviewer Start: 04-02-2024 End: 04-02-2024 Telephone encounter Audelia C Sheets DO Work Phone: [facility] Comment on above: Referral Request Start: 04-02-2024 End: 04-02-2024 ambulatory [facility] Facility:[facility] Start: 04-02-2024 End: 04-02-2024 ambulatory [facility] Facility:[facility] Start: 01-30-2024 End: 01-30-2024 ambulatory [facility] Facility:[facility] Start: 07-27-2023 Telephone encounter Audelia C Sheets DO Work Phone: [facility] Comment on above: medication coverage ([employer] prior auth) Start: 07-25-2023 Refill Audelia C She ets DO Work Phone: [facility] Comment on above: Refill Request Start: 07-22-2023 Refill Audelia C She ets DO Work Phone: [facility] Comment on above: Refill Request Start: 06-30-2023 Refill Audelia C Ivette ets DO Work Phone: [facility] Comment on above: Refill Request Start: 04-05-2023 End: 04-05-2023 Patient encounter procedure Audelia C Sheets DO Work Phone: [facility] Comment on above: Type 2 diabetes dane itus with diabetic neuropathy, with long- term current use of insulin ([facility]LY [facility]) (Primary Dx); Hypertension, essential; Rheumatoid arthritis involving multiple sites with positive rheumatoid factor ([facility]); Obesity, Class III, BMI 40-49.9 (morbid obesity) (FORMERLY [facility]) Start: 04-01-2023 Refill Audelia C She ets DO Work Phone: [facility] Comment on above: Refill Request Start: 03-03-2023 Refill Audelia C She ets DO Work Phone: [facility] Comment on above: Refill Request Start: 02-14-2023 Telephone encounter Audelia Tirado Sheets DO Work Phone: [facility] Comment on above: medication coverage ([employer] prior auth) Start: 02-08-2023 Refill Audelia C Ivette ets DO Work Phone: [facility] Comment on above: Refill Request Start: 01-14-2023 Telephone encounter Audelia Tirado Sheets DO Work Phone: [facility] Comment on above: Results Start: 12-31-2022 Telephone encounter Jess Restrepo APRN.CLINICAL NEUROPSYCHOLOGIST Work Phone: [facility] Comment on above: Results Start: 12-30-2022 Refill Audelia C She ets DO Work Phone: [facility] Comment on above: Refill Request Start: 12-29-2022 End: 12-29-2022 Subsequent hospital visit by physician [facility] Work Phone: [facility] Comment on above: LUQ pain [R10.12] Start: 12-28-2022 End: 12-28-2022 Patient encounter procedure Jess Restrepo APRN.CLINICAL NEUROPSYCHOLOGIST Work Phone: [facility] Comment on above: LUQ pain (Primary Dx ); Splenomegaly; Nausea; Type 2 diabetes mellitus with diabetic neuropathy, with long-term current use of insulin (HCC) Start: 12-28-2022 Telephone encounter Audelia Garcia DO Work Phone: [facility] Comment on above: Results Start: 12-28-2022 End: 12-28-2022 Subsequent hospital visit by physician Card/Pulm Lab [facility] Comment on above: Palpitations [R00.2] Start: 12-20-2022 End: 12-20-2022 Patient encounter procedure Audelia Garcia DO Work Phone: [facility] Comment on above: Type 2 diabetes dane itus with diabetic neuropathy, with long- term current use of insulin (HCC) (Primary Dx); Palpitations; Migraine with aura, not intractable, without status migrainosus Start: 11-18-2022 End: 11-18-2022 Patient encounter procedure Audelia Garcia DO Work Phone: [facility] Comment on above: Hypertension, essent ial (Primary Dx); Type 2 diabetes mellitus with diabetic neuropathy, with long-term current use of insulin (HCC); Obesity, Class III, BMI 40-49.9 (morbid obesity) (FORMERLY [facility]) Start: 11-17-2022 End: 11-17-2022 Subsequent hospital visit by physician Estelita Hare MD Work Phone: Ambulatory Surgery Comment on above: Encounter for screen ing for malignant neoplasm of colon [Z12.11] Start: 11-03-2022 End: 11-03-2022 ambulatory Audelia Garcia DO Work Phone: [facility] Comment on above: Hypertension, essent ial (Primary Dx); Type 2 diabetes mellitus with diabetic neuropathy, with long-term current use of insulin (HCC); Leg swelling Start: 11-03-2022 End: 11-03-2022 Telemedicine consultation with patient Audelia Garcia DO Work Phone: [facility] Start: 10-27-2022 End: 10-27-2022 ambulatory Audelia Tirado Sheets DO Work Phone: [facility] Comment on above: Medication intoleran ce (Primary Dx); SOB (shortness of breath); Atypical chest pain Start: 10-27-2022 End: 10-27-2022 Telemedicine consultation with patient Audelia Tirado Sheets DO Work Phone: [facility] Start: 10-25-2022 Telephone encounter Audelia Tirado Sheets DO Work Phone: [facility] Comment on above: Results Start: 10-22-2022 Documentation procedure Mammog ozzy Coordinator [facility] Start: 10-22-2022 Letter encounter Mammography Coordinator MARQUETTE ANCILLARY AREA NOT LISTED Start: 10-21-2022 End: 10-21-2022 Subsequent hospital visit by physician Mammo/Bone Density [facility] Start: 10-15-2022 End: 10-15-2022 Patient encounter procedure Audelia Tirado Sheets DO Work Phone: [facility] Comment on above: Uncontrolled type 2 diabetes mellitus with hyperglycemia (HCC) (Primary Dx); Hypertension, essential; Rheumatoid arthritis involving multiple sites with positive rheumatoid factor (HCC); Screening mammogram, encounter for; Obesity, Class III, BMI 40-49.9 (morbid obesity) (HCC) Start: 05-27-2022 Orders Only Moe Fraga Work Phone: Endocrinology Start: 02-19-2022 End: 02-19-2022 Subsequent hospital visit by physician Xr [facility] Work Phone: Radiology Comment on above: Viral URI with cough [J06.9] Start: 02-19-2022 End: 02-19-2022 Patient encounter procedure Lesly Becker PA-C Work Phone: [facility] Comment on above: Viral URI with cough (Primary Dx); Rash Start: 11-11-2020 End: 11-11-2020 Subsequent hospital visit by physician Bernabe [facility] [place] Work Phone: Radiology Comment on above: Cough [R05] Start: 05-30-2020 End: 05-30-2020 Subsequent hospital visit by physician Xr [facility] [place] Work Phone: Radiology Comment on above: Gastroparesis due to secondary diabetes (HCC) [E13.43] Start: 07-18-2018 End: 07-18-2018 Patient encounter procedure Erasmo Carlisle Work Phone: [facility] Comment on above: Essential hypertensi on (Primary Dx) Arrived Start: 07-03-2018 End: 07-03-2018 Letter encounter Provider Nino [facility] Comment on above: ERRONEOUS ENCOUNTER- -DISREGARD (Primary Dx) Start: 07-03-2018 End: 07-03-2018 Office consultation new/estab patient 30 min Erasmo Carlisle Work Phone: [facility] Comment on above: Shortness of breath (Primary Dx); Palpitations; Essential hypertension; Mixed hyperlipidemia; Morbid obesity; Family history of coronary artery disease; Chest pain, unspecified type Procedures Date Procedure Procedure Detail Performing Clinician Start: 10-17-2024 Us breast uni real t marga with image limited Audelia C Sheets DO Work Phone: Start: 05-27-2024 Adult depression scr eening assessment Audelia Sheets DO Work Phone: Start: 04-02-2024 Hemoglobin A1c/Hemoglobin.total in Blood [facility] Provider Start: 04-05-2023 Hemoglobin A1c/Hemoglobin.total in Blood Audelia C Sheets DO Work Phone: Start: 12-29-2022 Ct abdomen & pelvis w/o contrast material Jess Restrepo UNDERWEAR HEMMER.CLINICAL NEUROPSYCHOLOGIST Work Phone: Start: 12-28-2022 Urnls dip stick/tabl et rgnt auto w/o microscopy Jess Restrepo UNDERWEAR HEMMER.CLINICAL NEUROPSYCHOLOGIST Work Phone: Start: 12-20-2022 Ecg routine ecg w/le ast 12 lds w/i&r Audelia C Sheets DO Work Phone: Start: 11-17-2022 Gluc bld gluc mntr d ev cleared fda spec home use Estelita Hare MD Work Phone: Start: 11-17-2022 Level iv surg pathol ogy gross&microscopic exam Estelita Hare MD Work Phone: Start: 11-17-2022 Colonoscopy flx dx w /collj spec when pfrmd Neil Jenkins MD Work Phone: Start: 11-17-2022 Colonoscopy Audelia S heets DO Work Phone: Start: 10-21-2022 Mammography Audelia S heets DO Work Phone: Start: 02-19-2022 Radiologic exam ches t 2 views Lesly Becker PA-C Work Phone: Start: 11-11-2020 Radiologic exam ches t 2 views Lesly TAPIA-Celestino Work Phone: Start: 05-30-2020 Radiologic exam abdo men 1 view Neil Jenkins MD Work Phone: Start: 07-18-2018 CARDIO-PULMONARY EXE RCISE STUDY (SCANNED) Erasmo Carlisle Work Phone: Start: 03-04-2016 Mammography Lesly Becker PA-Celestino Work Phone: Plan of Treatment Date Care Activity Detail Author Start: 11-13-2027 Screening for malignant neoplasm of colon Colorectal Cancer Screening [facility] Comment on above: Postponed from 2019 (Postponed - N ot Clinically Indicated) Start: 10-17-2025 Annual PCP Team Chronic Disease Visit Annual PCP Team Chronic Disease Visit [facility] Start: 10-17-2025 BP Controlled (<130/80) BP Controlled (<130/80) [facility] inic Start: 06-05-2025 Screening for malignant neoplasm of breast Mammogram Screening [facility] Start: 06-03-2025 End: 06-03-2025 ambulatory [place] [facility] Comment on above: CBC CBC/6 MO OV* Start: 05-27-2025 Anxiety Screening Anxiety Screening [facility] Start: 05-27-2025 Depression Screening Depression Screening [facility] Start: 05-15-2025 Annual PCP Team Chronic Disease Visit Annual PCP Team Chronic Disease Visit [facility] Start: 05-15-2025 BP Controlled (<130/80) BP Controlled (<130/80) [facility] Start: 05-15-2025 Hepatitis B Vaccine (1 of 3 - 19+ 3-dose series) Hepatitis B Vaccine (1 of 3 - 19+ 3-dose series) [facility] Comment on above: Postponed from 1993 (Declined at t his time) Start: 05-15-2025 Pneumococcal Vaccine: 50+ (1 of 2 - PCV) Pneumococcal Vaccine: 50+ (1 of 2 - PCV) [facility] Comment on above: Postponed from 1993 (Declined at t his time) Start: 05-15-2025 Shingrix Vaccine (1 of 2) Shingrix Vaccine (1 of 2) [facility] Comment on above: Postponed from 02/01/2024 (Declined at t his time) Start: 05-15-2025 Urine microalbumin profile DTaP,Tdap,Td Vaccine (1 - Tdap) [facility] Comment on above: Postponed from 1993 (Declined at t his time) Start: 04-02-2025 Diabetic foot examination Diabetic Foot Exam [facility] Start: 04-02-2025 Hepatitis B screening Urine Albumin:Creatinine Ratio [facility] Start: 04-02-2025 Hepatitis B surface antibody level LDL Cholesterol [facility] Start: 01-21-2025 Influenza vaccination [facility] Start: 12-10-2024 End: 03-11-2025 Cobalamin (Vitamin B12) [Mass/volume] in Serum or Plasma [facility] Work Phone: Comment on above: Expected: 12/10/2024, Expires: Start: 12-10-2024 End: 03-11-2025 COPPER BLOOD [facility] Comment on above: Expected: 12/10/2024, Expires: Start: 12-10-2024 End: 03-11-2025 Ferritin [Mass/volume] in Serum or Plasma [facility] Comment on above: Expected: 12/10/2024, Expires: Start: 12-10-2024 End: 03-11-2025 Folate [Mass/volume] in Serum or Plasma [facility] Comment on above: Expected: 12/10/2024, Expires: Start: 12-10-2024 End: 03-11-2025 Iron and Iron binding capacity panel - Serum or Plasma [facility] Comment on above: Expected: 12/10/2024, Expires: Start: 12-10-2024 End: 03-11-2025 Methylmalonate [Moles/volume] in Serum or Plasma [facility] Comment on above: Expected: 12/10/2024, Expires: Start: 12-10-2024 End: 03-11-2025 Thyrotropin [Units/volume] in Serum or Plasma [facility] Comment on above: Expected: 12/10/2024, Expires: Start: 12-10-2024 End: 03-11-2025 Thyroxine (T4) free [Mass/volume] in Serum or Plasma [facility] Comment on above: Expected: 12/10/2024, Expires: Start: 12-10-2024 End: 12-10-2024 ambulatory 12/10/2024 10:30 AM EDT Visit (SP) Office Hematology/Oncology [address] [place] [address] Toni Larson DO [address] [place] [address] OV-BMBX at [place] 11/15 Hematology/Oncology Comment on above: OV-BMBX at [place] 11/15 Start: 11-19-2024 Influenza vaccination Influenza Vaccine (#1) [place] [facility] Comment on above: Postponed from 01/22/2024 (Declined at t his time) Start: 11-15-2024 End: 11-15-2024 Admission to same day surgery center 11/15/2024 9:30 AM EDT - 11/15/2024 11:00 AM EDT Surgery [facility] [address] [place] [address] [place] [address] [place] [address] DIAGNOSTIC BONE MARROW BIOPSY(IES) [facility] Comment on above: DIAGNOSTIC BONE MARROW BIOPSY(IES) Start: 11-15-2024 End: 11-15-2024 Diagnostic bone marrow biopsies DIAGNOSTIC BONE MARROW BIOPSY(IES) Splenomegaly Thrombocytopenia 11/15/2024 9:30 AM EDT ME IR Start: 11-15-2024 Subsequent hospital visit by physician 11/15/2024 9:30 AM EDT Hospital Encounter [facility] [address] [place] [address] [place] [address] [address] [place] [address] Splenomegaly [R16.1], Thrombocytopenia [D69.6] [facility] Comment on above: Splenomegaly [R16.1], Thrombocytopenia [ D69.6] Start: 11-05-2024 End: 02-04-2025 CBC W Auto Differential panel - Blood COMPLETE BLOOD COUNT AND DIFFERENTIAL Lab Routine Splenomegaly Thrombocytopenia Expected: 11/05/2024, Expires: 02/04/2025 [facility] Comment on above: Expected: 11/05/2024, Expires: Start: 11-05-2024 End: 02-04-2025 HYPERCOAG DIAG PNL [facility] Comment on above: Expected: 11/05/2024, Expires: Start: 11-05-2024 End: 02-04-2025 MONOCLONAL PROTEIN, SERUM (BLOOD) MONOCLONAL PROTEIN, SERUM (BLOOD) Lab Routine Splenomegaly Thrombocytopenia Protime increased Positive dilute Jose Francisco's viper venom time test (DRVVT) Expected: 11/05/2024, Expires: 02/04/2025 [facility] Comment on above: Expected: 11/05/2024, Expires: Start: 11-05-2024 End: 02-04-2025 PROTEIN ELECTROPHORESIS SERUM W/INTERP PROTEIN ELECTROPHORESIS SERUM W/INTERP Lab Routine Splenomegaly Thrombocytopenia Protime increased Positive dilute Jose Francisco's viper venom time test (DRVVT) Expected: 11/05/2024, Expires: 02/04/2025 [facility] Comment on above: Expected: 11/05/2024, Expires: Start: 11-05-2024 End: 02-04-2025 PT MIXING STUDY [facility] Work Phone: Comment on above: Expected: 11/05/2024, Expires: Start: 11-05-2024 End: 02-04-2025 PT panel - Platelet poor plasma by Coagulation assay PROTHROMBIN TIME Lab Routine Splenomegaly Thrombocytopenia Expected: 11/05/2024, Expires: 02/04/2025 [facility] Work Phone: Comment on above: Expected: 11/05/2024, Expires: Start: 11-05-2024 End: 11-05-2024 ambulatory 11/05/2024 9:50 AM EDT Visit (SP) Office Hematology/Oncology [address] [place] [address] Toni Larson DO [address] [place] [address] OV/US 10/30* Hematology/Oncology Comment on above: OV/US 10/30* Start: 10-30-2024 End: 10-30-2024 Patient encounter procedure 10/30/2024 9:00 AM EDT Appointment [facility] [address] [place] [id number] Dx: Nonspecific abnormal results of liver function study [R94.5]; Thrombocytopenia [D69.6] [facility] Comment on above: Dx: Nonspecific abnormal results of live r function study [R94.5]; Thrombocytopenia [D69.6] Start: 10-26-2024 Glaucoma screening Dilated Retinal Exam [facility] Start: 10-23-2024 End: 01-22-2025 Chronic hepatitis differentiation between hepatitis B and C virus panel - Serum or Plasma [facility] Comment on above: Expected: 10/23/2024, Expires: Start: 10-23-2024 End: 01-22-[address] [facility] Work Phone: Comment on above: Expected: 10/23/2024, Expires: Start: 10-23-2024 End: 10-23-2024 Visit (SP) Office 10/23/2024 2:00 PM EDT Visit (SP) Office Hematology/Oncology [address] [place] [id number] Toni Larson DO [address] [place] [id number] Patient requested this date-EMBOSSING CLERK/R/O CLOTTING DISORDER-D/T MULTI TRIMESTER LOSS/REF.[place] LIND* Hematology/Oncology Comment on above: Patient requested this date-EMBOSSING CLERK/R/O CLOTT ING DISORDER-D/T MULTI TRIMESTER LOSS/REF.[place] LIND* Start: 09-30-2024 Hemoglobin A1c measurement HbA1C [facility] Start: 05-29-2024 End: 05-29-2024 Patient encounter procedure 05/29/2024 9:00 AM EST Appointment [facility] [address] [place] [address] [facility] Start: 05-15-2024 End: 05-15-2024 Patient encounter procedure 05/15/2024 11:20 AM EST Office Visit [facility] [address] [place] [address] Audelia Garcia DO [address] [place] [address] wellness [facility] Comment on above: wellness Start: 04-05-2024 3 comp foot exam completed Diabetic Foot Exam [facility] Start: 04-05-2024 Annual PCP Team Chronic Disease Visit Annual PCP Team Chronic Disease Visit [facility] Start: 04-05-2024 BP Controlled (<130/80) BP Controlled (<130/80) [facility] in Start: 04-05-2024 Diabetic foot examination Diabetic Foot Exam [facility] Start: 02-01-2024 Shingrix Vaccine (1 of 2) Shingrix Vaccine (1 of 2) [facility] Start: 01-22-2024 Covid-19 Vaccine ( season) Covid-19 Vaccine ( season) [facility] Start: 01-22-2024 Influenza vaccination Influenza Vaccine (#1) [facility] Start: 01-12-2024 BP CONTROLLED (<130/80) BP CONTROLLED (<130/80) [facility] Start: 12-29-2023 ANNUAL PCP TEAM CHRONIC DISEASE VISIT ANNUAL PCP TEAM CHRONIC DISEASE VISIT [facility] Start: 12-29-2023 BP CONTROLLED (<130/80) BP CONTROLLED (<130/80) [facility] Start: 12-21-2023 ANNUAL PCP TEAM CHRONIC DISEASE VISIT ANNUAL PCP TEAM CHRONIC DISEASE VISIT [facility] Start: 12-21-2023 BP CONTROLLED (<130/80) BP CONTROLLED (<130/80) [facility] Start: 11-20-2023 Influenza vaccination Influenza Vaccine (#1) [facility] Comment on above: Postponed from 01/21/2023 (Declined at t his time) Start: 11-19-2023 ANNUAL PCP TEAM CHRONIC DISEASE VISIT ANNUAL PCP TEAM CHRONIC DISEASE VISIT [facility] Start: 11-18-2023 Colonoscopy COLONOSCOPY [facility] Start: 11-18-2023 COLORECTAL CANCER SCREENING COLORECTAL CANCER SCREENING [facility] Start: 11-18-2023 Screening for malignant neoplasm of colon [facility] Start: 11-04-2023 ANNUAL PCP TEAM CHRONIC DISEASE VISIT ANNUAL PCP TEAM CHRONIC DISEASE VISIT [facility] Start: 10-22-2023 Mammography [facility] Start: 10-22-2023 Screening for malignant neoplasm of breast Mammogram Screening [facility] Start: 10-21-2023 Hepatitis B screening URINE ALBUMIN:CREATININE RATIO [facility] Start: 10-21-2023 Hepatitis B surface antibody level LDL CHOLESTEROL [facility] Start: 10-16-2023 ANNUAL PCP TEAM CHRONIC DISEASE VISIT ANNUAL PCP TEAM CHRONIC DISEASE VISIT [facility] Start: 10-16-2023 COVID-19 VACCINE (#1) COVID-19 VACCINE (#1) [facility] Comment on above: Postponed from 1974 (Declined at t his time) Start: 10-16-2023 PNEUMOCOCCAL (1 - PCV) PNEUMOCOCCAL (1 - PCV) [facility] ic Comment on above: Postponed from 02/01/1980 (Declined at t his time) Start: 10-16-2023 Pneumococcal vaccination [facility] Comment on above: Postponed from 02/01/1980 (Declined at t his time) Start: 10-16-2023 Urine microalbumin profile [facility] Comment on above: Postponed from 1993 (Declined at t his time) Start: 07-06-2023 Hemoglobin A1c measurement HbA1C [facility] Start: 07-06-2023 Hemoglobin A1c/Hemoglobin.total in Blood HbA1C [facility] Start: 05-23-2023 Depression Assessment Depression Assessment [facility] Start: 01-21-2023 Influenza vaccination [facility] Start: 01-20-2023 Hemoglobin A1c/Hemoglobin.total in Blood HBA1C [facility] Start: 01-17-2023 3 comp foot exam completed DIABETIC FOOT EXAM [facility] Comment on above: Postponed from 07/02/2022 (Declined at t his time) Start: 07-02-2022 3 comp foot exam completed DIABETIC FOOT EXAM [facility] Start: 05-23-2022 DEPRESSION ASSESSMENT DEPRESSION ASSESSMENT [facility] Start: 02-19-2022 End: 03-05-2022 Influenza virus A and B RNA and SARS-CoV-2 (COVID-19) N gene panel - Respiratory specimen by [place] with probe detection [facility] Work Phone: Comment on above: Expected: 02/19/2022, Expires: 2 Start: 01-21-2022 Influenza vaccination INFLUENZA (#1) [facility] Start: 05-23-2021 DEPRESSION ASSESSMENT DEPRESSION ASSESSMENT [facility] Start: 2019 COLOGUARD (FIT-DNA) COLOGUARD (FIT-DNA) [facility] Start: 2019 Colonoscopy COLONOSCOPY [facility] Start: 2019 COLORECTAL CANCER SCREENING COLORECTAL CANCER SCREENING [facility] Start: [address] COLONOGRAPHY [facility] Start: 2019 FECAL OCCULT BLOOD FECAL OCCULT BLOOD [facility] Start: 2019 Screening for malignant neoplasm of colon [facility] Start: 2019 SIGMOIDOSCOPY SIGMOIDOSCOPY [facility] Start: 07-03-2018 End: 07-03-2018 Office Visit 07/03/2018 Office Visit Cardiovascular Medicine Erasmo [place], DO [address] [id number] [phone] Arrived [facility] Comment on above: Arrived Start: 01-21-2018 Influenza vaccination INFLUENZA VACCINE (#1) [facility] Start: 03-04-2017 Mammography MAMMOGRAM [facility] Start: 02-18-2017 Hepatitis B screening URINE ALBUMIN:CREATININE RATIO [facility] Start: 02-17-2017 End: 02-17-2017 Appointment [facility]ment [facility] Work Phone: Start: 01-18-2017 End: 01-18-2017 Appointment Appointment [facility] Work Phone: Start: 10-13-2016 Hepatitis B surface antibody level LDL CHOLESTEROL [facility] Start: 07-22-2016 Glaucoma screening Dilated Retinal Exam [facility] Start: 07-22-2016 Hepatitis C antibody, confirmatory test DILATED RETINAL EXAM [facility] Start: 05-20-2016 Hemoglobin A1c/Hemoglobin.total in Blood HBA1C [facility] Start: 10-16-2015 PAP TESTING PAP TESTING [facility] Start: 2014 Fasting lipid [facility] Start: 2014 Protein mass conc MAMMOGRAM SCREENING DISCUSSION [facility] Start: 2014 Screening mammography MAMMOGRAM SCREENING DISCUSSION [facility] Start: 10-08-2013 HPV TESTING HPV TESTING [facility] Start: 1995 Screening for malignant neoplasm of cervix PAP SMEAR DISCUSSION [facility] Start: 1993 Hepatitis B Vaccine (1 of 3 - 19+ 3-dose series) Hepatitis B Vaccine (1 of 3 - 19+ 3-dose series) [facility] Start: 1993 SHINGRIX VACCINE (1 of 2) SHINGRIX VACCINE (1 of 2) [facility] Start: 1993 Third diphtheria, tetanus and acellular pertussis (DTaP) vaccination [facility] (ADULT) [facility] Start: 1993 Urine microalbumin profile [facility] Start: 02-01-1992 ANNUAL PCP TEAM CHRONIC DISEASE VISIT ANNUAL PCP TEAM CHRONIC DISEASE VISIT [facility] Start: 02-01-1992 Anxiety Screening Anxiety Screening [facility] Start: 02-01-1992 BP CONTROLLED (<130/80) BP CONTROLLED (<130/80) [facility] Start: 02-01-1992 Depression Screening Depression Screening [facility] Start: 02-01-1992 HIV SCREENING HIV SCREENING [facility] Start: 02-01-1992 Tetanus vaccination [facility] Start: 1987 HIV screening HIV SCREENING DISCUSSION [facility] Start: 02-01-1980 PNEUMOCOCCAL (1 - PCV) PNEUMOCOCCAL (1 - PCV) [facility] ic Start: 02-01-1980 Pneumococcal vaccination Pneumococcal Vaccine (1 of 2 - PCV) [facility] Start: 1974 COVID-19 VACCINE (#1) COVID-19 VACCINE (#1) [facility] Start: 1974 HEPATITIS B (1 of 3 - 3-dose series) HEPATITIS B (1 of 3 - 3-dose series) [facility] Start: 1974 Hepatitis B Vaccine (1 of 3 - 3-dose series) Hepatitis B Vaccine (1 of 3 - 3-dose series) [facility] Basic metabolic 2008 panel with ionized calcium - Serum or Plasma [facility] Comprehensive metabo lic 2000 panel - Serum or Plasma [facility] End: 01-27-2024 Ct abdomen & pelvis w/o contrast material CT ABD/PEL WO IVCON Radiology STAT LUQ pain Splenomegaly Nausea 1 Occurrences starting 12/28/2022 until 01/27/2024 [facility] Work Phone: Comment on above: 1 Occurrences starting 12/28/2022 until 01/27/2024 End: 05-10-2025 DBT Breast - bilateral screening CARIDAD SCREENING W ALLEY Radiology Routine Encounter for screening mammogram for breast cancer 1 Occurrences starting 04/10/2024 until 05/10/2025 [facility] Work Phone: Comment on above: 1 Occurrences starting 04/10/2024 until 05/10/2025 DBT Breast - bilater al screening CARIDAD SCREENING W [facility] Radiology Routine Encounter for screening mammogram for breast cancer 06/05/2024 8:56 AM EST [facility] Work Phone: End: 10-28-2023 ECG COMPLETE ECG COMPLETE ECG Routine Atypical chest pain 1 Occurrences starting 10/27/2022 until 10/28/2023 [facility] Work Phone: Comment on above: 1 Occurrences starting 10/27/2022 until 10/28/2023 Exercise stress echocardiography ECHOCARDIOGRAM TREADMILL STRESS TEST Stress Echocardiography Routine Shortness of breath Chest pain, unspecified type Ordered: 07/03/2018 qunb Comment on above: Ordered: 07/03/2018 Guidance for biopsy of Bone marrow IMAGING GUIDED BIOPSY BONE MARROW (HEMATOLOGY) Radiology Routine Splenomegaly Thrombocytopenia Ordered: 11/05/2024 [facility] Comment on above: Ordered: 11/05/2024 Hemoglobin A1c/Hemoglobin.total in Blood HEMOGLOBIN A1C (POC) Lab Routine Type 2 diabetes mellitus with diabetic neuropathy, with long-term current use of insulin (FORM[facility]) Ordered: 04/05/2023 [facility] Work Phone: Comment on above: Ordered: 04/05/2023 [facility] [employer] [facility] [employer] Cardiology Routine Palpitations Ordered: 12/20/2022 [facility] Work Phone: Comment on above: Ordered: 12/20/2022 CARIDAD SCREENING W ALLEY CARIDAD SCREENI NG W ALLEY Radiology Routine 10/21/2022 9:31 AM EDT [facility] Work Phone: End: 11-26-2023 Radiologic exam chest 2 views XR CHEST 2V FRONTAL/LAT Radiology Routine SOB (shortness of breath) 1 Occurrences starting 10/27/2022 until 11/26/2023 [facility] Work Phone: Comment on above: 1 Occurrences starting 10/27/2022 until 11/26/2023 End: 01-19-2024 Radiologic exam chest 2 views XR CHEST 2V FRONTAL/LAT Radiology Routine Palpitations 1 Occurrences starting 12/20/2022 until 01/19/2024 [facility] Work Phone: Comment on above: 1 Occurrences starting 12/20/2022 until 01/19/2024 Standard ECG ECG ECG Routine Chest pain, unspecified type Ordered: 07/03/2018 qunb Comment on above: Ordered: 07/03/2018 UA DIP, URINE (POC) UA DIP, URIN E (POC) Lab Routine LUQ pain Ordered: 12/28/2022 [facility] Work Phone: Comment on above: Ordered: 12/28/2022 US Abdomen RUQ US ABD RIGHT UPP ER QUADRANT Radiology Routine FATTY LIVER Thrombocytopenia 10/30/2024 9:17 AM EDT [facility] End: 11-22-2025 US Abdomen RUQ US ABD RIGHT UPPER QUADRANT Radiology Routine FATTY LIVER Thrombocytopenia 1 Occurrences starting 10/23/2024 until 11/22/2025 [facility] Comment on above: 1 Occurrences starting 10/23/2024 until 11/22/2025 End: 10-30-2024 Us abdominal real time w/image limited US ABD SPLEEN - NB Radiology ONCE for 1 Occurrences starting 10/30/2024 until 10/30/2024 [facility] Work Phone: Comment on above: ONCE for 1 Occurrences starting 10/31/19 until 10/30/2024 [facility] Work Phone: [facility] Payers Date Payer Category Payer Self-pay 2021 Private Health Insurance [id number] 2018 Unknown RACHAEL WINTERS O PPO POS xxxxxxxxxxxx 2018-Present xxxxxxxxxxxx [id number] 2016 Unknown RACHAEL JIANG SS PPO [id number] 2016-2021 [address] [place] [address] PPO [id number] 1974 Unknown [id number] 1959 Unknown [id number] Unknown [id number] Unknown [id number] Unknown [id number] Unknown [id number] Unknown [id number] Unknown [id number] Unknown [id number] Unknown [id number] Unknown [id number] Unknown [id number] Unknown [id number] Unknown [id number] Social History Date Type Detail Facility Tobacco smoking stat [facility] Unknown if ever smoked [facility] Sex Assigned At Not on file [facility] Start: 07-03-2018 End: 12-25-2024 Tobacco smoking status VTIS Former smoker [facility] End: 05-23-1990 History of tobacco use Current smoker [facility] End: 05-23-1990 History of tobacco use Cigarette Smoker [facility] Start: 01-24-2018 End: 02-19-2022 Tobacco smoking status VTIS Never smoked tobacco [facility] Start: 02-19-2022 End: 10-15-2022 Tobacco use and exposure Smokeless tobacco non-user [facility] Start: 02-19-2022 End: 04-22-2023 Alcohol intake Current non-drinker of alcohol (finding) [facility] Start: 01-24-2018 End: 02-19-2022 Tobacco Comment No ETS in childhood or current home. [facility] Start: 1975 Sex Assigned At Female C [facility] Start: 04-30-2020 End: 02-19-2022 Exposure to SARS-CoV-2 (event) Not sure [facility] Start: 10-15-2022 Tobacco Comment Quit 31 years ago [facility] Start: 11-18-2022 End: 11-05-2024 History of Social function [facility] Work Phone: Start: 11-18-2022 End: 11-05-2024 Tobacco use panel [facility] Work Phone: Adult Depression Screening Assessment 0 [facility] Work Phone: Start: 08-20-2020 Gender identity Identifies as female gender (finding) [facility] Start: 08-20-2020 Sexual orientation Heterosexual (fin ding) [facility] Start: 05-15-2024 End: 10-17-2024 Alcoholic beverage intake Ex-drinker (finding) [facility] Start: 10-23-2024 Tobacco Comment Pt smoked as a teenager, quit age 16 [facility] Medical Equipment Procedure Code Equipment Code Equipment Origin al Text Equipment Identifier Dates Mirena Iud [id number] - [id number] Start: 11-25-2010 [id number], [id number] Start: 05-30-2020 End: 11-26-2022 Comment on above: use 1 TEST STRIP to TEST BLOOD SUGAR twice a day 1 Strip once daily. Use as instructed 1 Each daily at bedt marga. 1 Each once daily. Mirena Iud [id number] - [id number] Start: 11-25-2010 Blood Sugar Diagnostic (Onetouch Verio Test Strips) strip Start: 05-26-2021 Pen Needle, Diabetic (Bd Ultra-Fine Katie Pen Needle) 32 gauge x 5/32 needle Start: 07-23-2024 Blood Sugar Diagnostic (Onetouch Verio) strip Start: 09-24-2019 End: 05-26-2021 Blood Sugar Diagnostic (Onetouch Verio) strip Start: 06-01-2019 End: 09-24-2019 Pen Needle, Diabetic (Bd Ultra-Fine Katie Pen Needle) 32 gauge x 5/32 needle Start: 09-24-2019 End: 07-23-2024 Blood Sugar Diagnostic (Onetouch Verio Test Strips) strip Start: 05-26-2021 Pen Needle, Diabetic (Bd Ultra-Fine Katie Pen Needle) 32 gauge x 5/32 needle Start: 07-23-2024 Blood Sugar Diagnostic (Onetouch Verio) strip Start: 09-24-2019 End: 05-26-2021 Blood Sugar Diagnostic (Onetouch Verio) strip Start: 06-01-2019 End: 09-24-2019 Pen Needle, Diabetic (Bd Ultra-Fine Katie Pen Needle) 32 gauge x 5/32 needle Start: 09-24-2019 End: 07-23-2024 Functional Status Date Assessment Result Facility 10-02-2014 Are you deaf, or do you have serious difficulty hearing No 10/02/2014 10:38 AM Elizabeth Hendricks LPN No [facility] 10-02-2014 Are you blind, or do you have serious difficulty seeing, even when wearing glasses No 10/02/2014 10:38 AM Elizabeth Hendricks LPN [facility] 10-02-2014 Do you have serious difficulty walking or climbing stairs No 10/02/2014 10:38 AM Elizabeth Hendricks LPN [facility] 10-02-2014 Do you have difficul ty dressing or bathing No 10/02/2014 10:38 AM Elizabeth Hendricks LPN No [facility] 10-02-2014 Because of a physica l, mental, or emotional condition, do you have difficulty doing errands alone such as visiting a physician's office or shopping No 10/02/2014 10:38 AM Elizabeth Hendricks LPN No [facility] Mental Status Date Assessment Result Facility 10-02-2014 Because of a physica l, mental, or emotional condition, do you have serious difficulty concentrating, remembering, or making decisions No 10/02/2014 10:38 AM Elizabeth Hendricks LPN No [facility] Clinical Notes 02-25-2014 to 12-16-2024 Telephone Encounter - Yassine Chen - 12/16/2024 1:02 PM EDTTelephone Encounter - Yassine Chen - 12/16/2024 1:02 PM EDTTelephone Encounter - Toni Larson DO - 12/16/2024 10:42 AM EDT Note Date & Type Note Facility 12-16-2024 Telephone encounter Note I called and let Eloisa know the below information and scheduled her for a follow-up and lab work on 06/03/25 [facility] 12-16-2024 Miscellaneous Notes I called and let Eloisa know the below information and scheduled her for a follow-up and lab work on 06/03/25 Repeat CBC showed normal Hgb and improved platelet count. All other labs normal. Follow up with me OV/CBC in about 6 months for ongoing monitoring. Toni Larson DO documented in this encounter [facility] 12-16-2024 Telephone encounter Note Repeat CBC showed normal Hgb and improved platelet count. All other labs normal. Follow up with me OV/CBC in about 6 months for ongoing monitoring. Toni Larson DO [facility] 12-10-2024 Note HNO ID: [id number] Author: TONI LARSON DO Service: ? Author Type: Physician Type: Progress Notes Filed: 12/10/2024 13:00 Note Text: Hematologic problem(s): 1) Mild thrombocytopenia. 2) Splenomegaly. 3) RA. 4) Hypercoagulation work up for breast reduction surgery. HPI: The patient is a 49-year-old female with a past medical history as outlined below. She is in need of breast reduction surgery. She has history of rheumatoid arthritis. Also has a history of multiple spontaneous losses in the first trimester. Symptoms from RA include joint swelling, pain and stiffness as well as fatigue. Diagnosed about 10+ years ago. Sees Dr. Jalloh in [place]. 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 She has chronic history mildly low platelet count. No personal history of venous thromboembolism. No known family h/o VTE. History 5 miscarriages all prior to about 12 weeks. Had a daughter prior to the miscarriages. Full term (close to 10 months-- was on vacation). Emergency .Took 4 years to conceive her. Full hysterectomy [id number] for early stage endometrial cancer. No adjuvant chemotherapy or radiation. Age 11 on--Very irregular menses. Heavy when occurred. Doesn't bruise easily but can get unexplained bruising. Hasn't used Mobic in a while--ran out. Echo 2009--mild LVH and probably patent foramen ovale. Presents for ongoing hematologic management. Interim history: No subjective change. No complaints today. No unusual bleeding or unexplained bruising. PAST MEDICAL HISTORY Diagnosis Date Delayed emergence from general anesthesia Dysmetabolic syndrome X polycystic syndrome Endometrial hyperplasia with atypia 2007 Enlarged heart left side of heart Gastroparesis Headache(784.0) Leiomyoma of uterus, unspecified 2010 Mitral valve disorders(424.0) Obesity (BMI 30-39.9) CRIS (obstructive sleep apnea) no CPAP Polycystic ovaries Snoring Type II or unspecified type diabetes mellitus without mention of complication, not stated as uncontrolled Unspecified asthma(493.90) Unspecified essential hypertension PAST SURGICAL HISTORY Procedure Laterality Date CAPSULE ENDOSCOPY 10/23/2020 DELIVERY ONLY 10/18/1995 , low cervical COLONOSCOPY FLX DX W/COLLJ SPEC WHEN PFRMD 2013 COLONOSCOPY SCREENING 11/17/2022 DILATION AND CURETTAGE DXAND/THER NONOBSTETRIC 1997, 2000 Dilation AND curettage EGD 12/11/2015 chronic active gastritis EGD TRANSORAL BIOPSY SINGLE/MULTIPLE 08/22/2017 non-bleeding erosive gastropathy, sm amt phytobezoar in stomach, neg H Pylori; Dr. Vargas GI TRANSIT AND PRES JON WIRELESS CAPSULE W/INTERP 10/16/2020 Smart Pill HYSTERECTOMY HX 2010 HYSTEROSCOPY BX W/WO DANDC 11/25/2010 HYSTEROSCOPY, DIAGNOSTIC (SEPARATE 04/25/2008 Hysteroscopy/currettage INSERTION OF IUD 11/25/2010 mirena TONSILLECTOMY HX ALLERGIES Allergen Reactions Bees Rash, Swelling, Itching Childhood reaction, no recent stings. Metformin Diarrhea, GI Upset Adhesive Tape (Karen* Rash, Itching Lisinopril Intolerance Ozempic [Semaglutid* Intolerance Nausea and vomiting Reglan [Metoclopram* Intolerance Social History Tobacco Use Smoking status: Former Types: Cigarettes Smokeless tobacco: Never Tobacco comments: Pt smoked as a teenager, quit age 16 Vaping Use Vaping status: Never Used Substance Use Topics Alcohol use: Not Currently Drug use: Never FAMILY HISTORY Problem Relation Age of Onset Coronary Artery Disease Mother Hypertension Mother AZ @ 62 yrs. old Diabetes Mother Cancer Father SKIN, ENT met to lungs. Diabetes Sister Diabetes Brother Diabetes Brother Diabetes Brother Coronary Artery Disease Brother 40 stent + [place] Diabetes Brother Coronary Artery Disease Brother 40 stent + [place] Diabetes Brother Coronary Artery Disease Brother 40 stent Coronary Artery Disease Maternal Grandmother Cancer Paternal Grandmother colon Cancer Maternal Aunt PANCREAS Heart Attack Maternal Aunt Cancer Maternal Aunt UTERINE Cancer Maternal Uncle HODGKINS Asthma No Family History REVIEW OF SYSTEMS: Constitutional: No episodes of fever and night sweats. Neuro: No HAYES, vertigo, dizziness and imbalance. Chronic neuropathy both lower extremities. HEENT: No recent change in voice, vision or hearing. Resp: No cough, wheeze and hemoptysis. No shortness of breath at rest. CVS: No exertional chest pain, PND, orthopnea and LE edema. GI: No reflux, n/v, change in bowel habits or abdominal pain. : No dysuria or gross hematuria. Endo: No hot flashes. Musculoskeletal: See above. Derm: No current rash. Heme: See above Psych: Normal mood. PHYSICAL EXAM: Vitals: Blood pressure 151/81, pulse 74, temperature 36.1 ?C (97 ?F), temperature source Temporal, weight 98.4 kg (217 lb), last menstrual period 12/22/2010, SpO2 98%. Well-appearing and in no acute distress. EYES (more content not included)... [facility] 12-10-2024 History of Presen t illness Narrative Hematologic problem(s): 1) Mild thrombocytopenia. 2) Splenomegaly. 3) RA. 4) Hypercoagulation work up for breast reduction surgery. HPI: The patient is a 49-year-old female with a past medical history as outlined below. She is in need of breast reduction surgery. She has history of rheumatoid arthritis. Also has a history of multiple spontaneous losses in the first trimester. Symptoms from RA include joint swelling, pain and stiffness as well as fatigue. Diagnosed about 10+ years ago. Sees Dr. Jalloh in [place]. 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 She has chronic history mildly low platelet count. No personal history of venous thromboembolism. No known family h/o VTE. History 5 miscarriages all prior to about 12 weeks. Had a daughter prior to the miscarriages. Full term (close to 10 months-- was on vacation). Emergency .Took 4 years to conceive her. Full hysterectomy [id number] for early stage endometrial cancer. No adjuvant chemotherapy or radiation. Age 11 on--Very irregular menses. Heavy when occurred. Doesn't bruise easily but can get unexplained bruising. Hasn't used Mobic in a while--ran out. Echo 2009--mild LVH and probably patent foramen ovale. Presents for ongoing hematologic management. Interim history: No subjective change. No complaints today. No unusual bleeding or unexplained bruising. PAST MEDICAL HISTORY Diagnosis Date Delayed emergence from general anesthesia Dysmetabolic syndrome X polycystic syndrome Endometrial hyperplasia with atypia 2007 Enlarged heart left side of heart Gastroparesis Headache(784.0) Leiomyoma of uterus, unspecified 2010 Mitral valve disorders(424.0) Obesity (BMI 30-39.9) CRIS (obstructive sleep apnea) no CPAP Polycystic ovaries Snoring Type II or unspecified type diabetes mellitus without mention of complication, not stated as uncontrolled Unspecified asthma(493.90) Unspecified essential hypertension PAST SURGICAL HISTORY Procedure Laterality Date CAPSULE ENDOSCOPY 10/23/2020 DELIVERY ONLY 10/18/1995 , low cervical COLONOSCOPY FLX DX W/COLLJ SPEC WHEN PFRMD 2013 COLONOSCOPY SCREENING 11/17/2022 DILATION & CURETTAGE DX&/THER NONOBSTETRIC 1997, 2000 Dilation & curettage EGD 12/11/2015 chronic active gastritis EGD TRANSORAL BIOPSY SINGLE/MULTIPLE 08/22/2017 non-bleeding erosive gastropathy, sm amt phytobezoar in stomach, neg H Pylori; Dr. Vargas GI TRANSIT & PRES JON WIRELESS CAPSULE W/INTERP 10/16/2020 Smart Pill HYSTERECTOMY HX 2010 HYSTEROSCOPY BX W/WO D&C 11/25/2010 HYSTEROSCOPY, DIAGNOSTIC (SEPARATE 04/25/2008 Hysteroscopy/currettage INSERTION OF IUD 11/25/2010 mirena TONSILLECTOMY HX ALLERGIES Allergen Reactions Bees Rash, Swelling, Itching Childhood reaction, no recent stings. Metformin Diarrhea, GI Upset Adhesive Tape (Karen* Rash, Itching Lisinopril Intolerance Ozempic [Semaglutid* Intolerance Nausea and vomiting Reglan [Metoclopram* Intolerance Social History Tobacco Use Smoking status: Former Types: Cigarettes Smokeless tobacco: Never Tobacco comments: Pt smoked as a teenager, quit age 16 Vaping Use Vaping status: Never Used Substance Use Topics Alcohol use: Not Currently Drug use: Never FAMILY HISTORY Problem Relation Age of Onset Coronary Artery Disease Mother Hypertension Mother AZ @ 62 yrs. old Diabetes Mother Cancer Father SKIN, ENT met to lungs. Diabetes Sister Diabetes Brother Diabetes Brother Diabetes Brother Coronary Artery Disease Brother 40 stent + [place] Diabetes Brother Coronary Artery Disease Brother 40 stent + [place] Diabetes Brother Coronary Artery Disease Brother 40 stent Coronary Artery Disease Maternal Grandmother Cancer Paternal Grandmother colon Cancer Maternal Aunt PANCREAS Heart Attack Maternal Aunt Cancer Maternal Aunt UTERINE Cancer Maternal Uncle HODGKINS Asthma No Family History REVIEW OF SYSTEMS: Constitutional: No episodes of fever and night sweats. Neuro: No HAYES, vertigo, dizziness and imbalance. Chronic neuropathy both lower extremities. HEENT: No recent change in voice, vision or hearing. Resp: No cough, wheeze and hemoptysis. No shortness of breath at rest. CVS: No exertional chest pain, PND, orthopnea and LE edema. GI: No reflux, n/v, change in bowel habits or abdominal pain. : No dysuria or gross hematuria. Endo: No hot flashes. Musculoskeletal: See above. Derm: No current rash. Heme: See above Psych: Normal mood. PHYSICAL EXAM: Vitals: Blood pressure 151/81, pulse 74, temperature 36.1 C (97 F), temperature source Temporal, weight 98.4 kg (217 lb), last menstrual period 12/22/2010, SpO2 98%. Well-appearing and in no acute distress. EYES: Sclerae are anicteric bilaterally. LYMPHATIC: There is no palpable cervical or supraclavicular adenopathy. CARDIOVASCULAR: Rhythm is regular. ABDOMEN: The abdomen is nondistended. No obvious splenomegaly or hepatomegaly. No tenderness. Extremities: No swelling or edema. SKIN: No petechiae. ASSESSMENT/PLAN: (R16.1) Splenomegaly (primary encounter diagnosis) (R79.1) Protime increased (R79.1) Positive dilute Jose Francisoc's viper venom time test (D69.6) Thrombocytopenia Assessment: - 49-year-old female with past medical history significant for rheumatoid arthritis, type 2 diabetes and echocardiogram from 15 years ago demonstrating mild LVH and probable patent foramen ovale. She also has untreated sleep apnea (diagnosed a number years ago) and chronic mild thrombocytopenia. - No personal history of venous thromboembolism but she has significant obstetrical history of 5 miscarriages prior to 12 weeks gestation. - Splenomegaly with spleen measuring 16.2 cm. - Prior evidence of fatty liver on imaging per CT scans but recent ultrasound did not confirm. She is on Mounjaro now. He is to be on methotrexate for rheumatoid arthritis. - Reviewed the results of the bone marrow biopsy completed thus far. Mildly hypocellular marrow. Flow cytometry pending. Discussed that potential for underlying T-cell LGL due to rheumatoid arthritis and mild splenomegaly but that would not preclude her upcoming breast reduction surgery. - No evidence of a inherited or acquired hypercoagulation disorder. Plan: - I contacted pathology regarding timing on results of flow cytometry. - Will send note to Dr. Lind. Recommend standard DVT precautions. -Repeat CBC today with a check of B12, MMA, TSH, T4, serum folate and serum copper as well as iron studies. - Recommended she contact Dr. Garcia for general medical clearance for reduction mammoplasty. Portions of this documentation were copied and pasted from my previous office visit note dated 11/05/2024 in order to provide a cohesive continuity of the history. The note has been reviewed and edited and updated as necessary. I spent a total of 30 minutes on the date of the service which included preparing to see the patient, [id number] patient care, completing clinical documentation, counseling and educating the patient/family/caregiver, ordering medications, tests, or procedures, communicating with other HCPs (not separately reported), and communicating results to the patient/family/caregiver. Toni Larson DO documented in this encounter [facility] 11-12-2024 Telephone encounter Note Patient notified. Amber Bolivar LPN [facility] 11-12-2024 Miscellaneous Notes Patient notified. Amber Bolivar LPN Can let her know that the lab work showed no evidence of a hypercoagulable condition. Keep bone marrow biopsy as scheduled. Toni Larson DO documented in this encounter [facility] 11-12-2024 Telephone encounter Note Can let her know that the lab work showed no evidence of a hypercoagulable condition. Keep bone marrow biopsy as scheduled. Toni Larson DO [facility] 11-05-2024 Note HNO ID: [id number] Author: TONI LARSON DO Service: ? Author Type: Physician Type: Progress Notes Filed: 11/05/2024 10:38 Note Text: Hematologic problem(s): 1) Mild thrombocytopenia. 2) Splenomegaly. 3) RA. 4) Hypercoagulation work up for masto HPI: The patient is a 49-year-old female with a past medical history as outlined below. She is in need of breast reduction surgery. She has history of rheumatoid arthritis. Also has a history of multiple spontaneous losses in the first trimester. Symptoms from RA include joint swelling, pain and stiffness as well as fatigue. Diagnosed about 10+ years ago. Sees Dr. Jalloh in [place]. 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 She has chronic history mildly low platelet count. No personal history of venous thromboembolism. No known family h/o VTE. History 5 miscarriages all prior to about 12 weeks. Had a daughter prior to the miscarriages. Full term (close to 10 months-- was on vacation). Emergency .Took 4 years to conceive her. Full hysterectomy [id number] for early stage endometrial cancer. No adjuvant chemotherapy or radiation. Age 11 on--Very irregular menses. Heavy when occurred. Doesn't bruise easily but can get unexplained bruising. Hasn't used Mobic in a while--ran out. Echo 2009--mild LVH and probably patent foramen ovale. Presents for ongoing hematologic management. Interim history: No subjective change. No complaints today. No unusual bleeding or unexplained bruising. PAST MEDICAL HISTORY Diagnosis Date Delayed emergence from general anesthesia Dysmetabolic syndrome X polycystic syndrome Endometrial hyperplasia with atypia 2007 Enlarged heart left side of heart Gastroparesis Headache(784.0) Leiomyoma of uterus, unspecified 2010 Mitral valve disorders(424.0) Obesity (BMI 30-39.9) CRIS (obstructive sleep apnea) no CPAP Polycystic ovaries Snoring Type II or unspecified type diabetes mellitus without mention of complication, not stated as uncontrolled Unspecified asthma(493.90) Unspecified essential hypertension PAST SURGICAL HISTORY Procedure Laterality Date CAPSULE ENDOSCOPY 10/23/2020 DELIVERY ONLY 10/18/1995 , low cervical COLONOSCOPY FLX DX W/COLLJ SPEC WHEN PFRMD 2013 COLONOSCOPY SCREENING 11/17/2022 DILATION AND CURETTAGE DXAND/THER NONOBSTETRIC 1997, 2000 Dilation AND curettage EGD 12/11/2015 chronic active gastritis EGD TRANSORAL BIOPSY SINGLE/MULTIPLE 08/22/2017 non-bleeding erosive gastropathy, sm amt phytobezoar in stomach, neg H Pylori; Dr. Vargas GI TRANSIT AND PRES JON WIRELESS CAPSULE W/INTERP 10/16/2020 Smart Pill HYSTERECTOMY HX 2010 HYSTEROSCOPY BX W/WO DANDC 11/25/2010 HYSTEROSCOPY, DIAGNOSTIC (SEPARATE 04/25/2008 Hysteroscopy/currettage INSERTION OF IUD 11/25/2010 mirena TONSILLECTOMY HX ALLERGIES Allergen Reactions Bees Rash, Swelling, Itching Childhood reaction, no recent stings. Metformin Diarrhea, GI Upset Adhesive Tape (Karen* Rash, Itching Lisinopril Intolerance Ozempic [Semaglutid* Intolerance Nausea and vomiting Reglan [Metoclopram* Intolerance Social History Tobacco Use Smoking status: Former Types: Cigarettes Smokeless tobacco: Never Tobacco comments: Pt smoked as a teenager, quit age 16 Vaping Use Vaping status: Never Used Substance Use Topics Alcohol use: Not Currently Drug use: Never FAMILY HISTORY Problem Relation Age of Onset Coronary Artery Disease Mother Hypertension Mother AZ @ 62 yrs. old Diabetes Mother Cancer Father SKIN, ENT met to lungs. Diabetes Sister Diabetes Brother Diabetes Brother Diabetes Brother Coronary Artery Disease Brother 40 stent + [place] Diabetes Brother Coronary Artery Disease Brother 40 stent + [place] Diabetes Brother Coronary Artery Disease Brother 40 stent Coronary Artery Disease Maternal Grandmother Cancer Paternal Grandmother colon Cancer Maternal Aunt PANCREAS Heart Attack Maternal Aunt Cancer Maternal Aunt UTERINE Cancer Maternal Uncle HODGKINS Asthma No Family History REVIEW OF SYSTEMS: Constitutional: No episodes of fever and night sweats. Neuro: No HAYES, vertigo, dizziness and imbalance. Chronic neuropathy both lower extremities. HEENT: No recent change in voice, vision or hearing. Resp: No cough, wheeze and hemoptysis. No shortness of breath at rest. CVS: No exertional chest pain, PND, orthopnea and LE edema. GI: No reflux, n/v, change in bowel habits or abdominal pain. : No dysuria or gross hematuria. Endo: No hot flashes. Musculoskeletal: See above. Derm: No current rash. Heme: See above Psych: Normal mood. PHYSICAL EXAM: Vitals: Blood pressure 125/83, pulse 78, temperature (!) 35.9 ?C (96.7 ?F), temperature source Temporal, weight 97.1 kg (214 lb), last menstrual period 12/22/2010, SpO2 100%. Well-appearing and in no acute distress. EYES: Sclerae are (more content not included)... [facility] 11-05-2024 History of Presen t illness Narrative Hematologic problem(s): 1) Mild thrombocytopenia. 2) Splenomegaly. 3) RA. 4) Hypercoagulation work up for masto HPI: The patient is a 49-year-old female with a past medical history as outlined below. She is in need of breast reduction surgery. She has history of rheumatoid arthritis. Also has a history of multiple spontaneous losses in the first trimester. Symptoms from RA include joint swelling, pain and stiffness as well as fatigue. Diagnosed about 10+ years ago. Sees Dr. Jalloh in [place]. 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 She has chronic history mildly low platelet count. No personal history of venous thromboembolism. No known family h/o VTE. History 5 miscarriages all prior to about 12 weeks. Had a daughter prior to the miscarriages. Full term (close to 10 months-- was on vacation). Emergency .Took 4 years to conceive her. Full hysterectomy [id number] for early stage endometrial cancer. No adjuvant chemotherapy or radiation. Age 11 on--Very irregular menses. Heavy when occurred. Doesn't bruise easily but can get unexplained bruising. Hasn't used Mobic in a while--ran out. Echo 2009--mild LVH and probably patent foramen ovale. Presents for ongoing hematologic management. Interim history: No subjective change. No complaints today. No unusual bleeding or unexplained bruising. PAST MEDICAL HISTORY Diagnosis Date Delayed emergence from general anesthesia Dysmetabolic syndrome X polycystic syndrome Endometrial hyperplasia with atypia 2007 Enlarged heart left side of heart Gastroparesis Headache(784.0) Leiomyoma of uterus, unspecified 2010 Mitral valve disorders(424.0) Obesity (BMI 30-39.9) CRIS (obstructive sleep apnea) no CPAP Polycystic ovaries Snoring Type II or unspecified type diabetes mellitus without mention of complication, not stated as uncontrolled Unspecified asthma(493.90) Unspecified essential hypertension PAST SURGICAL HISTORY Procedure Laterality Date CAPSULE ENDOSCOPY 10/23/2020 DELIVERY ONLY 10/18/1995 , low cervical COLONOSCOPY FLX DX W/COLLJ SPEC WHEN PFRMD 2013 COLONOSCOPY SCREENING 11/17/2022 DILATION & CURETTAGE DX&/THER NONOBSTETRIC 1997, 2000 Dilation & curettage EGD 12/11/2015 chronic active gastritis EGD TRANSORAL BIOPSY SINGLE/MULTIPLE 08/22/2017 non-bleeding erosive gastropathy, sm amt phytobezoar in stomach, neg H Pylori; Dr. Vargas GI TRANSIT & PRES JON WIRELESS CAPSULE W/INTERP 10/16/2020 Smart Pill HYSTERECTOMY HX 2010 HYSTEROSCOPY BX W/WO D&C 11/25/2010 HYSTEROSCOPY, DIAGNOSTIC (SEPARATE 04/25/2008 Hysteroscopy/currettage INSERTION OF IUD 11/25/2010 mirena TONSILLECTOMY HX ALLERGIES Allergen Reactions Bees Rash, Swelling, Itching Childhood reaction, no recent stings. Metformin Diarrhea, GI Upset Adhesive Tape (Karen* Rash, Itching Lisinopril Intolerance Ozempic [Semaglutid* Intolerance Nausea and vomiting Reglan [Metoclopram* Intolerance Social History Tobacco Use Smoking status: Former Types: Cigarettes Smokeless tobacco: Never Tobacco comments: Pt smoked as a teenager, quit age 16 Vaping Use Vaping status: Never Used Substance Use Topics Alcohol use: Not Currently Drug use: Never FAMILY HISTORY Problem Relation Age of Onset Coronary Artery Disease Mother Hypertension Mother [place] @ 62 yrs. old Diabetes Mother Cancer Father SKIN, ENT met to lungs. Diabetes Sister Diabetes Brother Diabetes Brother Diabetes Brother Coronary Artery Disease Brother 40 stent + [place] Diabetes Brother Coronary Artery Disease Brother 40 stent + [place] Diabetes Brother Coronary Artery Disease Brother 40 stent Coronary Artery Disease Maternal Grandmother Cancer Paternal Grandmother colon Cancer Maternal Aunt PANCREAS Heart Attack Maternal Aunt Cancer Maternal Aunt UTERINE Cancer Maternal Uncle HODGKINS Asthma No Family History REVIEW OF SYSTEMS: Constitutional: No episodes of fever and night sweats. Neuro: No HAYES, vertigo, dizziness and imbalance. Chronic neuropathy both lower extremities. HEENT: No recent change in voice, vision or hearing. Resp: No cough, wheeze and hemoptysis. No shortness of breath at rest. CVS: No exertional chest pain, PND, orthopnea and LE edema. GI: No reflux, n/v, change in bowel habits or abdominal pain. : No dysuria or gross hematuria. Endo: No hot flashes. Musculoskeletal: See above. Derm: No current rash. Heme: See above Psych: Normal mood. PHYSICAL EXAM: Vitals: Blood pressure 125/83, pulse 78, temperature (!) 35.9 C (96.7 F), temperature source Temporal, weight 97.1 kg (214 lb), last menstrual period 12/22/2010, SpO2 100%. Well-appearing and in no acute distress. EYES: Sclerae are anicteric bilaterally. LYMPHATIC: There is no palpable cervical or supraclavicular adenopathy. CARDIOVASCULAR: Rhythm is regular. ABDOMEN: The abdomen is nondistended. No obvious splenomegaly or hepatomegaly. No tenderness. Extremities: No swelling or edema. SKIN: No petechiae. ASSESSMENT/PLAN: (R16.1) Splenomegaly (primary encounter diagnosis) (R79.1) Protime increased (R79.1) Positive dilute Jose Francisco's viper venom time test (D69.6) Thrombocytopenia Assessment: - 49-year-old female with past medical history significant for rheumatoid arthritis, type 2 diabetes and echocardiogram from 15 years ago demonstrating mild LVH and probable patent foramen ovale. She also has untreated sleep apnea (diagnosed a number years ago) and chronic mild thrombocytopenia. - No personal history of venous thromboembolism but she does have significant obstetrical history of 5 miscarriages prior to 12 weeks gestation. - Reviewed the results of her lab work and ultrasound. Splenomegaly with spleen measuring 16.2 cm. No evidence of fatty liver or other hepatic issue. She has a history of rheumatoid arthritis and because of that and mild thrombocytopenia, recommended bone marrow biopsy. She agreed but would like to have it done under conscious sedation. - Reviewed the results of the lupus anticoagulant testing. Mild prolongation of pro time at baseline. Initial screening PTT normal. Discussed further workup as recommended by hematopathology. Plan: - Hypercoagulation panel and PT mixing studies. - Bone marrow biopsy at [place] under conscious sedation. - Follow-up after above. - Recommended she contact Dr. Garcia for general medical clearance for reduction mammoplasty. Portions of this documentation were copied and pasted from my previous office visit note dated 10/23/2024 in order to provide a cohesive continuity of the history. The note has been reviewed and edited and updated as necessary. I spent a total of 30 minutes on the date of the service which included preparing to see the patient, [id number] patient care, completing clinical documentation, counseling and educating the patient/family/caregiver, ordering medications, tests, or procedures, communicating with other HCPs (not separately reported), and communicating results to the patient/family/caregiver. Toni Larson DO documented in this encounter [facility] 10-30-2024 Telephone encounter Note Patient stopped by the office today inquiring about a letter for her insurance company that her and Dr. Garcia discussed in her last appointment. Patient is getting a breast reduction and her insurance company would like a letter form Dr. Garcia stating that it's beneficial to her to have the reduction surgery. Please advise. Mira Abdullahi [facility] 10-30-2024 Miscellaneous Notes Patient stopped by the office today inquiring about a letter for her insurance company that her and Dr. Garcia discussed in her last appointment. Patient is getting a breast reduction and her insurance company would like a letter form Dr. Gracia stating that it's beneficial to her to have the reduction surgery. Please advise. Mira Abdullahi documented in this encounter [facility] 10-30-2024 History of Presen t illness Narrative Radiology Service Progress Note PATIENT NAME: Estela Cote DATE OF SERVICE: October 30, 2024 TIME: 9:11 AM PATIENT IDENTITY VERIFICATION COMPLETED USING TWO (2) IDENTIFIERS: Name and Date of confirmed by patient verbally. FALL SCREENING: Has the patient had 2 falls in the last year or 1 fall with injury or currently using an Ambulatory Assistive Device (Walker, Cane, Wheelchair, Crutches, etc.)? No PATIENT GENDER DATA: Assigned female at . status: : No status: NO. PATIENT RELEVANT IMPLANT DATA REVIEWED: Yes PATIENT PRESENTS WITH AN IMPLANTABLE OR ATTACHED FISHER POT: No RADIOLOGY DEPARTMENT: Ultrasound PERIPHERAL IV DATA: Not applicable SIGNED BY: Emilee Escobar RDMS, RVT October 30, 2024 9:11 AM documented in this encounter [facility] 10-30-2024 Note HNO ID: [id number] Author: EMILEE ESCOBAR RT(R) Service: ? Author Type: Technologist Type: Progress Notes Filed: 10/30/2024 09:12 Note Text: Radiology Service Progress Note PATIENT NAME: Estela Cote DATE OF SERVICE: October 30, 2024 TIME: 9:11 AM PATIENT IDENTITY VERIFICATION COMPLETED USING TWO (2) IDENTIFIERS: Name and Date of confirmed by patient verbally. FALL SCREENING: Has the patient had 2 falls in the last year or 1 fall with injury or currently using an Ambulatory Assistive Device (Walker, Cane, Wheelchair, Crutches, etc.)? No PATIENT GENDER DATA: Assigned female at . status: : No status: NO. PATIENT RELEVANT IMPLANT DATA REVIEWED: Yes PATIENT PRESENTS WITH AN IMPLANTABLE OR ATTACHED FISHER POT: No RADIOLOGY DEPARTMENT: Ultrasound PERIPHERAL IV DATA: Not applicable SIGNED BY: Emilee Escobar RDMS, MARIZA October 30, 2024 9:11 AM [facility] 10-23-2024 History of Presen t illness Narrative Patient referred by Dr. Lind for workup for hypercoagulable condition. HPI: The patient is a 49-year-old female with a past medical history as outlined below. She is in need of breast reduction surgery. She has history of rheumatoid arthritis. Also has a history of multiple spontaneous losses in the first trimester. Symptoms from RA include joint swelling, pain and stiffness as well as fatigue. Diagnosed about 10+ years ago. Sees Dr. Jalloh in [place]. 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 She has chronic history mildly low platelet count. No personal history of venous thromboembolism. No known family h/o VTE. History 5 miscarriages all prior to about 12 weeks. Had a daughter prior to the miscarriages. Full term (close to 10 months-- was on vacation). Emergency .Took 4 years to conceive her. Full hysterectomy for early stage endometrial cancer. No adjuvant chemotherapy or radiation. Age 11 on--Very irregular menses. Heavy when occurred. Doesn't bruise easily but can get unexplained bruising. Hasn't used Mobic in a while--ran out. Echo 2009--mild LVH and probably patent foramen ovale. PAST MEDICAL HISTORY Diagnosis Date Delayed emergence from general anesthesia Dysmetabolic syndrome X polycystic syndrome Endometrial hyperplasia with atypia 2007 Enlarged heart left side of heart Gastroparesis Headache(784.0) Leiomyoma of uterus, unspecified 2010 Mitral valve disorders(424.0) Obesity (BMI 30-39.9) CRIS (obstructive sleep apnea) no CPAP Polycystic ovaries Snoring Type II or unspecified type diabetes mellitus without mention of complication, not stated as uncontrolled Unspecified asthma(493.90) Unspecified essential hypertension PAST SURGICAL HISTORY Procedure Laterality Date CAPSULE ENDOSCOPY 10/23/2020 DELIVERY ONLY 10/18/1995 , low cervical COLONOSCOPY FLX DX W/COLLJ SPEC WHEN PFRMD 2012 COLONOSCOPY SCREENING 11/17/2022 DILATION & CURETTAGE DX&/THER NONOBSTETRIC 1997, 2000 Dilation & curettage EGD 12/11/2015 chronic active gastritis EGD TRANSORAL BIOPSY SINGLE/MULTIPLE 08/22/2017 non-bleeding erosive gastropathy, sm amt phytobezoar in stomach, neg H Pylori; Dr. Vargas GI TRANSIT & PRES JON WIRELESS CAPSULE W/INTERP 10/16/2020 Smart Pill HYSTERECTOMY HX 2010 HYSTEROSCOPY BX W/WO D&C 11/25/2010 HYSTEROSCOPY, DIAGNOSTIC (SEPARATE 04/25/2008 Hysteroscopy/currettage INSERTION OF IUD 11/25/2010 mirena TONSILLECTOMY HX ALLERGIES Allergen Reactions Bees Rash, Swelling, Itching Childhood reaction, no recent stings. Metformin Diarrhea, GI Upset Adhesive Tape (Karen* Rash, Itching Lisinopril Intolerance Ozempic [Semaglutid* Intolerance Nausea and vomiting Reglan [Metoclopram* Intolerance Social History Tobacco Use Smoking status: Former Types: Cigarettes Smokeless tobacco: Never Tobacco comments: Quit 31 years ago Vaping Use Vaping status: Never Used Substance Use Topics Alcohol use: Not Currently Drug use: Never FAMILY HISTORY Problem Relation Age of Onset Coronary Artery Disease Mother Hypertension Mother AZ @ 62 yrs. old Diabetes Mother Cancer Father SKIN, ENT met to lungs. Coronary Artery Disease Brother 40 stent + [place] Coronary Artery Disease Brother 40 stent + [place] Coronary Artery Disease Brother 40 stent Coronary Artery Disease Maternal Grandmother Cancer Paternal Grandmother colon Cancer Maternal Aunt PANCREAS Heart Attack Maternal Aunt Cancer Maternal Aunt UTERINE Cancer Maternal Uncle HODGKINS Asthma No Family History REVIEW OF SYSTEMS: Constitutional: No episodes of fever and night sweats. Neuro: No HAYES, vertigo, dizziness and imbalance. Chronic neuropathy both lower extremities. HEENT: No recent change in voice, vision or hearing. Resp: No cough, wheeze and hemoptysis. No shortness of breath at rest. CVS: No exertional chest pain, PND, orthopnea and LE edema. GI: No reflux, n/v, change in bowel habits or abdominal pain. : No dysuria or gross hematuria. Endo: No hot flashes. Musculoskeletal: See above. Derm: No current rash. Heme: See above Psych: Normal mood. PHYSICAL EXAM: Vitals: Blood pressure 138/84, pulse 80, temperature 36.2 C (97.1 F), temperature source Temporal, height 167 cm (5' 5.75), weight 99.3 kg (219 lb), last menstrual period 12/22/2010, SpO2 99%. Well-appearing and in no acute distress. EYES: Sclerae are anicteric bilaterally. LYMPHATIC: There is no palpable cervical or supraclavicular adenopathy. CARDIOVASCULAR: Rhythm is regular. ABDOMEN: The abdomen is nondistended. No splenomegaly or hepatomegaly. No tenderness. Extremities: No swelling or edema. SKIN: No petechiae. ASSESSMENT/PLAN: (D69.6) Thrombocytopenia (primary encounter diagnosis) (R94.5) fatty liver Assessment: - 49-year-old female with past medical history significant for rheumatoid arthritis, type 2 diabetes and echocardiogram from 15 years ago demonstrating mild LVH and probable patent foramen ovale. She also has untreated sleep apnea (diagnosed a number years ago) and chronic mild thrombocytopenia. - No personal history of venous thromboembolism but she does have significant obstetrical history of 5 miscarriages prior to 12 weeks gestation. That along with mild thrombocytopenia indicates workup for possible underlying anticardiolipin antibody or lupus anticoagulant. - Discussed stepwise approach to workup and outlined plan below. Plan: - CBC with staff review, CMP and hepatitis remote panel today. - Ultrasound liver and spleen. - Office visit following above. - Recommended she contact Dr. Garcia for general medical clearance for reduction mammoplasty. I spent a total of 60 minutes on the date of the service which included preparing to see the patient, [id number] patient care, completing clinical documentation, obtaining and/or reviewing separately obtained history, performing a medically appropriate examination, counseling and educating the patient/family/caregiver, ordering medications, tests, or procedures, communicating with other HCPs (not separately reported), and communicating results to the patient/family/caregiver. Toni Larson DO documented in this encounter [facility] 10-23-2024 Note HNO ID: [id number] Author: TONI LARSON, DO Service: ? Author Type: Physician Type: Progress Notes Filed: 10/23/2024 14:59 Note Text: Patient referred by Dr. Lind for workup for hypercoagulable condition. HPI: The patient is a 49-year-old female with a past medical history as outlined below. She is in need of breast reduction surgery. She has history of rheumatoid arthritis. Also has a history of multiple spontaneous losses in the first trimester. Symptoms from RA include joint swelling, pain and stiffness as well as fatigue. Diagnosed about 10+ years ago. Sees Dr. Jalloh in [place]. 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 She has chronic history mildly low platelet count. No personal history of venous thromboembolism. No known family h/o VTE. History 5 miscarriages all prior to about 12 weeks. Had a daughter prior to the miscarriages. Full term (close to 10 months-- was on vacation). Emergency .Took 4 years to conceive her. Full hysterectomy [id number] for early stage endometrial cancer. No adjuvant chemotherapy or radiation. Age 11 on--Very irregular menses. Heavy when occurred. Doesn't bruise easily but can get unexplained bruising. Hasn't used Mobic in a while--ran out. Echo 2009--mild LVH and probably patent foramen ovale. PAST MEDICAL HISTORY Diagnosis Date Delayed emergence from general anesthesia Dysmetabolic syndrome X polycystic syndrome Endometrial hyperplasia with atypia 2007 Enlarged heart left side of heart Gastroparesis Headache(784.0) Leiomyoma of uterus, unspecified 2010 Mitral valve disorders(424.0) Obesity (BMI 30-39.9) CRIS (obstructive sleep apnea) no CPAP Polycystic ovaries Snoring Type II or unspecified type diabetes mellitus without mention of complication, not stated as uncontrolled Unspecified asthma(493.90) Unspecified essential hypertension PAST SURGICAL HISTORY Procedure Laterality Date CAPSULE ENDOSCOPY 10/23/2020 DELIVERY ONLY 10/18/1995 , low cervical COLONOSCOPY FLX DX W/COLLJ SPEC WHEN PFRMD 2013 COLONOSCOPY SCREENING 11/17/2022 DILATION AND CURETTAGE DXAND/THER NONOBSTETRIC 1997, 2000 Dilation AND curettage EGD 12/11/2015 chronic active gastritis EGD TRANSORAL BIOPSY SINGLE/MULTIPLE 08/22/2017 non-bleeding erosive gastropathy, sm amt phytobezoar in stomach, neg H Pylori; Dr. Vargas GI TRANSIT AND PRES JON WIRELESS CAPSULE W/INTERP 10/16/2020 Smart Pill HYSTERECTOMY HX 2010 HYSTEROSCOPY BX W/WO DANDC 11/25/2010 HYSTEROSCOPY, DIAGNOSTIC (SEPARATE 04/25/2008 Hysteroscopy/currettage INSERTION OF IUD 11/25/2010 mirena TONSILLECTOMY HX ALLERGIES Allergen Reactions Bees Rash, Swelling, Itching Childhood reaction, no recent stings. Metformin Diarrhea, GI Upset Adhesive Tape (Karen* Rash, Itching Lisinopril Intolerance Ozempic [Semaglutid* Intolerance Nausea and vomiting Reglan [Metoclopram* Intolerance Social History Tobacco Use Smoking status: Former Types: Cigarettes Smokeless tobacco: Never Tobacco comments: Quit 31 years ago Vaping Use Vaping status: Never Used Substance Use Topics Alcohol use: Not Currently Drug use: Never FAMILY HISTORY Problem Relation Age of Onset Coronary Artery Disease Mother Hypertension Mother [place] @ 62 yrs. old Diabetes Mother Cancer Father SKIN, ENT met to lungs. Coronary Artery Disease Brother 40 stent + [place] Coronary Artery Disease Brother 40 stent + [place] Coronary Artery Disease Brother 40 stent Coronary Artery Disease Maternal Grandmother Cancer Paternal Grandmother colon Cancer Maternal Aunt PANCREAS Heart Attack Maternal Aunt Cancer Maternal Aunt UTERINE Cancer Maternal Uncle HODGKINS Asthma No Family History REVIEW OF SYSTEMS: Constitutional: No episodes of fever and night sweats. Neuro: No HAYES, vertigo, dizziness and imbalance. Chronic neuropathy both lower extremities. HEENT: No recent change in voice, vision or hearing. Resp: No cough, wheeze and hemoptysis. No shortness of breath at rest. CVS: No exertional chest pain, PND, orthopnea and LE edema. GI: No reflux, n/v, change in bowel habits or abdominal pain. : No dysuria or gross hematuria. Endo: No hot flashes. Musculoskeletal: See above. Derm: No current rash. Heme: See above Psych: Normal mood. PHYSICAL EXAM: Vitals: Blood pressure 138/84, pulse 80, temperature 36.2 ?C (97.1 ?F), temperature source Temporal, height 167 cm (5' 5.75), weight 99.3 kg (219 lb), last menstrual period 12/22/2010, SpO2 99%. Well-appearing and in no acute distress. EYES: Sclerae are anicteric bilaterally. LYMPHATIC: There is no palpable cervical or supraclavicular adenopathy. CARDIOVASCULAR: Rhythm is regular. ABDOMEN: The abdomen is nondistended. No splenomegaly or hepatomegaly. No tenderness. Extremities: No swelling or edema. SKIN: No petechiae. ASSESSMENT/PLAN: (D69.6) Thromb (more content not included)... [facility] 10-17-2024 History of Presen t illness Narrative Radiology Service Progress Note PATIENT NAME: Estela Cote DATE OF SERVICE: October 17, 2024 TIME: 1:01 PM PATIENT IDENTITY VERIFICATION COMPLETED USING TWO (2) IDENTIFIERS: Name and Date of confirmed by patient verbally. FALL SCREENING: Has the patient had 2 falls in the last year or 1 fall with injury or currently using an Ambulatory Assistive Device (Walker, Cane, Wheelchair, Crutches, etc.)? No PATIENT GENDER DATA: Assigned female at . status: : No status: NO. PATIENT RELEVANT IMPLANT DATA REVIEWED: Yes PATIENT PRESENTS WITH AN IMPLANTABLE OR ATTACHED FISHER POT: No RADIOLOGY DEPARTMENT: Ultrasound PERIPHERAL IV DATA: Not applicable SIGNED BY: TECHNOLOGIST William October 17, 2024 1:01 PM documented in this encounter [facility] 10-17-2024 Note HNO ID: [id number] Author: ELLA QUINONES TECHNOLOGIST Service: ? Author Type: Technologist Type: Progress Notes Filed: 10/17/2024 13:02 Note Text: Radiology Service Progress Note PATIENT NAME: Estela Cote DATE OF SERVICE: October 17, 2024 TIME: 1:01 PM PATIENT IDENTITY VERIFICATION COMPLETED USING TWO (2) IDENTIFIERS: Name and Date of confirmed by patient verbally. FALL SCREENING: Has the patient had 2 falls in the last year or 1 fall with injury or currently using an Ambulatory Assistive Device (Walker, Cane, Wheelchair, Crutches, etc.)? No PATIENT GENDER DATA: Assigned female at . status: : No status: NO. PATIENT RELEVANT IMPLANT DATA REVIEWED: Yes PATIENT PRESENTS WITH AN IMPLANTABLE OR ATTACHED FISHER POT: No RADIOLOGY DEPARTMENT: Ultrasound PERIPHERAL IV DATA: Not applicable SIGNED BY: Ella Quinones, TECHNOLOGIST October 17, 2024 1:01 PM [facility] 10-17-2024 Note HNO ID: [id number] Author: GUSTAVO RAM RT(R) Service: Radiology Author Type: Technologist Type: Progress Notes Filed: 10/17/2024 12:23 Note Text: Radiology Service Progress Note PATIENT NAME: Estela Cote DATE OF SERVICE: October 17, 2024 TIME: 12:23 PM PATIENT IDENTITY VERIFICATION COMPLETED USING TWO (2) IDENTIFIERS: Name and Date of confirmed by patient verbally. FALL SCREENING: Has the patient had 2 falls in the last year or 1 fall with injury or currently using an Ambulatory Assistive Device (Walker, Cane, Wheelchair, Crutches, etc.)? No PATIENT GENDER DATA: Assigned female at . status: : No status: N/A PATIENT RELEVANT IMPLANT DATA REVIEWED: Not Applicable PATIENT PRESENTS WITH AN IMPLANTABLE OR ATTACHED FISHER POT: No RADIOLOGY DEPARTMENT: Mammography PERIPHERAL IV DATA: Not applicable SIGNED BY: RT Frantz(R) October 17, 2024 12:23 PM [facility] 10-17-2024 Note HNO ID: [id number] Author: AUDELIA GARCIA, DO Service: ? Author Type: Physician Type: Progress Notes Filed: 11/11/2024 00:38 Note Text: Subjective LEANNA Amin is a 49-year-old female with a history of rheumatoid arthritis and fibromyalgia, presenting with a right breast lump and requesting a letter of recommendation for breast reduction surgery. Right Breast Lump: - Noticed a lump in the right breast approximately 1.5-2 weeks ago. - Describes the lump as sometimes tender, initially thought it was due to lying on the breast while sleeping. - Uncertain if the lump is part of the rib or a distinct mass. - Recent mammogram in May. - Denies changes in breast skin, warmth, or nipple discharge. - Family history of breast cysts in sister. Breast Reduction Surgery: - Planning to undergo breast reduction surgery; requests a letter of recommendation for insurance purposes. - Has letters from chiropractor and mba internship supporting the surgery. - Reports chronic back, neck, and shoulder pain attributed to large breasts, with more significant size on the right side. - Experiences chafing, redness, and sweating under the breasts. - Describes poor posture and a hump due to constant leaning. - Pain exacerbated by standing; sometimes requires lying down and stretching for relief. - Noted increased pain after recent weight loss, with no reduction in breast size. - Has experienced issues with large breasts throughout life, regardless of weight changes. ALLERGIES Allergen Reactions Bees Rash, Swelling, Itching Childhood reaction, no recent stings. Metformin Diarrhea, GI Upset Adhesive Tape (Karen* Rash, Itching Lisinopril Intolerance Ozempic [Semaglutid* Intolerance Nausea and vomiting Reglan [Metoclopram* Intolerance Current Outpatient Medications Medication Sig Dispense Refill MOUNJARO 12.5 mg/0.5 mL pen injector Inject 12.5 mg subcutaneously one time a week. LANTUS SOLOSTAR U-100 INSULIN 100 unit/mL (3 mL) Inject 42 Units subcutaneously once daily. spironolactone (ALDACTONE) 25 mg tablet Take 25 mg by mouth once daily. lisinopril (ZESTRIL) 10 mg tablet Take 10 mg by mouth once daily. ergocalciferol 50,000 unit capsule (VITAMIN D2, DRISDOL) Take 50,000 Units by mouth one time a week. gabapentin (NEURONTIN) 100 mg capsule Take 1 capsule by mouth three times a day for 30 days. 90 capsule 0 pen needle, diabetic (COMFORT EZ PEN NEEDLES) 33 gauge x 3/16 ndle 1 Each once daily. 30 Each 11 ondansetron (ZOFRAN) 4 mg tablet Take 1 tablet by mouth every 8 hours as needed for nausea/vomiting. 30 tablet 2 meloxicam (MOBIC ORAL) Take 15 mg by mouth once daily. Blood Glucose Control, Normal soln Use as directed 1 Each 1 blood sugar diagnostic (BLOOD GLUCOSE TEST) test strip 1 Strip once daily. Use as instructed 100 Each 3 albuterol (PROVENTIL) 2.5 mg /3 mL (0.083 %) nebulizer solution Use 3 mL via nebulizer every 4 hours as needed for wheezing/shortness of breath. OVER 5-15 MINUTES. FOR WHEEZING AND SHORTNESS OF BREATH. 90 mL 3 No current facility-administered medications for this visit. ACTIVE PROBLEM LIST Hypertension, Essential Dysmetabolic Syndrome X Polycystic Ovaries Unspecified Asthma(493.90) Headache(784.0) FATTY LIVER Endometrial Hyperplasia With Atypia Excessive Or Frequent Menstruation Djd (Degenerative Joint Disease) Capsulitis Complex Endometrial Hyperplasia Without Atypia Rheumatoid Arthritis, Adult (Hcc) Fibromyalgia Type 2 Diabetes Mellitus Without Complication, Without Long-Term Current Use of Insulin (Hcc) Insomnia Hyperlipidemia Family History of Ischemic Heart Disease Cris (Obstructive Sleep Apnea) Abnormal Finding On Ultrasound Epigastric Pain Nausea Gastroparesis Due to Secondary Diabetes (Hcc) Type 2 Diabetes Mellitus With Diabetic Neuropathy, With Long-Term Current Use of Insulin (Hcc) Obesity, Class Iii, Bmi 40-49.9 (Morbid Obesity) Encounter for Screening for Malignant Neoplasm of Colon Leg Swelling Palpitation Obesity, Class II, Bmi 35-39.9 Social History Tobacco Use Smoking status: Former Types: Cigarettes Smokeless tobacco: Never Tobacco comments: Quit 31 years ago Vaping Use Vaping status: Never Used Substance Use Topics Alcohol use: Not Currently Drug use: Never Family History Problem Relation Age of Onset Coronary Artery Disease Mother Hypertension Mother [place] @ 62 yrs. old Diabetes Mother Cancer Father SKIN, ENT met to lungs. Coronary Artery Disease Brother 40 stent + [place] Coronary Artery Disease Brother 40 stent + [place] Coronary Artery Disease Brother 40 stent Coronary Artery Disease Maternal Grandmother Cancer Paternal Grandmother colon Cancer Maternal Aunt PANCREAS Heart Attack Maternal Aunt Cancer Maternal Aunt UTERINE Cancer Maternal Uncle HODGKINS Asthma No Family History Reviewed past medical history, family history and surgeries. (more content not included)... [facility] 10-17-2024 History of Presen t illness Narrative Subjective HPI Eloisa is a 49-year-old female with a history of rheumatoid arthritis and fibromyalgia, presenting with a right breast lump and requesting a letter of recommendation for breast reduction surgery. Right Breast Lump: - Noticed a lump in the right breast approximately 1.5-2 weeks ago. - Describes the lump as sometimes tender, initially thought it was due to lying on the breast while sleeping. - Uncertain if the lump is part of the rib or a distinct mass. - Recent mammogram in May. - Denies changes in breast skin, warmth, or nipple discharge. - Family history of breast cysts in sister. Breast Reduction Surgery: - Planning to undergo breast reduction surgery; requests a letter of recommendation for insurance purposes. - Has letters from chiropractor and mba internship supporting the surgery. - Reports chronic back, neck, and shoulder pain attributed to large breasts, with more significant size on the right side. - Experiences chafing, redness, and sweating under the breasts. - Describes poor posture and a hump due to constant leaning. - Pain exacerbated by standing; sometimes requires lying down and stretching for relief. - Noted increased pain after recent weight loss, with no reduction in breast size. - Has experienced issues with large breasts throughout life, regardless of weight changes. ALLERGIES Allergen Reactions Bees Rash, Swelling, Itching Childhood reaction, no recent stings. Metformin Diarrhea, GI Upset Adhesive Tape (Karen* Rash, Itching Lisinopril Intolerance Ozempic [Semaglutid* Intolerance Nausea and vomiting Reglan [Metoclopram* Intolerance Current Outpatient Medications Medication Sig Dispense Refill MOUNJARO 12.5 mg/0.5 mL pen injector Inject 12.5 mg subcutaneously one time a week. LANTUS SOLOSTAR U-100 INSULIN 100 unit/mL (3 mL) Inject 42 Units subcutaneously once daily. spironolactone (ALDACTONE) 25 mg tablet Take 25 mg by mouth once daily. lisinopril (ZESTRIL) 10 mg tablet Take 10 mg by mouth once daily. ergocalciferol 50,000 unit capsule (VITAMIN D2, DRISDOL) Take 50,000 Units by mouth one time a week. gabapentin (NEURONTIN) 100 mg capsule Take 1 capsule by mouth three times a day for 30 days. 90 capsule 0 pen needle, diabetic (COMFORT EZ PEN NEEDLES) 33 gauge x 3/16 ndle 1 Each once daily. 30 Each 11 ondansetron (ZOFRAN) 4 mg tablet Take 1 tablet by mouth every 8 hours as needed for nausea/vomiting. 30 tablet 2 meloxicam (MOBIC ORAL) Take 15 mg by mouth once daily. Blood Glucose Control, Normal soln Use as directed 1 Each 1 blood sugar diagnostic (BLOOD GLUCOSE TEST) test strip 1 Strip once daily. Use as instructed 100 Each 3 albuterol (PROVENTIL) 2.5 mg /3 mL (0.083 %) nebulizer solution Use 3 mL via nebulizer every 4 hours as needed for wheezing/shortness of breath. OVER 5-15 MINUTES. FOR WHEEZING AND SHORTNESS OF BREATH. 90 mL 3 No current facility-administered medications for this visit. ACTIVE PROBLEM LIST Hypertension, Essential Dysmetabolic Syndrome X Polycystic Ovaries Unspecified Asthma(493.90) Headache(784.0) FATTY LIVER Endometrial Hyperplasia With Atypia Excessive Or Frequent Menstruation Djd (Degenerative Joint Disease) Capsulitis Complex Endometrial Hyperplasia Without Atypia Rheumatoid Arthritis, Adult (Hcc) Fibromyalgia Type 2 Diabetes Mellitus Without Complication, Without Long-Term Current Use of Insulin (Hcc) Insomnia Hyperlipidemia Family History of Ischemic Heart Disease Cris (Obstructive Sleep Apnea) Abnormal Finding On Ultrasound Epigastric Pain Nausea Gastroparesis Due to Secondary Diabetes (Hcc) Type 2 Diabetes Mellitus With Diabetic Neuropathy, With Long-Term Current Use of Insulin (Hcc) Obesity, Class Iii, Bmi 40-49.9 (Morbid Obesity) Encounter for Screening for Malignant Neoplasm of Colon Leg Swelling Palpitation Obesity, Class II, Bmi 35-39.9 Social History Tobacco Use Smoking status: Former Types: Cigarettes Smokeless tobacco: Never Tobacco comments: Quit 31 years ago Vaping Use Vaping status: Never Used Substance Use Topics Alcohol use: Not Currently Drug use: Never Family History Problem Relation Age of Onset Coronary Artery Disease Mother Hypertension Mother [place] @ 62 yrs. old Diabetes Mother Cancer Father SKIN, ENT met to lungs. Coronary Artery Disease Brother 40 stent + [place] Coronary Artery Disease Brother 40 stent + [place] Coronary Artery Disease Brother 40 stent Coronary Artery Disease Maternal Grandmother Cancer Paternal Grandmother colon Cancer Maternal Aunt PANCREAS Heart Attack Maternal Aunt Cancer Maternal Aunt UTERINE Cancer Maternal Uncle HODGKINS Asthma No Family History Reviewed past medical history, family history and surgeries. All medications and supplements were reviewed with the patient. Review of Systems Constitutional: Negative for chills, diaphoresis, fever, malaise/fatigue and weight loss. HENT: Negative for ear pain and hearing loss. Eyes: Negative for blurred vision and double vision. Respiratory: Negative for cough and shortness of breath. Cardiovascular: Negative for chest pain, palpitations and leg swelling. Gastrointestinal: Negative for constipation, diarrhea and heartburn. Genitourinary: Negative for dysuria and frequency. Musculoskeletal: Negative for back pain, falls, joint pain and myalgias. Skin: Negative for itching and rash. Mass right breast Neurological: Negative for dizziness, weakness and headaches. Endo/Heme/Allergies: Does not bruise/bleed easily. Psychiatric/Behavioral: Negative for depression and substance abuse. The patient does not have insomnia. Objective BP 122/78 Pulse 79 Temp 36.6 C (97.9 F) Ht 166.4 cm (5' 5.5) Wt 99.8 kg (220 lb) LMP 12/22/2010 SpO2 98% BMI 36.05 kg/m Physical Exam Constitutional: Appearance: Normal appearance. She is obese. HENT: Head: Normocephalic and atraumatic. Nose: Nose normal. Mouth/Throat: Mouth: Mucous membranes are moist. Dentition: Normal dentition. Eyes: General: Lids are normal. Extraocular Movements: Extraocular movements intact. Conjunctiva/sclera: Conjunctivae normal. Pupils: Pupils are equal, round, and reactive to light. Neck: Thyroid: No thyroid mass or thyromegaly. Vascular: No carotid bruit. Trachea: Phonation normal. Cardiovascular: Rate and Rhythm: Normal rate and regular rhythm. Heart sounds: Normal heart sounds. No murmur heard. No friction rub. No gallop. Pulmonary: Effort: Pulmonary effort is normal. Breath sounds: Normal breath sounds. No wheezing or rales. Abdominal: General: Bowel sounds are normal. There is no distension. Palpations: Abdomen is soft. There is no mass. Tenderness: There is no abdominal tenderness. Musculoskeletal: General: No swelling or tenderness. Normal range of motion. Cervical back: Normal range of motion and neck supple. No edema. Lymphadenopathy: Cervical: No cervical adenopathy. Skin: General: Skin is warm and dry. Findings: No erythema or rash. Nails: There is no clubbing. Comments: BREASTS: Palpable lump noted in the right breast at the 9 o'clock position, soft and mobile. No skin changes or nipple discharge observed. Neurological: Mental Status: She is alert and oriented to person, place, and time. Cranial Nerves: No cranial nerve deficit. Motor: Motor function is intact. Coordination: Coordination normal. Gait: Gait is intact. Psychiatric: Attention and Perception: Attention normal. Mood and Affect: Mood and affect normal. Speech: Speech normal. Behavior: Behavior normal. Behavior is cooperative. Thought Content: Thought content normal. Cognition and Memory: Cognition and memory normal. Judgment: Judgment normal. ASSESSMENT/PLAN: 1. Mass of upper outer quadrant of right breast (N63.11) - Palpable, mobile, soft mass located at 9 o'clock position on the right breast; no associated skin changes or nipple discharge. - Ordered diagnostic mammogram and ultrasound of the right breast to further evaluate the mass. - Discussed that the mass is likely benign based on its characteristics, but emphasized the importance of further imaging to confirm. - US BREAST LTD RIGHT - [facility] RIGHT 2. Large breasts (N62) - pt interested in breast reduction surgery - Chronic upper and mid-back pain, neck pain, and shoulder pain attributed to macromastia; asymmetry noted with larger right breast. - Experiences chafing and redness under the breasts. - Patient is planning to undergo breast reduction surgery; requested a letter of medical necessity for insurance purposes. - Will provide a letter supporting breast reduction due to chronic pain and physical discomfort. 3. Chronic bilateral thoracic back pain (M54.6) - pt interested in breast reduction surgery 4. Chronic pain of both shoulders (M25.511) - Chronic upper and mid-back pain, neck pain, and shoulder pain attributed to macromastia; asymmetry noted with larger right breast. - Experiences chafing and redness under the breasts. - Patient is planning to undergo breast reduction surgery; requested a letter of medical necessity for insurance purposes. - Will provide a letter supporting breast reduction due to chronic pain and physical discomfort. 5. Obesity, Class II, BMI 35-39.9 (E66.812) - Noted weight loss, but persistent macromastia. - Continue current management and follow-up as needed. Audelia Garcia DO The patient consented to the use of [employer] software for draft documentation of the visit consistent with [facility] s Notice of Privacy Practices. documented in this encounter [facility] 10-03-2024 Telephone encounter Note I called and spoke to Estela and scheduled her for a new patient visit as she requested for 10/23/24 @ 2:00 PM. She confirmed this date, time and location Yassine Gamez [facility] 10-03-2024 Miscellaneous Notes I called and spoke to Estela and scheduled her for a new patient visit as she requested for 10/23/24 @ 2:00 PM. She confirmed this date, time and location Yassine Gamez Received new pt referral. New Pt chart put together, would like to review with Dr Larson prior to making apt. Kiara Davies LPN documented in this encounter [facility] 10-01-2024 Telephone encounter Note Received new pt referral. New Pt chart put together, would like to review with Dr Larson prior to making apt. Kiara Davies LPN [facility] 09-27-2024 Evaluation note Diagnosis Onset Date Resolution Breast hypertrophy acute September 8 h2024 8:19am Macromastia acute September 27, 2024 8:19am Chronic back pain chronic September 8:19am Diabetes mellitus chronic October 1:06pm Hypertension chronic October 22 1:06pm Obesity chronic October 22, 2024 1:06pm [employer] Work Phone: 1(576) 651-330703-03-2025 Evaluation note* Diagnosis Onset Date Resolution Status Admit Date Vitamin D deficiency acute Dwain 2024 1:03pm Diabetes mellitus chronic July 232024 1:03pm Hypertension chronic July 23, 2 025 1:03pm Obesity chronic July 23 1:03pm Breast hypertrophy acute September 82024 8:19am Macromastia acute September 27, 2024 8:19am Chronic back pain chronic September 8:19am [employer] Work Phone: 1(639) 666-115101-14-2025 History of Present illness Narrative* Gustavo Ram, RT(R) - 06/05/2024 8:30 AM EST Radiology Service Progress Note PATIENT NAME: Estela Cote DATE OF SERVICE: June 05, 2024 TIME: 8:22 AM PATIENT IDENTITY VERIFICATION COMPLETED USING TWO (2) IDENTIFIERS: Name and Date of confirmedby patient verbally. FALL SCREENING: Has the patient had 2 falls in the last year or 1 fall with injury or currently using an Ambulatory Assistive Device (Walker, Cane, Wheelchair, Crutches, etc.)? No PATIENT GENDER DATA: Assigned female at . status: : No status:NO. PATIENT RELEVANT IMPLANT DATA REVIEWED: Not Applicable PATIENT PRESENTS WITH AN IMPLANTABLE OR ATTACHED FISHER POT: No RADIOLOGY DEPARTMENT: Mammography PERIPHERAL IV DATA: Not applicable SIGNED BY: RT Frantz(Arben) June 05, 2024 8:22 AM [facility] NoteHNO ID: [id number] Author: GUSTAVO RAM RT (R) Service: Radiology Author Type: Technologist Type: Progress Notes Filed: 06/05/2024 08:22 Note Text: Radiology Service Progress Note PATIENT NAME: Estela Cote DATE OF SERVICE: June 05, 2024 TIME: 8:22 AM PATIENT IDENTITY VERIFICATION COMPLETED USING TWO (2) IDENTIFIERS: Name and Date of confirmed by patient verbally. FALL SCREENING: Has the patient had 2 falls in the last year or 1 fall with injury or currently using an Ambulatory Assistive Device (Walker, Cane, Wheelchair, Crutches, etc.)? No PATIENT GENDER DATA: Assigned female at . status: : No status: NO. PATIENT RELEVANT IMPLANT DATA REVIEWED: Not Applicable PATIENT PRESENTS WITH AN IMPLANTABLE OR ATTACHED FISHER POT: No RADIOLOGY DEPARTMENT: Mammography PERIPHERAL IV DATA: Not applicable SIGNED BY: RT Frantz(Arben) June 05, 2024 8:22 [facility]12-24-2024 NoteHNO ID: [id number] Author: AUDELIA GARCIA, DO Service: ? Author Type: Physician Type: Progress Notes Filed: 05/27/2024 10:44 Note Text: SUBJECTIVE: 49 year old female for annual checkup. I have fully reviewed the past medical, surgical, social and family history and updated the Histories section of [facility]. She is seeing an security flex officer, is on a GLP 1 (mounjaro), which she is tolerating She has been losing weight on this, and her A1c is now at [employer] She had blood work at her security flex officer's office on 04/02/24 She has an eversense year long glucometer implanted She had varicose veins removed 2 years ago, and now her left leg is painful and sensitive Patient's last menstrual period was 12/22/2010. ALLERGIES Allergen Reactions Bees Rash, Swelling, Itching Childhood reaction, no recent stings. Metformin Diarrhea, GI Upset Adhesive Tape (Karen* Rash, Itching Lisinopril Intolerance Ozempic [Semaglutid* Intolerance Nausea and vomiting Reglan [Metoclopram* Intolerance Current Outpatient Medications Medication Sig Dispense Refill MOUNJARO 12.5 mg/0.5 mL pen injector Inject 12.5 mg subcutaneously one time a week. LANTUS SOLOSTAR U-100 INSULIN 100 unit/mL (3 mL) Inject 42 Units subcutaneously once daily. spironolactone (ALDACTONE) 25 mg tablet Take 25 mg by mouth once daily. lisinopril (ZESTRIL) 10 mg tablet Take 10 mg by mouth once daily. ergocalciferol 50,000 unit capsule (VITAMIN D2, DRISDOL) Take 50,000 Units by mouth one time a week. gabapentin (NEURONTIN) 100 mg capsule Take 1 capsule by mouth three times a day for 30 days. 90 capsule 0 pen needle, diabetic (COMFORT EZ PEN NEEDLES) 33 gauge x 3/16 ndle 1 Each once daily. 30 Each 11 ondansetron (ZOFRAN) 4 mg tablet Take 1 tablet by mouth every 8 hours as needed for nausea/vomiting. 30 tablet 2 meloxicam (MOBIC ORAL) Take 15 mg by mouth once daily. blood sugar diagnostic (BLOOD GLUCOSE TEST) test strip 1 Strip once daily. Use as instructed 100 Each 3 albuterol (PROVENTIL) 2.5 mg /3 mL (0.083 %) nebulizer solution Use 3 mL via nebulizer every 4 hours as needed for wheezing/shortness of breath. OVER 5-15 MINUTES. FOR WHEEZING AND SHORTNESS OF BREATH. 90 mL 3 Blood Glucose Control, Normal soln Use as directed 1 Each 1 No current facility-administered medications for this visit. ACTIVE PROBLEM LIST Hypertension, Essential Dysmetabolic Syndrome X Polycystic Ovaries Unspecified Asthma(493.90) Headache(784.0) FATTY LIVER Endometrial Hyperplasia With Atypia Excessive Or Frequent Menstruation Djd (Degenerative Joint Disease) Capsulitis Complex Endometrial Hyperplasia Without Atypia Rheumatoid Arthritis, Adult (Hcc) Fibromyalgia Dm (Diabetes Mellitus), Type 2, Uncontrolled Insomnia Hyperlipidemia Family History of Ischemic Heart Disease Cris (Obstructive Sleep Apnea) Abnormal Finding On Ultrasound Epigastric Pain Nausea Gastroparesis Due to Secondary Diabetes (Hcc) Type 2 Diabetes Mellitus With Diabetic Neuropathy, With Long-Term Current Use of Insulin ([facility]) Obesity, Class Iii, Bmi 40-49.9 (Morbid Obesity) ([facility]) Encounter for Screening for Malignant Neoplasm of Colon Leg Swelling Palpitation Social History Tobacco Use Smoking status: Former Types: Cigarettes Smokeless tobacco: Never Tobacco comments: Quit 31 years ago Vaping Use Vaping status: Never Used Substance Use Topics Alcohol use: Not Currently Drug use: Never Family History Problem Relation Age of Onset Coronary Artery Disease Mother Hypertension Mother [place] @ 62 yrs. old Diabetes Mother Cancer Father SKIN, ENT met to lungs. Coronary Artery Disease Brother 40 stent + [place] Coronary Artery Disease Brother 40 stent + [place] Coronary Artery Disease Brother 40 stent Coronary Artery Disease Maternal Grandmother Cancer Paternal Grandmother colon Cancer Maternal Aunt PANCREAS Heart Attack Maternal Aunt Cancer Maternal Aunt UTERINE Cancer Maternal Uncle HODGKINS Asthma No Family History Reviewed past medical history, family history and surgeries. All medications and supplements were reviewed with the patient. REVIEW OF SYSTEMS GENERAL: No weight loss, malaise or fevers HEENT: Negative for frequent or significant headaches, No changes in hearing or vision, no nose bleeds or other nasal problems NECK: Negative for lumps, goiter, pain and significant neck swelling RESPIRATORY: Negative for cough, hemoptysis, wheezing, COPD, dyspnea or shortness of breath CARDIOVASCULAR: Negative for chest pain, leg swelling, hypertension, CHF or palpitations GI: No nausea, vomiting, or diarrhea : No history of dysuria, frequency or incontinence MUSCULOSKELETAL: Negative for joint pain or swelling, back pain or muscle pain SKIN: Negative for lesions, rash, and itching PSYCH: Negative for sleep disturbance, mood disorder and recent psychosocial stressors HEMATOLOGY/LYMPHOLOGY: N (more content not included)...[facility]12-24-2024 History of Present illness Narrative* Audelia Garcia DO - 05/15/2024 11:26 AM EST SUBJECTIVE: 49 year old female for annual checkup. I have fully reviewed the past medical, surgical, social and family history and updated the Histories section of [facility]. She is seeing an security flex officer, is on a GLP 1 (mounjaro), which she is tolerating She has been losing weight on this, and her A1c is now at target She had blood work at her security flex officer's office on 04/02/24 She has an eversense year long glucometer implanted She had varicose veins removed 2 years ago, and now her left leg is painful and sensitive Patient's last menstrual period was 12/22/2010. ALLERGIES Allergen Reactions Bees Rash, Swelling, Itching Childhood reaction, no recent stings. Metformin Diarrhea, GI Upset Adhesive Tape (Karen* Rash, Itching Lisinopril Intolerance Ozempic [Semaglutid* Intolerance Nausea and vomiting Reglan [Metoclopram* Intolerance Current Outpatient Medications Medication Sig Dispense Refill MOUNJARO 12.5 mg/0.5 mL pen injector Inject 12.5 mg subcutaneously one time a week. LANTUS SOLOSTAR U-100 INSULIN 100 unit/mL (3 mL) Inject 42 Units subcutaneously once daily. spironolactone (ALDACTONE) 25 mg tablet Take 25 mg by mouth once daily. lisinopril (ZESTRIL) 10 mg tablet Take 10 mg by mouth once daily. ergocalciferol 50,000 unit capsule (VITAMIN D2, DRISDOL) Take 50,000 Units by mouth one time a week. gabapentin (NEURONTIN) 100 mg capsule Take 1 capsule by mouth three times a day for 30 days. 90 capsule 0 pen needle, diabetic (COMFORT EZ PEN NEEDLES) 33 gauge x 3/16 ndle 1 Each once daily. 30 Each 11 ondansetron (ZOFRAN) 4 mg tablet Take 1 tablet by mouth every 8 hours as needed for nausea/vomiting. 30 tablet 2 meloxicam (MOBIC ORAL) Take 15 mg by mouth once daily. blood sugar diagnostic (BLOOD GLUCOSE TEST) test strip 1 Strip once daily. Use as instructed 100 Each 3 albuterol (PROVENTIL) 2.5 mg /3 mL (0.083 %) nebulizer solution Use 3 mL via nebulizer every 4 hours as needed for wheezing/shortness of breath. OVER 5-15 MINUTES. FOR WHEEZING AND SHORTNESS OF BREATH. 90 mL 3 Blood Glucose Control, Normal soln Use as directed 1 Each 1 No current facility-administered medications for this visit. ACTIVE PROBLEM LIST Hypertension, Essential Dysmetabolic Syndrome X Polycystic Ovaries Unspecified Asthma(493.90) Headache(784.0) FATTY LIVER Endometrial Hyperplasia With Atypia Excessive Or Frequent Menstruation Djd (Degenerative Joint Disease) Capsulitis Complex Endometrial Hyperplasia Without Atypia Rheumatoid Arthritis, Adult (Hcc) Fibromyalgia Dm (Diabetes Mellitus), Type 2, Uncontrolled Insomnia Hyperlipidemia Family History of Ischemic Heart Disease Cris (Obstructive Sleep Apnea) Abnormal Finding On Ultrasound Epigastric Pain Nausea Gastroparesis Due to Secondary Diabetes ([facility]) Type 2 Diabetes Mellitus With Diabetic Neuropathy, With Long-Term Current Use of Insulin ([facility]) Obesity, Class Iii, Bmi 40-49.9 (Morbid Obesity) ([facility]) Encounter for Screening for Malignant Neoplasm of Colon Leg Swelling Palpitation Social History Tobacco Use Smoking status: Former Types: Cigarettes Smokeless tobacco: Never Tobacco comments: Quit 31 years ago Vaping Use Vaping status: Never Used Substance Use Topics Alcohol use: Not Currently Drug use: Never Family History Problem Relation Age of Onset Coronary Artery Disease Mother Hypertension Mother [place] @ 62 yrs. old Diabetes Mother Cancer Father SKIN, ENT met to lungs. Coronary Artery Disease Brother 40 stent + [place] Coronary Artery Disease Brother 40 stent + [place] Coronary Artery Disease Brother 40 stent Coronary Artery Disease Maternal Grandmother Cancer Paternal Grandmother colon Cancer Maternal Aunt PANCREAS Heart Attack Maternal Aunt Cancer Maternal Aunt UTERINE Cancer Maternal Uncle HODGKINS Asthma No Family History Reviewed past medical history, family history and surgeries. All medications and supplements were reviewed with the patient. REVIEW OF SYSTEMS GENERAL: No weight loss, malaise or fevers HEENT: Negative for frequent or significant headaches, No changes in hearing or vision, no nose bleeds or other nasal problems NECK: Negative for lumps, goiter, pain and significant neck swelling RESPIRATORY: Negative for cough, hemoptysis, wheezing, COPD, dyspnea or shortness of breath CARDIOVASCULAR: Negative for chest pain, leg swelling, hypertension, CHF or palpitations GI: No nausea, vomiting, or diarrhea : No history of dysuria, frequency or incontinence MUSCULOSKELETAL: Negative for joint pain or swelling, back pain or muscle pain SKIN: Negative for lesions, rash, and itching PSYCH: Negative for sleep disturbance, mood disorder and recent psychosocial stressors HEMATOLOGY/LYMPHOLOGY: Negative for prolonged bleeding, bruising easily or swollen nodes ENDOCRINE: Negative for cold or heat intolerance, polyuria, polydipsia and goiter NEURO: No history of headaches, syncope, paralysis, seizures or tremors PHYSICAL EXAMINATION: BP 124/76 Pulse (!) 58 Temp 36.6 C (97.8 F) Resp 16 Ht 166.4 cm (5' 5.5) Wt 109.3 kg (241 lb) LMP 12/22/2010 SpO2 100% BMI 39.49 kg/m General appearance: Well appearing, alert, in no acute distress, well-hydrated, obese Skin: Skin color, texture, turgor normal, no suspicious rashes or lesions Head: Normocephalic, no masses, lesions, tenderness or abnormalities Eyes: Anicteric sclera. Pupils are equally round and reactive to light. Extraocular movements are intact. Ears: External ears normal, canals clear Nose/Sinuses: Nares normal, septum midline, mucosa normal, no drainage or sinus tenderness Oropharynx: Lips, mucosa, and tongue normal, teeth and gums normal, oropharynx normal Neck: Supple, no adenopathy; thyroid symmetric, normal size, no bruits Back: Normal exam Lungs: Lungs clear to auscultation. No wheezing, rhonchi, rales. Heart: RRR without murmur, gallop, or rubs. No ectopy Abdomen: Normal abdominal exam, Abdomen soft, non-tender. Bowel sounds normal. No masses, organomegaly Extremities: No deformities, edema, skin discoloration, clubbing or cyanosis. Good capillary refill. Musculoskeletal: No joint swelling, deformity, or tenderness Peripheral pulses: Normal Neuro: Gait normal. Reflexes normal and symmetric. Sensation grossly intact. ASSESSMENT/PLAN: 1. Well adult exam - ICD9: V70.0, ICD10: Z00.00 (primary diagnosis) - Counseled on healthy diet and regular exercise 2. DMII Under the care of security flex officer 3. Screening for depression - ICD9: V79.0, ICD10: Z13.31 - DEPRESSION SCREENING 4. Encounter for screening examination for other mental health and behavioral disorders - ICD9: V79.8, ICD10: Z13.39 - ANXIETY SCREENING 5. Obesity, Class II, BMI 35-39.9 - ICD9: 278.00, ICD10: E66.812 Lifestyle modification recommended Audelia Garcia DO documented in this encounterOhio[facility] NotePatient Outreach (AGACM) ESTELA COTE ([id number]) 1975 F Date Time Provider Department 04/10/24 AUDELIA GARCIA [facility] During your visit today, we recorded the following information about you: Allergies As of Date: 04/10/2024 Noted Allergy Reaction BEES 02/18/2014 2 - Rash 7 - Swelling 9 - Itching Comments: Childhood reaction, no recent stings. METFORMIN 05/09/2014 6 - Diarrhea 8 - GI Upset ADHESIVE TAPE (ROSINS) 02/18/2014 2 - Rash 9 - Itching LISINOPRIL 11/18/2022 5 - Intolerance OZEMPIC (SEMAGLUTIDE) 10/15/2022 5 - Intolerance Comments: Nausea and vomiting REGLAN (METOCLOPRAMIDE) 01/11/2023 5 - Intolerance Date Reviewed: 04/05/2023 Reviewed by: Audelia Garcia DO - Fully Assessed Visit Diagnosis:Encounter for screening mammogram for breast cancer [Z12.31] Order(s):[facility] SCREENING [facility] [[id number]] Order #: [id number] FUTURE Prescriptions as of 04/13/2024 - insulin glargine U-300 conc (TOUJEO SOLOSTAR U-300 INSULIN) 300 unit/mL (1.5 mL) Inject 15 Units subcutaneously daily at bedtime. Please note this medication is 3 TIMES STRONG YOUR FORMER BEDTIME INSULIN - losartan (COZAAR) 25 mg tablet take 1 tablet by mouth once daily - hydroCHLOROthiazide 25 mg tablet Take 1 tablet by mouth once daily. - gabapentin (NEURONTIN) 100 mg capsule Take 1 capsule by mouth three times a day for 30 days. - empagliflozin (JARDIANCE) 10 mg tablet Take 1 tablet by mouth daily with breakfast. - tirzepatide (MOUNJARO) 5 mg/0.5 mL pen injector Inject 5 mg subcutaneously one time a week. - pen needle, diabetic (COMFORT EZ PEN NEEDLES) 33 gauge x 3/16 ndle 1 Each once daily. - ondansetron (ZOFRAN) 4 mg tablet Take 1 tablet by mouth every 8 hours as needed for nausea/vomiting. - meloxicam (MOBIC ORAL) Take 15 mg by mouth once daily. - Blood Glucose Control, Normal soln Use as directed - blood sugar diagnostic (BLOOD GLUCOSE TEST) test strip 1 Strip once daily. Use as instructed - albuterol (PROVENTIL) 2.5 mg /3 mL (0.083 %) nebulizer solution Use 3 mL via nebulizer every 4 hours as needed for wheezing/shortness of breath. OVER 5-15 MINUTES. FOR WHEEZING AND SHORTNESS OF BREATH. Problem List As Of Date 04/10/2024 Noted Resolved Hypertension, essential [I10] DYSMETABOLIC SYNDROME X [E88.810] Polycystic ovaries [E28.2] ASTHMA UNSPECIFIED [J45.909] HEADACHE [R51] Overweight(278.02) [E66.3] 02/25/2014 Type II or unspecified type diabetes mellitus w* 12/19/2013 FATTY LIVER [R94.5] 11/29/2007 ENDOMETRIAL HYPERPLASIA W ATYPIA [N85.02] 04/25/2008 EXCESSIVE MENSTRUATION [N92.0] 04/25/2008 DJD (degenerative joint disease) [M19.90] 03/03/2010 Capsulitis [M77.9] 03/03/2010 Complex endometrial hyperplasia without atypia *12/21/2010 Rheumatoid arthritis, adult (HCC) [M06.9] 12/19/2013 Fibromyalgia [M79.7] 12/19/2013 DM (diabetes mellitus), type 2, uncontrolled (H*12/19/2013 Insomnia [G47.00] 12/19/2013 Hyperlipidemia [E78.5] 12/19/2013 Family history of ischemic heart disease [Z82.4*05/24/2014 CRIS (obstructive sleep apnea) [G47.33] 10/02/2014 Abnormal finding on ultrasound [R93.89] 10/24/2015 Epigastric pain [R10.13] 12/11/2015 Nausea [R11.0] 12/11/2015 Gastroparesis due to secondary diabetes (HCC) [*12/19/2015 Type 2 diabetes mellitus with diabetic neuropat*12/19/2015 Obesity, Class III, BMI 40-49.9 (morbid obesity*10/15/2022 Encounter for screening for malignant neoplasm *11/17/2022 Leg swelling [M79.89] 11/17/2022 Palpitation [R00.2] 12/28/2022 Encounter Status:Closed by [employer] on 04/13/24[facility]11-11-2024 Telephone encounter Note* Telephone Encounter - Laure Thomas MA - 04/02/2024 2:29 PM EST Patient is needing a new referral to Lillian Jalloh MD a mba internship with [facility] their fax: [phone] Laure Thomas MA [facility]11-11-2024 Miscellaneous Notes* Telephone Encounter - Laure Thomas MA - 04/02/2024 2:29 PM EST Patient is needing a new referral to Lillian Jalloh MD a mba internship with [facility] their fax: [phone] Laure Thomas MA documented in this encounterOhiohealth [facility]03-06-2024 Miscellaneous Notes* Telephone Encounter - Fernanda Patel MA - 07/27/2023 2:15 PM EST Patient received her my chart message. Fernanda Patel MA * Telephone Encounter - Audelia Garcia DO - 07/27/2023 12:42 PM EST Please notify patient that Lantus is not covered by her insurance, but Toujeo is. I have sent in a prescription for Toujeo, which she canat bedtime. However, it is important to note that Toujeo is 3 times as strong as Lantus. Because she was taking 44 units of Lantus at bedtime, she will take only 15 units of Toujeo at bedtime. Audelia Garcia DO * Telephone Encounter - Carie East MA - 07/27/2023 9:33 AM EST Received fax from [employer] stating patient's Lantus Solostar requires prior auth. Covermymeds Christina:[id number]. States Humulin N kwikpen and Toujeo Solostar do not require prior auth. Please advise if you would like prior auth completed or if covered alternative could be sent in. Carie East MA documented in this encounterOhiohealth [facility]03-04-2024 Miscellaneous Notes* Telephone Encounter - Laure Thomas MA - 07/25/2023 10:04 AM EST Pharmacy called patient states that the lantus was changed to 40 units so she will need a new script Laure Thomas MA documented in this encounterOhiohealth [facility]03-04-2024 Miscellaneous Notes* Telephone Encounter - Carie East MA - 07/25/2023 8:29 AM EST pharmacy electronically requesting refills as follows: Last seen 04/05/23 . Last refill 06/30/23 . Requested Prescriptions Pending Prescriptions Disp Refills losartan (COZAAR) 25 mg tablet [Pharmacy Med Name: losartan 25 mg tablet] 30 tablet 0 Sig: take 1 tablet by mouth once daily Please review and advise. Carie East MA documented in this encounterOhiohealth [facility]02-08-2024 Miscellaneous Notes* Telephone Encounter - Laure Thomas MA - 06/30/2023 1:37 PM EST Pharmacy requesting refills as follows: Last Office Visit 04/04/23. Last Refill 04/04/23. Requested Prescriptions Pending Prescriptions Disp Refills losartan (COZAAR) 25 mg tablet [Pharmacy Med Name: losartan 25 mg tablet] 30 tablet 0 Sig: take 1 tablet by mouth once daily insulin glargine (LANTUS SOLOSTAR U-100 INSULIN) 100 unit/mL (3 mL) [Pharmacy Med Name: Lantus Solostar U-100 Insulin 100 unit/mL (3 mL) subcutaneous pen] 15 mL 0 Sig: Inject 5 Units subcutaneously daily at bedtime. Please review and advise. Laure Thomas MA documented in this encounterOhiohealth [facility]11-14-2023 History of Present illness Narrative* Audelia Garcia DO - 04/05/2023 4:20 PM EST Subjective The history is provided by the patient. Diabetes She presents for her follow-up diabetic visit. She has type 2 diabetes mellitus. Her disease coursehas been improving. Pertinent negatives for hypoglycemia include no dizziness or headaches. Pertinent negatives for diabetes include no blurred vision, no chest pain, no weakness and no weight loss. She recently started jardiance It is causing increased urinary frequency, so she is taking it in the morning. Her legs have not been swelling since she started jardiance Thje tops of her feet are very sensitive She gets burning in the lower outer parts of her shins She cannot cross her legs at the ankles because it hurts She is undergoing vein treatments ALLERGIES Allergen Reactions Bees Rash, Swelling, Itching Childhood reaction, no recent stings. Metformin Diarrhea, GI Upset Adhesive Tape (Karen* Rash, Itching Lisinopril Intolerance Ozempic [Semaglutid* Intolerance Nausea and vomiting Reglan [Metoclopram* Intolerance Current Outpatient Medications Medication Sig Dispense Refill losartan (COZAAR) 25 mg tablet take 1 tablet by mouth once daily 30 tablet 0 LANTUS SOLOSTAR U-100 INSULIN 100 unit/mL (3 mL) Inject 5 Units subcutaneously daily at bedtime. (Patient taking differently: 40 units every morning) 15 mL 0 empagliflozin (JARDIANCE) 10 mg tablet Take 1 tablet by mouth daily with breakfast. 30 tablet 2 ondansetron (ZOFRAN) 4 mg tablet Take 1 tablet by mouth every 8 hours as needed for nausea/vomiting. 30 tablet 2 meloxicam (MOBIC ORAL) Take 15 mg by mouth once daily. tirzepatide (MOUNJARO) 2.5 mg/0.5 mL pen injector Inject 2.5 mg subcutaneously one time a week. 4 Each 2 hydroCHLOROthiazide 25 mg tablet Take 1 tablet by mouth once daily. 30 tablet 1 Blood Glucose Control, Normal soln Use as directed 1 Each 1 blood sugar diagnostic (BLOOD GLUCOSE TEST) test strip 1 Strip once daily. Use as instructed 100 Each 3 gabapentin (NEURONTIN) 100 mg capsule Take 1 capsule by mouth three times daily for 30 days. 90 capsule 0 albuterol (PROVENTIL) 2.5 mg /3 mL (0.083 %) nebulizer solution Use 3 mL via nebulizer every 4 hours as needed for wheezing/shortness of breath. OVER 5-15 MINUTES. FOR WHEEZING AND SHORTNESS OF BREATH. 90 mL 3 No current facility-administered medications for this visit. ACTIVE PROBLEM LIST Hypertension, Essential Dysmetabolic Syndrome X Polycystic Ovaries Unspecified Asthma(493.90) Headache(784.0) FATTY LIVER Endometrial Hyperplasia With Atypia Excessive Or Frequent Menstruation Djd (Degenerative Joint Disease) Capsulitis Complex Endometrial Hyperplasia Without Atypia Rheumatoid Arthritis, Adult (Hcc) Fibromyalgia Dm (Diabetes Mellitus), Type 2, Uncontrolled Insomnia Hyperlipidemia Family History of Ischemic Heart Disease Cris (Obstructive Sleep Apnea) Abnormal Finding On Ultrasound Epigastric Pain Nausea Gastroparesis Due to Secondary Diabetes (Hcc) Type 2 Diabetes Mellitus With Diabetic Neuropathy, With Long-Term Current Use of Insulin ([facility]) Obesity, Class Iii, Bmi 40-49.9 (Morbid Obesity) ([facility]) Encounter for Screening for Malignant Neoplasm of Colon Leg Swelling Palpitation Social History Tobacco Use Smoking status: Former Types: Cigarettes Smokeless tobacco: Never Tobacco comments: Quit 31 years ago Vaping Use Vaping Use: Never used Substance Use Topics Alcohol use: No Drug use: No Family History Problem Relation Age of Onset Coronary Artery Disease Mother Hypertension Mother [place] @ 62 yrs. old Diabetes Mother Cancer Father SKIN, ENT met to lungs. Coronary Artery Disease Brother 40 stent + [place] Coronary Artery Disease Brother 40 stent + [place] Coronary Artery Disease Brother 40 stent Coronary Artery Disease Maternal Grandmother Cancer Paternal Grandmother colon Cancer Maternal Aunt PANCREAS Heart Attack Maternal Aunt Cancer Maternal Aunt UTERINE Cancer Maternal Uncle HODGKINS Asthma No Family History Reviewed past medical history, family history and surgeries. All medications and supplements were reviewed with the patient. Review of Systems Constitutional: Negative for chills, diaphoresis, fever, malaise/fatigue and weight loss. HENT: Negative for ear pain and hearing loss. Eyes: Negative for blurred vision and double vision. Respiratory: Negative for cough and shortness of breath. Cardiovascular: Negative for chest pain, palpitations and leg swelling. Gastrointestinal: Negative for constipation, diarrhea and heartburn. Genitourinary: Negative for dysuria and frequency. Musculoskeletal: Negative for back pain, falls, joint pain and myalgias. Leg pain Skin: Negative for itching and rash. Neurological: Negative for dizziness, weakness and headaches. Endo/Heme/Allergies: Does not bruise/bleed easily. Psychiatric/Behavioral: Negative for depression and substance abuse. The patient does not have insomnia. Objective BP 126/78 Pulse 73 Temp 36.7 C (98 F) Resp 16 Ht 166.4 cm (5' 5.5) Wt 118.6 kg (261 lb 6.4 oz) LMP 12/22/2010 SpO2 97% BMI 42.84 kg/m Physical Exam Constitutional: Appearance: Normal appearance. She is obese. HENT: Head: Normocephalic and atraumatic. Nose: Nose normal. Mouth/Throat: Mouth: Mucous membranes are moist. Dentition: Normal dentition. Eyes: General: Lids are normal. Extraocular Movements: Extraocular movements intact. Conjunctiva/sclera: Conjunctivae normal. Pupils: Pupils are equal, round, and reactive to light. Neck: Thyroid: No thyroid mass or thyromegaly. Vascular: No carotid bruit. Trachea: Phonation normal. Cardiovascular: Rate and Rhythm: Normal rate and regular rhythm. Heart sounds: Normal heart sounds. No murmur heard. No friction rub. No gallop. Pulmonary: Effort: Pulmonary effort is normal. Breath sounds: Normal breath sounds. No wheezing or rales. Abdominal: General: Bowel sounds are normal. There is no distension. Palpations: Abdomen is soft. There is no mass. Tenderness: There is no abdominal tenderness. Musculoskeletal: General: No swelling or tenderness. Normal range of motion. Cervical back: Normal range of motion and neck supple. No edema. Lymphadenopathy: Cervical: No cervical adenopathy. Skin: General: Skin is warm and dry. Findings: No erythema or rash. Nails: There is no clubbing. Neurological: Mental Status: She is alert and oriented to person, place, and time. Cranial Nerves: No cranial nerve deficit. Motor: Motor function is intact. Coordination: Coordination normal. Gait: Gait is intact. Psychiatric: Attention and Perception: Attention normal. Mood and Affect: Mood and affect normal. Speech: Speech normal. Behavior: Behavior normal. Behavior is cooperative. Thought Content: Thought content normal. Cognition and Memory: Cognition and memory normal. Judgment: Judgment normal. Lab Results Component Value Date HBA1C 10.9 04/05/2023 HBA1C 12.1 10/20/2022 HBA1C 11.9 02/19/2016 HBA1C 13.2 10/14/2015 HBA1C 11.4 02/12/2015 Feet:Shoes and socks removed, No deformities, ulcers, calluses, normal distal pulses, not sensitiveto 10 gm monofilament in right great toe and heel, left arch and heel, vibratory perception normal ASSESSMENT/PLAN: 1. Type 2 diabetes mellitus with diabetic neuropathy, with long-term current use of insulin ([facility]) -ICD9: 250.60, 357.2, V58.67, ICD10: E11.40, Z79.4 (primary diagnosis) Increase mounjaro to 5 mg weekly - HEMOGLOBIN A1C (POC) - INSULIN GLARGINE (U-100) 100 UNIT/ML (3 ML) SUBCUTANEOUS PEN 2. Hypertension, essential - ICD9: 401.9, ICD10: I10 - Controlled - Recommend home blood pressure monitoring, to bring results to next visit - Encouraged sodium restriction, DASH or Mediterranean diet - Recommend regular aerobic exercise - HYDROCHLOROTHIAZIDE 25 MG TABLET 3. Rheumatoid arthritis involving multiple sites with positive rheumatoid factor ([facility]) - ICD9: 714.0, ICD10: M05.79 - GABAPENTIN 100 MG CAPSULE 4. Obesity, Class III, BMI 40-49.9 (morbid obesity) ([facility]) - ICD9: 278.01, ICD10: E66.01 Lifestyle modification recommended Audelia Garcia DO documented in this encounterOhiohealth [facility]11-13-2023 Miscellaneous Notes* Telephone Encounter - Carie East MA - 04/04/2023 7:40 AM EST pharmacy electronically requesting refills as follows: Last seen 12/20/22 . Last refill 02/01/23 . Requested Prescriptions Pending Prescriptions Disp Refills losartan (COZAAR) 25 mg tablet [Pharmacy Med Name: losartan 25 mg tablet] 30 tablet 0 Sig: take 1 tablet by mouth once daily Please review and advise. Carie East MA documented in this encounterOhiohealth [facility]10-13-2023 Miscellaneous Notes* Telephone Encounter - Fernanda Patel MA - 03/04/2023 8:54 AM EDT pharm requesting refills: Last office visit 12/28/22. Last refill 02/01/23. Nov 04/05/23 Requested Prescriptions Pending Prescriptions Disp Refills LANTUS SOLOSTAR U-100 INSULIN 100 unit/mL (3 mL) [Pharmacy Med Name: Lantus Solostar U-100 Insulin 100 unit/mL (3 mL) subcutaneous pen] 15 mL 0 Sig: Inject 5 Units subcutaneously daily at bedtime. Please review and advise. Fernanda Patel MA documented in this encounterOhiohealth Grady [facility]09-25-2023 Miscellaneous Notes* Telephone Encounter - Carie East MA - 02/14/2023 3:09 PM EDT Patient called stating her Farxiga requires prior auth. Went on Covermymeds using Christina: [id number] andsubmitted prior auth. Carie East MA documented in this encounterOhiohealth Grady [facility] Hospital09-19-2023 Miscellaneous Notes* Telephone Encounter - Fernanda Patel MA - 02/08/2023 1:57 PM EDT pt requesting refills: Last office visit 12/28/22. Last refill 11/18/22 . Requested Prescriptions Pending Prescriptions Disp Refills dapagliflozin propanediol (FARXIGA) 10 mg tablet Sig: Take 1 tablet by mouth daily with breakfast. Please review and advise. Fernanda Patel MA documented in this encounterOhiohealth Grady [facility]08-25-2023 Miscellaneous Notes* Telephone Encounter - Laure Thomas MA - 01/14/2023 4:41 PM EDT Left message informing patient, phone number to reach the office was left for any questions or concerns. Laure Thomas MA * Telephone Encounter - Audelia Garcia DO - 01/14/2023 2:48 PM EDT Please notify pt the heart monitor results were normal. If has further heart palpitations or is concerned, I can refer her to a real estate specialist to discuss Audelia Garcia DO documented in this encounterOhiohealth Grady [facility]08-11-2023 Miscellaneous Notes* Telephone Encounter - Carie East MA - 12/31/2022 11:56 AM EDT pharmacy electronically requesting refills as follows: Last seen 12/20/22 . Last refill losartan 11/18/22, lisinopril was D/C 10/27/22. Requested Prescriptions Pending Prescriptions Disp Refills lisinopril 2.5 mg tablet 30 tablet 0 Sig: Take 1 tablet by mouth once daily. losartan (COZAAR) 25 mg tablet [Pharmacy Med Name: losartan 25 mg tablet] 30 tablet 0 Sig: TAKE 1 TABLET BY MOUTH ONCE DAILY Please review and advise. Carie East MA documented in this encounterOhiohealth Grady [facility]08-11-2023 Miscellaneous Notes* Telephone Encounter - Carie East MA - 12/31/2022 10:44 AM EDT Patient informed of CT results. Carie East MA * Telephone Encounter - Carie East MA - 12/31/2022 10:44 AM EDT ----- Message from Jess Restrepo APRN.CLINICAL NEUROPSYCHOLOGIST sent at 12/30/2022 11:24 PM EDT ----- Please notify patient results are normal. Thank you. Jess Restrepo APRN.CLINICAL NEUROPSYCHOLOGIST documented in this encounterOhiohealth Grady [facility] Hospital08-09-2023 History of Present illness Narrative* Tc Montalvo CT - 12/29/2022 5:00 PM EDT Radiology Service Progress Note PATIENT NAME: Estela Cote DATE OF SERVICE: December 29, 2022 TIME: 4:54 PM PATIENT IDENTITY VERIFICATION COMPLETED USING TWO (2) IDENTIFIERS: Name and Date of confirmedby patient verbally. FALL SCREENING: Has the patient had 2 falls in the last year or 1 fall with injury or currently using an Ambulatory Assistive Device (Walker, Cane, Wheelchair, Crutches, etc.)? No PATIENT GENDER DATA: Female. status: : No status: NO. PATIENT RELEVANT IMPLANT DATA REVIEWED: Not Applicable RADIOLOGY DEPARTMENT: CT; Exam(s) Completed: Abdomen/Pelvis PERIPHERAL IV DATA: Not applicable SIGNED BY: BJORN Caceres December 29, 2022 4:54 PM documented in this encounterOhiohealth Grady [facility]08-08-2023 Miscellaneous Notes* Telephone Encounter - Jess Restrepo APRN.CNP - 12/28/2022 5:[address] scan reordered as stat. Jess Restrepo APRN.CNP * Telephone Encounter - Fernanda Patel MA - 12/28/2022 4:49 PM EDT Patient notified and voiced understanding. Wants to know if you can order CT. Stat. Fernanda Patel MA * Telephone Encounter - Fernanda Patel MA - 12/28/2022 4:49 PM EDT ----- Message from Jess Restrepo APRN.CNP sent at 12/28/2022 4:47 PM EDT ----- Please notify patient her labs are WNL besides high sugar of 388 and mildly low platelets of 149. UA was normal besides glucose. I would like to increase her Lantus insulin to 30 units once a day. Jess Restrepo APRN.CNP documented in this encounterOhiohealth Grady [facility]08-08-2023 History of Present illness Narrative* Jess Restrepo APRN.CNP - 12/28/2022 2:38 PM EDT This note was created using Div[employer] Diamond[employer]. Subjective Estela Cote is a 47 year old female here today for abdominal pain. I reviewed past medical, surgical, social, and family histories today and updated chart. Allergies, chronic medications, and supplements were also reviewed. Pain is located to left upper quadrant Super intense all the time Very tender in that area Puts pressure on it to relieve it Pain does not radiate Started Tuesday night and got real bad on Tuesday Kept her up last night She has had this pain in the past - off and on for about a year Will drink lots of lemon water History of fatty liver, gastroparesis. She has nausea and occasional vomiting, throws up bile She got medication for her gastroparesis and wasn't vomiting for a long time - reglan, but not currently taking it Most of the time she is constipated Recently having urgent diarrhea Has been eating okay, eating more than usual the past week Was sick last week Tuesday to Tuesday - had to wear depends, was getting stool incontinence Not sure if it was from stress Had colonoscopy about a month ago, had a couple of precancerous polyp Had this done with Dr. Hare in [place] She sees GI specialist at [facility] Has had EGD done in the past - has been quit a few years She is wearing a heart monitor today - was having episodes of elevated heart rate, heart racing She has diabetes. She has NOT started mounjaro yet. Has been on ozempic in the past and that reallycaused a lot of GI upset PAST MEDICAL HISTORY Diagnosis Date Delayed emergence from general anesthesia Dysmetabolic syndrome X polycystic syndrome Endometrial hyperplasia with atypia 2007 Enlarged heart left side of heart Gastroparesis Headache(784.0) Leiomyoma of uterus, unspecified 2010 Mitral valve disorders(424.0) Obesity (BMI 30-39.9) CRIS (obstructive sleep apnea) no CPAP Polycystic ovaries Snoring Type II or unspecified type diabetes mellitus without mention of complication, not stated as uncontrolled Unspecified asthma(493.90) Unspecified essential hypertension PAST SURGICAL HISTORY Procedure Laterality Date DELIVERY ONLY 10/18/1995 , low cervical COLONOSCOPY FLX DX W/COLLJ SPEC WHEN PFRMD 2012 DILATION & CURETTAGE DX&/THER NONOBSTETRIC 1997, 2000 Dilation & curettage EGD 12/11/2015 chronic active gastritis EGD TRANSORAL BIOPSY SINGLE/MULTIPLE 08/22/2017 non-bleeding erosive gastropathy, sm amt phytobezoar in stomach, neg H Pylori; Dr. Vargas GI TRANSIT & PRES JON WIRELESS CAPSULE W/INTERP 10/16/2020 Smart Pill HYSTERECTOMY HX 2010 HYSTEROSCOPY BX W/WO D&C 11/25/2010 HYSTEROSCOPY, DIAGNOSTIC (SEPARATE 04/25/2008 Hysteroscopy/currettage INSERTION OF IUD 11/25/2010 mirena TONSILLECTOMY HX ALLERGIES Bees, Metformin, Adhesive Tape (Rosins), Lisinopril, and Ozempic [Semaglutide] MEDICATIONS meloxicam (MOBIC ORAL) Take by mouth. tirzepatide (MOUNJARO) 2.5 mg/0.5 mL pen injector Inject 2.5 mg subcutaneously one time a week. insulin glargine (LANTUS SOLOSTAR U-100 INSULIN) 100 unit/mL (3 mL) Inject 20 Units subcutaneously once daily. losartan (COZAAR) 25 mg tablet Take 1 tablet by mouth once daily. dapagliflozin propanediol (FARXIGA) 10 mg tablet Take 1 tablet by mouth daily with breakfast. hydroCHLOROthiazide 25 mg tablet Take 1 tablet by mouth once daily. Blood Glucose Control, Normal soln Use as directed blood sugar diagnostic (BLOOD GLUCOSE TEST) test strip 1 Strip once daily. Use as instructed gabapentin (NEURONTIN) 100 mg capsule Take 1 capsule by mouth three times daily for 30 days. albuterol (PROVENTIL) 2.5 mg /3 mL (0.083 %) nebulizer solution Use 3 mL via nebulizer every 4 hours as needed for wheezing/shortness of breath. OVER 5-15 MINUTES. FOR WHEEZING AND SHORTNESS OF BREATH. FAMILY HISTORY Problem Relation Age of Onset Coronary Artery Disease Mother Hypertension Mother [place] @ 62 yrs. old Diabetes Mother Cancer Father SKIN, ENT met to lungs. Coronary Artery Disease Brother 40 stent + [place] Coronary Artery Disease Brother 40 stent + [place] Coronary Artery Disease Brother 40 stent Coronary Artery Disease Maternal Grandmother Cancer Paternal Grandmother colon Cancer Maternal Aunt PANCREAS Heart Attack Maternal Aunt Cancer Maternal Aunt UTERINE Cancer Maternal Uncle HODGKINS Asthma No Family History Social History Tobacco Use Smoking status: Former Types: Cigarettes Smokeless tobacco: Never Tobacco comments: Quit 31 years ago Vaping Use Vaping Use: Never used Substance Use Topics Alcohol use: No Drug use: No Review of Systems Constitutional: Negative for appetite change, chills, fatigue, fever and unexpected weight change. HENT: Negative for congestion, ear pain, rhinorrhea and sore throat. Eyes: Negative for pain, discharge, itching and visual disturbance. Respiratory: Positive for shortness of breath. Negative for cough and wheezing. Hx asthma - will get SOB with singing at times Cardiovascular: Positive for palpitations. Negative for chest pain and leg swelling. Gastrointestinal: Positive for abdominal pain, constipation, diarrhea, nausea and vomiting (about every other morning). Negative for blood in stool. Genitourinary: Positive for frequency (on a water pill). Negative for difficulty urinating. Musculoskeletal: Positive for arthralgias and myalgias. Hx of RA and fibromyalgia Skin: Negative for rash. Neurological: Negative for dizziness, tremors, weakness and headaches. Psychiatric/Behavioral: Negative for dysphoric mood and sleep disturbance. The patient is not nervous/anxious. Objective BP 122/76 Pulse 75 Temp 36.7 C (98.1 F) Ht 166.4 cm (5' 5.5) Wt 116.1 kg (256 lb) LMP 12/22/2010 SpO2 97% BMI 41.95 kg/m Physical Exam Constitutional: Appearance: Normal appearance. She is not toxic-appearing. HENT: Mouth/Throat: Lips: Palominas. Mouth: Mucous membranes are moist. Pharynx: Oropharynx is clear. Eyes: General: No scleral icterus. Cardiovascular: Rate and Rhythm: Normal rate and regular rhythm. Heart sounds: Normal heart sounds. No murmur heard. Pulmonary: Effort: Pulmonary effort is normal. Breath sounds: Normal breath sounds. No wheezing or rales. Abdominal: General: Bowel sounds are normal. There is no distension or abdominal bruit. Palpations: Abdomen is soft. There is no hepatomegaly, splenomegaly or mass. Tenderness: There is abdominal tenderness in the left upper quadrant. There is right CVA tendernessand left CVA tenderness. Musculoskeletal: Right lower leg: No edema. Left lower leg: No edema. Skin: General: Skin is warm and dry. Findings: No bruising or rash. Neurological: General: No focal deficit present. Mental Status: She is alert and oriented to person, place, and time. Sensory: Sensation is intact. Motor: Motor function is intact. Coordination: Coordination is intact. Psychiatric: Attention and Perception: Attention and perception normal. Mood and Affect: Mood and affect normal. Speech: Speech normal. Behavior: Behavior normal. Behavior is cooperative. Thought Content: Thought content normal. 11/04/2015 8:06 AM - Interface, Results In Impression IMPRESSION: Within the limits of this noncontrast enhanced examination, no acute abdominal or pelvic process is identified. Splenomegaly. Small hiatal hernia. Sigmoid colonic diverticulosis, without CT evidence for diverticulitis. Suspected fatty infiltration of the liver, with regions of focal fatty sparing seen adjacent to the gallbladder fossa. Shopper'S Aide: LANE Transcribe Date/Time: Nov 04 2015 7:40A Dictated by : CASEY POE MD This examination was interpreted and the report reviewed and electronically signed by: CASEY POE MD on Nov 04 2015 7:45AM EST Results-Findings * * *Final Report* * * DATE OF EXAM: Nov 03 2015 3:25PM [facility] 0531 - CT ABD/PEL WO IVCON / PROCEDURE REASON: multiple diagnoses * * * * Physician Interpretation * * * * RESULT: CT OF ABDOMEN AND PELVIS WITHOUT CONTRAST HISTORY: 40-year-old female with history of left upper quadrant pain. TECHNIQUE: Routine abdomen and pelvis exam with oral and without intravenous contrast material. Contrast Media 2: Oral administration of 900 ml of 50ML Omnipaque [address] Radiation dose: Integrated Dose-length product (DLP) for this visit = 1294 mGy*cm. CT Dose Reduction Employed: Yes COMPARISON: Abdominal ultrasound dated 10/17/2015. No prior CT. RESULT: ABDOMEN: There is a small hiatal hernia. There is splenomegaly, with the spleen measuring approximately 16 cm in length. Within the limits of this noncontrast enhanced examination, no focal splenic lesion is identified. Suspected fatty infiltration of the liver, with regions of focal fatty sparing seen adjacent to the gallbladder fossa. No obvious focal hepatic mass is identified. The noncontrast enhanced adrenal glands, kidneys, and pancreas are normal. The gallbladder is somewhat distended but is otherwise unremarkable. There is no abdominal adenopathy or abdominal ascites. There are no dilated loops of bowel to suggest obstruction. There is a tiny umbilical hernia, containing omental fat. There is sigmoid colon diverticulosis, without CT evidence for diverticulitis. PELVIS: Patient is status post hysterectomy. Prominent bilateral inguinal lymph nodes are likely reactive. There is no pelvic mass or pelvic ascites. There is a calcified granuloma seen within the left lung base. There is minimal dependent atelectasis. Degenerative changes are seen within the visualized spine. There is mild bilateral hip DJD. There is mild scoliosis of the spine. There is no destructive bony lesion. ASSESSMENT/PLAN: 1. LUQ pain - ICD9: 789.02, ICD10: R10.12 (primary diagnosis) Check labs, UA CT A/P to evaluate further She follows with GI in [place], may need to have EGD - CT ABD/PEL WO IVCON - CBC + DIFF - LIPASE BLD - COMP METABOLIC PANEL 2. Splenomegaly - ICD9: 789.2, ICD10: R16.[address] A/P - CT ABD/PEL WO IVCON - CBC + DIFF - LIPASE BLD - COMP METABOLIC PANEL 3. Nausea - ICD9: 787.02, ICD10: R11.0 Zofran as needed - CT ABD/PEL WO IVCON - CBC + DIFF - LIPASE BLD - COMP METABOLIC PANEL FU in 4 weeks Jess Restrepo APRN.CLINICAL NEUROPSYCHOLOGIST Addendum: Blood glucose was elevated at 388, increase lantus insulin to 30 units daily. UA was negative besides glucose. documented in this encounterOhiohealth [facility]07-31-2023 Instructions* Patient Instructions* Audelia Garcia DO - 12/20/2022 11:30 AM EDT You may increase lantus by going up 2 units every 3 days. documented in this encounterOhiohealth [facility]ady [facility]07-31-2023 History of Present illness Narrative* Audelia Garcia DO - 12/20/2022 11:03 AM EDT Subjective HPI Pt is here for f/u for DMII after increasing lantus and HTN after starting losartan Blood sugars at home are around 220, which is an improvement BP at home still in 140s/90s She has been having episodes of her heart racing It has happened 3 times, each time while she was at rest It does not happen when she is active When it happens, she feels jittery and her watch notifies her that her pulse is in the 120s She has felt lightheaded and dizzy, but denies chest pain She has been getting migraines with a yellow aura She had not had migraines in about 16 years She is not sure if it is due to her blood sugars coming down ALLERGIES Allergen Reactions Bees Rash, Swelling, Itching Childhood reaction, no recent stings. Metformin Diarrhea, GI Upset Adhesive Tape (Karen* Rash, Itching Lisinopril Intolerance Ozempic [Semaglutid* Intolerance Nausea and vomiting Current Outpatient Medications Medication Sig Dispense Refill insulin glargine (LANTUS SOLOSTAR U-100 INSULIN) 100 unit/mL (3 mL) Inject 15 Units subcutaneously once daily. losartan (COZAAR) 25 mg tablet Take 1 tablet by mouth once daily. 30 tablet 0 dapagliflozin propanediol (FARXIGA) 10 mg tablet Take 1 tablet by mouth daily with breakfast. hydroCHLOROthiazide 25 mg tablet Take 1 tablet by mouth once daily. 30 tablet 1 Blood Glucose Control, Normal soln Use as directed 1 Each 1 blood sugar diagnostic (BLOOD GLUCOSE TEST) test strip 1 Strip once daily. Use as instructed 100 Each 3 gabapentin (NEURONTIN) 100 mg capsule Take 1 capsule by mouth three times daily for 30 days. 90 capsule 0 albuterol (PROVENTIL) 2.5 mg /3 mL (0.083 %) nebulizer solution Use 3 mL via nebulizer every 4 hours as needed for wheezing/shortness of breath. OVER 5-15 MINUTES. FOR WHEEZING AND SHORTNESS OF BREATH. 90 mL 3 No current facility-administered medications for this visit. ACTIVE PROBLEM LIST Hypertension, Essential Dysmetabolic Syndrome X Polycystic Ovaries Unspecified Asthma(493.90) Headache(784.0) FATTY LIVER Endometrial Hyperplasia With Atypia Excessive Or Frequent Menstruation Djd (Degenerative Joint Disease) Capsulitis Complex Endometrial Hyperplasia Without Atypia Rheumatoid Arthritis, Adult (Hcc) Fibromyalgia Dm (Diabetes Mellitus), Type 2, Uncontrolled Insomnia Hyperlipidemia Family History of Ischemic Heart Disease Cris (Obstructive Sleep Apnea) Abnormal Finding On Ultrasound Epigastric Pain Nausea Gastroparesis Due to Secondary Diabetes ([facility]) Type 2 Diabetes Mellitus With Diabetic Neuropathy, With Long-Term Current Use of Insulin ([facility]) Obesity, Class Iii, Bmi 40-49.9 (Morbid Obesity) ([facility]) Encounter for Screening for Malignant Neoplasm of Colon Leg Swelling Social History Tobacco Use Smoking status: Former Types: Cigarettes Smokeless tobacco: Never Tobacco comments: Quit 31 years ago Vaping Use Vaping Use: Never used Substance Use Topics Alcohol use: No Drug use: No Family History Problem Relation Age of Onset Coronary Artery Disease Mother Hypertension Mother [place] @ 62 yrs. old Diabetes Mother Cancer Father SKIN, ENT met to lungs. Coronary Artery Disease Brother 40 stent + [place] Coronary Artery Disease Brother 40 stent + [place] Coronary Artery Disease Brother 40 stent Coronary Artery Disease Maternal Grandmother Cancer Paternal Grandmother colon Cancer Maternal Aunt PANCREAS Heart Attack Maternal Aunt Cancer Maternal Aunt UTERINE Cancer Maternal Uncle HODGKINS Asthma No Family History Reviewed past medical history, family history and surgeries. All medications and supplements were reviewed with the patient. Review of Systems Constitutional: Negative for chills, diaphoresis, fever, malaise/fatigue and weight loss. HENT: Negative for ear pain and hearing loss. Eyes: Negative for blurred vision and double vision. Respiratory: Negative for cough and shortness of breath. Cardiovascular: Positive for palpitations. Negative for chest pain and leg swelling. Gastrointestinal: Negative for constipation, diarrhea and heartburn. Genitourinary: Negative for dysuria and frequency. Musculoskeletal: Negative for back pain, falls, joint pain and myalgias. Skin: Negative for itching and rash. Neurological: Negative for dizziness, weakness and headaches. Endo/Heme/Allergies: Does not bruise/bleed easily. Psychiatric/Behavioral: Negative for depression and substance abuse. The patient does not have insomnia. Objective BP 138/86 Pulse 67 Temp 36.6 C (97.8 F) Resp 18 Ht 166.4 cm (5' 5.5) Wt 116.2 kg (256 lb3.2 oz) LMP 12/22/2010 SpO2 97% BMI 41.99 kg/m Physical Exam Constitutional: Appearance: Normal appearance. She is obese. HENT: Head: Normocephalic and atraumatic. Nose: Nose normal. Mouth/Throat: Mouth: Mucous membranes are moist. Dentition: Normal dentition. Eyes: General: Lids are normal. Extraocular Movements: Extraocular movements intact. Conjunctiva/sclera: Conjunctivae normal. Pupils: Pupils are equal, round, and reactive to light. Neck: Thyroid: No thyroid mass or thyromegaly. Vascular: No carotid bruit. Trachea: Phonation normal. Cardiovascular: Rate and Rhythm: Normal rate and regular rhythm. Heart sounds: Normal heart sounds. No murmur heard. No friction rub. No gallop. Pulmonary: Effort: Pulmonary effort is normal. Breath sounds: Normal breath sounds. No wheezing or rales. Abdominal: General: Bowel sounds are normal. There is no distension. Palpations: Abdomen is soft. There is no mass. Tenderness: There is no abdominal tenderness. Musculoskeletal: General: No swelling or tenderness. Normal range of motion. Cervical back: Normal range of motion and neck supple. No edema. Lymphadenopathy: Cervical: No cervical adenopathy. Skin: General: Skin is warm and dry. Findings: No erythema or rash. Nails: There is no clubbing. Neurological: Mental Status: She is alert and oriented to person, place, and time. Cranial Nerves: No cranial nerve deficit. Motor: Motor function is intact. Coordination: Coordination normal. Gait: Gait is intact. Psychiatric: Attention and Perception: Attention normal. Mood and Affect: Mood and affect normal. Speech: Speech normal. Behavior: Behavior normal. Behavior is cooperative. Thought Content: Thought content normal. Cognition and Memory: Cognition and memory normal. Judgment: Judgment normal. ASSESSMENT/PLAN: 1. Type 2 diabetes mellitus with diabetic neuropathy, with long-term current use of insulin (HCC) -ICD9: 250.60, 357.2, V58.67, ICD10: E11.40, Z79.4 (primary diagnosis) Trial of mounjaro Pt advised to increase lantus by going up 2 units every 3 days. - INSULIN GLARGINE (U-100) 100 UNIT/ML (3 ML) SUBCUTANEOUS PEN 2. Palpitations - ICD9: 785.1, ICD10: R00.2 - ECG B/O W INTERP (MED OFFICE) NSR - XR CHEST 2V FRONTAL/LAT - [facility] EVENT MONITOR 3. Migraine with aura, not intractable, without status migrainosus - ICD9: 346.00, ICD10: G43.109 Audelia Garcia DO documented in this encounterOhiohealth [facility]ady [facility]06-29-2023 History of Present illness Narrative* Audelia Garcia DO - 11/18/2022 10:56 AM EDT Subjective The history is provided by the patient. Hypertension This is a chronic problem. The current episode started more than 1 year ago. The problem is unchanged. Pertinent negatives include no blurred vision, chest pain, headaches, malaise/fatigue, palpitations or shortness of breath. Pt is here for f/u for HTN. She stopped lisinopril because it was making her not feel well She is taking hctz 25 mg daily for HTN Her swelling has improved since restarting the hctz 25 mg daily Her BP was high yesterday when she went for her colonoscopy She was very dehydrated, was given 2 bags of fluids, which helped bring the BP down She is on lantus 10 units daily for DMII Blood sugars have been coming down, still in the 200s. ALLERGIES Allergen Reactions Bees Rash, Swelling, Itching Childhood reaction, no recent stings. Metformin Diarrhea, GI Upset Adhesive Tape (Karen* Rash, Itching Ozempic [Semaglutid* Intolerance Nausea and vomiting Current Outpatient Medications Medication Sig Dispense Refill hydroCHLOROthiazide 25 mg tablet Take 1 tablet by mouth once daily. 30 tablet 1 insulin glargine (LANTUS SOLOSTAR U-100 INSULIN) 100 unit/mL (3 mL) Inject 10 Units subcutaneously once daily. Insulin [place], Disposable, (BD ULTRAFINE III MINI PEN) 31 gauge x 3/16 1 Each daily at bedtime. 30 Each 0 Blood Glucose Control, Normal soln Use as directed 1 Each 1 blood sugar diagnostic (BLOOD GLUCOSE TEST) test strip 1 Strip once daily. Use as instructed 100 Each 3 gabapentin (NEURONTIN) 100 mg capsule Take 1 capsule by mouth three times daily for 30 days. 90 capsule 0 albuterol (PROVENTIL) 2.5 mg /3 mL (0.083 %) nebulizer solution Use 3 mL via nebulizer every 4 hours as needed for wheezing/shortness of breath. OVER 5-15 MINUTES. FOR WHEEZING AND SHORTNESS OF BREATH. 90 mL 3 GAVILYTE-G 236-22.74-6.74 -5.86 gram suspension (Patient not taking: Reported on 11/18/2022) polyethylene glycol 3350 (MIRALAX) 17 gram/dose powder Take 17 g by mouth three times daily. Dissolve dose in 4 - 8 ounces of liquid and take as directed. (Patient not taking: Reported on 11/18/2022) 850 g 4 No current facility-administered medications for this visit. ACTIVE PROBLEM LIST Hypertension, Essential Dysmetabolic Syndrome X Polycystic Ovaries Unspecified Asthma(493.90) Headache(784.0) FATTY LIVER Endometrial Hyperplasia With Atypia Excessive Or Frequent Menstruation Djd (Degenerative Joint Disease) Capsulitis Complex Endometrial Hyperplasia Without Atypia Rheumatoid Arthritis, Adult (Hcc) Fibromyalgia Dm (Diabetes Mellitus), Type 2, Uncontrolled Insomnia Hyperlipidemia Family History of Ischemic Heart Disease Cris (Obstructive Sleep Apnea) Abnormal Finding On Ultrasound Epigastric Pain Nausea Gastroparesis Due to Secondary Diabetes (Hcc) Type 2 Diabetes Mellitus With Diabetic Neuropathy, With Long-Term Current Use of Insulin ([facility]) Obesity, Class Iii, Bmi 40-49.9 (Morbid Obesity) ([facility]) Encounter for Screening for Malignant Neoplasm of Colon Leg Swelling Social History Tobacco Use Smoking status: Former Types: Cigarettes Smokeless tobacco: Never Tobacco comments: Quit 31 years ago Vaping Use Vaping Use: Never used Substance Use Topics Alcohol use: No Drug use: No Family History Problem Relation Age of Onset Coronary Artery Disease Mother Hypertension Mother [place] @ 62 yrs. old Diabetes Mother Cancer Father SKIN, ENT met to lungs. Coronary Artery Disease Brother 40 stent + [place] Coronary Artery Disease Brother 40 stent + [place] Coronary Artery Disease Brother 40 stent Coronary Artery Disease Maternal Grandmother Cancer Paternal Grandmother colon Cancer Maternal Aunt PANCREAS Heart Attack Maternal Aunt Cancer Maternal Aunt UTERINE Cancer Maternal Uncle HODGKINS Asthma No Family History Reviewed past medical history, family history and surgeries. All medications and supplements were reviewed with the patient. Review of Systems Constitutional: Negative for chills, diaphoresis, fever, malaise/fatigue and weight loss. HENT: Negative for ear pain and hearing loss. Eyes: Negative for blurred vision and double vision. Respiratory: Negative for cough and shortness of breath. Cardiovascular: Negative for chest pain, palpitations and leg swelling. Gastrointestinal: Negative for constipation, diarrhea and heartburn. Genitourinary: Negative for dysuria and frequency. Musculoskeletal: Negative for back pain, falls, joint pain and myalgias. Skin: Negative for itching and rash. Neurological: Negative for dizziness, weakness and headaches. Endo/Heme/Allergies: Does not bruise/bleed easily. Psychiatric/Behavioral: Negative for depression and substance abuse. The patient does not have insomnia. Objective BP 130/88 Pulse 74 Temp 36.7 C (98.1 F) Resp 16 Ht 166.4 cm (5' 5.5) Wt 119.6 kg (263 lb9.6 oz) LMP 12/22/2010 SpO2 96% BMI 43.20 kg/m Physical Exam Constitutional: Appearance: Normal appearance. She is obese. HENT: Head: Normocephalic and atraumatic. Nose: Nose normal. Mouth/Throat: Mouth: Mucous membranes are moist. Dentition: Normal dentition. Eyes: General: Lids are normal. Extraocular Movements: Extraocular movements intact. Conjunctiva/sclera: Conjunctivae normal. Pupils: Pupils are equal, round, and reactive to light. Neck: Thyroid: No thyroid mass or thyromegaly. Vascular: No carotid bruit. Trachea: Phonation normal. Cardiovascular: Rate and Rhythm: Normal rate and regular rhythm. Heart sounds: Normal heart sounds. No murmur heard. No friction rub. No gallop. Pulmonary: Effort: Pulmonary effort is normal. Breath sounds: Normal breath sounds. No wheezing or rales. Abdominal: General: Bowel sounds are normal. There is no distension. Palpations: Abdomen is soft. There is no mass. Tenderness: There is no abdominal tenderness. Musculoskeletal: General: No swelling or tenderness. Normal range of motion. Cervical back: Normal range of motion and neck supple. No edema. Lymphadenopathy: Cervical: No cervical adenopathy. Skin: General: Skin is warm and dry. Findings: No erythema or rash. Nails: There is no clubbing. Neurological: Mental Status: She is alert and oriented to person, place, and time. Cranial Nerves: No cranial nerve deficit. Motor: Motor function is intact. Coordination: Coordination normal. Gait: Gait is intact. Psychiatric: Attention and Perception: Attention normal. Mood and Affect: Mood and affect normal. Speech: Speech normal. Behavior: Behavior normal. Behavior is cooperative. Thought Content: Thought content normal. Cognition and Memory: Cognition and memory normal. Judgment: Judgment normal. ASSESSMENT/PLAN: 1. Hypertension, essential - ICD9: 401.9, ICD10: I10 (primary diagnosis) Continue hctz Trial of losartan 25 mg daily - LOSARTAN 25 MG TABLET 2. Type 2 diabetes mellitus with diabetic neuropathy, with long-term current use of insulin ([facility]) -ICD9: 250.60, 357.2, V58.67, ICD10: E11.40, Z79.4 Increase lantus to 15 units daily Restart farxiga 10 mg day (has at home) - INSULIN GLARGINE (U-100) 100 UNIT/ML (3 ML) SUBCUTANEOUS PEN 3. Obesity, Class III, BMI 40-49.9 (morbid obesity) ([facility]) - ICD9: 278.01, ICD10: E66.01 Lifestyle modification recommended Audelia Sheets, DO documented in this encounterOhio[facility] Nurse Note* Babita Griffin RN - 11/17/2022 11:00 AM EDT Patient taken to the restroom via wheelchair with assistance from Wanda. Patient voided and transported back to room via wheelchair. * Babita Griffin RN - 11/17/2022 10:[address] Hare aware of patient being very drowsy. Will continue to monitor. No new orders given. * Babita Griffin RN - 11/17/2022 10:02 AM EDT Patient very sleepy. Responsive to tactile stimulation. Will continue to monitor. * Babita Griffin RN - 11/17/2022 9:16 AM EDT Abdomen soft non-distended. Will continue to monitor. * Erin White RN - 11/17/2022 8:13 AM EDT Bp 214/95, 1000cc LR has infused, Dr Hare notified of fluid given and current bp. Plan to proceed. * Erin White RN - 11/17/2022 7:55 AM EDT Repeat bp 203/93, patient resting quietly, lights down, warm blankets on, at bedside. IV running wide open approximately 900cc LR infused at this time. * Erin White RN - 11/17/2022 7:[address] Hare here to see patient, notified of elevated bp, will start and IV and run wide open, and discuss plan with patient, present at bedside while she spoke to patient. documented in this encounterOhio[facility]06-28-2023 History and physical note * Estelita Hare MD - 11/17/2022 7:30 AM EDT UPDATED PROCEDURAL SEDATION HISTORY AND PHYSICAL EXAMINATION SERVICE DATE: 11/17/2022 SERVICE TIME: 7:41 PHYSICAL EXAM MUST BE COMPLETED ON ADMISSION PROCEDURE: colonoscopy possible biopsies Procedure Indications: screening for colon cancer The History and Physical (completed in the past 30 days) has been reviewed and the patient has beenexamined. The contents accurately reflect the patient's condition with the following additions or revisions since the H&P was completed. ASA Class: ASA Class:: Patient with severe systemic disease Examination indicates no changes. AIRWAY: Airway Visualization of Uvula: Yes Mouth opening greater than 2 fingerbreadths: Yes Neck Full Range of Motion: Yes LUNGS: Lungs clear to auscultation CARDIAC: Regular rhythm,Regular rate Provisional Diagnosis/Treatment Plan: colonoscopy, possible biopsies SEDATION GOAL: Moderate This H&P can be found in the Electronic Medical Record. SIGNATURE: Estelita Hare MD PATIENT NAME: Estela Cote DATE: November 17, 2022 TIME: 7:41 AM Source Note - Estelita Hare MD - 11/17/2022 7:30 AM EDT Estela Cote is a 47 year old female here today for Change In Bowel Habits (Left sided abdominal discomfort.) She was seen for c/o- nausea and vomiting. She is known c/o- diabetic gastroparesis. She had an episode of COVID 1 month ago after which her symptoms have worsened. She was placed back on Reglan by her PCP. She quit taking medications 2 years ago. She is now c/o- nausea and vomiting and constipation. She started taking Epsom salt for her constipation which is helping. No h/o- nausea, vomiting, loss of appetite, hematemesis, bleeding NC, unexplained weight loss, diarrhea, tenesmus, nocturnal diarrhea. CURRENT MEDICATIONS Current Outpatient Medications Medication Sig albuterol (PROVENTIL) 2.5 mg /3 mL (0.083 %) nebulizer solution Use 3 mL via nebulizer every 4 hours as needed for wheezing/shortness of breath. OVER 5-15 MINUTES. FOR WHEEZING AND SHORTNESS OF BREATH. gabapentin (NEURONTIN) 100 mg capsule No current facility-administered medications for this visit. ALLERGIES ALLERGIES Allergen Reactions Bees Rash, Swelling, Itching Childhood reaction, no recent stings. Metformin Diarrhea, GI Upset Adhesive Tape (Karen* Rash, Itching SOCIAL HISTORY Social History Tobacco Use Smoking status: Never Smokeless tobacco: Never Tobacco comments: No ETS in childhood or current home. Vaping Use Vaping Use: Never used Substance Use Topics Alcohol use: No Drug use: No PAST MEDICAL HISTORY PAST MEDICAL HISTORY Diagnosis Date Dysmetabolic syndrome X polycystic syndrome Endometrial hyperplasia with atypia 2007 Enlarged heart left side of heart Gastroparesis Headache(784.0) Leiomyoma of uterus, unspecified 2010 Mitral valve disorders(424.0) Obesity (BMI 30-39.9) CRIS (obstructive sleep apnea) no CPAP Polycystic ovaries Snoring Type II or unspecified type diabetes mellitus without mention of complication, not stated as uncontrolled Unspecified asthma(493.90) Unspecified essential hypertension PAST SURGICAL HISTORY PAST SURGICAL HISTORY Procedure Laterality Date DELIVERY ONLY 10/18/1995 , low cervical COLONOSCOPY FLX DX W/COLLJ SPEC WHEN PFRMD 2013 DILATION & CURETTAGE DX&/THER NONOBSTETRIC 1997, 2000 Dilation & curettage EGD 12/11/2015 chronic active gastritis EGD TRANSORAL BIOPSY SINGLE/MULTIPLE 08/22/2017 non-bleeding erosive gastropathy, sm amt phytobezoar in stomach, neg H Pylori; Dr. Vargas GI TRANSIT & PRES JON WIRELESS CAPSULE W/INTERP 10/16/2020 Smart Pill HYSTERECTOMY HX 2010 HYSTEROSCOPY BX W/WO D&C 11/25/2010 HYSTEROSCOPY, DIAGNOSTIC (SEPARATE 04/25/2008 Hysteroscopy/currettage INSERTION OF IUD 11/25/2010 mirena TONSILLECTOMY HX FAMILY HISTORY FAMILY HISTORY Problem Relation Age of Onset Coronary Artery Disease Mother Hypertension Mother [place] @ 62 yrs. old Diabetes Mother Cancer Father SKIN, ENT met to lungs. Coronary Artery Disease Maternal Grandmother Cancer Paternal Grandmother colon Cancer Maternal Uncle HODGKINS Cancer Maternal Aunt PANCREAS Cancer Maternal Aunt UTERINE Coronary Artery Disease Brother 40 stent + [place] Coronary Artery Disease Brother 40 stent + [place] Coronary Artery Disease Brother 40 stent Asthma No Family History REVIEW OF SYSTEMS Review of Systems Gastrointestinal: Positive for abdominal pain, constipation, nausea and vomiting. Gas All other systems reviewed and are negative. I have confirmed and edited as necessary, the PFSH and ROS obtained by others. PHYSICAL EXAM Pulse 62 Ht 5' 5.5 (1.66m) Wt 263 lb (119.3kg) LMP 12/22/2010 BMI 43.08 kg/(m^2). General appearance: Well appearing, alert, in no acute distress, well-hydrated, well nourished. andObese Skin: Skin color, texture, turgor normal Head: Normocephalic, no masses, lesions, tenderness or abnormalities Eyes: Anicteric sclera. Pupils are equally round. Oropharynx: Lips, mucosa, and tongue normal, teeth and gums normal, oropharynx normal Neck: Supple, no adenopathy; thyroid symmetric, normal size, no bruits Lungs: Lungs clear to auscultation. No wheezing, rhonchi, rales. Heart: RRR without murmur, gallop, or rubs. No ectopy Abdomen: Normal abdominal exam, Abdomen soft, non-tender. Bowel sounds normal. No masses, organomegaly Extremities: No deformities, edema, skin discoloration, clubbing or cyanosis. Good capillary refill. ASSESSMENT: 47 year old female patient who is in our clinic with gastroparesis with constipation. She quit taking her Reglan and Miralax and her symptoms have recurred.. Discussion/Plan/Recommendations: I have discussed the above with the patient. I have offered colonoscopy , possible biopsies I have explained the procedure to the patient. I have counseled the patient as to the risks of the procedure, including but not limited to: infection, bleeding, injury to any intrabdominal organs such as liver/spleen, perforation of the GI tract,inability to complete the procedure, complications of anesthesia, etc. - the patient understands. The patient wishes to proceed. I have answered all questions to the patient s satisfaction and the patient has no further questions. * Estelita Hare MD - 11/17/2022 7:30 AM EDT Estela Cote is a 47 year old female here today for Change In Bowel Habits (Left sided abdominal discomfort.) She was seen for c/o- nausea and vomiting. She is known c/o- diabetic gastroparesis. She had an episode of COVID 1 month ago after which her symptoms have worsened. She was placed back on Reglan by her PCP. She quit taking medications 2 years ago. She is now c/o- nausea and vomiting and constipation. She started taking Epsom salt for her constipation which is helping. No h/o- nausea, vomiting, loss of appetite, hematemesis, bleeding NC, unexplained weight loss, diarrhea, tenesmus, nocturnal diarrhea. CURRENT MEDICATIONS Current Outpatient Medications Medication Sig albuterol (PROVENTIL) 2.5 mg /3 mL (0.083 %) nebulizer solution Use 3 mL via nebulizer every 4 hours as needed for wheezing/shortness of breath. OVER 5-15 MINUTES. FOR WHEEZING AND SHORTNESS OF BREATH. gabapentin (NEURONTIN) 100 mg capsule No current facility-administered medications for this visit. ALLERGIES ALLERGIES Allergen Reactions Bees Rash, Swelling, Itching Childhood reaction, no recent stings. Metformin Diarrhea, GI Upset Adhesive Tape (Karen* Rash, Itching SOCIAL HISTORY Social History Tobacco Use Smoking status: Never Smokeless tobacco: Never Tobacco comments: No ETS in childhood or current home. Vaping Use Vaping Use: Never used Substance Use Topics Alcohol use: No Drug use: No PAST MEDICAL HISTORY PAST MEDICAL HISTORY Diagnosis Date Dysmetabolic syndrome X polycystic syndrome Endometrial hyperplasia with atypia 2007 Enlarged heart left side of heart Gastroparesis Headache(784.0) Leiomyoma of uterus, unspecified 2010 Mitral valve disorders(424.0) Obesity (BMI 30-39.9) CRIS (obstructive sleep apnea) no CPAP Polycystic ovaries Snoring Type II or unspecified type diabetes mellitus without mention of complication, not stated as uncontrolled Unspecified asthma(493.90) Unspecified essential hypertension PAST SURGICAL HISTORY PAST SURGICAL HISTORY Procedure Laterality Date DELIVERY ONLY 10/18/1995 , low cervical COLONOSCOPY FLX DX W/COLLJ SPEC WHEN PFRMD 2013 DILATION & CURETTAGE DX&/THER NONOBSTETRIC 1997, 2000 Dilation & curettage EGD 12/11/2015 chronic active gastritis EGD TRANSORAL BIOPSY SINGLE/MULTIPLE 08/22/2017 non-bleeding erosive gastropathy, sm amt phytobezoar in stomach, neg H Pylori; Dr. Vargas GI TRANSIT & PRES JON WIRELESS CAPSULE W/INTERP 10/16/2020 Smart Pill HYSTERECTOMY HX 2010 HYSTEROSCOPY BX W/WO D&C 11/25/2010 HYSTEROSCOPY, DIAGNOSTIC (SEPARATE 04/25/2008 Hysteroscopy/currettage INSERTION OF IUD 11/25/2010 mirena TONSILLECTOMY HX FAMILY HISTORY FAMILY HISTORY Problem Relation Age of Onset Coronary Artery Disease Mother Hypertension Mother [place] @ 62 yrs. old Diabetes Mother Cancer Father SKIN, ENT met to lungs. Coronary Artery Disease Maternal Grandmother Cancer Paternal Grandmother colon Cancer Maternal Uncle HODGKINS Cancer Maternal Aunt PANCREAS Cancer Maternal Aunt UTERINE Coronary Artery Disease Brother 40 stent + [place] Coronary Artery Disease Brother 40 stent + [place] Coronary Artery Disease Brother 40 stent Asthma No Family History REVIEW OF SYSTEMS Review of Systems Gastrointestinal: Positive for abdominal pain, constipation, nausea and vomiting. Gas All other systems reviewed and are negative. I have confirmed and edited as necessary, the PFSH and ROS obtained by others. PHYSICAL EXAM Pulse 62 Ht 5' 5.5 (1.66m) Wt 263 lb (119.3kg) LMP 12/22/2010 BMI 43.08 kg/(m^2). General appearance: Well appearing, alert, in no acute distress, well-hydrated, well nourished. andObese Skin: Skin color, texture, turgor normal Head: Normocephalic, no masses, lesions, tenderness or abnormalities Eyes: Anicteric sclera. Pupils are equally round. Oropharynx: Lips, mucosa, and tongue normal, teeth and gums normal, oropharynx normal Neck: Supple, no adenopathy; thyroid symmetric, normal size, no bruits Lungs: Lungs clear to auscultation. No wheezing, rhonchi, rales. Heart: RRR without murmur, gallop, or rubs. No ectopy Abdomen: Normal abdominal exam, Abdomen soft, non-tender. Bowel sounds normal. No masses, organomegaly Extremities: No deformities, edema, skin discoloration, clubbing or cyanosis. Good capillary refill. ASSESSMENT: 47 year old female patient who is in our clinic with gastroparesis with constipation. She quit taking her Reglan and Miralax and her symptoms have recurred.. Discussion/Plan/Recommendations: I have discussed the above with the patient. I have offered colonoscopy , possible biopsies I have explained the procedure to the patient. I have counseled the patient as to the risks of the procedure, including but not limited to: infection, bleeding, injury to any intrabdominal organs such as liver/spleen, perforation of the GI tract,inability to complete the procedure, complications of anesthesia, etc. - the patient understands. The patient wishes to proceed. I have answered all questions to the patient s satisfaction and the patient has no further questions. documented in this encounterOhio[facility] History of Present illness Narrative* Audelia Garcia DO - 11/03/2022 9:15 AM EDT VIRTUAL VISIT PROGRESS NOTE This is a virtual visit using ToVieFor video visit. It required patient-provider interaction for themedical decision making as documented below. I have communicated my name and active licensure. The patient's identity and physical location wereverified at the time of this visit. Either the patient or their legal business office representative has been informed of the risks and benefits of -- and alternatives to -- treatment through a remote evaluation andconsents to proceed with the evaluation remotely. Estela Cote is a 47 year old female seen for follow up for dizziness and generalized malaise, which she attributed to her medications. She was advised to stop lisinopril, farxiga and hctz, as she was not sure which medication was causing her to not feel well. Of note is the fact that the patient has a history of DMII and was on basal insulin at one time. She was restarted on lantus 5 units at bedtime to control her blood sugars until her medication could be sorted out. She continues to take gabapentin as needed for pain, although it is prescribed to be taken 3 times a day scheduled. She is feeling much better since she stopped the medications. Her blood sugar is still high. Her sugars have gone as high as 425, but they are trending downward Her BPs are 130s-140s/80s-90s Her blood sugars at last visit were in the 250s fasting. She would like to restart the hctz 25 mg because her legs have been swelling since she went off it She does not think that was on of the meds that was making her feel bad. She believes it was the lisinopril that was making her feel bad. HISTORY REVIEWED (electronic chart updated): PAST MEDICAL HISTORY Diagnosis Date Dysmetabolic syndrome X polycystic syndrome Endometrial hyperplasia with atypia 2007 Enlarged heart left side of heart Gastroparesis Headache(784.0) Leiomyoma of uterus, unspecified 2010 Mitral valve disorders(424.0) Obesity (BMI 30-39.9) CRIS (obstructive sleep apnea) no CPAP Polycystic ovaries Snoring Type II or unspecified type diabetes mellitus without mention of complication, not stated as uncontrolled Unspecified asthma(493.90) Unspecified essential hypertension PAST SURGICAL HISTORY Procedure Laterality Date DELIVERY ONLY 10/18/1995 , low cervical COLONOSCOPY FLX DX W/COLLJ SPEC WHEN PFRMD 2012 DILATION & CURETTAGE DX&/THER NONOBSTETRIC 1997, 2000 Dilation & curettage EGD 12/11/2015 chronic active gastritis EGD TRANSORAL BIOPSY SINGLE/MULTIPLE 08/22/2017 non-bleeding erosive gastropathy, sm amt phytobezoar in stomach, neg H Pylori; Dr. Vargas GI TRANSIT & PRES JON WIRELESS CAPSULE W/INTERP 10/16/2020 Smart Pill HYSTERECTOMY HX 2010 HYSTEROSCOPY BX W/WO D&C 11/25/2010 HYSTEROSCOPY, DIAGNOSTIC (SEPARATE 04/25/2008 Hysteroscopy/currettage INSERTION OF IUD 11/25/2010 mirena TONSILLECTOMY HX FAMILY HISTORY Problem Relation Age of Onset Coronary Artery Disease Mother Hypertension Mother [place] @ 62 yrs. old Diabetes Mother Cancer Father SKIN, ENT met to lungs. Coronary Artery Disease Brother 40 stent + [place] Coronary Artery Disease Brother 40 stent + [place] Coronary Artery Disease Brother 40 stent Coronary Artery Disease Maternal Grandmother Cancer Paternal Grandmother colon Cancer Maternal Aunt PANCREAS Heart Attack Maternal Aunt Cancer Maternal Aunt UTERINE Cancer Maternal Uncle HODGKINS Asthma No Family History Social History Tobacco Use Smoking status: Former Types: Cigarettes Smokeless tobacco: Never Tobacco comments: Quit 31 years ago Vaping Use Vaping Use: Never used Substance Use Topics Alcohol use: No Drug use: No Current Outpatient Medications Medication Sig insulin glargine (LANTUS SOLOSTAR U-100 INSULIN) 100 unit/mL (3 mL) Inject 5 Units subcutaneously daily at bedtime. Insulin [place], Disposable, (BD ULTRAFINE III MINI PEN) 31 gauge x 3/16 1 Each daily at bedtime. GAVILYTE-G 236-22.74-6.74 -5.86 gram suspension Blood Glucose Control, Normal soln Use as directed blood sugar diagnostic (BLOOD GLUCOSE TEST) test strip 1 Strip once daily. Use as instructed gabapentin (NEURONTIN) 100 mg capsule Take 1 capsule by mouth three times daily for 30 days. polyethylene glycol 3350 (MIRALAX) 17 gram/dose powder Take 17 g by mouth three times daily. Dissolve dose in 4 - 8 ounces of liquid and take as directed. albuterol (PROVENTIL) 2.5 mg /3 mL (0.083 %) nebulizer solution Use 3 mL via nebulizer every 4 hours as needed for wheezing/shortness of breath. OVER 5-15 MINUTES. FOR WHEEZING AND SHORTNESS OF BREATH. No current facility-administered medications for this visit. ALLERGIES Allergen Reactions Bees Rash, Swelling, Itching Childhood reaction, no recent stings. Metformin Diarrhea, GI Upset Adhesive Tape (Karen* Rash, Itching Ozempic [Semaglutid* Intolerance Nausea and vomiting REVIEW OF SYSTEMS: HEENT: denies HAYES, change in hearing or vision, no other ENT complaints NECK: denies swelling or pain in neck RESPIRATORY: no cough, no wheezing or shortness of breath CARDIOVASCULAR: + for leg swelling MUSCULOSKELETAL: denies any painful or swollen joints, no muscle aches PHYSICAL EXAMINATION: VIDEO EXAM: (if completed, performed via video enabled technology) GENERAL: alert and appropriate, in no distress, well-hydrated, well nourished, and happy, smiling, interactive SKIN: no rash noted HEAD: normocephalic, no abnormality or lesion noted EYES: no injection and visual acuity is grossly normal RESPIRATORY: breathing non-labored ASSESSMENT/PLAN: 1. Hypertension, essential - ICD9: 401.9, ICD10: I10 (primary diagnosis) Pt would like to restart Hctz - HYDROCHLOROTHIAZIDE 25 MG TABLET 2. Type 2 diabetes mellitus with diabetic neuropathy, with long-term current use of insulin ([facility]) -ICD9: 250.60, 357.2, V58.67, ICD10: E11.40, Z79.4 Increase lantus to 10 units daily - INSULIN GLARGINE (U-100) 100 UNIT/ML (3 ML) SUBCUTANEOUS PEN 3. Leg swelling - ICD9: 729.81, ICD10: M79.89 Restart hctz Audelia Garcia DO There are no Patient Instructions on file for this visit. I spent a total of 15 minutes on the date of the service which included preparing to see the patient, [id number] patient care, completing clinical documentation, obtaining and/or reviewing separately obtained history, performing a medically appropriate examination, counseling and educating the pat ient/family/caregiver, and ordering medications, tests, or procedures Audelia Garcia DO documented in this encounterOhio[facility]06-07-[facility] History of Present illness Narrative* Audelia Garcia DO - 10/27/2022 7:46 AM EDT VIRTUAL VISIT PROGRESS NOTE This is a virtual visit using ToVieFor video visit. It required patient-provider interaction for themedical decision making as documented below. I have communicated my name and active licensure. The patient's identity and physical location wereverified at the time of this visit. Either the patient or their legal business office representative has been informed of the risks and benefits of -- and alternatives to -- treatment through a remote evaluation andconsents to proceed with the evaluation remotely. Estela Cote is a 47 year old female seen for medication intolerance. She feels weak, has to sit and rest frequently, she is lightheaded and dizzy. She started all her meds at the same time, so is not sure which medication is making her not feel well She has felt this way in the past She was taking her medication in the morning, so she started taking it at night, but that has not helped Tuesday, she was leading methodist, could barely stand, felt like she could not breathe She denies chest pain, but she feels like something is trying to suck her breath out. She is not taking reglan She stopped taking farxiga last night She had a rough night last night Blood sugar this morning was 256 She takes gabapentin only as needed HISTORY REVIEWED (electronic chart updated): PAST MEDICAL HISTORY Diagnosis Date Dysmetabolic syndrome X polycystic syndrome Endometrial hyperplasia with atypia 2007 Enlarged heart left side of heart Gastroparesis Headache(784.0) Leiomyoma of uterus, unspecified 2010 Mitral valve disorders(424.0) Obesity (BMI 30-39.9) CRIS (obstructive sleep apnea) no CPAP Polycystic ovaries Snoring Type II or unspecified type diabetes mellitus without mention of complication, not stated as uncontrolled Unspecified asthma(493.90) Unspecified essential hypertension PAST SURGICAL HISTORY Procedure Laterality Date DELIVERY ONLY 10/18/1995 , low cervical COLONOSCOPY FLX DX W/COLLJ SPEC WHEN PFRMD 2012 DILATION & CURETTAGE DX&/THER NONOBSTETRIC 1997, 2000 Dilation & curettage EGD 12/11/2015 chronic active gastritis EGD TRANSORAL BIOPSY SINGLE/MULTIPLE 08/22/2017 non-bleeding erosive gastropathy, sm amt phytobezoar in stomach, neg H Pylori; Dr. Vargas GI TRANSIT & PRES JON WIRELESS CAPSULE W/INTERP 10/16/2020 Smart Pill HYSTERECTOMY HX 2010 HYSTEROSCOPY BX W/WO D&C 11/25/2010 HYSTEROSCOPY, DIAGNOSTIC (SEPARATE 04/25/2008 Hysteroscopy/currettage INSERTION OF IUD 11/25/2010 mirena TONSILLECTOMY HX FAMILY HISTORY Problem Relation Age of Onset Coronary Artery Disease Mother Hypertension Mother [place] @ 62 yrs. old Diabetes Mother Cancer Father SKIN, ENT met to lungs. Coronary Artery Disease Brother 40 stent + [place] Coronary Artery Disease Brother 40 stent + [place] Coronary Artery Disease Brother 40 stent Coronary Artery Disease Maternal Grandmother Cancer Paternal Grandmother colon Cancer Maternal Aunt PANCREAS Heart Attack Maternal Aunt Cancer Maternal Aunt UTERINE Cancer Maternal Uncle HODGKINS Asthma No Family History Social History Tobacco Use Smoking status: Former Types: Cigarettes Smokeless tobacco: Never Tobacco comments: Quit 31 years ago Vaping Use Vaping Use: Never used Substance Use Topics Alcohol use: No Drug use: No Current Outpatient Medications Medication Sig GAVILYTE-G 236-22.74-6.74 -5.86 gram suspension Blood Glucose Control, Normal soln Use as directed blood sugar diagnostic (BLOOD GLUCOSE TEST) test strip 1 Strip once daily. Use as instructed gabapentin (NEURONTIN) 100 mg capsule Take 1 capsule by mouth three times daily for 30 days. lisinopril 2.5 mg tablet Take 1 tablet by mouth once daily. hydroCHLOROthiazide 25 mg tablet Take 1 tablet by mouth once daily. metoclopramide HCl (REGLAN) 5 mg tablet Take 1 tablet by mouth before meals and at bedtime. polyethylene glycol 3350 (MIRALAX) 17 gram/dose powder Take 17 g by mouth three times daily. Dissolve dose in 4 - 8 ounces of liquid and take as directed. albuterol (PROVENTIL) 2.5 mg /3 mL (0.083 %) nebulizer solution Use 3 mL via nebulizer every 4 hours as needed for wheezing/shortness of breath. OVER 5-15 MINUTES. FOR WHEEZING AND SHORTNESS OF BREATH. No current facility-administered medications for this visit. ALLERGIES Allergen Reactions Bees Rash, Swelling, Itching Childhood reaction, no recent stings. Metformin Diarrhea, GI Upset Adhesive Tape (Karen* Rash, Itching Ozempic [Semaglutid* Intolerance Nausea and vomiting REVIEW OF SYSTEMS: HEENT: denies HAYES, change in hearing or vision, no other ENT complaints NECK: denies swelling or pain in neck RESPIRATORY: no cough, no wheezing or shortness of breath CARDIOVASCULAR: no chest pain, no palpitations MUSCULOSKELETAL: denies any painful or swollen joints, no muscle aches PHYSICAL EXAMINATION: VIDEO EXAM: (if completed, performed via video enabled technology) GENERAL: alert and appropriate, in no distress, well-hydrated, well nourished, and happy, smiling, interactive SKIN: no rash noted HEAD: normocephalic, no abnormality or lesion noted RESPIRATORY: breathing non-labored ASSESSMENT/PLAN: 1. Medication intolerance Stop lisinopril, stay off farxiga, stop hctz 2. SOB (shortness of breath) - ICD9: 786.05, ICD10: R06.02 (primary diagnosis) - XR CHEST 2V FRONTAL/LAT 3. Atypical chest pain - ICD9: 786.59, ICD10: R07.89 - ECG COMPLETE Audelia Sheets, DO There are no Patient Instructions on file for this visit. I spent a total of 15 minutes on the date of the service which included preparing to see the patient, [id number] patient care, completing clinical documentation, obtaining and/or reviewing separately obtained history, performing a medically appropriate examination, and counseling and educating the patient/family/caregiver Audelia Garcia DO documented in this encounterOhio[facility]06-06-2023 Miscellaneous Notes* Telephone Encounter - Audelia Garcia DO - 10/26/2022 2:12 PM EDT Will discuss medications with patient at virtual visit tomorrow Audelia Garcia DO * Telephone Encounter - Fernanda Patel MA - 10/26/2022 2:00 PM EDT Patient states she has been taking farxiga since her last visit with you on 10/15/2022. She states she feels awful, no energy , no appetite, gets some SOB once in awhile. She states she feels so horrible that she wants to stop all medications. She states she forgot to mention all of this at her lastvisit. Patient states she is going to make a virtual visit with you to discuss medications. She states she cannot remember her dose of glimepiride. Patient has virtual visit with you for tomorrow. Fernanda Patel MA * Telephone Encounter - Audelia Garcia DO - 10/25/2022 6:38 PM EDT Please call pt- her A1c was high at 12.3. The rest of her blood work was at [facility]. I would like for her to restart farxiga and glimepiride. Does she know what dosages she was on before she stopped her medication? Audelia Garcia DO documented in this encounterOhiohealth [facility]06-02-2023 Miscellaneous Notes* Letter - Mammography Coordinator - 10/22/2022 6:49 AM EDT [address] [address] October 22, 2022 PID: [id number] Estela Cote [address] [place] [address] Dear Al Cote, We are pleased to inform you that the results of your recent breast imaging exam on 10/21/2022 are normal. Early detection of cancer is very important. We also understand recommendations regarding breast cancer screening are controversial. Please discuss with your primary care provider which strategy is best for you and whether a mammogram is right for you. Your imaging studies and report will be kept on file at [facility] as part of your permanent medical record and are available for your continuing care. Thank you for allowing us to help in meeting your health care needs. Sincerely, Dr. Batista Interpreting Radiologist [facility] (Normal over 40) documented in this encounterOhiohealth Grady [facility]06-01-2023 History of Present illness Narrative* RENO Landry) - 10/21/2022 9:00 AM EDT Radiology Service Progress Note PATIENT NAME: Estela Cote DATE OF SERVICE: October 21, 2022 TIME: 9:33 AM PATIENT IDENTITY VERIFICATION COMPLETED USING TWO (2) IDENTIFIERS: Name and Date of confirmedby patient verbally. FALL SCREENING: Has the patient had 2 falls in the last year or 1 fall with injury or currently using an Ambulatory Assistive Device (Walker, Cane, Wheelchair, Crutches, etc.)? No PATIENT GENDER DATA: Female. status: : No status: N/A PATIENT RELEVANT IMPLANT DATA REVIEWED: Not Applicable RADIOLOGY DEPARTMENT: Mammography PERIPHERAL IV DATA: Not applicable SIGNED BY: RENO Landry) October 21, 2022 9:33 AM documented in this encounterOhiohealth [facility]ady [facility]05-26-2023 History of Present illness Narrative* Audelia Tirado DO Velvet - 10/15/2022 1:41 PM EDT SUBJECTIVE: 47 year old female here with her to establish. I have fully reviewed the past medical, surgical, social and family history and updated the Histories section of [facility]. Pt was under the care of Dr. Beard, security flex officer. 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 ALLERGIES Allergen Reactions Bees Rash, Swelling, Itching Childhood reaction, no recent stings. Metformin Diarrhea, GI Upset Adhesive Tape (Karen* Rash, Itching Current Outpatient Medications Medication Sig Dispense Refill GAVILYTE-G 236-22.74-6.74 -5.86 gram suspension metoclopramide HCl (REGLAN) 5 mg tablet Take 1 tablet by mouth before meals and at bedtime. 120 tablet 4 polyethylene glycol 3350 (MIRALAX) 17 gram/dose powder Take 17 g by mouth three times daily. Dissolve dose in 4 - 8 ounces of liquid and take as directed. 850 g 4 albuterol (PROVENTIL) 2.5 mg /3 mL (0.083 %) nebulizer solution Use 3 mL via nebulizer every 4 hours as needed for wheezing/shortness of breath. OVER 5-15 MINUTES. FOR WHEEZING AND SHORTNESS OF BREATH. 90 mL 3 gabapentin (NEURONTIN) 100 mg capsule No current facility-administered medications for this visit. ACTIVE PROBLEM LIST Hypertension Goal Bp (Blood Pressure) < 140/90 Dysmetabolic Syndrome X Polycystic Ovaries Unspecified Asthma(493.90) Headache(784.0) FATTY LIVER Endometrial Hyperplasia With Atypia Excessive Or Frequent Menstruation Djd (Degenerative Joint Disease) Capsulitis Complex Endometrial Hyperplasia Without Atypia Rheumatoid Arthritis, Adult (Hcc) Fibromyalgia Dm (Diabetes Mellitus), Type 2, Uncontrolled Insomnia Hyperlipidemia Family History of Ischemic Heart Disease Cris (Obstructive Sleep Apnea) Abnormal Finding On Ultrasound Epigastric Pain Nausea Gastroparesis Due to Secondary Diabetes (Hcc) Uncontrolled Type 2 Diabetes Mellitus With Diabetic Autonomic Neuropathy, With Long-Term Current Use of Insulin Social History Tobacco Use Smoking status: Former Types: Cigarettes Smokeless tobacco: Never Tobacco comments: Quit 31 years ago Vaping Use Vaping Use: Never used Substance Use Topics Alcohol use: No Drug use: No Family History Problem Relation Age of Onset Coronary Artery Disease Mother Hypertension Mother [place] @ 62 yrs. old Diabetes Mother Cancer Father SKIN, ENT met to lungs. Coronary Artery Disease Brother 40 stent + [place] Coronary Artery Disease Brother 40 stent + [place] Coronary Artery Disease Brother 40 stent Coronary Artery Disease Maternal Grandmother Cancer Paternal Grandmother colon Cancer Maternal Aunt PANCREAS Heart Attack Maternal Aunt Cancer Maternal Aunt UTERINE Cancer Maternal Uncle HODGKINS Asthma No Family History Reviewed past medical history, family history and surgeries. All medications and supplements were reviewed with the patient. REVIEW OF SYSTEMS GENERAL: No weight loss, malaise or fevers HEENT: Negative for frequent or significant headaches, No changes in hearing or vision, no nose bleeds or other nasal problems NECK: Negative for lumps, goiter, pain and significant neck swelling RESPIRATORY: Negative for cough, hemoptysis, wheezing, COPD, dyspnea or shortness of breath CARDIOVASCULAR: Negative for chest pain, leg swelling, hypertension, CHF or palpitations GI: No nausea, vomiting, or diarrhea : No history of dysuria, frequency or incontinence MUSCULOSKELETAL: Positive for leg cramps SKIN: Negative for lesions, rash, and itching PSYCH: Negative for sleep disturbance, mood disorder and recent psychosocial stressors HEMATOLOGY/LYMPHOLOGY: Negative for prolonged bleeding, bruising easily or swollen nodes ENDOCRINE: Negative for cold or heat intolerance, polyuria, polydipsia and goiter NEURO: No history of headaches, syncope, paralysis, seizures or tremors PHYSICAL EXAMINATION: BP 136/84 Pulse 75 Temp 36.4 C (97.5 F) Resp 18 Ht 166.4 cm (5' 5.5) Wt 117.5 kg (259 lb) LMP 12/22/2010 SpO2 97% BMI 42.44 kg/m General appearance: Well appearing, alert, in no acute distress, well-hydrated, obese. Skin: Skin color, texture, turgor normal, no suspicious rashes or lesions Head: Normocephalic, no masses, lesions, tenderness or abnormalities Eyes: Anicteric sclera. Pupils are equally round and reactive to light. Extraocular movements are intact. Ears: External ears normal, canals clear Nose/Sinuses: Nares normal, septum midline, mucosa normal, no drainage or sinus tenderness Oropharynx: Lips, mucosa, and tongue normal, teeth and gums normal, oropharynx normal Neck: Supple, no adenopathy; thyroid symmetric, normal size, no bruits Back: Normal exam Lungs: Lungs clear to auscultation. No wheezing, rhonchi, rales. Heart: RRR without murmur, gallop, or rubs. No ectopy Abdomen: Normal abdominal exam, Abdomen soft, non-tender. Bowel sounds normal. No masses, organomegaly Extremities: No deformities, edema, skin discoloration, clubbing or cyanosis. Good capillary refill. Musculoskeletal: No joint swelling, deformity, or tenderness Peripheral pulses: Normal Neuro: Gait normal. Reflexes normal and symmetric. Sensation grossly intact. ASSESSMENT/PLAN: 1. Uncontrolled type 2 diabetes mellitus with hyperglycemia (HCC) - ICD9: 250.02, ICD10: E11.65 (primary diagnosis) - Uncontrolled - pt would like to restart diabetic meds We will check Hba1c to see what her blood sugar levels have been to determine if she should restarton farxiga and glimepiride, which she took in the past - BLOOD-GLUCOSE METER - BLOOD GLUCOSE CONTROL, NORMAL SOLUTION - BLOOD GLUCOSE TEST STRIPS - ALBUMIN/CREAT RATIO RND UR - HGB A1C - LIPID PANEL BASIC - CBC - COMP METABOLIC PANEL 2. Hypertension, essential - ICD9: 401.9, ICD10: I10 Pt has not been on antihypertensives since kaz covid 19 Restart lisinopril and hctz - LISINOPRIL 2.5 MG TABLET - HYDROCHLOROTHIAZIDE 25 MG TABLET 3. Rheumatoid arthritis involving multiple sites with positive rheumatoid factor (HCC) - ICD9: 714.0, ICD10: M05.79 - GABAPENTIN 100 MG CAPSULE 4. Screening mammogram, encounter for - ICD9: V76.12, ICD10: Z12.31 - CARIDAD SCREENING 5. Obesity, Class III, BMI 40-49.9 (morbid obesity) (HCC) - ICD9: 278.01, ICD10: E66.01 - [facility] Audelia Garcia DO During this patient visit I have spent approximately 30 minutes out of 45 in counseling regarding treatment options, medications, and coordinating care and coordinating care. PDMP website checked and validated. All prescriptions have been APPROPRIATELY filled. No suspiciousactivity was identified. 10/25/2022 by Audelia Garcia DO documented in this encounterOhiohealth [facility]09-30-2022 History of Present illness Narrative* Lesly Becker PA-C - 02/19/2022 12:27 PM EDT Images from the original note were not included. This note was created using [employer]. Subjective Estela Cote is a 47 year old female. HPI Patient presents with cough and congestion over the past 4 days. She also has had redness around the left eye which is very itchy. She denies any new exposures. She states she did have however poisonivy on her hand recently. She does have a history of asthma. She is really not been wheezing. She has had multiple family members sick recently. No home COVID test performed. She also has a history of RA is on Plaquenil. Review of Systems Constitutional: Negative for fever. HENT: Positive for congestion and sore throat. Negative for ear pain. Eyes: Positive for redness and itching. Negative for photophobia, pain, discharge and visual disturbance. Respiratory: Positive for cough. Negative for shortness of breath and wheezing. Cardiovascular: Negative. Gastrointestinal: Negative. Genitourinary: Negative. Musculoskeletal: Negative. All other systems reviewed and are negative. PAST MEDICAL HISTORY Diagnosis Date Dysmetabolic syndrome X polycystic syndrome Endometrial hyperplasia with atypia 2007 Enlarged heart left side of heart Gastroparesis Headache(784.0) Leiomyoma of uterus, unspecified 2010 Mitral valve disorders(424.0) Obesity (BMI 30-39.9) CRIS (obstructive sleep apnea) no CPAP Polycystic ovaries Snoring Type II or unspecified type diabetes mellitus without mention of complication, not stated as uncontrolled Unspecified asthma(493.90) Unspecified essential hypertension Current Outpatient Medications Medication Sig Dispense Refill predniSONE (DELTASONE) 10 mg tablet Take 6 tabs for 3 days, then 4 tabs for 3 days, then 2 tabs for3 days then 1 tab for 3 days with food. 39 tablet 0 benzonatate (TESSALON PERLES) 100 mg capsule Take 2 capsules by mouth three times daily as needed. 30 capsule 0 guaiFENesin (MUCINEX) 600 mg 12 hr tablet Take 2 tablets by mouth twice daily for 5 days. 20 tablet0 albuterol (PROVENTIL) 2.5 mg /3 mL (0.083 %) nebulizer solution Use 3 mL via nebulizer every 4 hours as needed for wheezing/shortness of breath. OVER 5-15 MINUTES. FOR WHEEZING AND SHORTNESS OF BREATH. (Patient not taking: Reported on 02/19/2022) 90 mL 3 [id number] 1 mg-1.5 mg- 1.7 mg-50 mg tab 1 tablet (Patient not taking: No sig reported) gabapentin (NEURONTIN) 100 mg capsule as directed hydrOXYchloroQUINE (PLAQUENIL) 200 mg tablet 2 tablet with food or milk ONETOUCH VERIO TEST STRIPS test strip use 1 TEST STRIP to TEST BLOOD SUGAR twice a day (Patient nottaking: Reported on 02/19/2022) Rasuvo (PF) 20 mg/0.4 mL subcutaneous auto-injector (Patient not taking: Reported on 02/19/2022) polyethylene glycol 3350 (MIRALAX) 17 gram/dose powder Take 34 g by mouth twice daily. 850 g 3 FARXIGA 10 mg tablet Take 10 mg by mouth once daily. (Patient not taking: Reported on 02/19/2022) metoclopramide HCl (REGLAN) 10 mg tablet Take 1 tablet by mouth four times daily. 120 tablet 3 esomeprazole (NEXIUM) 40 mg capsule Take 1 capsule by mouth once daily. 30 capsule 3 DULoxetine (CYMBALTA) 30 mg capsule take 1 capsule by mouth once daily for 30 DAYS (Patient not taking: Reported on 02/19/2022) folic acid 1 mg tablet Take 1 mg by mouth once daily. (Patient not taking: Reported on 02/19/2022) gabapentin (NEURONTIN) 100 mg capsule take as directed at bedtime for 1 week then take 1 capsule bymou... (REFER TO PRESCRIPTION NOTES). (Patient not taking: Reported on 02/19/2022) hydrOXYchloroQUINE (PLAQUENIL) 200 mg tablet take 2 tablets by mouth once daily with food or milk (Patient not taking: Reported on 02/19/2022) meloxicam (MOBIC) 15 mg tablet Take 15 mg by mouth once daily. (Patient not taking: No sig reported) OZEMPIC 1 mg/dose (2 mg/1.5 mL) pnij inject 1 milligram subcutaneously every 7 days traMADol (ULTRAM) 50 mg tablet Take 50 mg by mouth every 6 hours as needed. No current facility-administered medications for this visit. PAST SURGICAL HISTORY Procedure Laterality Date DELIVERY ONLY 10/18/1995 , low cervical COLONOSCOPY FLX DX W/COLLJ SPEC WHEN PFRMD 2012 DILATION & CURETTAGE DX&/THER NONOBSTETRIC 1997, 2000 Dilation & curettage EGD 12/11/2015 chronic active gastritis EGD TRANSORAL BIOPSY SINGLE/MULTIPLE 08/22/2017 non-bleeding erosive gastropathy, sm amt phytobezoar in stomach, neg H Pylori; Dr. Vargas GI TRANSIT & PRES JON WIRELESS CAPSULE W/INTERP 10/16/2020 Smart Pill HYSTERECTOMY HX 2010 HYSTEROSCOPY BX W/WO D&C 11/25/2010 HYSTEROSCOPY, DIAGNOSTIC (SEPARATE 04/25/2008 Hysteroscopy/currettage INSERTION OF IUD 11/25/2010 mirena TONSILLECTOMY HX FAMILY HISTORY Problem Relation Age of Onset Coronary Artery Disease Mother Hypertension Mother [place] @ 62 yrs. old Diabetes Mother Cancer Father SKIN, ENT met to lungs. Coronary Artery Disease Maternal Grandmother Cancer Paternal Grandmother colon Cancer Maternal Uncle HODGKINS Cancer Maternal Aunt PANCREAS Cancer Maternal Aunt UTERINE Coronary Artery Disease Brother 40 stent + [place] Coronary Artery Disease Brother 40 stent + [place] Coronary Artery Disease Brother 40 stent Asthma No Family History Social History Tobacco Use Smoking status: Never Smokeless tobacco: Never Tobacco comments: No ETS in childhood or current home. Vaping Use Vaping Use: Never used Substance Use Topics Alcohol use: No Drug use: No Objective BP 162/100 Pulse 95 Temp 36.2 C (97.1 F) Resp 18 Wt 119.9 kg (264 lb 6.4 oz) LMP 12/22/2010 SpO2 94% BMI 43.26 kg/m Physical Exam Vitals reviewed. Constitutional: Appearance: Normal appearance. HENT: Head: Normocephalic and atraumatic. Right Ear: Tympanic membrane, ear canal and external ear normal. Left Ear: Tympanic membrane, ear canal and external ear normal. Nose: Congestion present. Mouth/Throat: Mouth: Mucous membranes are moist. Pharynx: Oropharynx is clear. Eyes: Comments: Patient has dry irritated erythematous skin on the upper and lower eyelids consistent with probable eczema. No vesicles. No sign of periorbital cellulitis. The eye itself is not affected. Sclera clear. Cardiovascular: Rate and Rhythm: Normal rate and regular rhythm. Heart sounds: Normal heart sounds. Pulmonary: Effort: Pulmonary effort is normal. Breath sounds: Normal breath sounds. Musculoskeletal: Cervical back: Neck supple. Skin: General: Skin is warm and dry. Findings: No rash. Neurological: General: No focal deficit present. Mental Status: She is alert and oriented to person, place, and time. Assessment and Plan ASSESSMENT/PLAN: 1. Viral URI with cough - ICD9: 465.9, ICD10: J06.9 (primary diagnosis) - Discussed viral etiology and rationale for treatment. - Symptomatic treatment with prn analgesia - Supportive care with fluids and rest -Chest x-ray clear. Tessalon and Mucinex prescribed. Prednisone as well. Discussed red flags to be seen again. COVID testing pending. Patient agreeable with plan - XR CHEST 2V FRONTAL/LAT - COVID WITH FLUA+B, ROUTINE 2. Rash - ICD9: 782.1, ICD10: R21 Likely eczema versus contact dermatitis. No sign of shingles or periorbital cellulitis. Discussed using Vaseline to keep the area moisturized. Prednisone taper as well. Lesly Becker PA-C documented in this encounterOhiohealth [facility]ady [facility]09-30-2022 History of Present illness Narrative* Erika Jarrett, RT(R) - 02/19/2022 11:00 AM EDT Radiology Service Progress Note PATIENT NAME: Estela Cote DATE OF SERVICE: February 19, 2022 TIME: 11:09 AM PATIENT IDENTITY VERIFICATION COMPLETED USING TWO (2) IDENTIFIERS: Name and Date of confirmedby patient verbally. FALL SCREENING: Has the patient had 2 falls in the last year or 1 fall with injury or currently using an Ambulatory Assistive Device (Walker, Cane, Wheelchair, Crutches, etc.)? No PATIENT GENDER DATA: Female. status: : No status: NO. PATIENT RELEVANT IMPLANT DATA REVIEWED: Yes RADIOLOGY DEPARTMENT: General X-ray: Exam(s) Completed: Chest X-Ray PERIPHERAL IV DATA: Not applicable SIGNED BY: RT Gerry(R) February 19, 2022 11:09 AM documented in this encounterOhiohealth Grady [facility]06-22-2021 History of Present illness Narrative* Rossy Luis RT(R) - 11/11/2020 4:00 PM EDT Radiology Service Progress Note PATIENT NAME: Estela Cote DATE OF SERVICE: November 11, 2020 TIME: 4:15 PM PATIENT IDENTITY VERIFICATION COMPLETED USING TWO (2) IDENTIFIERS: Name and Date of confirmedby patient verbally. FALL SCREENING: Has the patient had 2 falls in the last year or 1 fall with injury or currently using an Ambulatory Assistive Device (Walker, Cane, Wheelchair, Crutches, etc.)? No PATIENT GENDER DATA: Female. status: : No status: NO. PATIENT RELEVANT IMPLANT DATA REVIEWED: Not Applicable RADIOLOGY DEPARTMENT: General X-ray: Exam(s) Completed: Chest X-Ray PERIPHERAL IV DATA: Not applicable SIGNED BY: RT Sean(R) November 11, 2020 4:15 PM [facility] History of Present illness Narrative* Erika Jarrett (Rt)Diego - 05/30/2020 3:30 PM EST Radiology Service Progress Note PATIENT NAME: Estela Cote DATE OF SERVICE: May 30, 2020 TIME: 3:25 PM PATIENT IDENTITY VERIFICATION COMPLETED USING TWO (2) IDENTIFIERS: Name and Date of confirmedby patient verbally. FALL SCREENING: Has the patient had 2 falls in the last year or 1 fall with injury or currently using an Ambulatory Assistive Device (Walker, Cane, Wheelchair, Crutches, etc.)? No PATIENT GENDER DATA: Female. status: : No status: NO. PATIENT RELEVANT IMPLANT DATA REVIEWED: Yes RADIOLOGY DEPARTMENT: General X-ray: Exam(s) Completed: Abdomen X-Ray Abdomen PERIPHERAL IV DATA: Not applicable SIGNED BY: RT Gerry May 30, 2020 3:25 PM documented in this encounter[facility] History of Past illness Narrative* Problem Noted Date Resolved Date Overweight(278.02) 02/25/2014 Type II or unspecified type diabetes mellitus without mention of complication, not stated as uncontrolled documented as of this encounter (statuses as of 02/19/2022) [facility] of [facility] illness Narrative* Problem Noted Date Resolved Date Overweight(278.02) 02/25/2014 Type II or unspecified type diabetes mellitus without mention of complication, not stated as uncontrolled documented as of this encounter (statuses as of 05/28/2022) [facility] of [facility] illness Narrative* Problem Noted Date Resolved Date Overweight(278.02) 02/25/2014 Type II or unspecified type diabetes mellitus without mention of complication, not stated as uncontrolled documented as of this encounter (statuses as of 10/22/2022) [facility] of [facility] illness Narrative* Problem Noted Date Resolved Date Overweight(278.02) 02/25/2014 Type II or unspecified type diabetes mellitus without mention of complication, not stated as uncontrolled documented as of this encounter (statuses as of 10/26/2022) [facility] Narrative* Problem Noted Date Resolved Date Overweight(278.02) 02/25/2014 Type II or unspecified type diabetes mellitus without mention of complication, not stated as uncontrolled documented as of this encounter (statuses as of 10/26/2022) [facility] Narrative* Problem Noted Date Resolved Date Overweight(278.02) 02/25/2014 Type II or unspecified type diabetes mellitus without mention of complication, not stated as uncontrolled documented as of this encounter (statuses as of 10/26/2022) [facility] Narrative* Problem Noted Date Resolved Date Overweight(278.02) 02/25/2014 Type II or unspecified type diabetes mellitus without mention of complication, not stated as uncontrolled documented as of this encounter (statuses as of 11/11/2022) [facility] Narrative* Problem Noted Date Resolved Date Overweight(278.02) 02/25/2014 Type II or unspecified type diabetes mellitus without mention of complication, not stated as uncontrolled documented as of this encounter (statuses as of 11/18/2022) [facility] of [facility] illness Narrative* Problem Noted Date Diagnosed Date Resolved Date Overweight(278.02) 4 Type II or unspecified type diabetes mellitus without mention of complication, not stated as uncontrolled 12/19/2013 documented as of this encounter (statuses as of 12/03/2022) [facility] Narrative* Problem Noted Date Diagnosed Date Resolved Date Overweight(278.02) 4 Type II or unspecified type diabetes mellitus without mention of complication, not stated as uncontrolled 12/19/2013 documented as of this encounter (statuses as of 12/26/2022) [facility] Narrative* Problem Noted Date Diagnosed Date Resolved Date Overweight(278.02) 4 Type II or unspecified type diabetes mellitus without mention of complication, not stated as uncontrolled 12/19/2013 documented as of this encounter (statuses as of 12/29/2022) [facility] Narrative* Problem Noted Date Diagnosed Date Resolved Date Overweight(278.02) 4 Type II or unspecified type diabetes mellitus without mention of complication, not stated as uncontrolled 12/19/2013 documented as of this encounter (statuses as of 12/29/2022) [facility] Narrative* Problem Noted Date Diagnosed Date Resolved Date Overweight(278.02) 4 Type II or unspecified type diabetes mellitus without mention of complication, not stated as uncontrolled 12/19/2013 documented as of this encounter (statuses as of 12/29/2022) [facility] Narrative* Problem Noted Date Diagnosed Date Resolved Date Overweight(278.02) 4 Type II or unspecified type diabetes mellitus without mention of complication, not stated as uncontrolled 12/19/2013 documented as of this encounter (statuses as of 12/30/2022) [facility] Narrative* Problem Noted Date Diagnosed Date Resolved Date Overweight(278.02) 4 Type II or unspecified type diabetes mellitus without mention of complication, not stated as uncontrolled 12/19/2013 documented as of this encounter (statuses as of 12/31/2022) [facility] Narrative* Problem Noted Date Diagnosed Date Resolved Date Overweight(278.02) 4 Type II or unspecified type diabetes mellitus without mention of complication, not stated as uncontrolled 12/19/2013 documented as of this encounter (statuses as of 01/01/2023) [facility] Narrative* Problem Noted Date Diagnosed Date Resolved Date Overweight(278.02) 4 Type II or unspecified type diabetes mellitus without mention of complication, not stated as uncontrolled 12/19/2013 documented as of this encounter (statuses as of 01/15/2023) [facility] Narrative* Problem Noted Date Diagnosed Date Resolved Date Overweight(278.02) 4 Type II or unspecified type diabetes mellitus without mention of complication, not stated as uncontrolled 12/19/2013 documented as of this encounter (statuses as of 02/09/2023) [facility] Narrative* Problem Noted Date Diagnosed Date Resolved Date Overweight(278.02) 4 Type II or unspecified type diabetes mellitus without mention of complication, not stated as uncontrolled 12/19/2013 documented as of this encounter (statuses as of 02/15/2023) [facility] Narrative* Problem Noted Date Diagnosed Date Resolved Date Overweight(278.02) 4 Type II or unspecified type diabetes mellitus without mention of complication, not stated as uncontrolled 12/19/2013 documented as of this encounter (statuses as of 03/04/2023) [facility] Narrative* Problem Noted Date Diagnosed Date Resolved Date Overweight(278.02) 4 Type II or unspecified type diabetes mellitus without mention of complication, not stated as uncontrolled 12/19/2013 documented as of this encounter (statuses as of 03/27/2023) [facility] Narrative* Problem Noted Date Diagnosed Date Resolved Date Overweight(278.02) 4 Type II or unspecified type diabetes mellitus without mention of complication, not stated as uncontrolled 12/19/2013 documented as of this encounter (statuses as of 04/04/2023) [facility] Narrative* Problem Noted Date Diagnosed Date Resolved Date Overweight(278.02) 4 Type II or unspecified type diabetes mellitus without mention of complication, not stated as uncontrolled 12/19/2013 documented as of this encounter (statuses as of 04/08/2023) [facility] illness Narrative* Problem Noted Date Diagnosed Date Resolved Date Overweight(278.02) 4 Type II or unspecified type diabetes mellitus without mention of complication, not stated as uncontrolled 12/19/2013 documented as of this encounter (statuses as of 06/30/2023) [facility] Narrative* Problem Noted Date Diagnosed Date Resolved Date Overweight(278.02) 4 Type II or unspecified type diabetes mellitus without mention of complication, not stated as uncontrolled 12/19/2013 documented as of this encounter (statuses as of 07/26/2023) [facility] Narrative* Problem Noted Date Diagnosed Date Resolved Date Overweight(278.02) 4 Type II or unspecified type diabetes mellitus without mention of complication, not stated as uncontrolled 12/19/2013 documented as of this encounter (statuses as of 07/26/2023) [facility] Narrative* Problem Noted Date Diagnosed Date Resolved Date Overweight(278.02) 4 Type II or unspecified type diabetes mellitus without mention of complication, not stated as uncontrolled 12/19/2013 documented as of this encounter (statuses as of 07/27/2023) [facility] note* Diagnosis Viral URI with cough- Primary Acute upper respiratory infections of unspecified site Rash Rash and other nonspecific skin eruption [facility] Diagnosis Screening mammogram, encounter for documented in this encounter [facility] note* Diagnosis Uncontrolled type 2 diabetes mellitus with hyperglycemia (HCC)- Primary Hypertension, essential Unspecified essential hypertension Rheumatoid arthritis involving multiple sites with positive rheumatoid factor ([facility]) Screening mammogram, encounter for Obesity, Class III, BMI 40-49.9 (morbid obesity) (HCC) Morbid obesity documented in this encounter [facility] note* Diagnosis Medication intolerance- Primary Other drug allergy SOB (shortness of breath) Shortness of breath Atypical chest pain Other chest pain [facility]* Diagnosis Hypertension, essential- Primary Unspecified essential hypertension Type 2 diabetes mellitus with diabetic neuropathy, with long-term current use of insulin (HCC) Leg swelling Swelling of limb documented in this encounter [facility] note* Diagnosis Hypertension, essential- Primary Unspecified essential hypertension Type 2 diabetes mellitus with diabetic neuropathy, with long-term current use of insulin (HCC) Obesity, Class III, BMI 40-49.9 (morbid obesity) (HCC) Morbid obesity [facility] Diagnosis Type 2 diabetes mellitus with diabetic neuropathy, with long-term current use of insulin ([facility])- Primary Palpitations Migraine with aura, not intractable, without status migrainosus [facility]* Diagnosis LUQ pain- Primary Abdominal pain, left upper quadrant Splenomegaly Nausea Nausea alone Type 2 diabetes mellitus with diabetic neuropathy, with long-term current use of insulin ([facility]) [facility] Diagnosis LUQ pain Abdominal pain, left upper quadrant Splenomegaly Nausea Nausea alone [facility] Diagnosis Hypertension, essential Unspecified essential hypertension [facility]* Diagnosis Type 2 diabetes mellitus with diabetic neuropathy, with long-term current use of insulin (HCC) [facility] Diagnosis Screening for colon cancer- Primary Special screening for malignant neoplasms, colon Encounter for screening for malignant neoplasm of colon Special screening for malignant neoplasms, colon [facility] Diagnosis Hypertension, essential Unspecified essential hypertension [facility] Diagnosis Type 2 diabetes mellitus with diabetic neuropathy, with long-term current use of insulin (HCC)- Primary Hypertension, essential Unspecified essential hypertension Rheumatoid arthritis involving multiple sites with positive rheumatoid factor (HCC) Obesity, Class III, BMI 40-49.9 (morbid obesity) (HCC) Morbid obesity [facility] Diagnosis Hypertension, essential Unspecified essential hypertension Type 2 diabetes mellitus with diabetic neuropathy, with long-term current use of insulin (HCC) [facility] Diagnosis Hypertension, essential Unspecified essential hypertension [facility]* Diagnosis Type 2 diabetes mellitus with diabetic neuropathy, with long-term current use of insulin (HCC) [facility]* Diagnosis Viral URI with cough Acute upper respiratory infections of unspecified site [facility] Diagnosis Cough [facility]* Diagnosis Gastroparesis due to secondary diabetes (HCC) Secondary diabetes mellitus with neurological manifestations, not stated as uncontrolled, or unspecified [facility] Diagnosis Encounter for screening mammogram for breast cancer [facility] Diagnosis Well adult exam- Primary Routine general medical examination at a health care facility Type 2 diabetes mellitus without complication, without long-term current use of insulin (HCC) Screening for depression Encounter for screening examination for other mental health and behavioral disorders Obesity, Class II, BMI 35-39.9 Obesity, unspecified [facility] Diagnosis Encounter for screening mammogram for breast cancer [facility] Diagnosis Mass of upper outer quadrant of right breast documented in this encounter [facility] note* Diagnosis FATTY LIVER Nonspecific abnormal results of liver function study Thrombocytopenia Thrombocytopenia, unspecified documented in this encounter [facility] note* Diagnosis Thrombocytopenia- Primary Thrombocytopenia, unspecified FATTY LIVER Nonspecific abnormal results of liver function study documented in this encounter [facility] note* Diagnosis Splenomegaly- Primary Thrombocytopenia Thrombocytopenia, unspecified Protime increased Abnormal coagulation profile Positive dilute Jose Francisco's viper venom time test (DRVVT) Abnormal coagulation profile Splenomegaly Thrombocytopenia Thrombocytopenia, unspecified documented in this encounter [facility] note* Diagnosis Splenomegaly- Primary Thrombocytopenia Thrombocytopenia, unspecified Splenomegaly Thrombocytopenia Thrombocytopenia, unspecified documented in this encounter [facility] note* Diagnosis Mass of upper outer quadrant of right breast- Primary Large breasts Hypertrophy of breast Chronic bilateral thoracic back pain Chronic pain of both shoulders Pain in joint, shoulder region Obesity, Class II, BMI 35-39.9 Obesity, unspecified Mass of upper outer quadrant of right breast Splenomegaly Thrombocytopenia Thrombocytopenia, unspecified documented in this encounter [facility] note* Diagnosis Anemia, unspecified type- Primary Thrombocytopenia Thrombocytopenia, unspecified [facility] Outpatient Procedure (Routine) - Pending Review Specialty Diagnoses / Procedures Referred By Dion gong [facility] Diagnoses Atypical chest pain Procedures ECG COMPLETE ECG ROUTINE ECG W/LEAST 12 LDS W/I&R Audelia Garcia DO [address] [place] [address] [place] [address] Referral ID Status Reason Start Date Expiration Date Visits Requested Visits Authorized [id number] Pending Review Auto-Generat ed Referral 10/27/2022 10/27/2023 1 1 [facility] Outpatient Procedure (Routine) - Closed Specialty Diagnoses / Procedures Referred By Dion gong Referred To Contact [facility] Diagnoses Encounter for screening for malignant neoplasm of colon Procedures COLONOSCOPY SCREENING COLONOSCOPY FLX DX W/COLLJ SPEC WHEN PFRMD Neil Jenkins MD [address] [place] [address] [facility] [address] [place] [address] Referral ID Status Reason Start Date Expiration Date V isits Requested Visits Authorized [id number] Closed Auto-Generate d Referral 11/15/2022 05/22/[address] [facility] for referral (narrative)* Diagnostic Procedure Only (Routine) - New Request Specialty Diagnoses / Procedures Referred By Dion gong Referred To Contact [facility] Diagnoses Encounter for screening mammogram for breast cancer Procedures CARIDAD SCREENING W ALLEY SCREENING DIGITAL BREAST TOMOSYNTHESIS BI SCREENING MAMMOGRAPHY BI 2-VIEW BREAST INC CAD Moqom, [employer], DO [address] [place] [address] [facility] [address] [place] [address] Referral ID Status Reason Start Date Expiration Date Visits Requested Visits Authorized [id number] New Request Auto-Generat ed Referral 05/10/[address] [facility] for referral (narrative)No reason for referral information availableAssumption [facility]ractive [employer] Services Work Phone: Reason for visit Narrative* Diagnostic Procedure Only (Routine) - Closed Specialty Diagnoses / Procedures Referred By Dion gong Referred To Contact [facility] Diagnoses Screening mammogram, encounter for Procedures CARIDAD SCREENING SCREENING MAMMOGRAPHY BI 2-VIEW BREAST INC CAD Moqom, Buyapowa C, DO [address] [place] [address] [facility] [address] [place] [address] Referral ID Status Reason Start Date Expiration Date V isits Requested Visits Authorized [id number] Closed Auto-Generate d Referral 10/15/2022 11/14/[address] [facility] for visit Narrative* Outpatient Procedure (Routine) - Closed Specialty Diagnoses / Procedures Referred By Dion gong Referred To Contact [facility] Diagnoses Encounter for screening for malignant neoplasm of colon Procedures COLONOSCOPY SCREENING COLONOSCOPY FLX DX W/COLLJ SPEC WHEN Neil Samson MD [address] [place] [address] [facility] [address] [place] [address] Referral ID Status Reason Start Date Expiration Date V isits Requested Visits Authorized [id number] Closed Auto-Generate d Referral 11/15/2022 05/22/[address] [facility] for visit Narrative* Diagnostic Procedure Only (Routine) - Closed Specialty Diagnoses / Procedures Referred By Dion gong Referred To Contact [facility] Diagnoses Encounter for screening mammogram for breast cancer Procedures CARIDAD SCREENING W ALLEY SCREENING DIGITAL BREAST TOMOSYNTHESIS BI SCREENING MAMMOGRAPHY BI 2-VIEW BREAST INC CAD Audelia Garcia, DO [address] [place] [address] [facility] [address] [place] [address] Referral ID Status Reason Start Date Expiration Date V isits Requested Visits Authorized [id number] Closed Auto-Generate d Referral 05/23/2024 05/22/[address] [facility] for visit Narrative* Diagnostic Procedure Only (Routine) - Closed Specialty Diagnoses / Procedures Referred By Dion gong Referred To Contact [facility] Diagnoses Mass of upper outer quadrant of right breast Procedures US BREAST LTD RIGHT US BREAST UNI REAL TIME WITH IMAGE LIMITED Audelia Garcia, DO [address] [place] [address] Phone: tel: fax: [facility] [address] [place] [address] Referral ID Status Reason Start Date Expiration Date V isits Requested Visits Authorized [id number] Closed Auto-Generate d Referral 10/17/2024 11/16/[address] [facility] for visit Narrative* Diagnostic Procedure Only (Routine) - Closed Specialty Diagnoses / Procedures Referred By Dion gong Referred To Contact [facility] Diagnoses Nonspecific abnormal results of liver function study Thrombocytopenia Procedures US ABD RIGHT UPPER QUADRANT US ABDOMINAL REAL TIME W/IMAGE LIMITED Toni Larson, DO [address] [place] [address] Phone: tel: fax: [place] [address] Referral ID Status Reason Start Date Expiration Date V isits Requested Visits Authorized [id number] Closed Auto-Generate d Referral 10/23/2024 11/22/2025 1 1 [facility] Reason for Referral Status Reason Specialty Diagnoses / Procedures Referred By Contact Referred To Contact New Request Diagnoses Shortness of breath Chest pain, unspecified type Procedures ECHOCARDIOGRAM TREADMILL STRESS TEST Erasmo Carlisle, DO [address] [place] [address] Status Reason Specialty Diagnoses / Procedures Referred By Contact Referred To Contact New Request Diagnoses Chest pain, unspecified type Procedures ECG Erasmo Carlisle DO [address] [place] [address] Specialty Diagnoses / Procedures Referred By Contac t Referred To Contact Audelia Garcia DO [address] [place] [address] Referral ID Status Reason Start Date Expiration Date V isits Requested Visits Authorized [id number] Authorized 12/20/2022 12/21/2023 1 1 Specialty Diagnoses / Procedures Referred By Contac t Referred To Contact [facility] Diagnoses LUQ pain Splenomegaly Nausea Procedures CT ABD/PEL WO IVCON CT ABD & PELVIS W/O CONTRAST Jess Restrepo, UNDERWEAR HEMMER.CLINICAL NEUROPSYCHOLOGIST [address] [place] [address] [facility] Referral ID Status Reason Start Date Expiration Date Visits Requested Visits Authorized [id number] Authorized Auto-Generat ed Referral 12/28/2022 02/11/2023 1 1 Referral ID Status Reason Start Date Expiration Date V isits Requested Visits Authorized [id number] Closed Auto-Generate d Referral 12/28/2022 02/11/2023 1 1 History of Present Illness * Erasmo Carlisle DO - 07/03/2018 10:30 AM EST Chief Complaint Shortness of breath/lightheadedness Pertinent cardiac diagnoses Atypical chest pain Essential hypertension Hyperlipidemia Dm (diabetes mellitus), type 2, uncontrolled (hcc) Family history of ischemic heart disease Obesity, morbid BMI 40.5 HPI Estela Cote is a 43 y.o. female seen by [facility]ology today for evaluation of shortness of breath and lightheadedness. Last seen at [facility] for than 3 years ago. At that time she had atypical chest pain. Recommended nuclear stress testing but this does not look like it was ever performed.she did have a nuclear stress test in 2009 which was unremarkable and also an echocardiogram whichdemonstrated LVH. Over the last several months she has had shortness of breath both with and without activity and a nonproductive cough. He also notes palpitations and chest tightness. Her blood pressure has been elevated in the office but she states has been normal at home. ECG today demonstrates sinus rhythm with nondiagnostic Q waves inferiorly and voltage criteria for LVH. Patient Active Problem List Diagnosis Abnormal finding on ultrasound Capsulitis Complex endometrial hyperplasia without atypia DJD (degenerative joint disease) DM (diabetes mellitus), type 2, uncontrolled Dysmetabolic syndrome X Endometrial hyperplasia with atypia Epigastric pain Excessive or frequent menstruation Family history of ischemic heart disease Nonspecific abnormal results of liver function study Fibromyalgia Gastroparesis due to secondary diabetes Headache Mixed hyperlipidemia Hypertension goal BP (blood pressure) < 140/90 Insomnia Nausea CRIS (obstructive sleep apnea) Polycystic ovaries Rheumatoid arthritis, adult Uncontrolled type 2 diabetes mellitus with diabetic autonomic neuropathy, with long-term current use of insulin Asthma Shortness of breath Palpitations Morbid obesity Family history of coronary artery disease Chest pain No past medical history on file. No past surgical history on file. (Not in a hospital admission) Scheduled medications Continuous Infusions PRN Medications Allergies Allergen Reactions Beeswax Rash, Itching and Swelling States she is allergic to bee stings. Childhood reaction, no recent stings. Metformin Diarrhea Other reaction(s): GI Upset Tape [*Adhesive Tape] Itching and Rash Social History Socioeconomic History Marital status: Spouse name: Not on file Number of children: Not on file Years of education: Not on file Highest education level: Not on file Occupational History Not on file Social Needs Financial resource strain: Not on file Food insecurity: Worry: Not on file Inability: Not on file Transportation needs: Medical: Not on file Non-medical: Not on file Tobacco Use Smoking status: Former Smoker Types: Cigarettes Last attempt to quit: 1990 Years since quittin.1 Smokeless tobacco: Never Used Substance and Sexual Activity Alcohol use: Not Currently Drug use: Not Currently Sexual activity: Not on file Lifestyle Physical activity: Days per week: Not on file Minutes per session: Not on file Stress: Not on file Relationships Social connections: Talks on phone: Not on file Gets together: Not on file Attends baptism service: Not on file Active member of club or organization: Not on file Attends meetings of clubs or organizations: Not on file Relationship status: Not on file Intimate partner violence: Fear of current or ex partner: Not on file Emotionally abused: Not on file Physically abused: Not on file Forced sexual activity: Not on file Other Topics Concern Not on file Social History Narrative Not on file Review of System 10 systems reviewed, pertinent positives listed above Blood pressure (!) 162/96, pulse 94, resp. rate 16, height 1.676 m (5' 6), weight 113.9 kg (251 lb), SpO2 97 %. Body mass index is 40.51 kg/m . Physical Exam General appearance - alert, well developed, well nourished,43 y.o.female with appropriate affect HEENT PERRLA, EOMI, no xanthelasma or icterus Neck - , No JVD or bruits. Carotid upstrokes brisk. No adenopathy or thyromegaly. Lungs - clear to auscultation, no wheezes, rales or rhonchi Heart - regular rate and regular rhythm, normal S1 and S2 , no significant murmurs, click rub or lift , Abdomen - soft, nontender, no organomegaly Extremities -no edema, clubbing or cyanosis. Neurologic cranial nerves II through XII intact Skin - normal coloration and turgor, no laxity Psych- appropriate mood, Musculoskeletal - no joint deformity, tendon xanthoma Lab Results: No results found for: SODIUM, POTASSIUM, MAGNESIUM, CALCIUM, CHLORIDE, TP, BUN, CREATSERUM, ALBUMIN, BILITOTAL, AST, ALKPHOS, CO2, AGRATIO, ALT, GFR, GFRAA, GFRCOMMENT, GLUCOSE, TROP No results found for: CHOLESTEROL, TRIG, HDL, LDLCALC, BLDL, TCHHDLMANENT No results found for: PT, INR, PTT, WBC, RBC, HGB, HCT, MCV, MEANCELHGB, MEANCELHGCON, RBCDISTRIBU,PLATELET, MPV, NEUTROPHILS, LYMPHOCYTES, MONOCYTE, EOSINOPHILS, BASOPHILS, RBCCOMMENTS, DIFFTYPE, PLTCMT, HGBA1C, ESTAVGGLUCOS, TSH Assessment & Plan Multiple concerns regarding shortness of breath, chest tightness, abnormal ECG with risk factors includingobesity hyperlipidemia, diabetes and family history.no cardiovascular studies for over 9 years. Proceed with stress echocardiogram. Will likely add calcium channel cash and future for blood p ressure control but would like to see heart rate and blood pressure response to exercise. Erasmo Carlisle DO 07/03/2018 10:59 AM documented in this encounter Assessments Diagnosis Shortness of breath- Primary Palpitations Essential hypertension Unspecified essential hypertension Mixed hyperlipidemia Morbid obesity Family history of coronary artery disease Family history of ischemic heart disease Chest pain, unspecified type Diagnosis Essential hypertension- Primary Unspecified essential hypertension Diagnosis ERRONEOUS ENCOUNTER--DISREGARD- Primary Health Concerns Infection Onset Date Last Indicated Resolved Time COVID-19 Rule-Out 02/19/2022 02/19/2022 Medications Administered Section Inactive Administered Medications - up to 3 most recent administrations Medication Order MAR Action Action Date Dose Rate Site diphenhydrAMINE 12.5-50 mg injection (BENADRYL) 12.5-50 mg, INTRAVENOUS, DIRECTED, Starting on Tue11/17/22 at 0900, Until Tue11/17/22 at 1259, DOSING DIRECTED BY PHYSICIAN FOR PROCEDURAL SEDATION ONLY, Intraprocedure Given 11/17/2022 8:32 AM EDT 50 mg fentaNYL 50 mcg/mL 25-100 mcg injection (SUBLIMAZE) 25-100 mcg, INTRAVENOUS, DIRECTED, Starting on Tue11/17/22 at 0900, Until Tue11/17/22 at 1259, DOSING DIRECTED BY PHYSICIAN FOR PROCEDURAL SEDATION ONLY, Intraprocedure Given 11/17/2022 8:53 AM EDT 50 mcg Given 11/17/2022 8:30 AM EDT 50 mcg lactated ringers iv infusion 30 mL/hr, INTRAVENOUS, CONTINUOUS, Starting on Tue11/17/22 at 0700, Until Tue11/17/22 at 0922, Preprocedure New Bag/Syringe/Bottle 11/17/2022 7:30 AM EDT 30 mL/hr 30 mL/hr Arm, Right midazolam 1-5 mg injection (VERSED) 1-5 mg, INTRAVENOUS, DIRECTED, Starting on Tue11/17/22 at 0900, Until Tue11/17/22 at 1259, DOSING DIRECTED BY PHYSICIAN FOR PROCEDURAL SEDATION ONLY, Intraprocedure Given 11/17/2022 8:45 AM EDT 2 mg Given 11/17/2022 8:34 AM EDT 2 mg Given 11/17/2022 8:30 AM EDT 3 mg ondansetron (PF) 4 mg injection (ZOFRAN) 4 mg, INTRAVENOUS, DIRECTED, Starting on Tue11/17/22 at 0930, Until Tue11/17/22 at 1329, DOSING DIRECTED BY PHYSICIAN FOR PROCEDURAL SEDATION ONLY, Intraprocedure Given 11/17/2022 9:12 AM EDT 4 mg Summary Purpose Family History No Family History Records Found Relationship Condition Age at Onset Recorded Date/T marga Not Specified Kidney disorder Unknown Malignant neoplasm Unknown Hypertension Unknown Disorder of thyroid Unknown brother Alcoholism Unknown Arthritis Unknown Cardiac disease Unknown mother Anemia Unknown Hemorrhagic disorder Unknown Diabetes mellitus Unknown High blood cholesterol Unknown Disorder of kidney Unknown Osteoporosis Unknown father Arthritis Unknown Depression Unknown Disorder of liver Unknown Seizures Unknown Malignant neoplasm of lung Unknown Malignant neoplasm of skin Unknown Advance Directives No Advanced Directives Records FoundNo Advanced Directives Records FoundNo Advanced Directives Records FoundNo Advanced Directives Records FoundNo Advanced Directives Records Found Chief Complaint and Reason for Visit Chief Complaint Admit Date 3 M FU, NS 07/02July 23, 2024 1:03 pm BREAST REDUCTION September 27, 2024 8:19am 3 M FU October 22, 2024 1:06p m Reason for Visit Admit Date Vitamin D deficiency July 23, 2024 1:0 3pm Diabetes mellitus July 23, 2024 1:03 pm Hypertension July 23, 2024 1:03 pm Obesity July 23, 2024 1:03 pm Breast hypertrophy September 27, 2024 8:19am Macromastia September 27, 2024 8:19am Chronic back pain September 27, 2024 8:19am Chief Complaint Admit Date BREAST REDUCTION September 27, 2024 8:19am 3 M FU October 22, 2024 1:06p m Pre op breast reduction January 04 2:12pm Reason for Visit Admit Date Breast hypertrophy September 27, 2024 8:19am Macromastia September 27, 2024 8:19am Chronic back pain September 27, 2024 8:19am Diabetes mellitus October 22, 2024 1:06p m Hypertension October 22, 2024 1:06p m Obesity October 22, 2024 1:06p m Additional Source Comments Reason for Visit (unrecogniz ed section and content) Reason Comments New Patient Chest Pain Breathing Problem At rest and with exe rtion. Palpitations Heart racing and ski ps a beat. Status Reason Specialty Diagnoses / Procedures Referre d By Contact Referred To Contact Closed Diagnoses Shortness of breath Chest pain, unspecified type Procedures ECHOCARDIOGRAM TREADMILL STRESS TEST Erasmo Carlisle, [address] [place] [address] Reason Comments Cough Congestion, swollen and red L eye x4 days Reason Comments Wellness Establish Care Reason Comments Results Reason Comments discuss medications Having trouble with the farxiga Reason Comments 1 week follow up after stopping Lisinopr il and HCTZ Reason Comments Hypertension Follow up Reason Comments F/U 1 month After starting losar teixeira and increasing lantus. States her blood sugar is down to around 250. BP is running around 148/87. States she has had 3 episodes since her last visit where her heart will race half-hour after methodist and her watch will go off, states the highest her heart rate got was 125, 109. Reason Comments Abdominal Pain Left upper quadrant pain noticed it on Tuesday. Has had this in the past. Going on for a year off and on. Reason Comments Radiology CT Specialty Diagnoses / Procedures Referred By Dion gong Referred To Contact CT IMAGING Diagnoses LUQ pain Splenomegaly Nausea Procedures CT ABD/PEL WO IVCON CT ABD & PELVIS W/O CONTRAST Jess Restrepo, UNDERWEAR HEMMER.CLINICAL NEUROPSYCHOLOGIST [address] [place] [address] Ct Imaging Referral ID Status Reason Start Date Expiration Date V isits Requested Visits Authorized [id number] Closed Auto-Generate d Referral 12/28/2022 02/11/2023 1 1 Reason Comments Refill Request Reason Onset Date Comments Refill Request 02/08/2023 Reason Comments medication coverage Farxiga prior auth Reason Comments Diabetes Follow up after star jerry mccartyunlatrell and increasing lantus, states her sugars are much better than before are now running around 200. 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 Specialty Diagnoses / Procedures Referred By Dion gong Referred To Contact Family Medicine / FAMILY MEDICINE Diagnoses Lump on breast Procedures PC EST Audelia Garcia, DO [address] [place] [address] Phone: tel: fax: Audelia Garcia, DO [address] [place] [address] Phone: tel: fax: Referral ID Status Reason Start Date Expiration Date V isits Requested Visits Authorized [id number] Closed Clearance Not Met -Financial Clearance Bypassed or Pt Declined to Pay 10/17/2024 01/15/2025 1 1 Reason Comments Radiology Pre Procedure Instructions Bon e marrow bx Results Source Comments (unrecognize d section and content) In the event this informatio n is protected by the Federal Confidentiality of Alcohol and Drug Abuse Patient Records regulations: The Federal rules restrict any use of the information to criminally investigate or prosecute any alcohol or drug abuse patient.[facility]In the event this information is protected by the Federal Confidentiality of Alcohol and Drug Abuse Patient Records regulations: The Federal rules restrict any use of the information to criminally investigate or prosecute any alcohol or drug abuse patient.[facility] HospitalIn the event this information is protected by the Federal Confidentiality of Alcohol and Drug Abuse Patient Records regulations: The Federal rules restrict any use of the information to criminally investigate or prosecute any alcohol or drug abuse patient.[facility] HospitalIn the event this information is protected by the Federal Confidentiality of Alcohol and Drug Abuse Patient Records regulations: The Federal rules restrict any use of the information to criminally investigate or prosecute any alcohol or drug abuse patient.[facility] HospitalIn the event this information is protected by the Federal Confidentiality of Alcohol and Drug Abuse Patient Records regulations: The Federal rules restrict any use of the information to criminally investigate or prosecute any alcohol or drug abuse patient.[facility] HospitalIn the event this information is protected by the Federal Confidentiality of Alcohol and Drug Abuse Patient Records regulations: The Federal rules restrict any use of the information to criminally investigate or prosecute any alcohol or drug abuse patient.[facility] HospitalIn the event this information is protected by the Federal Confidentiality of Alcohol and Drug Abuse Patient Records regulations: The Federal rules restrict any use of the information to criminally investigate or prosecute any alcohol or drug abuse patient.[facility] HospitalIn the event this information is protected by the Federal Confidentiality of Alcohol and Drug Abuse Patient Records regulations: The Federal rules restrict any use of the information to criminally investigate or prosecute any alcohol or drug abuse patient.[facility] HospitalIn the event this information is protected by the Federal Confidentiality of Alcohol and Drug Abuse Patient Records regulations: The Federal rules restrict any use of the information to criminally investigate or prosecute any alcohol or drug abuse patient.[facility] HospitalIn the event this information is protected by the Federal Confidentiality of Alcohol and Drug Abuse Patient Records regulations: The Federal rules restrict any use of the information to criminally investigate or prosecute any alcohol or drug abuse patient.[facility] HospitalIn the event this information is protected by the Federal Confidentiality of Alcohol and Drug Abuse Patient Records regulations: The Federal rules restrict any use of the information to criminally investigate or prosecute any alcohol or drug abuse patient.[facility] HospitalIn the event this information is protected by the Federal Confidentiality of Alcohol and Drug Abuse Patient Records regulations: The Federal rules restrict any use of the information to criminally investigate or prosecute any alcohol or drug abuse patient.[facility] HospitalIn the event this information is protected by the Federal Confidentiality of Alcohol and Drug Abuse Patient Records regulations: The Federal rules restrict any use of the information to criminally investigate or prosecute any alcohol or drug abuse patient.[facility] HospitalIn the event this information is protected by the Federal Confidentiality of Alcohol and Drug Abuse Patient Records regulations: The Federal rules restrict any use of the information to criminally investigate or prosecute any alcohol or drug abuse patient.[facility] HospitalIn the event this information is protected by the Federal Confidentiality of Alcohol and Drug Abuse Patient Records regulations: The Federal rules restrict any use of the information to criminally investigate or prosecute any alcohol or drug abuse patient.[facility] HospitalIn the event this information is protected by the Federal Confidentiality of Alcohol and Drug Abuse Patient Records regulations: The Federal rules restrict any use of the information to criminally investigate or prosecute any alcohol or drug abuse patient.[facility] HospitalIn the event this information is protected by the Federal Confidentiality of Alcohol and Drug Abuse Patient Records regulations: The Federal rules restrict any use of the information to criminally investigate or prosecute any alcohol or drug abuse patient.[facility] the event this information is protected by the Federal Confidentiality of Alcohol and Drug Abuse Patient Records regulations: The Federal rules restrict any use of the information to criminally investigate or prosecute any alcohol or drug abuse patient.[facility] HospitalIn the event this information is protected by the Federal Confidentiality of Alcohol and Drug Abuse Patient Records regulations: The Federal rules restrict any use of the information to criminally investigate or prosecute any alcohol or drug abuse patient.[facility] HospitalIn the event this information is protected by the Federal Confidentiality of Alcohol and Drug Abuse Patient Records regulations: The Federal rules restrict any use of the information to criminally investigate or prosecute any alcohol or drug abuse patient.[facility] HospitalIn the event this information is protected by the Federal Confidentiality of Alcohol and Drug Abuse Patient Records regulations: The Federal rules restrict any use of the information to criminally investigate or prosecute any alcohol or drug abuse patient.[facility] HospitalIn the event this information is protected by the Federal Confidentiality of Alcohol and Drug Abuse Patient Records regulations: The Federal rules restrict any use of the information to criminally investigate or prosecute any alcohol or drug abuse patient.[facility] HospitalIn the event this information is protected by the Federal Confidentiality of Alcohol and Drug Abuse Patient Records regulations: The Federal rules restrict any use of the information to criminally investigate or prosecute any alcohol or drug abuse patient.[facility] HospitalIn the event this information is protected by the Federal Confidentiality of Alcohol and Drug Abuse Patient Records regulations: The Federal rules restrict any use of the information to criminally investigate or prosecute any alcohol or drug abuse patient.[facility] HospitalIn the event this information is protected by the Federal Confidentiality of Alcohol and Drug Abuse Patient Records regulations: The Federal rules restrict any use of the information to criminally investigate or prosecute any alcohol or drug abuse patient.[facility] HospitalIn the event this information is protected by the Federal Confidentiality of Alcohol and Drug Abuse Patient Records regulations: The Federal rules restrict any use of the information to criminally investigate or prosecute any alcohol or drug abuse patient.[facility] HospitalIn the event this information is protected by the Federal Confidentiality of Alcohol and Drug Abuse Patient Records regulations: The Federal rules restrict any use of the information to criminally investigate or prosecute any alcohol or drug abuse patient.[facility] HospitalIn the event this information is protected by the Federal Confidentiality of Alcohol and Drug Abuse Patient Records regulations: The Federal rules restrict any use of the information to criminally investigate or prosecute any alcohol or drug abuse patient.[facility] HospitalIn the event this information is protected by the Federal Confidentiality of Alcohol and Drug Abuse Patient Records regulations: The Federal rules restrict any use of the information to criminally investigate or prosecute any alcohol or drug abuse patient.[facility] HospitalIn the event this information is protected by the Federal Confidentiality of Alcohol and Drug Abuse Patient Records regulations: The Federal rules restrict any use of the information to criminally investigate or prosecute any alcohol or drug abuse patient.[facility] HospitalIn the event this information is protected by the Federal Confidentiality of Alcohol and Drug Abuse Patient Records regulations: The Federal rules restrict any use of the information to criminally investigate or prosecute any alcohol or drug abuse patient.[facility] HospitalIn the event this information is protected by the Federal Confidentiality of Alcohol and Drug Abuse Patient Records regulations: The Federal rules restrict any use of the information to criminally investigate or prosecute any alcohol or drug abuse patient.[facility] HospitalIn the event this information is protected by the Federal Confidentiality of Alcohol and Drug Abuse Patient Records regulations: The Federal rules restrict any use of the information to criminally investigate or prosecute any alcohol or drug abuse patient.[facility] HospitalIn the event this information is protected by the Federal Confidentiality of Alcohol and Drug Abuse Patient Records regulations: The Federal rules restrict any use of the information to criminally investigate or prosecute any alcohol or drug abuse patient.[facility] HospitalIn the event this information is protected by the Federal Confidentiality of Alcohol and Drug Abuse Patient Records regulations: The Federal rules restrict any use of the information to criminally investigate or prosecute any alcohol or drug abuse patient.[facility] HospitalIn the event this information is protected by the Federal Confidentiality of Alcohol and Drug Abuse Patient Records regulations: The Federal rules restrict any use of the information to criminally investigate or prosecute any alcohol or drug abuse patient.[facility] HospitalIn the event this information is protected by the Federal Confidentiality of Alcohol and Drug Abuse Patient Records regulations: The Federal rules restrict any use of the information to criminally investigate or prosecute any alcohol or drug abuse patient.[facility] HospitalIn the event this information is protected by the Federal Confidentiality of Alcohol and Drug Abuse Patient Records regulations: The Federal rules restrict any use of the information to criminally investigate or prosecute any alcohol or drug abuse patient.[facility] HospitalIn the event this information is protected by the Federal Confidentiality of Alcohol and Drug Abuse Patient Records regulations: The Federal rules restrict any use of the information to criminally investigate or prosecute any alcohol or drug abuse patient.[facility] HospitalIn the event this information is protected by the Federal Confidentiality of Alcohol and Drug Abuse Patient Records regulations: The Federal rules restrict any use of the information to criminally investigate or prosecute any alcohol or drug abuse patient.[facility] HospitalIn the event this information is protected by the Federal Confidentiality of Alcohol and Drug Abuse Patient Records regulations: The Federal rules restrict any use of the information to criminally investigate or prosecute any alcohol or drug abuse patient.[facility] HospitalIn the event this information is protected by the Federal Confidentiality of Alcohol and Drug Abuse Patient Records regulations: The Federal rules restrict any use of the information to criminally investigate or prosecute any alcohol or drug abuse patient.[facility] HospitalIn the event this information is protected by the Federal Confidentiality of Alcohol and Drug Abuse Patient Records regulations: The Federal rules restrict any use of the information to criminally investigate or prosecute any alcohol or drug abuse patient.[facility] HospitalIn the event this information is protected by the Federal Confidentiality of Alcohol and Drug Abuse Patient Records regulations: The Federal rules restrict any use of the information to criminally investigate or prosecute any alcohol or drug abuse patient.[facility] HospitalIn the event this information is protected by the Federal Confidentiality of Alcohol and Drug Abuse Patient Records regulations: The Federal rules restrict any use of the information to criminally investigate or prosecute any alcohol or drug abuse patient.[facility] HospitalIn the event this information is protected by the Federal Confidentiality of Alcohol and Drug Abuse Patient Records regulations: The Federal rules restrict any use of the information to criminally investigate or prosecute any alcohol or drug abuse patient.[facility] HospitalIn the event this information is protected by the Federal Confidentiality of Alcohol and Drug Abuse Patient Records regulations: The Federal rules restrict any use of the information to criminally investigate or prosecute any alcohol or drug abuse patient.[facility] Care Teams (unrecognized sec tion and content) Farm Implement Mechanic Relationship Specialty Start Date End Date Dameon Harris MD PCP - General Family Medicine 02/01/17 Farm Implement Mechanic Relationship Specialty Start Date End Date Dameon Harris MD PCP - General Family Medicine 02/01/17 Farm Implement Mechanic Relationship Specialty Start Date End Date Audelia Garcia DO [address] [place] [address] PCP - General Family Medicine 10/15/22 Farm Implement Mechanic Relationship Specialty Start Date End Date Audelia Garcia DO [address] [place] [address] PCP - General Family Medicine 10/15/22 Farm Implement Mechanic Relationship Specialty Start Date End Date Audelia Garcia DO [address] [place] [address] PCP - General Family Medicine 10/15/22 Farm Implement Mechanic Relationship Specialty Start Date End Date Audelia Garcia DO [address] [place] [address] PCP - General Family Medicine 10/15/22 Farm Implement Mechanic Relationship Specialty Start Date End Date Audelia Garcia DO [address] [place] [address] PCP - General Family Medicine 10/15/22 Farm Implement Mechanic Relationship Specialty Start Date End Date Audelia Garcia DO [address] [place] [address] PCP - General Family Medicine 10/15/22 Farm Implement Mechanic Relationship Specialty Start Date End Date Audelia Garcia DO [address] [place] [address] PCP - General Family Medicine 10/15/22 Farm Implement Mechanic Relationship Specialty Start Date End Date Audelia Garcia DO [address] [place] [address] PCP - General Family Medicine 10/15/22 Farm Implement Mechanic Relationship Specialty Start Date End Date Audelia Garcia DO [address] [place] [address] PCP - General Family Medicine 10/15/22 Farm Implement Mechanic Relationship Specialty Start Date End Date Audelia Garcia DO [address] [place] [address] PCP - General Family Medicine 10/15/22 Farm Implement Mechanic Relationship Specialty Start Date End Date Audelia Garcia DO [address] [place] [address] PCP - General Family Medicine 10/15/22 Farm Implement Mechanic Relationship Specialty Start Date End Date Audelai Garcia DO [address] [place] [address] PCP - General Family Medicine 10/15/22 Farm Implement Mechanic Relationship Specialty Start Date End Date Audelia Garcia DO [address] [place] [address] PCP - General Family Medicine 10/15/22 Farm Implement Mechanic Relationship Specialty Start Date End Date Audelia Garcia DO [address] [place] [address] PCP - General Family Medicine 10/15/22 Farm Implement Mechanic Relationship Specialty Start Date End Date Audelia Garcia DO [address] [place] [address] PCP - General Family Medicine 10/15/22 Farm Implement Mechanic Relationship Specialty Start Date End Date Velvet Audelia Tirado DO [address] [place] [address] PCP - General Family Medicine 10/15/22 Farm Implement Mechanic Relationship Specialty Start Date End Date Audelia Garcia DO [address] [place] [address] PCP - General Family Medicine 10/15/22 Farm Implement Mechanic Relationship Specialty Start Date End Date Audelia Garcia DO [address] [place] [address] PCP - General Family Medicine 10/15/22 Farm Implement Mechanic Relationship Specialty Start Date End Date Audelia Garcia DO [address] [place] [address] PCP - General Family Medicine 10/15/22 Farm Implement Mechanic Relationship Specialty Start Date End Date Audelia Garcia DO [address] [place] [address] PCP - General Family Medicine 10/15/22 Farm Implement Mechanic Relationship Specialty Start Date End Date Dameon Harris MD PCP - General Family Medicine 02/01/17 10/14/22 Farm Implement Mechanic Relationship Specialty Start Date End Date Dameon Harris MD PCP - General Family Medicine 02/01/17 10/14/22 Farm Implement Mechanic Relationship Specialty Start Date End Date Dameon Harris MD PCP - General Family Medicine 02/01/17 10/14/22 Farm Implement Mechanic Relationship Specialty Start Date End Date Audelia Garcia DO [address] [place] [address] PCP - General Family Medicine 10/15/22 Farm Implement Mechanic Relationship Specialty Start Date End Date Audelia Garcia DO [address] [place] [address] PCP - General Family Medicine 10/15/22 Farm Implement Mechanic Relationship Specialty Start Date End Date Audelia Garcia DO [address] [place] [address] PCP - General Family Medicine 10/15/22 Farm Implement Mechanic Relationship Specialty Start Date End Date Audelia Garcia DO [address] [place] [address] PCP - General Family Medicine 10/15/22 Farm Implement Mechanic Relationship Specialty Start Date End Date Audelia Garcia DO [address] [place] [address] PCP - General Family Medicine 10/15/22 Team Status: Active Member Role Status Dates Dr. Audelia Garcia DO Primary Care Provider Active Team Status: Inactive Member Role Status Dates Dr. Audelia Garcia DO Primary Care Provider Active Start: July 23, 2024 End: July 23, 2024 Dr. Audelia Garcia DO Referring Provider Active Start: July 23, 2024 End: July 23, 2024 GLEN LamC Attending Provider Active Start: July 23, 2024 End: July 23, 2024 Team Status: Inactive Member Role Status Dates Dr. Audelia Garcia DO Primary Care Provider Active Start: September 27, 2024 End: September 27, 2024 Dr. Audelia Garcia DO Referring Provider Active Start: September 27, 2024 End: September 27, 2024 Dr. Dallas Lind MD Attending Provider Active Start: September 27, 2024 End: September 27, 2024 Team Status: Inactive Member Role Status Dates Dr. Audelia Garcia DO Primary Care Provider Active Start: October 22, 2024 End: October 22, 2024 Dr. Audelia Garcia DO Referring Provider Active Start: October 22, 2024 End: October 22, 2024 JUAN Lam Attending Provider Active Start: October 22, 2024 End: October 22, 2024 Farm Implement Mechanic Relationship Specialty Start Date End Date Audelia Garcia DO [address] [place] [address] PCP - General Family Medicine 10/15/22 Farm Implement Mechanic Relationship Specialty Start Date End Date Audelia Garcia DO [address] [facility] [place] [address] PCP - General Family Medicine 10/15/22 Farm Implement Mechanic Relationship Specialty Start Date End Date Audelia Garcia DO [address] [facility] [place] [address] PCP - General Family Medicine 10/15/22 Farm Implement Mechanic Relationship Specialty Start Date End Date Audelia Garcia DO [address] [facility] [place] [address] PCP - General Family Medicine 10/15/22 Team Status: Active Member Role/Relationship Status Dates Dr. Audelia Garcia DO Primary Care Provider Active Team Status: Inactive Member Role/Relationship Status Dates Dr. Audelia Garcia DO Primary Care Provider Active Start: September 27, 2024 End: September 27, 2024 Dr. Audelia Garcia DO Referring Provider Active Start: September 27, 2024 End: September 27, 2024 Dr. Dallas Lind MD Attending Provider Active Start: September 27, 2024 End: September 27, 2024 Team Status: Inactive Member Role/Relationship Status Dates Dr. Audelia Garcia , Primary Care Provider Active Start: October 22, 2024 End: October 22, 2024 Dr. Audelia Garcia DO Referring Provider Active Start: October 22, 2024 End: October 22, 2024 JUAN Lam Attending Provider Active Start: October 22, 2024 End: October 22, 2024 Team Status: Inactive Member Role/Relationship Status Dates Dr. Audelia Garcia DO Primary Care Provider Active Start: January 04, 2025 End: January 04, 2025 Dr. Audelia Garcia , Referring Provider Active Start: January 04, 2025 End: January 04, 2025 Dr. Dallas Lind MD Attending Provider Active Start: January 04, 2025 End: January 04, 2025 INFORMATION SOURCE (unrecogn ized section and content) DATE CREATED AUTHOR 08/08/2024 [facility] DATE CREATED AUTHOR AUTHOR'S ORGANIZ ATION 11/12/2024 [facility] DATE CREATED AUTHOR AUTHOR'S ORGANIZ ATION 12/28/2024 [facility] DATE CREATED AUTHOR AUTHOR'S ORGANIZ ATION 12/30/2024 [facility] DATE CREATED AUTHOR AUTHOR'S ORGANIZ ATION 01/07/2025 [facility] Goals (unrecognized section and content) Goals may be documented in a n alternate sectionGoals may be documented in an alternate section FOR RECORDS PERTAINING TO PATIENTS WHO ARE OR HAVE BEEN ENROLLED IN A CHEMICAL DEPENDENCY/SUBSTANCEABUSE PROGRAM, SOME INFORMATION MAY BE OMITTED. This clinical summary was aggregated from multiple sources. Caution should be exercised in using it in the provision of clinical care. This summary normalizes information from multiple sources, and as a consequence, information in this document may materially change the coding, format and clinical context of patient data. In addition, data may be omitted in some cases. CLINICAL DECISIONS SHOULD BE BASED ON THE PRIMARY CLINICAL RECORDS. [employer] provides no warranty or guarantee of the accuracy or completeness of information in this document.
--- NOTE | 2025-01-08 06:01 | HP.PCM.SX_ITS ---
HPI - General HPI Narrative ESTELA WATKINS, is a 49 F who presents for breast reduction She has been cleared by hematology and by her PCP. Recent A1C was 5.5 Current Encounter (DATE OF SURGERY H&P UPDATE): I saw and examined the patient this morning in pre-operative holding. We discussed risks and benefits of today's surgery and they would like to proceed. NO CHANGE in health history since last seen and evaluated. Ready to proceed with surgery. [facility] Medical History Cancer History of steroid therapy Anemia Back pain History of hiatal hernia History of IBS Sleep apnea Former smoker Chronic cough History of echocardiogram History of stress test Cardiology follow-up encounter History of suicide attempt Pancreatitis Polycystic ovary Vascular disease Skin cancer Murmur, cardiac IBS (irritable bowel syndrome) History of MRSA infection Hormone deficiency Heart disease GERD (gastroesophageal reflux disease) Pneumonia Osteoporosis History of osteoarthritis History of diabetes mellitus History of cancer History of blood transfusion History of UTI History of back problems History of arthritis History of anemia History of environmental allergies Rheumatoid arthritis Polyneuropathy due to type 2 diabetes mellitus Diabetes type 2, uncontrolled Home Medications ?Medication ?Instructions ?Recorded ?Last Taken ?Type blood sugar diagnostic (OneTouch #50 ea 05/26/21 Unkno wn Rx Verio test strips) fluconazole 200 mg tablet 200 mg PO DAILY PRN YEAST IN FECTION 04/02/24 Unknown History (Diflucan) pen needle, diabetic 32 gauge x #100 ea 07/23/24 Unkno wn Rx /32 (BD Ultra-Fine Katie Pen Needle) lisinopril 10 mg tablet 10 mg PO QDAY #90 tabs 10/22 Unknown Rx spironolactone 50 mg tablet 50 mg PO BID #180 tabs 07/17 Unknown Rx tirzepatide 15 mg/0.5 mL 15 mg (0.5 mL) subcut QWEEK #2 mL 12/10/24 Unknown Rx subcutaneous pen injector (Mounjaro) empagliflozin 25 mg tablet 25 mg PO QAM #90 tabs 12/11 Unknown Rx (Jardiance) gabapentin 100 mg capsule 100 mg PO TID 12/25/24 Unkno wn History insulin glargine 100 unit/mL (3 50 unit subcut DAILY 0 12/25/24 Unknown History mL) subcutaneous pen (Lantus Solostar U-100 Insulin) Allergy/AdvReac Type Severity Reaction Status Date / Time adhesive tape (tape) Allergy Mild Rash Verified 01/04/25 14:24 [id number]-[id number] Reductase Allergy Mild cough Verified 01/04/25 14:24 Inhibitor metformin AdvReac Intermediate diarrhea Verified 01/04/25 14:24 semaglutide (From Ozempic) AdvReac Vomiting Verified 01/04/25 14:24 Family History Brother Alcoholism Arthritis Heart disease Mother Anemia Arthritis Bleeding disorder Diabetes Heart disease High cholesterol Kidney disease Osteoporosis Father Arthritis Depression High cholesterol Liver disease Seizures Lung cancer Skin cancer Other Cancer Hypertension Kidney disease Thyroid disorder Surgical History H/O esophagogastroduodenoscopy History of carpal tunnel release H/O dilation and curettage History of hysterectomy History of tonsillectomy Social History Smoking Status: Former smoker how long ago did patient quit smoking: quit at 15 years old alcohol intake: never substance use type: does not use additional social history: pt denies vaping, denies marijuana use, denies edibles, denies aspirin use uses ibuprofen Physical Exam Narrative Macromastia Marked in preop holding Results Lab / Micro Data 01/04/25 12:36 Assessment & Plan Assessment/Plan (1) Macromastia: PLAN: I counseled her extensively on the operation as well as the risks , benefits , and alternatives , and the postoperative recovery. I talked to the patient extensively about the risks of attempting breast reduction, including the possibility of free nipple grafts being required. She is accepting of the risks of free nipple grafts, and is consenting for this possibility. She understands that any breast surgery for reduction could change the nipple sensation (numbness). Nipple inversion is also a risk. She understands the risk of asymmetry and the likelihood of asymmetry at the completion of the case. She understands the risks of bleeding, infection, damage to surrounding structures, fluid collections, wound healing problems and need for wound care postoperatively, as well as soft tissue necrosis. She also understands the risk of anesthesia including hypotension or hypertension leading to stroke, as well as DVT/PE, and . Patient would like to proceed with the breast reduction. She has been cleared by her PCP as well as the java software architect INTERVAL H&P PLAN, DATE OF SURGERY: We will proceed with surgery today.
[2025-01-08] MEDS: Lactated Ringers 1,000 ML 15 ML IV ×2 (06:55→12:30)
--- NOTE | 2025-01-08 07:27 | PCM.PRE.AN2 ---
ASA Classification* ASA Classification ASA Classification: 3 Assessment & Plan Anesthesia* Anesthesia Assessment Anesthesia Assessment: Discussed sedation and/or anesthesia options, risks, benefits, and alternatives with patient/parents/legal guardian/POA. Questions invited. The patient/parents/legal guardian/POA seems to understand and agrees to proceed with anesthesia plan. Reviewed the physical assessment, medical history, allergy history and patient home medications list prior to surgery/procedure/anesthetic and documented any changes. Performed airway and anesthesia risk assessments. Anesthesia Type Anesthesia Type: General History Source History Obtained from:: Patient and Chart Anesthesia Focused Assessment* Temperature: 97.5 F Pulse Rate: 73 Blood Pressure: 169/82 Respiratory Rate: 16 Pulse Ox: 99 Airway Assessment Mouth opens: >3 cm Mallampati Score: II Neck Range of motion (ROM): Full ROM Labs Anesthesia Preop lab: CBC WBC 5.8 K/mm3 (4.4-11.0) 04/02/24 12:21 04/02/24 RBC 4.13 M/mm3 (4.2-5.4) L 04/02/24 12:21 04/02/24 Hgb 13.1 g/dL (12.0-15.0) 04/02/24 12:21 04/02/24 Hct 37.8 % (37-47) 04/02/24 12:21 04/02/24 Plt Count 126 K/mm3 (150-450) L 04/02/24 12:21 04/02/24 CHEMISTRY Potassium 4.1 mmol/L (3.3-5.1) 01/04/25 12:36 01/04/25 Sodium 140 mmol/L (133-145) 01/04/25 12:36 01/04/25 BUN 21 mg/dL (4-19) H 01/04/25 12:36 01/04/25 Creatinine 1.01 mg/dL (0.70-1.20) 01/04/25 12:36 01/04/25 Glucose 84 mg/dL (70-99) 01/04/25 12:36 01/04/25 TSH 1.100 uIU/mL (0.358-3.740) 04/02/24 12:21 04/02/24 COAG PT 14.4 SECONDS (11.7-14.9) 01/04/25 12:36 01/04/25 Pre-Assessment Diagnosis/Proposed Procedure Planned Operative Procedure(s): BREAST REDUCTION WITH POSSIBLE FREE NIPPLE GRAFTS Anesthesia History Anesthesia History - swing tender: Anesthesia History - swing tender Hx Hospitalization No 12/25/24 15:59 Any Problems With Anesthesia Yes: VERY HARD TO WAKE UP 12/25/24 15:59 Cholinesterase deficiency No 12/25/24 15:59 You/Your Family Experience No 12/25/24 15:59 fever (hyperthermia) with Relationship Recent Exposure to Contagious No 01/08/25 06:29 Disease Does patient have nerve No 12/25/24 15:59 stimulator Patient instructed to have device shut off --Does patient have Pacemaker No 01/08/25 06:29 or ICD? When Was Last Pacemaker Check QUESTION #4 FULL TEXT: You/Your Family Experience fever (hyperthermia) with Anesthesia Last Oral Intake Last Oral intake: Last Oral Intake NPO since 21:00 01/08/25 06:29 Meds taken in AM with sips of No 01/08/25 06:29 water? Meds patient instructed to take am of surgery PONV PONV - swing tender: PONV - swing tender Female Yes 12/25/24 15:59 HX of Motion Sickness No 12/25/24 15:59 HX of N/V After Surgery No 12/25/24 15:59 Non-Smoker Yes 12/25/24 15:59 Duration of Surgery greater Yes 12/25/24 15:59 than 60 minutes Number of Risk Factors 3 12/25/24 15:59 PONV Score Moderate Risk 12/25/24 15:59 Height & Weight Height & Weight: Anesthesia: Height & Weight Height 5 ft 6 in 01/08/25 06:29 Weight: 96.3 kg 01/08/25 06:29 Body Mass Index (BMI) 34.2 01/08/25 06:29 Respiratory Assessment Respiratory Assessment - swing tender: Respiratory Tract Infection Hx - swing tender Hx Respiratory Tract Infection No 12/25/24 15:59 STOP Sleep Apnea STOP Sleep Apnea - swing tender: STOP Sleep Apnea - swing tender Hx Hypertension Yes: CONTROLLED WITH MEDS 12/25/24 15:59 Hx Sleep Apnea No 12/25/24 15:59 CPAP BIPAP Do you snore loudly (louder No 12/25/24 15:59 than talking or can be heard Do you often feel tired/ No 12/25/24 15:59 fatigued/ sleepy during daytime? Has anyone observed you stop No 12/25/24 15:59 breathing during sleep? STOP Results Negative 12/25/24 15:59 QUESTION #5 FULL TEXT : Do you snore loudly (louder than talking or can be heard through closed doors)? Tobacco Use History Tobacco Use History - swing tender: Tobacco Use History - swing tender Tobacco Use Smoking Status Former smoker 12/25/24 15:59 Hx Tobacco Use No 12/25/24 15:59 Years Smoking Packs Smoked per Day Smoking Cessation Date was No - quit smoking greater 12/25/24 15:59 within the last 15 years than 15 years ago Hx Smoking Cessation Date Hx Smoking Cessation Counseling Hematologic Medial History Hematologic Hx - swing tender: Hematologic Medical Hx - documentation specialist Hx of Blood Transfusion No 12/25/24 15:59 Hx of Transfusion in last 3 No 12/25/24 15:59 Months Date of Last Transfusion (if within last 3 months) Ever experience any problems No 12/25/24 15:59 with transfusion(s)? Specify any problems Hx of Preganancy in last 3 No 12/25/24 15:59 Months Nurse Filling Out Transfusion [id number] 12/25/24 15:59 & Questions: Date: 12/25/24 12/25/24 15:59 Time: 16:05 12/25/24 15:59 Patient unable to answer at this time (ie. confused, unrespo /Reproduction History /Reproductive History - swing tender: /Reproductive Hx- swing tender Hx Now No 12/25/24 15:59 Gestational Age (in weeks): EDC: Hx Hx Para Hx Section SAB No 12/25/24 15:59 Active Medications Active Medications: Current Medications Generic Name Dose Route Start Last Admin Trade Name Freq PRN Reason Stop Dose Admin Cefazolin Sodium 2 gm/ Sodium 110 mls @ 200 mls/hr 01/08/25 07:30 Chloride IV 01/08/25 08:02 INTRAOP ONE Lactated Ringer's 1,000 mls @ 15 mls/hr 01/08/25 06:15 01/08/25 06:55 IV 15 mls/hr .Q48H PAOLA Administration PFSH Medical History Cancer History of steroid therapy Anemia Back pain History of hiatal hernia History of IBS Sleep apnea Former smoker Chronic cough History of echocardiogram History of stress test Cardiology follow-up encounter History of suicide attempt Pancreatitis Polycystic ovary Vascular disease Skin cancer Murmur, cardiac IBS (irritable bowel syndrome) History of MRSA infection Hormone deficiency Heart disease GERD (gastroesophageal reflux disease) Pneumonia Osteoporosis History of osteoarthritis History of diabetes mellitus History of cancer History of blood transfusion History of UTI History of back problems History of arthritis History of anemia History of environmental allergies Rheumatoid arthritis Polyneuropathy due to type 2 diabetes mellitus Diabetes type 2, uncontrolled Home Medications ?Medication ?Instructions ?Recorded ?Last Taken ?Type blood sugar diagnostic (OneTouch #50 ea 05/26/21 Unknown Rx Verio test strips) fluconazole 200 mg tablet 200 mg PO DAILY PRN YEAST INFECTION 04/02/24 Unknown History (Diflucan) pen needle, diabetic 32 gauge x #100 ea 07/23/24 Unknown Rx (BD Ultra-Fine Katie Pen Needle) lisinopril 10 mg tablet 10 mg PO QDAY #90 tabs 10/22/24 01/07/25 Rx spironolactone 50 mg tablet 50 mg PO BID #180 tabs 10/22/24 01/07/25 Rx tirzepatide 15 mg/0.5 mL 15 mg (0.5 mL) subcut QWEEK #2 mL 12/10/24 12/31/24 Rx subcutaneous pen injector (Mounjaro) empagliflozin 25 mg tablet 25 mg PO QAM #90 tabs 12/11/24 01/04/25 Rx (Jardiance) gabapentin 100 mg capsule 100 mg PO TID 12/25/24 01/07/25 History insulin glargine 100 unit/mL (3 50 unit subcut DAILY 12/25/24 01/07/25 History mL) subcutaneous pen (Lantus Solostar U-100 Insulin) Allergy/AdvReac Type Severity Reaction Status Date / Time adhesive tape (tape) Allergy Mild Rash Verified 01/08/25 06:27 Grjfkak-[id number] Reductase Allergy Mild cough Verified 01/08/25 06:27 Inhibitor metformin AdvReac Intermediate diarrhea Verified 01/08/25 06:27 semaglutide (From Ozempic) AdvReac Vomiting Verified 01/08/25 06:27 Family History Brother Alcoholism Arthritis Heart disease Mother Anemia Arthritis Bleeding disorder Diabetes Heart disease High cholesterol Kidney disease Osteoporosis Father Arthritis Depression High cholesterol Liver disease Seizures Lung cancer Skin cancer Other Cancer Hypertension Kidney disease Thyroid disorder Surgical History H/O esophagogastroduodenoscopy History of carpal tunnel release H/O dilation and curettage History of hysterectomy History of tonsillectomy Social History Smoking Status: Former smoker how long ago did patient quit smoking: quit at 15 years old alcohol intake: never substance use type: does not use additional social history: pt denies vaping, denies marijuana use, denies edibles, denies aspirin use uses ibuprofen Review of Systems (Anesthesia) ROS Narrative System reviewed and no additional complaints, except as documented. Physical Exam Const alert and oriented x3 Orientation / Consciousness: awake Nutritional Appearance: obese HEENT dentition normal Neck full ROM Resp normal respiratory effort Cardio regular rate and regular rhythm
--- NOTE | 2025-01-08 07:30 | BR_PTH ---
PATIENT: ESTELA WATKINS LOC: MS3 U#:[id number] AGE/SX: 49/F ROOM: NV318 RE01/08/[address]: Dr. Osvaldo Lind MD : 1975 BED: 1 DIS: 01/09/2025 SPEC #: [id number] RECD: 01/08/25 12:02 STATUS: FAM REKristin #: [id number] MINISTERIO: 01/08/25 07:[address]: Osvaldo Lind DEPT: SURGICAL PATHOLOGY RECD BY: Ramiro Cornejo ENTERED: 01/08/25 13:31 SP TYPE: MAMOPLASTY OTHR DR: Dr. Audelia Vredin DO Tissues: Right breast, NOS Left breast, NOS Procedures: Immunohistochemical Stains Surgery Specimen Level IV IHC Stain ADDITIONAL HEADER OPERATION: Breast reduction PRE-OP DIAGNOSIS: Macromastia TISSUE SUBMITTED: A- Right breast, B- Left breast MICROSCOPIC DIAGNOSIS A. Breast, right, breast reduction: - Benign breast tissue and unremarkable skin (960 grams). - Arteriovenous malformation (incidental) - see note and Comment. - Benign lymph node x1. Note: IHC for S100, CD31, SMA and CK5/6 support the diagnosis. There is no evidence of malignancy. B. Breast, left, breast reduction: - Benign breast tissue and unremarkable skin (426 grams). COMMENT Selected slides/images were reviewed in intradepartmental consultation by Dr Tai Michele ([facility] pathology division, [facility]). MICROSCOPIC DESCRIPTION Slides are reviewed. ?All matched controls reacted appropriately. These tests were developed and their performance characteristics determined by [facility]. They may not have been cleared or approved by the U.S. Food and Drug Administration. The FDA has determined that such clearance or approval is not necessary.? The above immunohistochemical?markers and/or special stains have been reviewed by the Pathologist. GROSS DESCRIPTION Received in 2 formalin containers labeled with the patient's name and date of . Designated as: A. Right breast tissue is a 960 g, 22.8 x 22.1 x 7.0 cm aggregate of teixeira-yellow to red fibrofatty tissue fragments and teixeira skin. Sectioning reveals teixeira-yellow, fibrofatty cut surfaces (90% fatty, 10% fibrotic) and a pink-teixeira red, congested apparent lymph node, 0.5 cm. Escalator Service Mechanic sections are submitted in 3 cassettes, to include the lymph node in cassette A3. B. Left breast tissue is a 426 g, 19.1 x 17.9 x 4.4 cm aggregate of teixeira-yellow fibrofatty tissue fragments and teixeira skin. Sectioning reveals teixeira-yellow, fibrofatty cut surfaces (90% fatty, 10% fibrotic). Escalator Service Mechanic sections are submitted in 2 cassettes. MT 01/08/2025 CPT:[id number]
[2025-01-08] MEDS: Cefazolin 1 GM/5 ML Vial 2 GM IV (07:44)
[2025-01-08] MEDS: Lidocaine 1% (5 ml sdv) 5 ML Vial 10 ML IV (07:49)
[2025-01-08] MEDS: TAS 0.05% 1000 mls w/ LR OPERA.SITE (10:30)
[2025-01-08] MEDS: fentaNYL 100 MCG/2 ML Ampul 200 MCG IV (11:53)
--- NOTE | 2025-01-08 12:22 | PCM.POST.ANE ---
Anesthesia: Postop Eval I Current Vital Signs Temperature: 97.5 F Pulse Rate: 79 Blood Pressure: 125/72 Respiratory Rate: 14 Pulse Ox: 93 Oxygen Delivery Method: Room Air Assessment Airway patent: Yes Spontaneous unlabored respirations: Yes Mental status: Awake and Calm nausea: No Vomiting: No Anesthesia Complication: No Fluid Hydration Crystalloid volume administer (ml): 1,250 Total IV fluid infused: 1,250 Progress Note Anesthesia document: Postop Eval 1 completed: Yes
--- NOTE | 2025-01-08 14:30 | POSTOPAN2_ITS ---
Anesthesia Postop Eval I Sum Postop Eval Completion status Anesthesia document: Postop Eval 1 completed: Yes Anesthesia Postop Eval I Summary Anesthesia Postop Eval I Summary: Anesthesia Postop Eval I: Assessment Summary Airway patent Yes 01/08/25 12:23 [email or web address] Spontaneous unlabored Yes 01/08/25 12:23 [email or web address] respirations Mental status Awake,Calm 01/08/25 12:23 [email or web address] nausea No 01/08/25 12:23 [email or web address] Vomiting No 01/08/25 12:23 [email or web address] Anesthesia Postop Eval I: Fluid Summary Crystalloid volume administer 1,250 01/08/25 12:23 [email or web address] (ml) Colloids volume administered ( ml) Blood Product volume administered (ml) Total IV fluid infused 1,250 01/08/25 12:23 [email or web address] Anesthesia Postop Eval I: Summary Notes Anesthesia Complication No 01/08/25 12:23 [email or web address] Anesthesia Complication Comment: Post-operative progress note Anesthesia: Postop Eval II Evaluation Mental status: Awake Pain Level: 0 nausea: No Vomiting: No Complications Anesthesia Complication: No
--- NOTE | 2025-01-08 14:30 | PCM.POSTANE2 ---
Anesthesia Postop Eval I Sum Postop Eval Completion status Anesthesia document: Postop Eval 1 completed: Yes Anesthesia Postop Eval I Summary Anesthesia Postop Eval I Summary: Anesthesia Postop Eval I: Assessment Summary Airway patent Yes 01/08/25 12:23 [email or web address] Spontaneous unlabored Yes 01/08/25 12:23 AIRPLANE PILOT [email or web address] respirations Mental status Awake,Calm 01/08/25 12:23 AIRPLANE [email or web address] nausea No 01/08/25 12:23 AIRPLANE PILOT [email or web address] Vomiting No 01/08/25 12:23 AIRPLANE [email or web address] Anesthesia Postop Eval I: Fluid Summary Crystalloid volume administer 1,250 01/08/25 12:23 AIRPLANE [email or web address] (ml) Colloids volume administered ( ml) Blood Product volume administered (ml) Total IV fluid infused 1,250 01/08/25 12:23 AIRPLANE [email or web address] Anesthesia Postop Eval I: Summary Notes Anesthesia Complication No 01/08/25 12:23 AIRPLANE [email or web address] Anesthesia Complication Comment: Post-operative progress note Anesthesia: Postop Eval II Evaluation Mental status: Awake Pain Level: 0 nausea: No Vomiting: No Complications Anesthesia Complication: No
[2025-01-08] MEDS: 0.9% Saline Lock 10 ML Syringe IV (14:41)
--- NOTE | 2025-01-08 16:41 | OP.PCM_ITS ---
Operative Report (Standard) Operative Information Date of Procedure: 01/08/25 Pre-Operative Diagnosis: Macromastia Post-Operative Diagnosis: Same Surgery/Procedure Performed: 1) bilateral breast reduction with inferior pedicle and morfin-pattern skin reduction brim stretcher: Yes Medical Collector: Migdalia Montes De Oca Tasks completed by first aid trainer: Closing and Retracting Type of Anesthesia: General/Supplemental (20 cc of 0.25% Marcaine at the end of the case along the incisions ) RN Documented Start/Stop Times: Operation Date: 01/08/25 07:30 Case Time Into Pre-Op 01/08/25 06:04 Out of Pre-Op 01/08/25 07:35 Anesthesia Start 01/08/25 07:38 Into Room 01/08/25 07:38 Procedure Start 01/08/25 08:17 Procedure End 01/08/25 12:04 Anesthesia End 01/08/25 12:14 Out of Room 01/08/25 12:14 Into Recovery 01/08/25 12:19 Out of Recovery 01/08/25 14:06 Procedure Start Time: 08:17 Procedure Stop Time: 12:04 Select all DRAINS/GRAFTS/IMPLANTS that apply: Drains Drain details: Two 19 Fr Jasper drains Estimated Blood Loss: 100 cc Specimen collected: Yes Description of specimen(s) removed: Breast tissue from the right and left breasts Description of surgery: Indications: Patient is a delightful 49-year-old female with symptomatic macromastia. Presents today for breast reduction. I counseled her on the risks, benefits, and alternatives to the procedure. Procedure details: Patient was correctly identified in preoperative holding and marked. She is taken back to the operating room where she was administered general anesthesia a nd prepped and draped in sterile fashion. Timeouts were performed. Surgical Findings: Healthy appearing nipples at the completion of the case, no ischemia or congestion. Weights: Right breast 906 g reduction, 100 cc Lipo aspirate Left breast 426 g reduction, 100 cc Lipo aspirate Complications Complications: No
--- NOTE | 2025-01-08 16:41 | PCM.OPRPT ---
Operative Report (Standard) Operative Information Date of Procedure: 01/08/25 Pre-Operative Diagnosis: Macromastia Post-Operative Diagnosis: Same Surgery/Procedure Performed: 1) Bilateral breast reduction with inferior pedicle and saldana-pattern skin reduction belt dresser: Yes Validation Engineer: Migdalia Montes De Oca Tasks completed by certified first assistant: Closing and Retracting Type of Anesthesia: General/Supplemental (20 cc of 0.25% Marcaine along the incisions, 200 cc of tumescent solution (950 cc of LR mixed with 50 cc of 1% lidocaine mixed with 1 mg of epinephrine ) in the bilateral lateral chest wall and lateral breast/axilla) RN Documented Start/Stop Times: Operation Date: 01/08/25 07:30 Case Time Into Pre-Op 01/08/25 06:04 Out of Pre-Op 01/08/25 07:35 Anesthesia Start 01/08/25 07:38 Into Room 01/08/25 07:38 Procedure Start 01/08/25 08:17 Procedure End 01/08/25 12:04 Anesthesia End 01/08/25 12:14 Out of Room 01/08/25 12:14 Into Recovery 01/08/25 12:19 Out of Recovery 01/08/25 14:06 Procedure Start Time: 08:17 Procedure Stop Time: 12:04 Select all DRAINS/GRAFTS/IMPLANTS that apply: Drains Drain details: Two 19 Fr Jasper drains Estimated Blood Loss: 100 cc Specimen collected: Yes Description of specimen(s) removed: Breast tissue from the right and left breasts Description of surgery: Indications: Patient is a delightful 49-year-old female with symptomatic macromastia. Presents today for breast reduction. I counseled her on the risks, benefits, and alternatives to the procedure. Procedure details: Patient was marked in preoperative holding and taken back to the operating room where she was administered general anesthesia and the above-noted local and tumescent. He was given time to take effect. She was prepped and draped in sterile fashion all proper timeouts were performed per protocol. A 10 blade scalpel was used to excise the Saldana pattern grover on the Right breast (the larger breast) without committing to the superior nipple position. The inferior pedicle was then incised which was 10 cm wide. Bovie electrocautery was taken down to the chest through the breast tissue to develop the inferior pedicle. Dissection was then carried out above the fascia of the pectoralis muscle to nearly the level of the clavicle. The anticipated wedge resections medially and laterally were excised full-thickness with the Bovie electrocautery and the medial and lateral and superior aspects of the Saldana pattern flap was then dissected along the level of the breast parenchyma with Bovie electrocautery. The tissue was then grouped together and weighed and was 906 g. The same procedure was performed on the left side with a 426 g removal (the pedicled was several cm longer on the right side secondary to the baseline existing breast asymmetry). 100 cc was then aspirated from the bilateral axilla/lateral chest wall for further resection of tissue and to improve contour. Hemostasis obtained with Bovie electrocautery and the cavity was washed out with copious months normal saline. The flaps were then tacked into place with bandar and the patient was sat up. Following confirmation of adequate symmetry and reduction volume, we confirmed the nipple position that had been marked preoperatively and checked the nipple for viability. Both nipples were warm and well-perfused with less than 2-second capillary refill. We therefore excised the keyhole full-thickness so as to provide a position for the nipple (this was included in the above-noted weights). The cavity was irrigated with copious amounts normal saline and Irrisept. 19 [place] Jasper drains were tunneled out laterally. Hemostasis was confirmed with Bovie electrocautery. The Saldana pattern flaps and the nipples were then inset with 2-0 Vicryl deep parenchymal sutures on the vertical limbs, 3-0 Monocryl deep sutures. The nipple was further inset with 4-0 Monocryl running subcuticular sutures. Insorb was then used for the horizontal and vertical limbs for additional closure. 3-0 Monocryl running subcuticular sutures were then placed for the vertical and horizontal limbs as well as pernio tape/Dermabond. Steri-Strips were placed around the nipple. The nipples were warm and viable at the end of the case. Patient was awakened taken the PACU in stable condition. ABDs and a surgical bra were applied. She tolerated the procedure well. Postoperative plan: Patient was admitted postoperatively. Postoperative check at 4:30 PM with female public address technician demonstrated warm and well-perfused nipples without any signs of congestion or ischemia and no signs of hematoma. He has stable vital signs. Plan to keep overnight to monitor and discharge in the morning. Surgical Findings: Healthy appearing nipples at the completion of the case, no ischemia or congestion. Weights: Right breast 906 g reduction, 100 cc Lipo aspirate Left breast 426 g reduction, 100 cc Lipo aspirate Complications Complications: No
--- NOTE | 2025-01-08 18:22 | NURSING ---
drains not stripped this time
[2025-01-08] MEDS: 0.9% Normal Saline (250mL Bag) 250 ML IV (18:30)
[2025-01-08] MEDS: Cefazolin 2 GM in 0.9% Normal Saline (100mL Bag) 100 ML IV ×2 (18:30→21:32)
[2025-01-09] MEDS: 0.9% Saline Lock 10 ML Syringe IV (02:05)
[2025-01-09 04:49] VITALS: BP 113/67; PULSE 88; RESP 16; TEMP 36.6; O2SAT 96
[2025-01-09] MEDS: Cefazolin 2 GM in 0.9% Normal Saline (100mL Bag) 100 ML IV (05:01)
[2025-01-09 06:41] LABS: Hematocrit 25.6 % (37-47); Hemoglobin 8.7 g/dL (12.0-15.0); Immature Granulocytes Count 0.040 X10^3/uL (0.0-0.0); Mean Corp Hgb Conc 34.0 g/dL (32-36); Mean Corpuscular Volume 94.1 fL (81-99); Mean Platelet Vol. 10.5 fl (6.2-12.0); NRBC Flagged by Analyzer 0 % (0-5); Platelet Count 111 K/mm3 (150-450); RBC Distribution Width CV 12.8 % (11.6-14.6); RBC Distribution Width SD 44.3 fl (35.1-43.9); Red Blood Count 2.72 M/mm3 (4.2-5.4); White Blood Count 9.9 K/mm3 (4.4-11.0)
[2025-01-09 08:53] VITALS: BP 138/67; PULSE 84; RESP 16; TEMP 36.4; O2SAT 98
[2025-01-09 09:38] VITALS: BP 122/78; PULSE 60; RESP 17; TEMP 36.6; O2SAT 95
--- NOTE | 2025-01-09 09:38 | PCM.PN.SRG ---
Subjective Subjective Doing well. Pain controlled. Some N/V last night, but able to eat breakfast this morning without any problems. Feeling much better. Objective Data Objective Data Vital Signs: Vital Signs Temp Pulse Resp BP Pulse Ox O2 Del Method O2 Flow Rate 97.6 F L 84 16 138/67 H 98 Room Air 2 01/09/25 08:53 01/09/25 08:53 01/09/25 08:53 01/09/25 08:53 01/09/25 08:53 01/09/25 08:53 01/08/25 12:30 Oxygen Flow Rate (L/min) 2 Oxygen Delivery Method Room Air Weight: 212 lb 4.882 oz Body Mass Index (BMI) 34.2 Intake & Output: Intake and Output for Last 24 Hours 01/07/25 01/08/25 01/09/25 23:59 23:59 23:59 Intake Total 1250.58 / 1250.58 460 / 460 Output Total 1245 / 1245 54 / 54 Balance 5.58 / 5.58 406 / 406 Lab / Micro Data 01/09/25 06:06 01/04/25 12:36 Labs: Laboratory Results - last 24 hr 01/08/25 16:07: POC Glucose 157 H 01/08/25 21:26: POC Glucose 188 H 01/09/25 02:13: POC Glucose 193 H 01/09/25 06:06: WBC 9.9, RBC 2.72 L, Hgb 8.7 L, Hct 25.6 L, MCV 94.1, MCH 32.0, MCHC 34.0, RDW Std Deviation 44.3 H, RDW Coeff of Delio 12.8, Plt Count 111 L, MPV 10.5, Immature Gran % (Auto) 0.400, Neut % (Auto) 79.5 H, Lymph % (Auto) 11.4 L, Sanders % (Auto) 8.5, Eos % (Auto) 0.0, Baso % (Auto) 0.2, Absolute Neuts (auto) 7.9 H, Absolute Lymphs (auto) 1.13, Nucleated RBC % 0 01/09/25 06:39: POC Glucose 117 H Physical Exam Narrative FM surgical instruments inspector present No hematoma. Soft bilaterally on chest. Drains SS. Nipples warm and viable. Sensatoin intact. <2 second capillary refill on nipples without any congestion. Extremity Extremity Narrative: SCDs on and activated. No swelling. Assessment & Plan Assessment/Plan (1) Macromastia: PLAN: Expected course Drain care teaching before DC F/u in clinic DC today
--- NOTE | 2025-01-09 10:12 | CASEMGMT ---
EMANUEL CM into pt room, pt sitting up in bed with visitor at bedside. Pt denies any homegoing needs at this time. Pt states she has been instructed on drain care and feels comfortable with managing this at home. Pt denies any further questions and is ready for dc.
== END 2025-01-09 11:12 | disposition home or self-care (01) ==
LOC: SDC 12:06 → MS3 12:06
PROVIDERS: Anesthesiology; Admitting Provider Surgery Plastic and Reconstructive Surgery; PCP Family Medicine; Referring Provider Surgery Plastic and Reconstructive Surgery; Visit Provider Surgery Plastic and Reconstructive Surgery
PROC: 0H0U0ZZ Alteration of Left Breast, Open Approach (ICD-10-PCS; CPT 19318; principal; 2025-01-08 07:15)
DX: N62 Hypertrophy of breast (principal); M06.9 Rheumatoid arthritis, unspecified; Z79.4 Long term (current) use of insulin; E11.42 Type 2 diabetes mellitus with diabetic polyneuropathy; Z79.85 Long-term (current) use of injectable non-insulin antidiabetic drugs; Z79.84 Long term (current) use of oral hypoglycemic drugs; Z87.891 Personal history of nicotine dependence; Z79.899 Other long term (current) drug therapy; Z86.14 Personal history of Methicillin resistant Staphylococcus aureus infection; Q27.39 Arteriovenous malformation, other site
CPT/HCPCS: 19318; 36415; 80048; 82962; 85025; 85610; 85730; 88305; 88341; 88342; 93005; 94668; 96365; 96366; 96375; 99221; A4216; G0378; J2405

== ENCOUNTER → 2025-04-24 | Outpatient (CLI) | payer OTHER, SELFPAY ==
[2025-04-24 13:46] LABS: Hematocrit 37.3 % (37-47); Hemoglobin 12.4 g/dL (12.0-15.0); Immature Granulocytes Count 0.020 X10^3/uL (0.0-0.0); Mean Corp Hgb Conc 33.2 g/dL (32-36); Mean Corpuscular Volume 93.3 fL (81-99); Mean Platelet Vol. 9.9 fl (6.2-12.0); NRBC Flagged by Analyzer 0 % (0-5); Platelet Count 134 K/mm3 (150-450); RBC Distribution Width CV 11.9 % (11.6-14.6); RBC Distribution Width SD 41.0 fl (35.1-43.9); Red Blood Count 4.00 M/mm3 (4.2-5.4); White Blood Count 6.0 K/mm3 (4.4-11.0)
[2025-04-24 14:35] LABS: Creatinine, Urine (random) 114.00 mg/dL (28.00-217.00); Microalbumin,Random Urine 62.1 mg/L (<20 mg/L)
[2025-04-24 14:43] LABS: AST(SGOT) 27 U/L (<=31); Alanine Aminotransfer ALT/SGPT 20 U/L (<=34); Albumin, Serum 4.1 g/dL (3.5-5.0); Alkaline Phosphatase 86 U/L (35-104); Anion Gap 9 (5-15); BUN 15 mg/dL (4-19); BUN/Creat Ratio 19.7 RATIO (10-20); Calcium,Total 9.1 mg/dL (7.6-11.0); Carbon Dioxide 27.4 mmol/L (21.0-32.0); Chloride 104 mmol/L (98-108); Cholesterol 184 mg/dL (<=200); Ferritin 101 ng/mL (22-378); Globulin 3.1 g/dL (2.2-4.2); Glucose 109 mg/dL (70-99); Low Density Lipoprotein Calc. 113 mg/dL; Potassium 4.0 mmol/L (3.3-5.1); Triglycerides 74 mg/dL; Very Low Density Lipoprotein 15 mg/dL (5-40); Vitamin D,25 Hydroxy 21.4 ng/mL (30-100); cholesterol:hdl ratio screen 3.19
== END | disposition home or self-care (01) ==
LOC: LAB 13:11
PROVIDERS: PCP Family Medicine; Referring Provider Nurse Practitioner Family; Visit Provider Nurse Practitioner Family
DX: I10 Essential (primary) hypertension (principal); E11.42 Type 2 diabetes mellitus with diabetic polyneuropathy
CPT/HCPCS: 36415; 80053; 80061; 82043; 82306; 82570; 82728; 84443; 85025; 86376